=== PATIENT | female | born 1945 | race Caucasian/White ===

== ENCOUNTER 2023-12-02 10:50 | Emergency (ER) | payer MEDICARE, SELFPAY ==
--- NOTE | ~2023-12-02 | CT_ITS ---
EXAMINATION: CT abdomen pelvis w con DATE: 12/02/2023 12:19 INDICATION: Emesis. Constipation. Nausea. TECHNIQUE: Computed tomography (CT) of the abdomen and pelvis was performed with 100 mL Omnipaque 350 intravenous contrast. Automated exposure control and iterative reconstruction technique were employe d. The dose-length product was 737.17 mGy-cm. COMPARISON: None. FINDINGS: The visualized portions of the lung bases demonstrate mild atelectasis. No pleural effusion . The heart size is normal. There are coronary artery calcifications. No pericardial effusion. There is a small sliding hiatal hernia. The liver, gallbladder, spleen, pancreas, and adrenal glands are no rmal. There is cortical thinning of the kidneys. There are cysts in the kidneys measuring up to 2.6 c m on the right. There are 3 mm and 5 mm stones in right renal pelvis. Stool distends the rectum. The appendix is not visualized. There is calcified atherosclerosis of the aorta and many of the other art eries. There are no pathologically enlarged lymph nodes. There is no free intraperitoneal fluid. The bladder is decompressed by a Cabral catheter. There is moderate lumbar spondylosis. Lumbar levoscolios is is noted. IMPRESSION: 1. Stool distends the rectum. 2. Small sliding hiatal hernia. Reviewed, dictated and finalized at location A.
[2023-12-02 10:54] VITALS: BP 153/74; PULSE 90; RESP 34; O2SAT 99
[2023-12-02 11:01] VITALS: BP 153/74; PULSE 86; RESP 18; O2SAT 100
[2023-12-02 11:30] LABS: Basophils Absolute Auto 0.1 K/mm3 (0.0-0.1); Basophils Percent Auto 0.4 % (0.2-1.2); Eosinophils Percent Auto 0.1 % (0-4.4); Hematocrit 41.9 % (37.0-47.0); Hemoglobin 13.7 g/dL (12.0-15.0); Immature Granulocyte Absolute 0.09 K/mm3 (0.00-0.031); Immature Granulocyte Percent A 0.5 % (0-0.5); Lymphocytes Absolute Auto 1.31 K/mm3 (0.9-3.2); Lymphocytes Percent Auto 7.9 % (18.3-44.2); Mean Corpuscular HGB Conc 32.7 g/dl (32-36); Mean Corpuscular Hemoglobin 28.8 pg (26-34); Mean Platelet Volume 10.6 fl (7.4-10.4); Monocytes Absolute Auto 0.7 K/mm3 (0.1-0.6); Monocytes Percent Auto 4.1 % (2.6-8.5); Neutrophils Absolute Auto 14.3 K/mm3 (1.3-6.7); Platelet Count Result 460 k/mm3 (150-375); Red Blood Count 4.76 M/mm3 (4.2-5.4); Red Cell Distribution Width 13.8 % (11.5-14.5); White Blood Count 16.5 K/mm3 (4.5-10.0)
[2023-12-02 11:41] LABS: Alanine Aminotransferase 13 U/L (6-35); Albumin Level 4.3 g/dL (3.5-5.1); Alkaline Phosphatase 101 U/L (38-126); Anion Gap 9 mmol/L (4-12); Aspartate Amino Transferase 20 U/L (14-36); Bilirubin,Total 0.6 mg/dL (0.2-1.3); Blood Urea Nitrogen 25 mg/dL (7-17); Calcium 9.1 mg/dL (8.4-10.2); Carbon Dioxide 26 mmol/L (22-30); Chloride 106 mmol/L (98-107); Estimated CRCL calculation 44 ml/min; Estimated Glomerular Filt Rate 54; Glucose 268 mg/dL (65-110); Potassium 4.2 mmol/L (3.4-5.0); Prothrombin Time 13.2 Seconds (11.1-14.7); Sodium 141 mmol/L (137-145)
[2023-12-02 11:42] LABS: Partial Thromboplastin Time 29.3 Seconds (22.3-36.8)
--- NOTE | 2023-12-02 11:47 | ED.GENADULT ---
HPI - General Adult General Chief complaint: Nausea/Vomiting/Diarrhea Stated complaint: coffee ground emesis Time Seen by Provider: 12/02/23 11:03 History of Present Illness HPI narrative: 78-year-old female presenting to the emergency department for evaluation for nausea vomiting. Patient states this morning she was having some nausea vomiting was not feeling well. Patient states that the nausea and vomiting has improved patient denies any abdominal pain. Patient was suspected to have some coffee-ground emesis but patient has had no further emesis in the emergency department. Related Data Allergies Allergy/AdvReac Type Severity Reaction Status Date / Time Penicillins Allergy Unknown Verified 12/02/23 11:33 Sulfa (Sulfonamide Allergy Unknown Verified 12/02/23 11:33 Antibiotics) trazodone Allergy Unknown Verified 12/02/23 11:33 Review of Systems Review of Systems: All systems reviewed & are unremarkable except as noted in HPI and below Exam Narrative: APPEARANCE: Well appearing, no pain, no distress, well-nourished. HEAD: normocephalic, atraumatic. EYES: PERRLA/EOMI, conjunctivae clear. NOSE: Normal no drainage EARS:TMS clear with good light reflex. THROAT: Pharynx clear, no exudate. NECK: Supple. No adenopathy, no masses. RESPIRATORY: Airway patent, respirations nonlabored. Clear to auscultation bilaterally, no rales, rhonchi, wheezing. CARDIOVASCULAR: Regular rate and rhythm without murmurs rubs or gallops. ABDOMINAL: Soft, nontender, nondistended, normal bowel sounds Rectal: Hemoccult negative stool MUSCULOSKELETAL: Moves all extremities. Strength/ROM intact, No edema, No calf tenderness. NEURO: Alert. Cranial nerves II through XII intact. Grossly intact SKIN: Warm, dry. Normal Color Course Vital Signs Vital signs: Vital Signs Pulse Rate 90 12/02/23 10:54 Respiratory Rate 34 H 12/02/23 10:54 Blood Pressure 153/74 H 12/02/23 10:54 Pulse Oximetry 99 12/02/23 10:54 Oxygen Delivery Room Air 12/02/23 10:54 Pulse Rate 84 12/02/23 14:20 Respiratory Rate 20 12/02/23 14:20 Blood Pressure 140/67 12/02/23 14:20 Pulse Oximetry 98 12/02/23 14:20 Oxygen Delivery Room Air 12/02/23 10:54 Medical Decision Making MDM Narrative Medical decision making narrative: 78-year-old female presented to the emergency department for evaluation for nausea and vomiting. Upon arrival emergency department patient's nausea vomiting was resolved. Patient is afebrile but does have a leukocytosis of 16.5 and a stable hemoglobin. No acute abnormalities on the patient's CMP patient's urine was positive for leuk esterase and greater than 100 white blood cells with +4 bacteria. Patient is being started on antibiotics for urinary tract infection. CT abdomen pelvis showed stool in the rectum and a sliding hernia. Patient was updated the results of her workup and felt improved. Patient was requesting discharge back to her care facility. Patient was discharged on antibiotics and also provided Zofran for nausea control. Differential Diagnosis Differential Diagnosis: Urinary tract infection, nausea, vomiting, colitis, diverticulitis, appendicitis Vital Signs Vital Signs: Vital Signs Pulse Rate 90 12/02/23 10:54 Respiratory Rate 34 H 12/02/23 10:54 Blood Pressure 153/74 H 12/02/23 10:54 Pulse Oximetry 99 12/02/23 10:54 Oxygen Delivery Room Air 12/02/23 10:54 Pulse Rate 84 12/02/23 14:20 Respiratory Rate 20 12/02/23 14:20 Blood Pressure 140/67 12/02/23 14:20 Pulse Oximetry 98 12/02/23 14:20 Oxygen Delivery Room Air 12/02/23 10:54 Lab Data Lab results reviewed: Yes I reviewed the patient's lab results. 12/02/23 11:23 12/02/23 11:23 Labs: Lab Results 12/02/23 12/02/23 Range/Units 11:23 13:00 WBC 16.5 H (4.5-10.0) K/mm3 RBC 4.76 (4.2-5.4) M/mm3 Hgb 13.7 (12.0-15.0) g/dL Hct 41.9 (37.0-47.0) % MCV 88.0 (
[2023-12-02 12:33] VITALS: BP 125/71; PULSE 83; RESP 18; O2SAT 98
[2023-12-02 13:10] VITALS: BP 141/70; PULSE 82; RESP 14; O2SAT 97
[2023-12-02 13:35] LABS: Appearance Urine Cloudy (Clear); Bacteria Urine 4+ /hpf; Bilirubin Urine Negative (Negative); Blood Urine Negative (Negative); Color Urine Yellow (Yellow); Glucose Urine UA Negative (Negative); Ketones Urine Negative (Negative); Leukocyte Esterase Ur 2+ LEU/UL (Negative); Need Manual Microscopic Reviewed; Nitrate Urine Negative (Negative); Protein Urine Trace mg/dL (Negative); RBC Urine 0-2 /hpf (0-2); Specific Grav Ur 1.021 (1.001-1.035); Squamous Epithelial Cell Urine None Seen /hpf (Few); WBC Urine 51-100 /hpf (0-3); pH Urine 5.5 (5.0-9.0)
[2023-12-02 13:36] LABS: Add Urine Microscopic? YES; Amorphous Sediment Urine Moderate
[2023-12-02] MEDS: levoFLOXacin 500 MG TABLET PO (14:16)
[2023-12-02 14:20] VITALS: BP 140/67; PULSE 84; RESP 20; O2SAT 98
== END 2023-12-02 15:34 ==
PROVIDERS: Emergency Provider Emergency Medicine
DX: N39.0 Urinary tract infection, site not specified (principal); R11.2 Nausea with vomiting, unspecified; K44.9 Diaphragmatic hernia without obstruction or gangrene
CPT/HCPCS: 36415; 51702; 74177; 80053; 81001; 85025; 85610; 85730; 86850; 86900; 86901; 87077; 87086; 87088; 87186; 99284; A9270; Q9967

== ENCOUNTER 2023-12-24 17:04 | Inpatient (IN) | payer MEDICARE, SELFPAY ==
[2023-12-24] VITALS (12 sets, daily range): BP systolic 122–177; BP diastolic 72–83; PULSE 103–131; RESP 18–23; TEMP 37.1–37.4; O2SAT 94–99
--- NOTE | ~2023-12-24 | XR_ITS ---
EXAMINATION: XR chest 1V portable DATE: 12/26/2023 08:00 INDICATION: Pulmonary infiltrates TECHNIQUE: frontal view of the chest was obtained. COMPARISON: Chest radiograph dated 12/24/2023 FINDINGS: No significant change in predominantly linear opacities in the bilateral lower lung zones most likely atelectasis/scarring. No new airspace opacities, pulmonary edema, pleural effusion or pneumothorax. The cardiomediastinal silhouette is normal. IMPRESSION: 1. Persistent linear opacities in bilateral lower lungs most likely atelectasis/scarring with differe ntial including less likely pneumonia Reviewed, dictated and finalized at location A. IMPRESSION: 1. Persistent linear opacities in bilateral lower lungs most likely atelectasis /scarring with differential including less likely pneumonia
--- NOTE | ~2023-12-24 | XR_ITS ---
EXAMINATION: XR chest 2V DATE: 12/27/2023 16:01 INDICATION: Abnormal lung exam TECHNIQUE: frontal and lateral views of the chest were obtained. COMPARISON: Chest radiograph dated 12/26/2023 FINDINGS: Opacities in the bilateral lower lung zones. This appears to include potentially small posterior locu lated pleural effusion, more likely on the right. The bilateral mid and upper lung zones are clear wi th no pulmonary edema or pneumothorax. Arch size is normal. Mild thoracic dextroscoliosis. IMPRESSION: 1. Opacities in the bilateral lower lung zones consistent with atelectasis and/or pneumonia. 2. Likely loculated pleural effusion projecting over the posterior lower lungs on the lateral project ion more likely on the right. Reviewed, dictated and finalized at location A. IMPRESSION: 1. Opacities in the bilateral lower lung zones consistent with atelectasis and/ or pneumonia. 2. Likely loculated pleural effusion projecting over the posterior lower lungs on the lateral projection more likely on the right.
--- NOTE | ~2023-12-24 | XR_ITS ---
EXAMINATION: XR chest 1V portable DATE: 12/24/2023 20:42 INDICATION: Leukocytosis TECHNIQUE: frontal view of the chest was obtained. COMPARISON: CT dated 12/02/2023 FINDINGS: Opacities in bilateral lower lungs which appears similar in configuration as on the prior CT most lik madelyn atelectasis/scarring. No pulmonary edema, pleural effusion or pneumothorax. The cardiomediastinal silhouette is normal. Mild lower thoracic dextrocurvature. IMPRESSION: 1. Persistent opacities in bilateral lower lungs most likely atelectasis/scarring although difficult to exclude superimposed pneumonia. Reviewed, dictated and finalized at location A. IMPRESSION: 1. Persistent opacities in bilateral lower lungs most likely atelectasis/scarri ng although difficult to exclude superimposed pneumonia.
[2023-12-24 17:19] LABS: Glucose Point of Care > 500 mg/dl (65-105)
[2023-12-24 17:57] LABS: Alveolar/Arterial O2 Gradient 45.6 mmHg; Base Excess ABG -4.9 mEq/l (+/-2.0); Carboxyhemoglobin 0.8 % THb (0-2.0); Fractional Inspired Oxygen 21 %; HCO3 ABG 16.7 mEq/l (22.0-26.0); Methemoglobin ABG 0.2 %THb (0-1.5); Oxygen Content ABG 19.3 %vol (16.0-22.0); Oxygen Saturation ABG 96.2 % (95.0-100.0); PO2 FiO2 Ratio Arterial Blood 3.62 %; Total Hemoglobin 14.4 g/dL (12.0-18.0)
--- NOTE | 2023-12-24 17:57 | ED.GENADULT ---
HPI - General Adult General Chief complaint: Nausea/Vomiting/Diarrhea Stated complaint: N/V Time Seen by Provider: 12/24/23 17:39 History of Present Illness HPI narrative: 78-year-old female presented to the emergency department for evaluation for nausea vomiting elevated blood sugar. Patient resides at [facility] and does have COPD, dementia and type 2 diabetes at baseline. When EMS picked up the patient she had a blood sugar of greater than 500. Patient does report she feels thirsty but denies any other complaints. Related Data Allergies Allergy/AdvReac Type Severity Reaction Status Date / Time Penicillins Allergy Unknown Verified 12/02/23 11:33 Sulfa (Sulfonamide Allergy Unknown Verified 12/02/23 11:33 Antibiotics) trazodone Allergy Unknown Verified 12/02/23 11:33 Review of Systems Review of Systems: All systems reviewed & are unremarkable except as noted in HPI and below Exam Narrative: APPEARANCE: No distress HEAD: normocephalic, atraumatic. EYES: PERRLA/EOMI, conjunctivae clear. NOSE: Normal no drainage EARS:TMS clear with good light reflex. THROAT: Pharynx clear, no exudate. NECK: Supple. No adenopathy, no masses. RESPIRATORY: Airway patent, respirations nonlabored. Clear to auscultation bilaterally, no rales, rhonchi, wheezing. CARDIOVASCULAR: Regular rate and rhythm without murmurs rubs or gallops. ABDOMINAL: Soft, nontender, nondistended, normal bowel sounds MUSCULOSKELETAL: Moves all extremities. Strength/ROM intact, No edema, No calf tenderness. NEURO: Alert. Cranial nerves II through XII intact. Good gait. Good coordination SKIN: Warm, dry. Normal Color Course Course Emergency Course: Patient was admitted to the ICU for in DKA. Patient's potassium was replaced Vital Signs Vital signs: Vital Signs Temperature 98.8 F 12/24/23 17:06 Pulse Rate 120 H 12/24/23 17:06 Respiratory Rate 12/24/23 17:06 Blood Pressure 151/76 H 12/24/23 17:06 Pulse Oximetry 97 12/24/23 17:06 Oxygen Delivery Room Air 12/24/23 17:06 Temperature 98.8 F 12/24/23 17:06 Pulse Rate 123 H 12/24/23 20:05 Respiratory Rate 12/24/23 20:05 Blood Pressure 156/72 H 12/24/23 20:05 Pulse Oximetry 97 12/24/23 20:05 Oxygen Delivery Room Air 12/24/23 17:06 Medical Decision Making MDM Narrative Medical decision making narrative: 78-year-old female presents to the emergency department for evaluation for hyper glycemia. Patient was in DKA. Patient does have an elevated leukocytosis of 25.4 and hemoglobin of 14.4. Patient click have with 528. Patient does have a mild KEELEY with a creatinine of 1.1 with his normally 1.0. Patient does have an elevated beta hydroxybutyrate at 1.2. Patient's potassium was 3.3 and this was replaced both IV and p.o.. Skill Training Program Coordinator was consulted and patient will be admitted to the ICU with an insulin drip. Hospitalist was consulted. The results of workup plan for admission. All questions concerns were addressed. Differential Diagnosis Differential Diagnosis: Hyperglycemia, DKA, KEELEY, urinary tract infection, COVID, RSV, influenza Vital Signs Vital Signs: Vital Signs Temperature 98.8 F 12/24/23 17:06 Pulse Rate 120 H 12/24/23 17:06 Respiratory Rate 20 12/24/23 17:06 Blood Pressure 151/76 H 12/24/23 17:06 Pulse Oximetry 97 12/24/23 17:06 Oxygen Delivery Room Air 12/24/23 17:06 Temperature 98.8 F 12/24/23 17:06 Pulse Rate 123 H 12/24/23 20:05 Respiratory Rate 20 12/24/23 20:05 Blood Pressure 156/72 H 12/24/23 20:05 Pulse Oximetry 97 12/24/23 20:05 Oxygen Delivery Room Air 12/24/23 17:06 Lab Data 12/24/23 18:05 12/24/23 18:04 Labs: Lab Results 12/24/23 12/24/23 12/24/23 Range/Units 17:16 17:53 18:04 WBC (4.5-10.0) K/mm3 RBC (4.2-5.4) M/mm3 Hgb (12.0-15.0) g/dL Hct (37.0-47.0) % MCV (80-100) fl MCH (26-34) pg MCHC (32-36) g/dl RDW (1
[2023-12-24 18:03] LABS: Device ROOM AIR; Modified Allen's Test Pass; PCO2 ABG 23.5 mmHg (35.0-45.0); Site Drawn RIGHT RADIAL
[2023-12-24] MEDS: SODIUM CHLORIDE 0.9% IV 1,000 ML 999 ML IV CONT (18:13)
[2023-12-24 18:19] LABS: Hematocrit 43.4 % (37.0-47.0); Hemoglobin 14.4 g/dL (12.0-15.0); Mean Corpuscular HGB Conc 33.2 g/dl (32-36); Mean Corpuscular Hemoglobin 29.3 pg (26-34); Mean Corpuscular Volume 88.2 fl (80-100); Mean Platelet Volume 11.2 fl (7.4-10.4); Platelet Count Result 494 k/mm3 (150-375); Red Blood Count 4.92 M/mm3 (4.2-5.4); Red Cell Distribution Width 13.9 % (11.5-14.5); White Blood Count 25.4 K/mm3 (4.5-10.0)
[2023-12-24] MEDS: METOCLOPRAMIDE HCL INJ 10 MG/2 ML VIAL IV PUSH (18:24)
[2023-12-24 18:33] LABS: Beta-Hydroxybutyrate/Acetoacetate 1.22 mmol/L (0.02-0.27)
[2023-12-24 18:34] LABS: Magnesium 1.3 mg/dL (1.6-2.3); Phosphorus 3.4 mg/dL (2.5-4.5)
[2023-12-24 18:36] LABS: Appearance Urine Clear (Clear); Bilirubin Urine Negative (Negative); Blood Urine Negative (Negative); Color Urine Yellow (Yellow); Glucose Urine UA 3+ mg/dL (Negative); Ketones Urine 3+ mg/dL (Negative); Leukocyte Esterase Ur Negative LEU/UL (Negative); Nitrate Urine Negative (Negative); Protein Urine Negative (Negative); Specific Grav Ur 1.024 (1.001-1.035); Urobilinogen Urine 0.2 mg/dL (<2.0)
[2023-12-24 18:37] LABS: Alanine Aminotransferase 24 U/L (6-35); Albumin Level 4.7 g/dL (3.5-5.1); Alkaline Phosphatase 121 U/L (38-126); Anion Gap 23 mmol/L (4-12); Aspartate Amino Transferase 27 U/L (14-36); Bilirubin,Total 1.2 mg/dL (0.2-1.3); Blood Urea Nitrogen 20 mg/dL (7-17); Calcium 9.6 mg/dL (8.4-10.2); Carbon Dioxide 18 mmol/L (22-30); Chloride 96 mmol/L (98-107); Estimated CRCL calculation 42 ml/min; Estimated Glomerular Filt Rate 48; Glucose 528 mg/dL (65-110); Lipase 42 U/L (23-300); Potassium 3.3 mmol/L (3.4-5.0); Sodium 137 mmol/L (137-145)
[2023-12-24 18:38] LABS: Add Urine Microscopic? NO
[2023-12-24 18:44] LABS: Band Neutrophils Percent 1 % (0-6); Lymphocytes Absolute Manual 1.01 K/mm3 (1.1-4.5); Monocytes Absolute Manual 0.25 K/mm3 (0.1-0.90); Monocytes Percent Manual 1 % (3-9); Neutrophils Absolute Manual 24.13 K/mm3 (1.7-7.2); Neutrophils Percent Manual 94 % (46-73); Total Cells Counted 100
[2023-12-24 18:45] LABS: Platelet Estimate Increased (Adequate); Schistocytes None Seen
[2023-12-24 18:55] LABS: Influenza A QL RT-PCR Negative (Negative); Influenza B QL RT-PCR Negative (Negative); RSV RNA, RT-PCR Negative (Negative); SARS-CoV-2 RNA PCR Negative (Negative)
[2023-12-24] MEDS: POTASSIUM CHLORIDE INJ 40 MEQ in SODIUM CHLORIDE 0.9% IV 500 ML 130 MEQ IVPB (19:41)
[2023-12-24] MEDS: INSULIN HUMAN REGULAR (*BKC) 100 UNITS/ML 12 UNITS IV PUSH (19:41)
[2023-12-24] MEDS: POTASSIUM CHLORIDE 20 MEQ ER TABLET 40 MEQ PO (19:41)
[2023-12-24] MEDS: INSULIN HUMAN REGULAR (*BKC) 100 UNITS in SODIUM CHLORIDE 0.9% IV 99 ML 8.05 UNITS IV CONT (19:42)
[2023-12-24 20:23] LABS: Hemoglobin A1C 8.3 % (<5.7)
--- NOTE | 2023-12-24 20:45 | PC.NURSE ---
Pt had episode of emesis, still c/o nausea.
[2023-12-24 20:58] LABS: Glucose Point of Care 424 mg/dl (65-105)
[2023-12-24] MEDS: ONDANSETRON INJ 4 MG/2 ML VIAL IV PUSH (21:04)
[2023-12-24 21:15] LABS: Anion Gap 23 mmol/L (4-12); Blood Urea Nitrogen 20 mg/dL (7-17); Carbon Dioxide 14 mmol/L (22-30); Chloride 102 mmol/L (98-107); Estimated CRCL calculation 42 ml/min; Estimated Glomerular Filt Rate 48; Glucose 469 mg/dL (65-110); Magnesium 1.3 mg/dL (1.6-2.3); Phosphorus 2.7 mg/dL (2.5-4.5); Potassium 3.2 mmol/L (3.4-5.0); Sodium 139 mmol/L (137-145)
--- NOTE | 2023-12-24 21:20 | PM.IMHP ---
H&P: HPI History of Present Illness Date/Time: 12/24/23 21:20 Chief Complaint: Nausea, Vomiting Narrative: 78-year-old female presents here with nausea and vomiting with PMH of diabetes, COPD, GERD, dementia, and HTN. The patient presents here from [facility] via EMS for further evaluation of nausea and vomiting. Symptoms started around overnight last night and resolved. Returned today around noon. PAtient is unsure if she has had any adjustments to her diabetes medications. She endorses accompanying midsternal chest pain. Chest pain developed shortly after the nausea and vomiting. Pain has been constant, no alleviating/aggravating factors, nonradiating, and she describes it as if someone hit her in the chest. Denies abdominal pain, polydipsia, polyruia, or shortness of breath. Initial glucose for EMS was 515 and upon arrival patient was >500. Initial VS at presentation: 98.8? F, HR 120, RR 20, 151/76, and 97% on RA. ED workup showed: WBC 25.4, ABG showed pH of 7.470, potassium 3.3, creatinine 1.1 and GFR 48, gap 23, glucose 528, A1c 8.3, magnesium 1.3, beta hydroxy 1.22, and UA showed 3+ glucose and 3+ ketones otherwise unremarkable. CXR showed persistent opacities in the bilateral lobes most likely atelectasis / scarring although difficult to exclude superimposed pneumonia. 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 Social History Social History Alcohol intake: never Substance use: never Substance use type: does not use Do You Feel Safe in your Home?: Yes Lack of Transportation: No Lack of Food: Never True Current Housing: I Have Housing Concerned About Future Housing: No Difficulty Paying Gas/Electric Bills: No Difficulty Paying for Meds: No Currently Unemployed: No Education: High School Diploma/GED Difficulty w/ Childcare or Family Care: No Spiritual care concerns: No Meds Home Medications and Allergies Home Medications Medication Instructions Recorded Confirmed Type ondansetron 4 mg disintegrating 4 mg PO Q8H PRN nausea and 12/02/23 12/24/23 Rx tablet vomiting #14 tabs acetaminophen 325 mg chewable 650 mg PO Q6H PRN Pain 12/24/23 12/24/23 History tablet amlodipine 5 mg tablet 5 mg PO DAILY 12/24/23 12/24/23 History aspirin 81 mg chewable tablet 81 mg PO DAILY 12/24/23 12/24/23 History atorvastatin 10 mg tablet (Lipitor) 10 mg PO DAILY 12/24/23 12/24/23 History bisacodyl 10 mg rectal suppository 10 mg RECTAL DAILY PRN Constipation 12/24/23 12/24/23 History cranberry fruit 450 mg tablet 450 mg PO DAILY 12/24/23 12/24/23 History (cranberry) escitalopram oxalate 5 mg tablet 5 mg PO DAILY 12/24/23 12/24/23 History glucagon 1 mg solution for 1 mg IM PRN PRN Hypoglycemia 12/24/23 12/24/23 History injection (GlucaGen HypoKit) insulin glargine 100 unit/mL 27 unit subcut BID 12/24/23 12/24/23 History subcutaneous solution (Lantus U-100 Insulin) magnesium hydroxide 400 mg/5 mL 30 ml PO DAILY PRN Constipation 12/24/23 12/24/23 History oral suspension (Milk of Magnesia) memantine 28 mg capsule 28 mg PO DAILY 12/24/23 12/24/23 History sprinkle,extended release 24hr metoprolol tartrate 25 mg tablet 25 mg PO BID 12/24/23 12/24/23 History mirtazapine 15 mg tablet 15 mg PO DAILY 12/24/23 12/24/23 History m
[2023-12-24 22:25] LABS: Glucose Point of Care 395 mg/dl (65-105)
[2023-12-24 22:54] LABS: Anion Gap 21 mmol/L (4-12); Blood Urea Nitrogen 20 mg/dL (7-17); Calcium 9.2 mg/dL (8.4-10.2); Carbon Dioxide 16 mmol/L (22-30); Chloride 105 mmol/L (98-107); Estimated CRCL calculation 37 ml/min; Estimated Glomerular Filt Rate 48; Glucose 366 mg/dL (65-110); Potassium 3.2 mmol/L (3.4-5.0); Sodium 142 mmol/L (137-145)
[2023-12-24] MEDS: INSULIN HUMAN REGULAR (*BKC) 100 UNITS in SODIUM CHLORIDE 0.9% IV 99 ML 10.5 UNITS IV CONT (23:15)
[2023-12-24 23:27] LABS: Glucose Point of Care 326 mg/dl (65-105)
[2023-12-25] VITALS (16 sets, daily range): BP systolic 100–177; BP diastolic 53–130; PULSE 109–125; RESP 19–28; TEMP 37.3–37.8; O2SAT 94–98
--- NOTE | 2023-12-25 00:31 | ADMGEN ---
This patient, Donna Cobb, was admitted to Intensive Care Unit-7 at 2121. Patient/family oriented to hospital policies and general routines including ID bracelet, bed and alarms, visiting hours, pain management, procedures, bathroom and other care routines, personal items, smoking policy, room service/diet, and visiting hours. Information on how to activate the Rapid Response Team has been discussed. Patient/Family are encouraged to report perceived risks to care and to ask questions if they do not understand what they are told or what they should do.
[2023-12-25] MEDS: MAGNESIUM SULF 1 GM/D5W 100 ML 1 GM/100 ML BAG IVPB (00:32)
[2023-12-25 00:44] LABS: Glucose Point of Care 278 mg/dl (65-105)
[2023-12-25] MEDS: POTASSIUM CHLORIDE 20 MEQ PACKET (FOR LIQUID) 40 MEQ PO (00:51)
[2023-12-25] MEDS: ONDANSETRON INJ 4 MG/2 ML VIAL IV PUSH ×4 (00:51→20:30)
[2023-12-25] MEDS: SODIUM CHLORIDE 0.9% IV 1,000 ML 999 ML IV CONT (01:00)
[2023-12-25 01:06] LABS: Glucose Point of Care 251 mg/dl (65-105)
[2023-12-25] MEDS: POTASSIUM CHLORIDE INJ 40 MEQ in SODIUM CHLORIDE 0.9% IV 500 ML 130 MEQ IVPB (01:37)
[2023-12-25 02:11] LABS: Glucose Point of Care 210 mg/dl (65-105)
[2023-12-25 03:05] LABS: Glucose Point of Care 153 mg/dl (65-105)
[2023-12-25 03:07] LABS: Basophils Percent Auto 0.1 % (0.2-1.2); Hematocrit 32.9 % (37.0-47.0); Immature Granulocyte Absolute 0.14 K/mm3 (0.00-0.031); Immature Granulocyte Percent A 0.6 % (0-0.5); Lymphocytes Absolute Auto 0.71 K/mm3 (0.9-3.2); Lymphocytes Percent Auto 3.3 % (18.3-44.2); Mean Corpuscular HGB Conc 33.4 g/dl (32-36); Mean Corpuscular Hemoglobin 29.6 pg (26-34); Mean Corpuscular Volume 88.4 fl (80-100); Monocytes Absolute Auto 1.3 K/mm3 (0.1-0.6); Monocytes Percent Auto 5.9 % (2.6-8.5); Neutrophils Absolute Auto 19.6 K/mm3 (1.3-6.7); Neutrophils Percent Auto 90.1 % (45.5-73.1); Platelet Count Result 376 k/mm3 (150-375); Red Blood Count 3.72 M/mm3 (4.2-5.4); Red Cell Distribution Width 14.2 % (11.5-14.5); White Blood Count 21.8 K/mm3 (4.5-10.0)
[2023-12-25] MEDS: DEXTROSE 5%/0.45% SOD CHL 1,000 ML 150 ML IV CONT (03:09)
[2023-12-25 03:19] LABS: Anion Gap 12 mmol/L (4-12); Blood Urea Nitrogen 24 mg/dL (7-17); Calcium 8.8 mg/dL (8.4-10.2); Carbon Dioxide 20 mmol/L (22-30); Chloride 111 mmol/L (98-107); Estimated CRCL calculation 37 ml/min; Estimated Glomerular Filt Rate 48; Glucose 156 mg/dL (65-110); Magnesium 1.5 mg/dL (1.6-2.3); Potassium 3.7 mmol/L (3.4-5.0); Sodium 143 mmol/L (137-145)
[2023-12-25 03:25] LABS: Phosphorus < 1.0 mg/dL (2.5-4.5)
[2023-12-25 03:29] LABS: Hemoglobin A1C 8.5 % (<5.7)
[2023-12-25 03:32] LABS: Giant Platelets Present; Platelet Clumps Present; Platelet Estimate Slightly Increased (Adequate)
[2023-12-25 03:33] LABS: Hypochromasia 1+
[2023-12-25 03:35] LABS: Anisocytosis 1+; Burr Cells 1+; Microcytosis 1+ (NORMAL); Ovalocytes 1+; Poikilocytosis 1+; Schistocytes None Seen
[2023-12-25 03:59] LABS: Glucose Point of Care 117 mg/dl (65-105)
[2023-12-25] MEDS: ACETAMINOPHEN 325 MG TABLET 650 MG PO (05:03)
--- NOTE | 2023-12-25 05:09 | ECG_ITS ---
Test Date: 2023-12-25 05:14:33 Measurements Intervals [place] Rate: 111 P: -25 DE: 191 QRS: 91 QRSD: 87 T: -23 QT: 353 QTc: 480 Interpretive Statements SINUS TACHYCARDIA RIGHT AXIS DEVIATION LOW QRS VOLTAGE IN PRECORDIAL LEADS CONSIDER ANTERIOR INFARCT, AGE INDETERMINATE ST-T WAVE ABNORMALITY IN INFERIOR LEADS- CONSIDER ISCHEMIA BASELINE ARTIFACT- I, II, III, AVR, AVL, AVF ABNORMAL ECG No previous ECG available for comparison Electronically Signed On 12-25-2023 12:02:32 CDT by Jeremias Patel D.O.
[2023-12-25 05:10] LABS: Glucose Point of Care 168 mg/dl (65-105)
[2023-12-25 05:26] LABS: Appearance Urine Clear (Clear); Bacteria Urine None Seen /hpf; Bilirubin Urine Negative (Negative); Blood Urine 1+ (Negative); Budding Yeast Urine Present /hpf; Color Urine Yellow (Yellow); Glucose Urine UA 3+ mg/dL (Negative); Granular Casts Urine Present /lpf; Ketones Urine Trace mg/dL (Negative); Leukocyte Esterase Ur 1+ LEU/UL (Negative); Mucus Urine Present /lpf; Need Manual Microscopic Reviewed; Nitrate Urine Negative (Negative); Protein Urine 1+ mg/dL (Negative); RBC Urine 0-2 /hpf (0-2); Specific Grav Ur 1.023 (1.001-1.035); Squamous Epithelial Cell Urine None Seen /hpf (Few); Urobilinogen Urine 0.2 mg/dL (<2.0); WBC Urine 21-50 /hpf (0-3)
[2023-12-25 05:28] LABS: Add Urine Microscopic? YES
--- NOTE | 2023-12-25 05:44 | PC.NURSE ---
Patient has c/o nausea/vomiting overnight, but was allowed ice chips. RN witnessed patient sticking her finger down her throat numerous time throughout the night to make herself vomit, RN had instructed the patient not to do this due to her low K+ levels. Patient states there is something stuck down there . RN advised patient that the only thing coming up is bile and if something was in there it would be out by now. Patient asked for milk throughout the night, RN educated patient that milk has sugar in it and that she is on an insulin drip to lower her blood sugar so she would not be allowed at this time to have that. By morning the patient was c/o chest pain. Patient was given medication and advised that throwing up as much as she did overnight would cause chest pain and again advised to stop making herself vomit. An EKG was performed to r/o any cardiac issue. Patient slept for approx 30-45 min this morning, has been awake the entire night.
[2023-12-25 06:04] LABS: MRSA (PCR) NOT DETECTED (NOT DETECTE)
[2023-12-25 06:35] LABS: Glucose Point of Care 243 mg/dl (65-105)
[2023-12-25] MEDS: KCL 20 MEQ/D5/0.45% SOD CHL 1,000 ML 150 ML IV CONT (06:40)
[2023-12-25 07:19] LABS: Glucose Point of Care 283 mg/dl (65-105)
[2023-12-25 08:12] LABS: Glucose Point of Care 290 mg/dl (65-105)
[2023-12-25 08:50] LABS: Anion Gap 9 mmol/L (4-12); Blood Urea Nitrogen 24 mg/dL (7-17); Calcium 8.7 mg/dL (8.4-10.2); Carbon Dioxide 22 mmol/L (22-30); Chloride 107 mmol/L (98-107); Estimated CRCL calculation 45 ml/min; Estimated Glomerular Filt Rate > 60; Glucose 289 mg/dL (65-110); Potassium 4.2 mmol/L (3.4-5.0); Sodium 138 mmol/L (137-145)
[2023-12-25] MEDS: PROCHLORPERAZINE EDISYLATE 10 MG/2 ML VIAL IV PUSH (08:53)
[2023-12-25] MEDS: POTASSIUM PHOS,M-BASIC-D-BASIC 20 MMOL in SODIUM CHLORIDE 0.9% IV 250 ML 64.17 MMOL IVPB (08:53)
[2023-12-25] MEDS: MAGNESIUM SULF 2 GM/WATER 50ML 2 GM/50 ML BAG IVPB (08:58)
[2023-12-25] MEDS: DOXYCYCLINE 100 MG/NS 100 ML 100 MG/100 ML BAG IVPB ×2 (09:01→20:29)
[2023-12-25 09:06] LABS: Troponin I 0.343 ng/mL (0.000-0.034)
[2023-12-25 09:33] LABS: Glucose Point of Care 283 mg/dl (65-105)
[2023-12-25] MEDS: INSULIN GLARGINE (*BKC) 100 UNITS/ML 27 UNITS SUB-Q ×2 (09:59→20:37)
--- NOTE | 2023-12-25 10:08 | PM.IMPN ---
Progress Note: A&P Assessment and Plan (1) Sepsis: Code(s): A41.9 - Sepsis, unspecified organism Status: Acute Assessment and Plan: Sepsis vs SIRS. Patient presents with tachycardia, leukocytosis. No lactic acid. Could be related to DKA. UA is concerning for UTI. Old cultures reviewed. Cx collected. Abx started. Cx pending. Follow up on Cx results. (2) DKA (diabetic ketoacidosis): Qualifiers: Diabetes mellitus complication detail: without coma Diabetes mellitus type: type 2 Qualified Code(s): E11.10 - Type 2 diabetes mellitus with ketoacidosis without coma Code(s): E11.10 - Type 2 diabetes mellitus with ketoacidosis without coma Status: Acute Assessment and Plan: Patient presents with n/v and found to have glucose >500, bicarb 14 and AG 23. beta hydroxy 1.22 DKA protocol initiated and admitted to the ICU. She was fluid resuscitated and started on insulin drip. Gap closed. Bicarb 22. Remains on insulin drip but being weaned off now. NPO except ice chips but diet to be advanced Offal Worker consulted and appreciate their input pin chaser and insurance office manager consulted (3) Chest pain: Code(s): R07.9 - Chest pain, unspecified Status: Acute Assessment and Plan: Patient with CP on admission. It came on with the nausea/vomiting. Still persistent. EKG showing sinus tachycardia with poor R wave progression, low voltage, possible old anterior AK Troponin elevated 0.343 Trend Trop. Resume ASA. Resume metoprolol for elevated Trop and CP but also for her tachycardia. (4) Leukocytosis: Code(s): D72.829 - Elevated white blood cell count, unspecified Status: Acute Assessment and Plan: WBC 25K on admission. As above (5) Electrolyte abnormality: Code(s): E87.8 - Other disorders of electrolyte and fluid balance, not elsewhere classified Status: Acute Assessment and Plan: K 3.3 felt related to the nausea and vomiting. Potassium normal after replacement. Mag 1.3 and this was replaced. Mag still low so replaced again. Phos <1.0. Phos replaced. Follow and replace electrolytes as needed. (6) HTN (hypertension): Qualifiers: Hypertension type: primary hypertension Qualified Code(s): I10 - Essential (primary) hypertension Code(s): I10 - Essential (primary) hypertension Status: Acute Assessment and Plan: Patient's blood pressure was reviewed on 12/24 Blood pressure remains well controlled. Will resume home meds and adjust (7) Nausea & vomiting: Code(s): R11.2 - Nausea with vomiting, unspecified Status: Acute Assessment and Plan: Related to DKA. Patient noted to be making herself sick Hungry so will see how she does with her diet. (8) Alzheimer dementia: Code(s): G30.9 - Alzheimer's disease, unspecified; F02.80 - Dementia in other diseases classified elsewhere, unspecified severity, without behavioral disturbance, psychotic disturbance, mood disturbance, and anxiety Status: Acute Assessment and Plan: Stable. Resume Namenda. Resume Remeron. Plan Diet: diabetic diet GI Prophylaxis: pantoprazole IVP DVT Prophylaxis: SCDs Lines: peripheral Code Status: full code Subjective Date/time seen: 12/25/23 10:08 Interval history: 78yo female with dementia, CAD, COPDm HTN and DM here for nausea, vomiting. Patient is alert and mostly oriented. She complains of chest pain that radiates to through to the back. She is asking for food. Exam Narrative: AF 99.5 177/78 121 23 96% ra Gen - NARD sitting up in bed Chest - clear anteriorly and in flanks. nml RR. palpable chest wall pain CV - tachycardic, regular, tele showing sinus tachycardia. Abd - Soft, NT/ND, Positive BS Ext - No pedal edema. bilateral transmetatarsal amputation. Neuro - Alert and oriented x2 (hospitla but not name of hospital and year but not name of ana [facility]
[2023-12-25] MEDS: levoFLOXacin 750 MG/D5W 150 ML 750 MG/150 ML BAG 100 MG IVPB (10:11)
[2023-12-25 10:38] LABS: Glucose Point of Care 268 mg/dl (65-105)
[2023-12-25] MEDS: NITROGLYCERIN SL 0.4 MG TABLET SUBLINGUAL (10:56)
[2023-12-25 11:08] LABS: Glucose Point of Care 287 mg/dl (65-105)
[2023-12-25 11:47] LABS: Troponin I 0.352 ng/mL (0.000-0.034)
[2023-12-25 12:02] LABS: Anion Gap 12 mmol/L (4-12); Blood Urea Nitrogen 24 mg/dL (7-17); Calcium 8.5 mg/dL (8.4-10.2); Carbon Dioxide 20 mmol/L (22-30); Chloride 105 mmol/L (98-107); Estimated CRCL calculation 45 ml/min; Estimated Glomerular Filt Rate > 60; Glucose 290 mg/dL (65-110); Potassium 4.1 mmol/L (3.4-5.0); Sodium 137 mmol/L (137-145)
[2023-12-25 12:05] LABS: Glucose Point of Care 271 mg/dl (65-105)
[2023-12-25] MEDS: INSULIN ASPART (*BKC) 100 UNITS/ML SUB-Q ×3 (12:07→20:37)
[2023-12-25 12:10] LABS: Phosphorus 1.9 mg/dL (2.5-4.5)
--- NOTE | 2023-12-25 13:28 | WPDCNINT ---
Assessment and Plan Assessment and plan (1) DKA (diabetic ketoacidosis): Qualifiers: Diabetes mellitus complication detail: without coma Diabetes mellitus type: type 2 Qualified Code(s): E11.10 - Type 2 diabetes mellitus with ketoacidosis without coma Code(s): E11.10 - Type 2 diabetes mellitus with ketoacidosis without coma Status: Acute Assessment and Plan: Patient presented with nausea, vomiting, chest pain, hyperglycemia -blood sugars were 528 in the ER, elevated beta hydroxybutyrate, anion gap metabolic acidosis. Patient was diagnosed with DKA and started on insulin infusion, IV fluids and was transferred to the ICU for further management -this morning anion gap was closed, patient continued to have nausea and vomiting -transition patient to long-acting insulin and sliding scale insulin -start patient on diabetic diet -continue antiemetic -hemoglobin A1c 8.5 this admission -perinatal educator and dietitian has been consulted (2) Sepsis: Code(s): A41.9 - Sepsis, unspecified organism Status: Acute Assessment and Plan: Patient presented with tachycardia, leukocytosis, likely related to some stress response -UA concerning for UTI, chest x-ray with possible pneumonia -patient had IV started on doxycycline, levofloxacin (12/24). Patient has penicillin allergy) -12/24: blood cultures have been obtained and pending -12/24: urine cultures obtained and pending Patient has a history of UTI with Pseudomonas and Klebsiella (both were susceptible to levofloxacin) (3) Nausea & vomiting: Code(s): R11.2 - Nausea with vomiting, unspecified Status: Acute Assessment and Plan: Continue antiemetics -patient also has been making herself vomit by putting a finger at the back of her throat and trying to gag. (4) Chest pain: Code(s): R07.9 - Chest pain, unspecified Status: Acute Assessment and Plan: Patient also complained of chest pain, EKG shows sinus tachycardia with poor R-wave progression possible old IL, troponin is 0.343--> 0.352. Patient received nitroglycerin with some improvement -will obtain echocardiogram to rule out wall motion abnormality -continue aspirin and beta-maricruz (5) HTN (hypertension): Qualifiers: Hypertension type: primary hypertension Qualified Code(s): I10 - Essential (primary) hypertension Code(s): I10 - Essential (primary) hypertension Status: Acute Assessment and Plan: Patient also has hypertension, on amlodipine and metoprolol (6) Electrolyte abnormality: Code(s): E87.8 - Other disorders of electrolyte and fluid balance, not elsewhere classified Status: Acute Assessment and Plan: Potassium, magnesium and phosphorus were replaced (7) Alzheimer dementia: Code(s): G30.9 - Alzheimer's disease, unspecified; F02.80 - Dementia in other diseases classified elsewhere, unspecified severity, without behavioral disturbance, psychotic disturbance, mood disturbance, and anxiety Status: Acute Assessment and Plan: Resume Namenda and Remeron Plan DVT prophylaxis: Lovenox and SCDs Stress ulcer prophylaxis: Protonix IV q.12 hours Nutrition: Heart healthy diet Code Status: Full code Critical Care Time Spent: 49 minutes Due to a high probability of clinically significant, life threatening deterioration, the patient required my highest level of preparedness to intervene emergently and I personally spent this critical care time directly and personally managing the patient. This critical care time included obtaining a history; examining the patient; pulse oximetry; ordering and review of studies; arranging urgent treatment with development of a management plan; evaluation of patient's response to treatment; frequent reassessment; and discussions with other providers. It was exclusive of separately billable procedures and treating other patients and teaching time. Please see Asses
[2023-12-25] MEDS: ENOXAPARIN 40 MG/0.4 ML SYRINGE SUB-Q (14:51)
[2023-12-25 15:01] LABS: Anion Gap 9 mmol/L (4-12); Blood Urea Nitrogen 21 mg/dL (7-17); Calcium 8.5 mg/dL (8.4-10.2); Carbon Dioxide 22 mmol/L (22-30); Chloride 104 mmol/L (98-107); Estimated CRCL calculation 45 ml/min; Estimated Glomerular Filt Rate > 60; Glucose 247 mg/dL (65-110); Potassium 4.5 mmol/L (3.4-5.0); Sodium 135 mmol/L (137-145)
[2023-12-25 15:21] LABS: Troponin I 0.373 ng/mL (0.000-0.034)
[2023-12-25 16:33] LABS: Glucose Point of Care 249 mg/dl (65-105)
[2023-12-25] MEDS: METOCLOPRAMIDE HCL INJ 10 MG/2 ML VIAL IV PUSH (17:09)
[2023-12-25] MEDS: PANTOPRAZOLE SODIUM IV 40 MG VIAL IV PUSH (20:30)
[2023-12-25 20:44] LABS: Glucose Point of Care 222 mg/dl (65-105)
[2023-12-25] MEDS: METOPROLOL TARTRATE 25 MG TABLET PO (22:10)
[2023-12-26] VITALS (19 sets, daily range): BP systolic 112–169; BP diastolic 59–79; PULSE 75–119; RESP 12–22; TEMP 36.6–37.8; O2SAT 95–100; BMI 26.9
--- NOTE | 2023-12-26 | ECHO_ITS ---
Patient Info Name: Donna Cobb Age: 78 years : 1945 Gender: Female Ht: 67 in Wt: 176 lbs BSA: 1.96 m2 HR: 108 bpm BP: 154 / 76 mmHg Heart Rhythm: Sinus Rhythm Technical Quality: Fair Exam Date: 12/26/2023 9:10 AM Exam Location: Echo Lab Patient Status: Inpatient Admit Date: 12/25/2023 Staff Ordering Physician: Elias Lopes MD Terrazzo Polisher: Maria R Cervantes RDCS Attending Provider: Sony Whitehead MD Referring Physician: Moses DUMONT; Exam Type: CA echo dop color flow w con Study Info Indications R07.9 - Chest pain, unspecified Complete two-dimensional, color flow and Doppler transthoracic echocardiogram is performed with contrast to opacify the left ventricle and to improve the deliniation of the left ventricle endocardial borders. Contrast/Agitated Saline Contrast/Ag. Saline: Definity Amount: 3.00 ml Administered By: Maria R Cervantes RDCS Existing IV Access: Yes IV Access Condition: patent with no signs of infiltration Summary 1. Hyperdynamic left ventricular systolic function without wall motion abnormality. 2. Mildly sclerotic aortic valve with mild aortic regurgitation. Left Ventricle Left ventricular chamber dimension is normal. Left ventricular systolic function is hyperdynamic, estimated at >70%. The left ventricular diastolic function is grade I diastolic dysfunction. Right Ventricle Right ventricular chamber dimension is normal. Left Atria Left atrial chamber dimension is normal. Right Atria Right atrial chamber dimension is normal. Aortic Valve The aortic valve is trileaflet. There is mild aortic valve sclerosis. There is mild aortic valve regurgitation. Pulmonic Valve The pulmonic valve is not well visualized. Mitral Valve The mitral valve has normal leaflets. The mitral valve annulus is mildly calcified. Tricuspid Valve The tricuspid valve leaflets are normal. Pericardium/Pleural The pericardium appears normal. Aorta The aortic root size at the sinus of Valsalva is normal. Left Ventricular Outflow Tract Name Value Normal LVOT 2D LVOT Diameter 2.03 cm LVOT Doppler LVOT Peak Gradient 5 mmHg LVOT Mean Gradient 3 mmHg LVOT VTI 24.81 cm LVOT VTI/AV VTI Ratio 0.87 LVOT Stroke Volume 80.56 ml LVOT CO 6.27 l/min LVOT CI 3.20 L/min/m2 Pulmonic Valve Name Value Normal RVOT Doppler RVOT Peak Gradient 1 mmHg PV Doppler PV Peak Gradient 2 mmHg Tricuspid Valve Name Value Normal
[2023-12-26] MEDS: METOCLOPRAMIDE HCL INJ 10 MG/2 ML VIAL IV PUSH ×4 (00:10→17:11)
[2023-12-26] MEDS: ONDANSETRON INJ 4 MG/2 ML VIAL IV PUSH (00:14)
[2023-12-26 05:00] LABS: Basophils Percent Auto 0.1 % (0.2-1.2); Hematocrit 37.4 % (37.0-47.0); Hemoglobin 12.4 g/dL (12.0-15.0); Immature Granulocyte Absolute 0.25 K/mm3 (0.00-0.031); Immature Granulocyte Percent A 0.9 % (0-0.5); Lymphocytes Absolute Auto 1.71 K/mm3 (0.9-3.2); Lymphocytes Percent Auto 6.2 % (18.3-44.2); Mean Corpuscular HGB Conc 33.2 g/dl (32-36); Mean Corpuscular Hemoglobin 29.3 pg (26-34); Mean Corpuscular Volume 88.4 fl (80-100); Mean Platelet Volume 10.8 fl (7.4-10.4); Monocytes Absolute Auto 2.3 K/mm3 (0.1-0.6); Monocytes Percent Auto 8.2 % (2.6-8.5); Neutrophils Absolute Auto 23.2 K/mm3 (1.3-6.7); Neutrophils Percent Auto 84.6 % (45.5-73.1); Platelet Count Result 403 k/mm3 (150-375); Red Blood Count 4.23 M/mm3 (4.2-5.4); Red Cell Distribution Width 14.5 % (11.5-14.5); White Blood Count 27.4 K/mm3 (4.5-10.0)
[2023-12-26 05:10] LABS: Alanine Aminotransferase 18 U/L (6-35); Albumin Level 3.8 g/dL (3.5-5.1); Alkaline Phosphatase 86 U/L (38-126); Anion Gap 9 mmol/L (4-12); Aspartate Amino Transferase 41 U/L (14-36); Bilirubin,Total 0.8 mg/dL (0.2-1.3); Blood Urea Nitrogen 18 mg/dL (7-17); Calcium 8.8 mg/dL (8.4-10.2); Carbon Dioxide 25 mmol/L (22-30); Chloride 103 mmol/L (98-107); Estimated CRCL calculation 40 ml/min; Estimated Glomerular Filt Rate 54; Glucose 176 mg/dL (65-110); Magnesium 1.6 mg/dL (1.6-2.3); Potassium 3.8 mmol/L (3.4-5.0); Sodium 137 mmol/L (137-145)
[2023-12-26 05:39] LABS: Anisocytosis 1+; Large Platelets Present; Platelet Estimate Slightly Increased (Adequate)
[2023-12-26 05:40] LABS: Schistocytes None Seen
[2023-12-26 06:16] LABS: Folic Acid 11.9 ng/mL (2.76->20)
[2023-12-26 07:46] LABS: Glucose Point of Care 186 mg/dl (65-105)
[2023-12-26] MEDS: METOPROLOL TARTRATE 50 MG TAB PO ×2 (08:32→20:17)
[2023-12-26] MEDS: DOXYCYCLINE 100 MG/NS 100 ML 100 MG/100 ML BAG IVPB (08:33)
[2023-12-26] MEDS: ASPIRIN 81 MG CHEWABLE TABLET PO (08:33)
[2023-12-26] MEDS: INSULIN GLARGINE (*BKC) 100 UNITS/ML 30 UNITS SUB-Q (08:33)
[2023-12-26] MEDS: PANTOPRAZOLE SODIUM IV 40 MG VIAL IV PUSH ×2 (08:33→20:17)
[2023-12-26] MEDS: ENOXAPARIN 40 MG/0.4 ML SYRINGE SUB-Q (08:33)
[2023-12-26] MEDS: MEMANTINE HCL XR 28 MG CAP PO (08:33)
[2023-12-26] MEDS: PERFLUTREN LIPID MICROSPHERES 1.5 ML VIAL DILUTED TO 10 ML TOTAL VOLUME IV PUSH (09:19)
[2023-12-26 11:49] LABS: Glucose Point of Care 141 mg/dl (65-105)
--- NOTE | 2023-12-26 12:12 | WPDINTPN ---
Progress Note: A&P Assessment and Plan (1) DKA (diabetic ketoacidosis): Qualifiers: Diabetes mellitus complication detail: without coma Diabetes mellitus type: type 2 Qualified Code(s): E11.10 - Type 2 diabetes mellitus with ketoacidosis without coma Code(s): E11.10 - Type 2 diabetes mellitus with ketoacidosis without coma Status: Acute Assessment and Plan: Patient presented with nausea, vomiting, chest pain, hyperglycemia -blood sugars were 528 in the ER, elevated beta hydroxybutyrate, anion gap metabolic acidosis. Patient was diagnosed with DKA and started on insulin infusion, IV fluids and was transferred to the ICU for further management -this morning anion gap was closed, patient continued to have nausea and vomiting -currently on sliding scale insulin -will increase Lantus -continue diabetic diet with supplement -hemoglobin A1c 8.5 this admission -clinical informatics educator and dietitian has been consulted (2) Sepsis: Code(s): A41.9 - Sepsis, unspecified organism Status: Acute Assessment and Plan: Patient presented with tachycardia, leukocytosis, likely related to some stress response -UA concerning for UTI, chest x-ray with possible pneumonia -patient had IV started on doxycycline, levofloxacin (12/24). Patient has penicillin allergy) -12/25: Discontinue doxycycline -12/24: Preliminary blood cultures are negative 07/08 bottles -12/24: urine cultures are pending -chest x-ray this morning: Persistent linear opacities in bilateral lower lungs most likely atelectasis/scarring with differential including less likely pneumonia Patient has a history of UTI with Pseudomonas and Klebsiella (both were susceptible to levofloxacin) (3) Nausea & vomiting: Code(s): R11.2 - Nausea with vomiting, unspecified Status: Acute Assessment and Plan: Continue antiemetics p.r.n. -12/24: patient also has been making herself vomit by putting a finger at the back of her throat and trying to gag. Sitter at bedside (4) Chest pain: Code(s): R07.9 - Chest pain, unspecified Status: Acute Assessment and Plan: Patient also complained of chest pain, EKG shows sinus tachycardia with poor R-wave progression possible old AL, troponin is 0.343--> 0.352. Patient received nitroglycerin with some improvement -echocardiogram has been done, pending report. Echo was done to evaluate wall motion or valvular abnormalities -continue aspirin and beta-maricruz -will restart statin (5) HTN (hypertension): Qualifiers: Hypertension type: primary hypertension Qualified Code(s): I10 - Essential (primary) hypertension Code(s): I10 - Essential (primary) hypertension Status: Acute Assessment and Plan: Patient also has hypertension, on amlodipine -increase metoprolol dose (6) Electrolyte abnormality: Code(s): E87.8 - Other disorders of electrolyte and fluid balance, not elsewhere classified Status: Acute Assessment and Plan: Potassium, magnesium and phosphorus were replaced (7) Alzheimer dementia: Code(s): G30.9 - Alzheimer's disease, unspecified; F02.80 - Dementia in other diseases classified elsewhere, unspecified severity, without behavioral disturbance, psychotic disturbance, mood disturbance, and anxiety Status: Acute Assessment and Plan: Resume Namenda and Remeron Plan DVT prophylaxis: Lovenox and SCDs Stress ulcer prophylaxis: Protonix IV q.12 hours Nutrition: diabetic diet Code Status: Full code Critical Care Time Spent: 32 minutes Patient may move out of the ICU if okay with hospitalist Due to a high probability of clinically significant, life threatening deterioration, the patient required my highest level of preparedness to intervene emergently and I personally spent this critical care time directly and personally managing the patient. This critical care time included obtaining a history; examining the pat
--- NOTE | 2023-12-26 12:17 | WPDGICN ---
Assessment and Plan Assessment and plan (1) Dysphagia: Code(s): R13.10 - Dysphagia, unspecified Status: Acute Assessment and Plan: 1. Dysphagia/choking and coughing while eating: Nursing staff reported yesterday when she came in, she was having a lot of vomiting along with choking and coughing while eating and trying to put her fingers in her mouth and substernal chest pain. Patient denies dysphagia. The nurse states that she still is not eating that much today, but is doing better than yesterday with no vomiting, dysphagia, choking or complaining of chest pain. She was admitted for DKA and was having vomiting, she could have underlying Esophagitis VS Stricture vs. Ring? - Will continue to monitor symptoms since no dysphagia and doing better per nursing. She is not choking today - Consider EGD pending symptoms or consider outpatient EGD. - Continue Pantoprazole 40 mg BID for possible esophagitis - Continue to monitor. This report may have been done utilizing a voice recognition system. Attempts have been made to correct errors. However, there may be uncorrected grammatical, spelling, and recognition errors present. (2) Alzheimer dementia: Code(s): G30.9 - Alzheimer's disease, unspecified; F02.80 - Dementia in other diseases classified elsewhere, unspecified severity, without behavioral disturbance, psychotic disturbance, mood disturbance, and anxiety Status: Acute (3) DKA (diabetic ketoacidosis): Qualifiers: Diabetes mellitus complication detail: without coma Diabetes mellitus type: type 2 Qualified Code(s): E11.10 - Type 2 diabetes mellitus with ketoacidosis without coma Code(s): E11.10 - Type 2 diabetes mellitus with ketoacidosis without coma Status: Acute (4) Nausea & vomiting: Code(s): R11.2 - Nausea with vomiting, unspecified Status: Acute (5) HTN (hypertension): Qualifiers: Hypertension type: primary hypertension Qualified Code(s): I10 - Essential (primary) hypertension Code(s): I10 - Essential (primary) hypertension Status: Acute (6) Chest pain: Code(s): R07.9 - Chest pain, unspecified Status: Acute (7) Sepsis: Code(s): A41.9 - Sepsis, unspecified organism Status: Acute GI Consult Note Consult date/time: 12/26/23 12:17 Reason for consult: dysphagia HPI: This is a pleasant confused 78 year old female with a past medical surgical history of Alzheimer's, hypertension, diabetes, COPD, GERD, and dementia. She presents to the hospital for evaluation of nausea and vomiting. She was admitted to the ICU for diabetic ketoacidosis on insulin drip with presenting blood sugar of 528. . She also has an underlying urinary tract infection and pneumonia currently on IV doxycycline and Levaquin. She lives at [facility]. Patient denies food getting stuck when swallowing. She denies choking or coughing when eating. She denies abdominal pain. She reports occasional nausea that passes. She denies black or bloody stools. She denies heartburn or undigested food coming up in her mouth, stating it's a rare occasion that anything like that happen . Her appetite is improving. Her weight has been stable. Nursing staff reported yesterday when she came in, she was having a lot of vomiting that was yellow acid along with choking and coughing while eating and when she would eat, the patient would stick her fingers in her throat like something was caught. The nurse states that she still is not eating that much today, but is doing better than yesterday. No further coughing or choking episodes. She is unsure if she has had a prior colonoscopy or EGD. No family history of GI cancers including colon, esophageal, or others. ENDOSCOPY HISTORY: EGD: COLONOSCOPY: LABS AND STOOL STUDIES: Na 137, K 3.8, BUN 18, creatinine 1.0, GFR WBC 25.4, HGB 14.4, HCT 43.45, MCV 88.2, pl
[2023-12-26] MEDS: MAGNESIUM SULF 2 GM/WATER 50ML 2 GM/50 ML BAG IVPB (13:02)
[2023-12-26] MEDS: SENNOSIDES 8.6 MG TABLET PO (13:02)
--- NOTE | 2023-12-26 13:07 | IVDEFINITY ---
Prior to administration of IV Definity the patient was educated on the risks and benefits of the imaging enhancing agent including potential adverse side effects. The patient verbalized understanding. Allergies were verified. No exclusion criteria were identified and at least one of the following inclusion criteria were met: 1) physician request, 2) patient technically difficult to image (per the [place] [employer] guidelines of two or more segments not discernable within the apical view), or 3) questionable left ventricular function. ?
--- NOTE | 2023-12-26 16:18 | PM.IMPN ---
Progress Note: A&P Assessment and Plan (1) Sepsis: Code(s): A41.9 - Sepsis, unspecified organism Status: Acute Assessment and Plan: Sepsis vs SIRS. Patient presents with tachycardia, leukocytosis. No lactic acid. Could be related to DKA. UA is concerning for UTI. Old cultures reviewed. CXR showing persistent opacities in bilateral lower lungs Cx collected. Abx started. MRSA nasal swab negative. BCx NGTD. UCx pending WBC higher at 27K and having fevers. No steroids given Repeat CXR showing no change Follow up on Cx results. Continue Levaquin; Doxycycline stopped. Broaden abx coverage (2) DKA (diabetic ketoacidosis): Qualifiers: Diabetes mellitus complication detail: without coma Diabetes mellitus type: type 2 Qualified Code(s): E11.10 - Type 2 diabetes mellitus with ketoacidosis without coma Code(s): E11.10 - Type 2 diabetes mellitus with ketoacidosis without coma Status: Acute Assessment and Plan: A1c 8.5. Patient presents with n/v and found to have glucose >500, bicarb 14 and AG 23. beta hydroxy 1.22 DKA protocol initiated and admitted to the ICU. String Winding Machine Operator consulted and appreciate their input. She was fluid resuscitated and started on insulin drip. Gap closed. Bicarb 25 Weaned off insulin drip and started/resumed on Lantus NPO except ice chips but diet to be advanced hematology nurse educator and framer consulted (3) Chest pain: Code(s): R07.9 - Chest pain, unspecified Status: Acute Assessment and Plan: Patient with CP on admission. It came on with the nausea/vomiting. Still persistent but better. EKG showing sinus tachycardia with poor R wave progression, low voltage, possible old anterior HI Troponin elevated 0.343 but flat Echo pending Continue ASA, metoprolol and lipitor Suspect Type II HI from the DKA and sepsis (4) Leukocytosis: Code(s): D72.829 - Elevated white blood cell count, unspecified Status: Acute Assessment and Plan: WBC 25K on admission. As above (5) Electrolyte abnormality: Code(s): E87.8 - Other disorders of electrolyte and fluid balance, not elsewhere classified Status: Acute Assessment and Plan: K 3.3 felt related to the nausea and vomiting. Potassium normal after replacement. Mag 1.3 and this was replaced. Mag better Phos <1.0. Phos replaced. Follow and replace electrolytes as needed. (6) HTN (hypertension): Qualifiers: Hypertension type: primary hypertension Qualified Code(s): I10 - Essential (primary) hypertension Code(s): I10 - Essential (primary) hypertension Status: Acute Assessment and Plan: Patient's blood pressure was reviewed on 12/25 Blood pressure remains well controlled. Will continue to monitor (7) Nausea & vomiting: Code(s): R11.2 - Nausea with vomiting, unspecified Status: Acute Assessment and Plan: Related to DKA. Patient noted to be making herself sick Resolved (8) Alzheimer dementia: Code(s): G30.9 - Alzheimer's disease, unspecified; F02.80 - Dementia in other diseases classified elsewhere, unspecified severity, without behavioral disturbance, psychotic disturbance, mood disturbance, and anxiety Status: Acute Assessment and Plan: Stable. Namenda resumed Mood stable. Remeron resumed Plan DVT Prophylaxis: Lovenox Code Status: full code Subjective Date/time seen: 12/26/23 16:18 Interval history: 78yo female with dementia, CAD, COPDm HTN and DM here for nausea, vomiting. Low grade fever overnight. Not eating much. Takes pills without problems. RN states patient having feeling of sticking sensation in the chest but patient denies this. No association with food.. No chest pain Exam Narrative: Tm 100.1 99.8 140/76 83 13 97% ra Gen - NARD Chest - scattered rhonchi CV - RRR S1/S2; Tele showing episodes of sinus tach Abd - Soft, NT/ND, Positive B
[2023-12-26 17:03] LABS: Glucose Point of Care 113 mg/dl (65-105)
[2023-12-26] MEDS: MEROPENEM 1 GM/NS 100 ML 1 GM/100 ML BAG IVPB (17:16)
[2023-12-26 20:03] LABS: Glucose Point of Care 119 mg/dl (65-105)
[2023-12-27] VITALS (17 sets, daily range): BP systolic 103–171; BP diastolic 54–65; PULSE 68–99; RESP 16–24; TEMP 36.1–37; O2SAT 94–98
[2023-12-27] MEDS: METOCLOPRAMIDE HCL INJ 10 MG/2 ML VIAL IV PUSH ×4 (00:12→17:27)
[2023-12-27 05:00] LABS: Basophils Percent Auto 0.2 % (0.2-1.2); Eosinophils Percent Auto 0.1 % (0-4.4); Hematocrit 35.3 % (37.0-47.0); Hemoglobin 11.7 g/dL (12.0-15.0); Immature Granulocyte Absolute 0.15 K/mm3 (0.00-0.031); Immature Granulocyte Percent A 0.9 % (0-0.5); Lymphocytes Absolute Auto 2.02 K/mm3 (0.9-3.2); Lymphocytes Percent Auto 12.3 % (18.3-44.2); Mean Corpuscular HGB Conc 33.1 g/dl (32-36); Mean Corpuscular Hemoglobin 29.4 pg (26-34); Mean Corpuscular Volume 88.7 fl (80-100); Mean Platelet Volume 10.6 fl (7.4-10.4); Monocytes Absolute Auto 1.5 K/mm3 (0.1-0.6); Monocytes Percent Auto 9.1 % (2.6-8.5); Neutrophils Absolute Auto 12.8 K/mm3 (1.3-6.7); Neutrophils Percent Auto 77.4 % (45.5-73.1); Platelet Count Result 361 k/mm3 (150-375); Red Blood Count 3.98 M/mm3 (4.2-5.4); Red Cell Distribution Width 14.4 % (11.5-14.5); White Blood Count 16.5 K/mm3 (4.5-10.0)
[2023-12-27 05:12] LABS: Alanine Aminotransferase 16 U/L (6-35); Albumin Level 3.3 g/dL (3.5-5.1); Alkaline Phosphatase 83 U/L (38-126); Anion Gap 5 mmol/L (4-12); Aspartate Amino Transferase 36 U/L (14-36); Bilirubin,Total 0.7 mg/dL (0.2-1.3); Blood Urea Nitrogen 18 mg/dL (7-17); Calcium 8.7 mg/dL (8.4-10.2); Carbon Dioxide 29 mmol/L (22-30); Chloride 101 mmol/L (98-107); Estimated CRCL calculation 37 ml/min; Estimated Glomerular Filt Rate 48; Glucose 91 mg/dL (65-110); Magnesium 1.8 mg/dL (1.6-2.3); Phosphorus 3.5 mg/dL (2.5-4.5); Potassium 3.6 mmol/L (3.4-5.0); Sodium 135 mmol/L (137-145)
[2023-12-27] MEDS: MEROPENEM 1 GM/NS 100 ML 1 GM/100 ML BAG IVPB ×2 (06:34→17:26)
[2023-12-27 06:54] LABS: Glucose Point of Care 84 mg/dl (65-105)
[2023-12-27] MEDS: ASPIRIN 81 MG CHEWABLE TABLET PO (08:58)
[2023-12-27] MEDS: amLODIPine BESYLATE 5 MG TABLET PO (08:58)
[2023-12-27] MEDS: ATORVASTATIN 10 MG TABLET PO (08:58)
[2023-12-27] MEDS: METOPROLOL TARTRATE 50 MG TAB PO ×2 (08:58→20:22)
[2023-12-27] MEDS: MIRTAZAPINE 15 MG TABLET PO (08:59)
[2023-12-27] MEDS: ESCITALOPRAM OXALATE 5 MG TABLET PO (08:59)
[2023-12-27] MEDS: ENOXAPARIN 40 MG/0.4 ML SYRINGE SUB-Q (08:59)
[2023-12-27] MEDS: MEMANTINE HCL XR 28 MG CAP PO (08:59)
[2023-12-27] MEDS: PANTOPRAZOLE SODIUM IV 40 MG VIAL IV PUSH ×2 (09:00→20:21)
[2023-12-27] MEDS: INSULIN GLARGINE (*BKC) 100 UNITS/ML 30 UNITS SUB-Q ×2 (09:11→20:40)
[2023-12-27 09:22] LABS: Glucose Point of Care 111 mg/dl (65-105)
[2023-12-27] MEDS: levoFLOXacin 750 MG/D5W 150 ML 750 MG/150 ML BAG 100 MG IVPB (10:34)
[2023-12-27 12:30] LABS: Glucose Point of Care 163 mg/dl (65-105)
--- NOTE | 2023-12-27 15:26 | PM.IMPN ---
Progress Note: A&P Assessment and Plan (1) Sepsis: Code(s): A41.9 - Sepsis, unspecified organism Status: Acute Assessment and Plan: Sepsis vs SIRS. Patient presents with tachycardia, leukocytosis. No lactic acid. Could be related to DKA. UA is concerning for UTI. Old cultures reviewed. CXR showing persistent opacities in bilateral lower lungs; consider PNA Cx collected. Abx started. MRSA nasal swab negative. BCx NGTD. UCx negative WBC was higher at 27K and she was having fevers. No steroids given Repeat CXR showing no change Follow up on Cx results. Continue Levaquin; Doxycycline stopped. meropenem started WBC better and fever resolving. Consider aspiration PNA. Continue Levaquin and meropenem for now Speech consult. Repeat CXR Somnolence probably related to remeron - will change remeron to hs dosing. (2) DKA (diabetic ketoacidosis): Qualifiers: Diabetes mellitus complication detail: without coma Diabetes mellitus type: type 2 Qualified Code(s): E11.10 - Type 2 diabetes mellitus with ketoacidosis without coma Code(s): E11.10 - Type 2 diabetes mellitus with ketoacidosis without coma Status: Acute Assessment and Plan: A1c 8.5. Patient presents with n/v and found to have glucose >500, bicarb 14 and AG 23. beta hydroxy 1.22 DKA protocol initiated and admitted to the ICU. Charge Account Identification Clerk consulted and appreciate their input. She was fluid resuscitated and started on insulin drip. Gap closed. Bicarb 25 Weaned off insulin drip and now on Lantus Diabetic diet Resolved (3) Chest pain: Code(s): R07.9 - Chest pain, unspecified Status: Acute Assessment and Plan: Patient with CP on admission. It came on with the nausea/vomiting. Still persistent but better. EKG showing sinus tachycardia with poor R wave progression, low voltage, possible old anterior RI Troponin elevated 0.343 but flat Echo EF 70%, diastolic dysfunction Grade I. Continue ASA, metoprolol and lipitor Suspect Type II RI from the DKA and sepsis (4) Leukocytosis: Code(s): D72.829 - Elevated white blood cell count, unspecified Status: Acute Assessment and Plan: WBC 25K on admission. As above (5) Electrolyte abnormality: Code(s): E87.8 - Other disorders of electrolyte and fluid balance, not elsewhere classified Status: Acute Assessment and Plan: Electrolytes normal now Follow and replace electrolytes as needed. (6) HTN (hypertension): Qualifiers: Hypertension type: primary hypertension Qualified Code(s): I10 - Essential (primary) hypertension Code(s): I10 - Essential (primary) hypertension Status: Acute Assessment and Plan: Patient's blood pressure was reviewed on 12/26 Blood pressure remains well controlled. Will continue to monitor (7) Nausea & vomiting: Code(s): R11.2 - Nausea with vomiting, unspecified Status: Acute Assessment and Plan: Related to DKA. Patient noted to be making herself sick Resolved (8) Alzheimer dementia: Code(s): G30.9 - Alzheimer's disease, unspecified; F02.80 - Dementia in other diseases classified elsewhere, unspecified severity, without behavioral disturbance, psychotic disturbance, mood disturbance, and anxiety Status: Acute Assessment and Plan: Stable. Namenda resumed Mood stable. Remeron resumed but change to HS schedule. (9) Neuromuscular dysfunction of bladder: Code(s): N31.9 - Neuromuscular dysfunction of bladder, unspecified Status: Acute Assessment and Plan: Patient with chronic [place]. Will ensure this was changed this admission Plan DVT Prophylaxis: Lovenox Code Status: full code Subjective Date/time seen: 12/27/23 15:26 Interval history: 78yo female with dementia, CAD, COPDm HTN and DM here for nausea, vomiting. Somnolent but awake and confused. No issues overnight per RN. R
[2023-12-27 16:16] LABS: Glucose Point of Care 92 mg/dl (65-105)
--- NOTE | 2023-12-27 17:26 | WPDGIPROGNO ---
Progress Note: A&P Assessment and Plan (1) Nausea & vomiting: Code(s): R11.2 - Nausea with vomiting, unspecified Status: Acute Assessment and Plan: good appetite now and no more nausea clinically better will follow from [place], consider egd as outpatient if more nausea (2) DKA (diabetic ketoacidosis): Qualifiers: Diabetes mellitus complication detail: without coma Diabetes mellitus type: type 2 Qualified Code(s): E11.10 - Type 2 diabetes mellitus with ketoacidosis without coma Code(s): E11.10 - Type 2 diabetes mellitus with ketoacidosis without coma Status: Acute Assessment and Plan: resolved (3) Alzheimer dementia: Code(s): G30.9 - Alzheimer's disease, unspecified; F02.80 - Dementia in other diseases classified elsewhere, unspecified severity, without behavioral disturbance, psychotic disturbance, mood disturbance, and anxiety Status: Acute (4) Electrolyte abnormality: Code(s): E87.8 - Other disorders of electrolyte and fluid balance, not elsewhere classified Status: Acute Subjective Date/time seen: 12/27/23 17:26 Interval history: better, she finished dinner Review of Systems Review of Systems: All systems reviewed & are unremarkable except as noted in HPI and below Exam Narrative: Alert and oriented x 1. Const: General: comfortable and no acute distress HENMT: Other: poor dentition Eyes: General: appearance normal, both eyes and all related structures Neck: Neck: supple Resp: Effort & Inspection: normal respiratory effort Auscultation: crackles bilateral in the lower lung pathak Cardio: Rate: regular rate Rhythm: regular rhythm GI: GI Palp: Yes Soft to palpation, No Tenderness to palpation present (GI) and No Guarding due to palpation present (GI) Auscultation: normal bowel sounds Urinary Catheter: Urinary Catheter: patent and draining Skin: General skin exam: normal color Neuro: Speech: normal speech Extrem: General: normal to inspection Psych: Affect: normal affect Objective Data Vital Signs Vital Signs: Vital Signs - 24 hr 12/26/23 18:00 12/26/23 18:59 12/26/23 19:52 Temperature 98.0 F 98.3 F Pulse Rate 96 96 97 Respiratory Rate 20 20 Blood Pressure 143/79 H 148/75 H Pulse Oximetry 96 96 Oxygen Delivery 12/26/23 20:00 12/26/23 20:17 12/26/23 21:37 Temperature Pulse Rate 94 95 75 Respiratory Rate Blood Pressure Pulse Oximetry Oxygen Delivery 12/26/23 23:45 12/27/23 00:00 12/27/23 02:00 Temperature 97.9 F Pulse Rate 81 68 72 Respiratory Rate 20 Blood Pressure 112/59 L Pulse Oximetry 96 Oxygen Delivery 12/27/23 04:00 12/27/23 04:36 12/27/23 06:00 Temperature 98.0 F Pulse Rate 68 76 74 Respiratory Rate 20 Blood Pressure 155/65 H Pulse Oximetry 98 Oxygen Delivery 12/27/23 07:52 12/27/23 08:58 12/27/23 08:00 Temperature 97.5 F L Pulse Rate 71 92 84 Respiratory Rate 16 Blood Pressure 120/54 L Pulse Oximetry 96 Oxygen Delivery 12/27/23 08:00 12/27/23 10:00 12/27/23 12:00 Temperature 97.0 F L Pulse Rate 90 73 Respiratory Rate 20 Blood Pressure 103/54 L Pulse Oximetry 94 Oxygen Delivery Room Air 12/27/23 12:00 12/27/23 12:00 12/27/23 14:00 Temperature Pulse Rate 73 78 Respiratory Rate Blood Pressure Pulse Oximetry Oxygen Delivery Room Air 12/27/23 16:00 Temperature 97.6 F Pulse Rate 73 Respiratory Rate 24 H Blood Pressure 148/64 H Pulse Oximetry 98 Oxygen Delivery Intake/Output Intake/Output: Intake & Output 12/24/23 12/25/23 12/26/23 12/27/23 23:59 23:59 23:59 23:59 Intake Total 1018.5 2953.0 820 570 Output Total 900 800 250 Balance 1018.5 2053.0 20 320 Meds/Results Medications: Active Medications Generic Name Dose Route Start Last Admin Trade Name Freq PRN Reason Stop Dose Admin Acetaminophen 650 mg 12/24/23 23:48 12/25/23 05:
[2023-12-27] MEDS: ONDANSETRON INJ 4 MG/2 ML VIAL IV PUSH (20:21)
[2023-12-27] MEDS: ACETAMINOPHEN 325 MG TABLET 650 MG PO (20:21)
[2023-12-27 20:34] LABS: Glucose Point of Care 145 mg/dl (65-105)
[2023-12-28] VITALS (15 sets, daily range): BP systolic 122–153; BP diastolic 54–66; PULSE 62–80; RESP 14–22; TEMP 36.1–36.7; O2SAT 95–97
[2023-12-28] MEDS: METOCLOPRAMIDE HCL INJ 10 MG/2 ML VIAL IV PUSH ×5 (00:59→23:13)
[2023-12-28 04:59] LABS: Basophils Percent Auto 0.3 % (0.2-1.2); Eosinophils Absolute Auto 0.1 K/mm3 (0-0.3); Eosinophils Percent Auto 0.4 % (0-4.4); Hemoglobin 11.9 g/dL (12.0-15.0); Immature Granulocyte Absolute 0.06 K/mm3 (0.00-0.031); Immature Granulocyte Percent A 0.5 % (0-0.5); Lymphocytes Absolute Auto 2.49 K/mm3 (0.9-3.2); Mean Corpuscular HGB Conc 32.2 g/dl (32-36); Mean Corpuscular Hemoglobin 28.7 pg (26-34); Mean Corpuscular Volume 89.2 fl (80-100); Mean Platelet Volume 11.1 fl (7.4-10.4); Monocytes Absolute Auto 1.3 K/mm3 (0.1-0.6); Monocytes Percent Auto 10.6 % (2.6-8.5); Neutrophils Absolute Auto 8.5 K/mm3 (1.3-6.7); Neutrophils Percent Auto 68.2 % (45.5-73.1); Platelet Count Result 362 k/mm3 (150-375); Red Blood Count 4.15 M/mm3 (4.2-5.4); Red Cell Distribution Width 14.1 % (11.5-14.5); White Blood Count 12.5 K/mm3 (4.5-10.0)
[2023-12-28 05:13] LABS: Albumin Level 3.3 g/dL (3.5-5.1); Anion Gap 9 mmol/L (4-12); Blood Urea Nitrogen 21 mg/dL (7-17); Calcium 8.4 mg/dL (8.4-10.2); Carbon Dioxide 25 mmol/L (22-30); Chloride 100 mmol/L (98-107); Estimated CRCL calculation 42 ml/min; Estimated Glomerular Filt Rate 48; Glucose 100 mg/dL (65-110); Magnesium 1.8 mg/dL (1.6-2.3); Phosphorus 4.3 mg/dL (2.5-4.5); Potassium 3.6 mmol/L (3.4-5.0); Sodium 134 mmol/L (137-145)
[2023-12-28] MEDS: MEROPENEM 1 GM/NS 100 ML 1 GM/100 ML BAG IVPB (06:10)
[2023-12-28 07:28] LABS: Glucose Point of Care 87 mg/dl (65-105)
--- NOTE | 2023-12-28 08:43 | PCPTNOTE ---
Spoke with current hospitalist, Dr. Barnhart, regarding pt being dependent/kadie lift at baseline. Pt OK to be discharged from therapy. Will make RN aware.
[2023-12-28] MEDS: ENOXAPARIN 40 MG/0.4 ML SYRINGE SUB-Q (09:02)
[2023-12-28] MEDS: ESCITALOPRAM OXALATE 5 MG TABLET PO (09:03)
[2023-12-28] MEDS: ATORVASTATIN 10 MG TABLET PO (09:03)
[2023-12-28] MEDS: ASPIRIN 81 MG CHEWABLE TABLET PO (09:03)
[2023-12-28] MEDS: MEMANTINE HCL XR 28 MG CAP PO (09:03)
[2023-12-28] MEDS: amLODIPine BESYLATE 5 MG TABLET PO (09:03)
[2023-12-28] MEDS: METOPROLOL TARTRATE 50 MG TAB PO ×2 (09:03→20:38)
[2023-12-28] MEDS: INSULIN GLARGINE (*BKC) 100 UNITS/ML 30 UNITS SUB-Q (09:05)
[2023-12-28] MEDS: PANTOPRAZOLE SODIUM IV 40 MG VIAL IV PUSH ×2 (09:26→20:35)
[2023-12-28 11:24] LABS: Glucose Point of Care 89 mg/dl (65-105)
[2023-12-28] MEDS: DOXYCYCLINE HYCLATE 100 MG TABLET PO ×2 (12:18→20:35)
--- NOTE | 2023-12-28 13:32 | PM.IMPN ---
Progress Note: A&P Assessment and Plan (1) Sepsis: Code(s): A41.9 - Sepsis, unspecified organism Status: Acute Assessment and Plan: Sepsis vs SIRS. Patient presents with tachycardia, leukocytosis. No lactic acid. Could be related to DKA. UA is concerning for UTI. Old cultures reviewed. CXR showing persistent opacities in bilateral lower lungs; consider PNA Cx collected. Abx started. MRSA nasal swab negative. BCx NGTD. UCx negative WBC was higher at 27K and she was having fevers. No steroids given Repeat CXR showing no change Follow up on Cx results. Continue Levaquin; Doxycycline stopped. meropenem started WBC better and fever resolving. Consider aspiration PNA. pt changed to doxycycline and levaquin can move to medical floor (2) DKA (diabetic ketoacidosis): Qualifiers: Diabetes mellitus complication detail: without coma Diabetes mellitus type: type 2 Qualified Code(s): E11.10 - Type 2 diabetes mellitus with ketoacidosis without coma Code(s): E11.10 - Type 2 diabetes mellitus with ketoacidosis without coma Status: Acute Assessment and Plan: A1c 8.5. Patient presents with n/v and found to have glucose >500, bicarb 14 and AG 23. beta hydroxy 1.22 DKA protocol initiated and admitted to the ICU. Sidehand consulted and appreciate their input. She was fluid resuscitated and started on insulin drip. Gap closed. Bicarb 25 Weaned off insulin drip and now on Lantus Diabetic diet Resolved (3) Chest pain: Code(s): R07.9 - Chest pain, unspecified Status: Acute Assessment and Plan: Patient with CP on admission. It came on with the nausea/vomiting. Still persistent but better. EKG showing sinus tachycardia with poor R wave progression, low voltage, possible old anterior CA Troponin elevated 0.343 but flat Echo EF 70%, diastolic dysfunction Grade I. Continue ASA, metoprolol and lipitor Suspect Type II CA from the DKA and sepsis (4) Leukocytosis: Code(s): D72.829 - Elevated white blood cell count, unspecified Status: Acute Assessment and Plan: wcc coming down to 12.5 (5) Electrolyte abnormality: Code(s): E87.8 - Other disorders of electrolyte and fluid balance, not elsewhere classified Status: Acute Assessment and Plan: Electrolytes normal now Follow and replace electrolytes as needed. (6) HTN (hypertension): Qualifiers: Hypertension type: primary hypertension Qualified Code(s): I10 - Essential (primary) hypertension Code(s): I10 - Essential (primary) hypertension Status: Acute Assessment and Plan: Patient's blood pressure was reviewed on 12/26 Blood pressure remains well controlled. Will continue to monitor (7) Nausea & vomiting: Code(s): R11.2 - Nausea with vomiting, unspecified Status: Acute Assessment and Plan: Related to DKA. Patient noted to be making herself sick Resolved (8) Alzheimer dementia: Code(s): G30.9 - Alzheimer's disease, unspecified; F02.80 - Dementia in other diseases classified elsewhere, unspecified severity, without behavioral disturbance, psychotic disturbance, mood disturbance, and anxiety Status: Acute Assessment and Plan: Stable. Namenda resumed Mood stable. Remeron resumed but change to HS schedule. (9) Neuromuscular dysfunction of bladder: Code(s): N31.9 - Neuromuscular dysfunction of bladder, unspecified Status: Acute Assessment and Plan: Patient with chronic Cabral. Will ensure this was changed this admission Plan DVT Prophylaxis: Lovenox Code Status: full code Subjective Date/time seen: 12/28/23 13:32 Interval history: 78yo female with dementia, CAD, COPDm HTN and DM here for nausea, vomiting. confused mild nausea Review of Systems Review of Systems: still some confusion Exam Narrative: chronically ill disoriented x3 C
[2023-12-28 14:48] LABS: Glucose Point of Care 51 mg/dl (65-105)
[2023-12-28] MEDS: GLUCOSE ORAL GEL 15 GM OF GLUCSE IN 37.5 GM TUBE PO (15:01)
[2023-12-28 15:17] LABS: Glucose Point of Care 78 mg/dl (65-105)
[2023-12-28 15:54] LABS: Glucose Point of Care 128 mg/dl (65-105)
--- NOTE | 2023-12-28 15:57 | PCSTNOTE ---
Please refer to the Bedside Swallow Evaluation in the EMR. Please note, silent aspiration cannot be ruled out at bedside.
[2023-12-28 16:25] LABS: Glucose Point of Care 134 mg/dl (65-105)
[2023-12-28 19:46] LABS: Glucose Point of Care 140 mg/dl (65-105)
[2023-12-28] MEDS: INSULIN GLARGINE (*BKC) 100 UNITS/ML 20 UNITS SUB-Q (20:35)
[2023-12-28] MEDS: MIRTAZAPINE 15 MG TABLET PO (20:35)
--- NOTE | 2023-12-29 00:38 | PC.NURSE ---
patient's daughter Angelica called this RN and verbalized concern, stating that the patient experiences chest pain when she eats, that may or may not have been present at the time of her last EGD ~6mos ago. Angelica told this RN that a doctor has told the patient before that her esophagus may be narrowed, and that they should follow-up outpatient, but Angelica would like to push for an EGD to happen inpatient. Angelica states as patient is a [facility], it is very difficult to make it to outpatient appointments, and instead of pushing it off she would like the test done now, since patient has not been eating very much.
[2023-12-29 06:00] VITALS: BP 148/68; PULSE 76; RESP 16; TEMP 36.3; O2SAT 95
[2023-12-29] MEDS: METOCLOPRAMIDE HCL INJ 10 MG/2 ML VIAL IV PUSH ×3 (06:06→17:58)
[2023-12-29 06:10] LABS: Glucose Point of Care 90 mg/dl (65-105)
[2023-12-29 07:47] LABS: Glucose Point of Care 135 mg/dl (65-105)
[2023-12-29] MEDS: PANTOPRAZOLE SODIUM IV 40 MG VIAL IV PUSH ×2 (09:06→21:45)
[2023-12-29] MEDS: ENOXAPARIN 40 MG/0.4 ML SYRINGE SUB-Q (09:06)
[2023-12-29] MEDS: INSULIN GLARGINE (*BKC) 100 UNITS/ML 20 UNITS SUB-Q (09:13)
--- NOTE | 2023-12-29 09:53 | PC.NURSE ---
called md to let her know pt refusing all PO meds this morning stating that it is too painful to swallow. no new orders given at this time
--- NOTE | 2023-12-29 10:14 | PCNFU ---
Nutrition Follow-Up Complete: Inadequate oral intake related to possible swallowing difficulty as evidenced by refusal of meals, poor intake, complaints of swallowing issues Goal: Improve PO intake to at least 50% meals and supplements by next follow up - Progressing. Intakes improved to 5-25% meals. Continue with same goals Pt current nutrition is Diabetic consistent carbs. Glucerna TID for additional 220 kcal and 10 g protein each. Nutrition recommendation: No new nutrition recommendations. Continue with nutrition care plan and orders. Last recorded weight is 80.5 kg. Up from 78 kg 12/24/23 Bowel Motility: Last BM 12/24/23, from records. If accurate, pt may benefit form more intense bowel regimen Labs Reviewed: No labs today 12/29/23. Labs 12/27: Hgb 11.9, Alb 3.3, Na 134, BUN 21, Cre 1.1, Glu 135 Meds Noted: Insulin, reglan, remeron, zofran, protonix, senna Skin: No pressure injuries Additional Notes: Appetite remains poor but improved. GI signed off. Supplements are ordered. Continue with same nutrition orders. Agree with orders Monitoring PO intake, weights, labs, stool patterns, supplement tolerance, plan of care Follow up in 3 days
[2023-12-29] MEDS: ACETAMINOPHEN 325 MG TABLET 650 MG PO ×2 (11:04→17:59)
[2023-12-29 11:27] LABS: Glucose Point of Care 84 mg/dl (65-105)
--- NOTE | 2023-12-29 11:49 | PCPTNOTE ---
On 12/29/23, the student, [Erna Correia], provided care and completed [facility] documentation on this patient. I have reviewed the student's documentation and agree with the findings.
[2023-12-29 13:23] LABS: Glucose Point of Care 52 mg/dl (65-105)
[2023-12-29] MEDS: DEXTROSE 50% 25 GM/50 ML SYRINGE IV PUSH (13:23)
[2023-12-29 14:00] VITALS: BP 153/61; PULSE 70; RESP 16; TEMP 36.2; O2SAT 98
[2023-12-29 14:08] LABS: Glucose Point of Care 149 mg/dl (65-105)
[2023-12-29 14:50] LABS: Glucose Point of Care 140 mg/dl (65-105)
--- NOTE | 2023-12-29 14:50 | PM.IMPN ---
Progress Note: A&P Assessment and Plan (1) Sepsis: Code(s): A41.9 - Sepsis, unspecified organism Status: Acute Assessment and Plan: Sepsis vs SIRS. Patient presents with tachycardia, leukocytosis. No lactic acid. Could be related to DKA. UA is concerning for UTI. Old cultures reviewed. CXR showing persistent opacities in bilateral lower lungs; consider PNA Cx collected. Abx started. MRSA nasal swab negative. BCx NGTD. UCx negative WBC was higher at 27K and she was having fevers. No steroids given Repeat CXR showing no change Follow up on Cx results. Continue Levaquin; Doxycycline stopped. meropenem started WBC better and fever resolving. Consider aspiration PNA. pt changed to doxycycline and levaquin can move to medical floor PT/ OT pt is improvement plan dc in 1-2 days time (2) DKA (diabetic ketoacidosis): Qualifiers: Diabetes mellitus complication detail: without coma Diabetes mellitus type: type 2 Qualified Code(s): E11.10 - Type 2 diabetes mellitus with ketoacidosis without coma Code(s): E11.10 - Type 2 diabetes mellitus with ketoacidosis without coma Status: Acute Assessment and Plan: A1c 8.5. Patient presents with n/v and found to have glucose >500, bicarb 14 and AG 23. beta hydroxy 1.22 DKA protocol initiated and admitted to the ICU. Student Nurse consulted and appreciate their input. She was fluid resuscitated and started on insulin drip. Gap closed. Bicarb 25 Weaned off insulin drip and now on Lantus Diabetic diet Resolved (3) Chest pain: Code(s): R07.9 - Chest pain, unspecified Status: Acute Assessment and Plan: Patient with CP on admission. It came on with the nausea/vomiting. Still persistent but better. EKG showing sinus tachycardia with poor R wave progression, low voltage, possible old anterior DC Troponin elevated 0.343 but flat Echo EF 70%, diastolic dysfunction Grade I. Continue ASA, metoprolol and lipitor Suspect Type II DC from the DKA and sepsis (4) Leukocytosis: Code(s): D72.829 - Elevated white blood cell count, unspecified Status: Acute Assessment and Plan: wcc coming down to 12.5 from 12/27 rpt gunjan (5) Electrolyte abnormality: Code(s): E87.8 - Other disorders of electrolyte and fluid balance, not elsewhere classified Status: Acute Assessment and Plan: Electrolytes normal now Follow and replace electrolytes as needed. (6) HTN (hypertension): Qualifiers: Hypertension type: primary hypertension Qualified Code(s): I10 - Essential (primary) hypertension Code(s): I10 - Essential (primary) hypertension Status: Acute Assessment and Plan: Patient's blood pressure was reviewed on 12/26 Blood pressure remains well controlled. Will continue to monitor (7) Nausea & vomiting: Code(s): R11.2 - Nausea with vomiting, unspecified Status: Acute Assessment and Plan: Related to DKA. Patient noted to be making herself sick Resolved (8) Alzheimer dementia: Code(s): G30.9 - Alzheimer's disease, unspecified; F02.80 - Dementia in other diseases classified elsewhere, unspecified severity, without behavioral disturbance, psychotic disturbance, mood disturbance, and anxiety Status: Acute Assessment and Plan: Stable. Namenda resumed Mood stable. Remeron resumed but change to HS schedule. (9) Neuromuscular dysfunction of bladder: Code(s): N31.9 - Neuromuscular dysfunction of bladder, unspecified Status: Acute Assessment and Plan: Patient with chronic Cabral. Will ensure this was changed this admission Plan DVT Prophylaxis: Lovenox Code Status: full code Subjective Date/time seen: 12/29/23 14:50 Interval history: 78yo female with dementia, CAD, COPDm HTN and DM here for nausea, vomiting. 12/27 confused and having nausea 12/28 Pt appears more alert start PT/ OT toda
[2023-12-29 16:29] LABS: Glucose Point of Care 112 mg/dl (65-105)
[2023-12-29 20:25] VITALS: BP 137/55; PULSE 80; RESP 20; TEMP 36; O2SAT 97
[2023-12-29 21:25] LABS: Glucose Point of Care 80 mg/dl (65-105)
[2023-12-29] MEDS: MIRTAZAPINE 15 MG TABLET PO (21:49)
[2023-12-29] MEDS: METOPROLOL TARTRATE 50 MG TAB PO (21:49)
[2023-12-29] MEDS: DOXYCYCLINE HYCLATE 100 MG TABLET PO (21:49)
[2023-12-30 04:55] VITALS: BP 167/71; PULSE 75; RESP 20; TEMP 36.3; O2SAT 98
[2023-12-30 06:47] LABS: Hematocrit 33.4 % (37.0-47.0); Hemoglobin 10.8 g/dL (12.0-15.0); Mean Corpuscular HGB Conc 32.3 g/dl (32-36); Mean Corpuscular Hemoglobin 29.2 pg (26-34); Mean Corpuscular Volume 90.3 fl (80-100); Mean Platelet Volume 10.8 fl (7.4-10.4); Platelet Count Result 323 k/mm3 (150-375); Red Cell Distribution Width 14.1 % (11.5-14.5); White Blood Count 9.2 K/mm3 (4.5-10.0)
[2023-12-30 06:56] LABS: Anion Gap 9 mmol/L (4-12); Blood Urea Nitrogen 16 mg/dL (7-17); Calcium 7.9 mg/dL (8.4-10.2); Carbon Dioxide 23 mmol/L (22-30); Chloride 102 mmol/L (98-107); Estimated CRCL calculation 56 ml/min; Estimated Glomerular Filt Rate > 60; Glucose 49 mg/dL (65-110); Potassium 3.6 mmol/L (3.4-5.0); Sodium 134 mmol/L (137-145)
[2023-12-30] MEDS: DEXTROSE 50% 25 GM/50 ML SYRINGE IV PUSH (07:06)
[2023-12-30 07:43] LABS: Glucose Point of Care 163 mg/dl (65-105)
[2023-12-30 07:47] VITALS: O2SAT 97
[2023-12-30] MEDS: PANTOPRAZOLE SODIUM IV 40 MG VIAL IV PUSH ×2 (09:02→21:27)
[2023-12-30] MEDS: ENOXAPARIN 40 MG/0.4 ML SYRINGE SUB-Q (09:02)
[2023-12-30 09:03] VITALS: PULSE 72
[2023-12-30] MEDS: SENNOSIDES 8.6 MG TABLET PO (09:03)
[2023-12-30] MEDS: ATORVASTATIN 10 MG TABLET PO (09:03)
[2023-12-30] MEDS: METOPROLOL TARTRATE 50 MG TAB PO ×2 (09:03→21:27)
[2023-12-30] MEDS: ESCITALOPRAM OXALATE 5 MG TABLET PO (09:03)
[2023-12-30] MEDS: MEMANTINE HCL XR 28 MG CAP PO (09:03)
[2023-12-30] MEDS: amLODIPine BESYLATE 5 MG TABLET PO (09:03)
[2023-12-30] MEDS: DOXYCYCLINE HYCLATE 100 MG TABLET PO ×2 (09:03→21:28)
[2023-12-30] MEDS: ASPIRIN 81 MG CHEWABLE TABLET PO (09:03)
[2023-12-30] MEDS: METOCLOPRAMIDE HCL INJ 10 MG/2 ML VIAL IV PUSH ×2 (11:13→17:03)
[2023-12-30 11:22] LABS: Glucose Point of Care 137 mg/dl (65-105)
[2023-12-30 13:00] VITALS: BMI 28.1
--- NOTE | 2023-12-30 13:04 | PM.IMPN ---
Progress Note: A&P Assessment and Plan (1) Sepsis: Code(s): A41.9 - Sepsis, unspecified organism Status: Acute Assessment and Plan: Sepsis vs SIRS. Patient presents with tachycardia, leukocytosis. No lactic acid. Could be related to DKA. UA is concerning for UTI. Old cultures reviewed. CXR showing persistent opacities in bilateral lower lungs; consider PNA Cx collected. Abx started. MRSA nasal swab negative. BCx NGTD. UCx negative WBC was higher at 27K and she was having fevers. No steroids given Repeat CXR showing no change Follow up on Cx results. Continue Levaquin; Doxycycline stopped. meropenem started WBC better and fever resolving. Consider aspiration PNA. pt changed to doxycycline and levaquin can move to medical floor PT/ OT pt is improvement plan dc in 1-2 days time back to SNF (2) DKA (diabetic ketoacidosis): Qualifiers: Diabetes mellitus complication detail: without coma Diabetes mellitus type: type 2 Qualified Code(s): E11.10 - Type 2 diabetes mellitus with ketoacidosis without coma Code(s): E11.10 - Type 2 diabetes mellitus with ketoacidosis without coma Status: Acute Assessment and Plan: A1c 8.5. Patient presents with n/v and found to have glucose >500, bicarb 14 and AG 23. beta hydroxy 1.22 DKA protocol initiated and admitted to the ICU. Regrader consulted and appreciate their input. She was fluid resuscitated and started on insulin drip. Gap closed. Bicarb 25 Weaned off insulin drip and now on Lantus Diabetic diet Resolved (3) Chest pain: Code(s): R07.9 - Chest pain, unspecified Status: Acute Assessment and Plan: Patient with CP on admission. It came on with the nausea/vomiting. Still persistent but better. EKG showing sinus tachycardia with poor R wave progression, low voltage, possible old anterior [place] Troponin elevated 0.343 but flat Echo EF 70%, diastolic dysfunction Grade I. Continue ASA, metoprolol and lipitor Suspect Type II [place] from the DKA and sepsis (4) Leukocytosis: Code(s): D72.829 - Elevated white blood cell count, unspecified Status: Acute Assessment and Plan: wcc coming down to 12.5 from 12/27 today 9.2 (5) Electrolyte abnormality: Code(s): E87.8 - Other disorders of electrolyte and fluid balance, not elsewhere classified Status: Acute Assessment and Plan: Electrolytes normal now Follow and replace electrolytes as needed. (6) HTN (hypertension): Qualifiers: Hypertension type: primary hypertension Qualified Code(s): I10 - Essential (primary) hypertension Code(s): I10 - Essential (primary) hypertension Status: Acute Assessment and Plan: Patient's blood pressure was reviewed on 12/26 Blood pressure remains well controlled. Will continue to monitor (7) Nausea & vomiting: Code(s): R11.2 - Nausea with vomiting, unspecified Status: Acute Assessment and Plan: Related to DKA. Patient noted to be making herself sick Resolved (8) Alzheimer dementia: Code(s): G30.9 - Alzheimer's disease, unspecified; F02.80 - Dementia in other diseases classified elsewhere, unspecified severity, without behavioral disturbance, psychotic disturbance, mood disturbance, and anxiety Status: Acute Assessment and Plan: Stable. Namenda resumed Mood stable. Remeron resumed but change to HS schedule. (9) Neuromuscular dysfunction of bladder: Code(s): N31.9 - Neuromuscular dysfunction of bladder, unspecified Status: Acute Assessment and Plan: Patient with chronic Cabral. Will ensure this was changed this admission Subjective Date/time seen: 12/30/23 13:04 Interval history: 78yo female with dementia, CAD, COPD HTN and DM here for nausea, vomiting. 12/27 confused and having nausea 12/28 Pt appears more alert start PT/ OT today 12/29 Slow improvement, talking more today,ho
[2023-12-30 14:00] VITALS: BP 143/69; PULSE 71; RESP 18; TEMP 35.8; O2SAT 98
[2023-12-30 16:28] LABS: Glucose Point of Care 122 mg/dl (65-105)
[2023-12-30 20:45] VITALS: BP 160/63; PULSE 87; RESP 20; TEMP 36.4; O2SAT 96
[2023-12-30 21:15] LABS: Glucose Point of Care 159 mg/dl (65-105)
[2023-12-30] MEDS: MIRTAZAPINE 15 MG TABLET PO (21:28)
[2023-12-31] MEDS: METOCLOPRAMIDE HCL INJ 10 MG/2 ML VIAL IV PUSH ×3 (00:19→11:15)
[2023-12-31 05:45] VITALS: BP 153/62; PULSE 69; RESP 20; TEMP 35.9; O2SAT 96
[2023-12-31 07:59] LABS: Glucose Point of Care 151 mg/dl (65-105)
[2023-12-31 08:00] VITALS: PULSE 79; O2SAT 96
--- NOTE | 2023-12-31 08:19 | PM.IMPN ---
Progress Note: A&P Assessment and Plan (1) Sepsis: Code(s): A41.9 - Sepsis, unspecified organism Status: Acute Assessment and Plan: Sepsis vs SIRS. Patient presents with tachycardia, leukocytosis. No lactic acid. Could be related to DKA. UA is concerning for UTI. Old cultures reviewed. CXR showing persistent opacities in bilateral lower lungs; consider PNA Cx collected. Abx started. MRSA nasal swab negative. BCx NGTD. UCx negative WBC was higher at 27K and she was having fevers. No steroids given Repeat CXR showing no change Follow up on Cx results. Continue Levaquin; Doxycycline stopped. meropenem started WBC better and fever resolving. Consider aspiration PNA. pt changed to doxycycline and levaquin can move to medical floor PT/ OT pt is improvement plan dc in 1-2 days time back to SNF (2) DKA (diabetic ketoacidosis): Qualifiers: Diabetes mellitus complication detail: without coma Diabetes mellitus type: type 2 Qualified Code(s): E11.10 - Type 2 diabetes mellitus with ketoacidosis without coma Code(s): E11.10 - Type 2 diabetes mellitus with ketoacidosis without coma Status: Acute Assessment and Plan: A1c 8.5. Patient presents with n/v and found to have glucose >500, bicarb 14 and AG 23. beta hydroxy 1.22 DKA protocol initiated and admitted to the ICU. Tensioning Machine Operator consulted and appreciate their input. She was fluid resuscitated and started on insulin drip. Gap closed. Bicarb 25 Weaned off insulin drip and now on Lantus Diabetic diet Resolved (3) Chest pain: Code(s): R07.9 - Chest pain, unspecified Status: Acute Assessment and Plan: Patient with CP on admission. It came on with the nausea/vomiting. Still persistent but better. EKG showing sinus tachycardia with poor R wave progression, low voltage, possible old anterior [place] Troponin elevated 0.343 but flat Echo EF 70%, diastolic dysfunction Grade I. Continue ASA, metoprolol and Lipitor Suspect Type II DE from the DKA and sepsis (4) Leukocytosis: Code(s): D72.829 - Elevated white blood cell count, unspecified Status: Acute Assessment and Plan: wcc coming down to 12.5 from 12/27 today 9.2 (5) Electrolyte abnormality: Code(s): E87.8 - Other disorders of electrolyte and fluid balance, not elsewhere classified Status: Acute Assessment and Plan: Electrolytes normal now Follow and replace electrolytes as needed. (6) HTN (hypertension): Qualifiers: Hypertension type: primary hypertension Qualified Code(s): I10 - Essential (primary) hypertension Code(s): I10 - Essential (primary) hypertension Status: Acute Assessment and Plan: Patient's blood pressure was reviewed on 12/26 Blood pressure remains well controlled. Will continue to monitor (7) Nausea & vomiting: Code(s): R11.2 - Nausea with vomiting, unspecified Status: Acute Assessment and Plan: Related to DKA. Patient noted to be making herself sick Resolved (8) Alzheimer dementia: Code(s): G30.9 - Alzheimer's disease, unspecified; F02.80 - Dementia in other diseases classified elsewhere, unspecified severity, without behavioral disturbance, psychotic disturbance, mood disturbance, and anxiety Status: Acute Assessment and Plan: Stable. Namenda resumed Mood stable. Remeron resumed but change to HS schedule. (9) Neuromuscular dysfunction of bladder: Code(s): N31.9 - Neuromuscular dysfunction of bladder, unspecified Status: Acute Assessment and Plan: Patient with chronic Cabral. Will ensure this was changed this admission Subjective Date/time seen: 12/31/23 08:19 Interval history: 78-year-old female presents here with nausea and vomiting with PMH of diabetes, COPD, GERD, dementia, and HTN. 12/30: Review of Systems Review of Systems: slow improvement All systems reviewed
[2023-12-31] MEDS: ENOXAPARIN 40 MG/0.4 ML SYRINGE SUB-Q (08:47)
[2023-12-31] MEDS: INSULIN GLARGINE (*BKC) 100 UNITS/ML 6 UNITS SUB-Q (08:49)
[2023-12-31] MEDS: PANTOPRAZOLE SODIUM IV 40 MG VIAL IV PUSH (08:53)
[2023-12-31] MEDS: amLODIPine BESYLATE 5 MG TABLET PO (08:54)
[2023-12-31] MEDS: MEMANTINE HCL XR 28 MG CAP PO (08:54)
[2023-12-31] MEDS: DOXYCYCLINE HYCLATE 100 MG TABLET PO (08:54)
[2023-12-31] MEDS: ASPIRIN 81 MG CHEWABLE TABLET PO (08:54)
[2023-12-31] MEDS: ATORVASTATIN 10 MG TABLET PO (08:55)
[2023-12-31] MEDS: ESCITALOPRAM OXALATE 5 MG TABLET PO (08:55)
[2023-12-31 08:56] VITALS: PULSE 79
[2023-12-31] MEDS: METOPROLOL TARTRATE 50 MG TAB PO (08:56)
[2023-12-31] MEDS: levoFLOXacin 750 MG TABLET PO (08:57)
[2023-12-31 09:23] LABS: Basophils Absolute Auto 0.1 K/mm3 (0.0-0.1); Basophils Percent Auto 0.8 % (0.2-1.2); Eosinophils Absolute Auto 0.4 K/mm3 (0-0.3); Eosinophils Percent Auto 4.1 % (0-4.4); Hematocrit 37.6 % (37.0-47.0); Hemoglobin 12.2 g/dL (12.0-15.0); Immature Granulocyte Absolute 0.09 K/mm3 (0.00-0.031); Lymphocytes Absolute Auto 2.73 K/mm3 (0.9-3.2); Lymphocytes Percent Auto 30.2 % (18.3-44.2); Mean Corpuscular HGB Conc 32.4 g/dl (32-36); Mean Corpuscular Hemoglobin 29.5 pg (26-34); Mean Platelet Volume 10.8 fl (7.4-10.4); Monocytes Absolute Auto 1.4 K/mm3 (0.1-0.6); Monocytes Percent Auto 14.9 % (2.6-8.5); Neutrophils Absolute Auto 4.4 K/mm3 (1.3-6.7); Platelet Count Result 367 k/mm3 (150-375); Red Blood Count 4.13 M/mm3 (4.2-5.4); Red Cell Distribution Width 13.9 % (11.5-14.5)
[2023-12-31 09:34] LABS: Alanine Aminotransferase 12 U/L (6-35); Albumin Level 3.5 g/dL (3.5-5.1); Alkaline Phosphatase 79 U/L (38-126); Anion Gap 6 mmol/L (4-12); Aspartate Amino Transferase 20 U/L (14-36); Bilirubin,Total 0.7 mg/dL (0.2-1.3); Blood Urea Nitrogen 13 mg/dL (7-17); Calcium 8.7 mg/dL (8.4-10.2); Carbon Dioxide 27 mmol/L (22-30); Chloride 101 mmol/L (98-107); Estimated CRCL calculation 45 ml/min; Estimated Glomerular Filt Rate > 60; Glucose 162 mg/dL (65-110); Magnesium 1.6 mg/dL (1.6-2.3); Potassium 3.8 mmol/L (3.4-5.0); Sodium 134 mmol/L (137-145)
[2023-12-31 12:08] LABS: Glucose Point of Care 188 mg/dl (65-105)
[2023-12-31 14:00] VITALS: BP 149/66; PULSE 74; RESP 18; TEMP 36.7; O2SAT 97
--- NOTE | 2023-12-31 16:02 | PM.DS ---
DS: Admitting Diagnosis Discharge Date 12/30 Admitting Diagnosis nausea, vomiting DS: Discharge Diagnosis Discharge Diagnosis (1) Sepsis: Code(s): A41.9 - Sepsis, unspecified organism Status: Acute Assessment and Plan: Sepsis vs SIRS. Patient presents with tachycardia, leukocytosis. No lactic acid. Could be related to DKA. UA is concerning for UTI. Old cultures reviewed. CXR showing persistent opacities in bilateral lower lungs; consider PNA Cx collected. Abx started. MRSA nasal swab negative. BCx NGTD. UCx negative WBC was higher at 27K and she was having fevers. No steroids given Repeat CXR showing no change Follow up on Cx results. Continue Levaquin; Doxycycline stopped. meropenem started WBC better and fever resolving. Consider aspiration PNA. pt changed to doxycycline and levaquin can move to medical floor PT/ OT pt is improvement plan dc in 1-2 days time back to SNF (2) DKA (diabetic ketoacidosis): Qualifiers: Diabetes mellitus complication detail: without coma Diabetes mellitus type: type 2 Qualified Code(s): E11.10 - Type 2 diabetes mellitus with ketoacidosis without coma Code(s): E11.10 - Type 2 diabetes mellitus with ketoacidosis without coma Status: Acute Assessment and Plan: A1c 8.5. Patient presents with n/v and found to have glucose >500, bicarb 14 and AG 23. beta hydroxy 1.22 DKA protocol initiated and admitted to the ICU. Geospatial Engineer consulted and appreciate their input. She was fluid resuscitated and started on insulin drip. Gap closed. Bicarb 25 Weaned off insulin drip and now on Lantus Diabetic diet Resolved (3) Chest pain: Code(s): R07.9 - Chest pain, unspecified Status: Acute Assessment and Plan: Patient with CP on admission. It came on with the nausea/vomiting. Still persistent but better. EKG showing sinus tachycardia with poor R wave progression, low voltage, possible old anterior HI Troponin elevated 0.343 but flat Echo EF 70%, diastolic dysfunction Grade I. Continue ASA, metoprolol and Lipitor Suspect Type II HI from the DKA and sepsis (4) Leukocytosis: Code(s): D72.829 - Elevated white blood cell count, unspecified Status: Acute Assessment and Plan: wcc coming down to 12.5 from 12/27 today 9.2 (5) Electrolyte abnormality: Code(s): E87.8 - Other disorders of electrolyte and fluid balance, not elsewhere classified Status: Acute Assessment and Plan: Electrolytes normal now Follow and replace electrolytes as needed. (6) HTN (hypertension): Qualifiers: Hypertension type: primary hypertension Qualified Code(s): I10 - Essential (primary) hypertension Code(s): I10 - Essential (primary) hypertension Status: Acute Assessment and Plan: Patient's blood pressure was reviewed on 12/26 Blood pressure remains well controlled. Will continue to monitor (7) Nausea & vomiting: Code(s): R11.2 - Nausea with vomiting, unspecified Status: Acute Assessment and Plan: Related to DKA. Patient noted to be making herself sick Resolved (8) Alzheimer dementia: Code(s): G30.9 - Alzheimer's disease, unspecified; F02.80 - Dementia in other diseases classified elsewhere, unspecified severity, without behavioral disturbance, psychotic disturbance, mood disturbance, and anxiety Status: Acute Assessment and Plan: Stable. Namenda resumed Mood stable. Remeron resumed but change to HS schedule. (9) Neuromuscular dysfunction of bladder: Code(s): N31.9 - Neuromuscular dysfunction of bladder, unspecified Status: Acute Assessment and Plan: Patient with chronic Cabral. Will ensure this was changed this admission DS: Summary Hospital Course Reason for hospitalization: DKA Hospital Course: 78-year-old female presents here with nausea and vomiting with PMH of diabetes, COPD, GERD, dementia
[2023-12-31 16:55] LABS: Glucose Point of Care 247 mg/dl (65-105)
[2023-12-31] MEDS: INSULIN ASPART (*BKC) 100 UNITS/ML SUB-Q (16:59)
== END 2023-12-31 20:03 | DRG 871 ==
LOC: ANHED 18:04 → ANHIMU 19:52 → ANHICU 20:30 → ANHIMU 12-26 18:15 → ANH3MEDSUR 12-28 13:05
PROVIDERS: Family Medicine; Internal Medicine; Physician Assistant; Student in an Organized Health Care Education/Training Program; Admitting Provider Internal Medicine; Emergency Provider Emergency Medicine; Visit Provider Nurse Practitioner Acute Care
DX: A41.9 Sepsis, unspecified organism (principal); E11.10 Type 2 diabetes mellitus with ketoacidosis without coma; J18.9 Pneumonia, unspecified organism; I21.A1 Myocardial infarction type 2; J69.0 Pneumonitis due to inhalation of food and vomit; E87.6 Hypokalemia; D72.829 Elevated white blood cell count, unspecified; E87.8 Other disorders of electrolyte and fluid balance, not elsewhere classified; I10 Essential (primary) hypertension; G30.9 Alzheimer's disease, unspecified; F02.80 Dementia in other diseases classified elsewhere, unspecified severity, without behavioral disturbance, psychotic disturbance, mood disturbance, and anxiety; N31.9 Neuromuscular dysfunction of bladder, unspecified; J44.9 Chronic obstructive pulmonary disease, unspecified; K21.9 Gastro-esophageal reflux disease without esophagitis; Z20.822 Contact with and (suspected) exposure to COVID-19
CPT/HCPCS: 36415; 36600; 71045; 71046; 80048; 80053; 80069; 81001; 81003; 82010; 82375; 82607; 82746; 82805; 82948; 83036; 83050; 83690; 83735; 84100; 84443; 84484; 85025; 85027; 87040; 87086; 87637; 87641; 92610; 93005; 94667; 94668; 96361; 96365; 96366; 96367; 96375; 97161; 97165; 99285; A9270; C8929; G0378; J0780; J1650; J1815; J1956; J2185; J2405; J2470; J2765; J3475; J3480; J7030; J7040; J7050; Q9957

== ENCOUNTER 2024-02-04 20:00 | Emergency (ER) | payer MEDICARE, SELFPAY ==
[2024-02-04] VITALS (10 sets, daily range): BP systolic 116–138; BP diastolic 56–64; PULSE 72–84; RESP 15–16; TEMP 36.8; O2SAT 93–100
[2024-02-04 21:08] LABS: Basophils Absolute Auto 0.1 K/mm3 (0.0-0.1); Basophils Percent Auto 0.9 % (0.2-1.2); Eosinophils Absolute Auto 0.3 K/mm3 (0-0.3); Eosinophils Percent Auto 3.9 % (0-4.4); Hematocrit 36.7 % (37.0-47.0); Hemoglobin 12.2 g/dL (12.0-15.0); Immature Granulocyte Absolute 0.02 K/mm3 (0.00-0.031); Immature Granulocyte Percent A 0.3 % (0-0.5); Lymphocytes Absolute Auto 2.71 K/mm3 (0.9-3.2); Lymphocytes Percent Auto 35.4 % (18.3-44.2); Mean Corpuscular HGB Conc 33.2 g/dl (32-36); Mean Corpuscular Hemoglobin 29.4 pg (26-34); Mean Corpuscular Volume 88.4 fl (80-100); Mean Platelet Volume 10.4 fl (7.4-10.4); Monocytes Absolute Auto 0.7 K/mm3 (0.1-0.6); Neutrophils Absolute Auto 3.9 K/mm3 (1.3-6.7); Neutrophils Percent Auto 50.5 % (45.5-73.1); Platelet Count Result 363 k/mm3 (150-375); Red Blood Count 4.15 M/mm3 (4.2-5.4); Red Cell Distribution Width 13.6 % (11.5-14.5); White Blood Count 7.7 K/mm3 (4.5-10.0)
[2024-02-04 21:11] LABS: Bacteria Urine 4+ /hpf; Need Manual Microscopic Reviewed; Squamous Epithelial Cell Urine Many /hpf (Few); WBC Urine >100 /hpf (0-3)
[2024-02-04 21:15] LABS: Add Urine Microscopic? YES; Appearance Urine Cloudy (Clear); Color Urine Yellow (Yellow); Specific Grav Ur 1.025 (1.001-1.035); pH Urine 5.5 (5.0-9.0)
[2024-02-04 21:16] LABS: Bilirubin Urine 1+ (Negative); Blood Urine 3+ (Negative); Glucose Urine UA Negative (Negative); Ketones Urine Negative (Negative); Leukocyte Esterase Ur 3+ LEU/UL (Negative); Nitrate Urine Negative (Negative); Protein Urine 2+ mg/dL (Negative); Urobilinogen Urine 0.2 mg/dL (<2.0)
[2024-02-04 21:17] LABS: RBC Urine >100 /hpf (0-2)
[2024-02-04 21:26] LABS: Alanine Aminotransferase 11 U/L (6-35); Albumin Level 3.3 g/dL (3.5-5.1); Alkaline Phosphatase 84 U/L (38-126); Anion Gap 10 mmol/L (4-12); Aspartate Amino Transferase 22 U/L (14-36); Bilirubin,Total 0.5 mg/dL (0.2-1.3); Blood Urea Nitrogen 15 mg/dL (7-17); Calcium 8.8 mg/dL (8.4-10.2); Carbon Dioxide 24 mmol/L (22-30); Chloride 106 mmol/L (98-107); Estimated CRCL calculation 39 ml/min; Estimated Glomerular Filt Rate 54; Glucose 134 mg/dL (65-110); Potassium 3.4 mmol/L (3.4-5.0); Sodium 140 mmol/L (137-145)
--- NOTE | 2024-02-04 23:13 | ED.GENADULT ---
HPI - General Adult General Chief complaint: Urogenital-Female Stated complaint: PAINFUL URINATION Time Seen by Provider: 02/04/24 20:11 History of Present Illness HPI narrative: This is a 78-year-old female sent from the intermediate to evaluate for possible UTI. The patient is A&O x4. She has no complaints. She mention to her she had some pain on urination days ago [facility] The patient has a chronic indwelling Cabral. Patient does not have any fevers chills nausea vomiting diarrhea. No suprapubic pain or flank pain. Related Data Home Medications Medication Instructions Recorded Confirmed acetaminophen 325 mg chewable 650 mg PO Q6H PRN Pain 12/24/23 12/24/23 tablet amlodipine 5 mg tablet 5 mg PO DAILY 12/24/23 12/24/23 aspirin 81 mg chewable tablet 81 mg PO DAILY 12/24/23 12/24/23 atorvastatin 10 mg tablet (Lipitor) 10 mg PO DAILY 12/24/23 12/24/23 bisacodyl 10 mg rectal suppository 10 mg RECTAL DAILY PRN Constipation 12/24/23 12/24/23 cranberry fruit 450 mg tablet 450 mg PO DAILY 12/24/23 12/24/23 (cranberry) escitalopram oxalate 5 mg tablet 5 mg PO DAILY 12/24/23 12/24/23 glucagon 1 mg solution for 1 mg IM PRN PRN Hypoglycemia 12/24/23 12/24/23 injection (GlucaGen HypoKit) magnesium hydroxide 400 mg/5 mL 30 ml PO DAILY PRN Constipation 12/24/23 12/24/23 oral suspension (Milk of Magnesia) memantine 28 mg capsule 28 mg PO DAILY 12/24/23 12/24/23 sprinkle,extended release 24hr metoprolol tartrate 25 mg tablet 25 mg PO BID 12/24/23 12/24/23 mirtazapine 15 mg tablet 15 mg PO DAILY 12/24/23 12/24/23 multivitamin with minerals-folic 1 tablet PO DAILY 12/24/23 12/24/23 acid 0.4 mg tablet sennosides 8.6 mg tablet (senna) 8.6 mg PO QMWF 12/24/23 12/24/23 sodium phosphates 19 gram-7 118 ml RECTAL DAILY PRN 12/24/23 12/24/23 gram/118 mL enema (Fleet Enema) Constipation Allergies Allergy/AdvReac Type Severity Reaction Status Date / Time Penicillins Allergy Unknown Verified 02/04/24 20:09 Sulfa (Sulfonamide Allergy Unknown Verified 02/04/24 20:09 Antibiotics) trazodone Allergy Unknown Verified 02/04/24 20:09 [facility] Past Medical History Medical History (Updated 02/04/24 @ 23:17 by Bradly Stanley MD) Alzheimer dementia Anxiety CAD (coronary artery disease) COPD (chronic obstructive pulmonary disease) Diabetes GERD (gastroesophageal reflux disease) HLD (hyperlipidemia) [place] (hard of hearing) HTN (hypertension) MDD (major depressive disorder) 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 Surgical History Surgical History 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 A&O x3 Head: atraumatic. EYES: EOMI, NOSE: Atraumatic NECK: Trachea midline RESPIRATORY: No increased rate of breathing clear to auscultation CARDIOVASCULAR: RRR, no peripheral edema ABDOMINAL: Non-distended, soft nontender MUSCULOSKELETAl: No obvious deformities NEURO: Alert. Moving 4/4 extremities SKIN:: Warm, dry. Normal color PSYCHIATRIC: Normal affect Course Vital Signs Vital signs: Vital Signs Temperature 98.2 F 02/04/24 20:02 Pulse Rate 76 02/04/24 20:02 Respiratory Rate 15 02/04/24 20:02 Blood Pre
[2024-02-05] VITALS (27 sets, daily range): BP systolic 109–144; BP diastolic 54–107; PULSE 81–98; RESP 15–16; O2SAT 95–98
--- NOTE | 2024-02-05 03:15 | PC.NURSE ---
Report received from ETHAN Redmond. Assumed care of patient at this time.
== END 2024-02-05 05:11 ==
PROVIDERS: Emergency Provider Emergency Medicine
DX: G30.9 Alzheimer's disease, unspecified (principal); F02.80 Dementia in other diseases classified elsewhere, unspecified severity, without behavioral disturbance, psychotic disturbance, mood disturbance, and anxiety; F41.9 Anxiety disorder, unspecified; I25.10 Atherosclerotic heart disease of native coronary artery without angina pectoris; J44.9 Chronic obstructive pulmonary disease, unspecified; E11.9 Type 2 diabetes mellitus without complications; K21.9 Gastro-esophageal reflux disease without esophagitis; E78.5 Hyperlipidemia, unspecified; I10 Essential (primary) hypertension; F32.A Depression, unspecified
CPT/HCPCS: 36415; 80053; 81001; 85025; 87077; 87086; 87088; 87181; 99283

== ENCOUNTER 2024-03-25 10:57 | Inpatient (IN) | payer MEDICARE, SELFPAY ==
[2024-03-25] VITALS (13 sets, daily range): BP systolic 122–172; BP diastolic 65–87; PULSE 78–108; RESP 15–31; TEMP 36.6–36.9; O2SAT 93–99; BMI 26.7
--- NOTE | ~2024-03-25 | US_ITS ---
US renal BI 03/26/2024 13:05 Procedure: Realtime transabdominal ultrasound of the kidneys and bladder. Indication: Hematuria Comparison: CT dated 03/25/2024 Findings: Renal echotexture is normal bilaterally without hydronephrosis, contour deforming mass or r enal calculus. There is a right renal cyst measuring 1.9 cm. The right kidney measures 9.1 cm and lef t kidney measures 10.2 cm. There is a Cabral catheter in the bladder. Impression: 1: Right renal cyst measuring 1.9 cm. Reviewed, dictated and finalized at location B. Impression: 1: Right renal cyst measuring 1.9 cm.
--- NOTE | ~2024-03-25 | US_ITS ---
EXAMINATION: US thyroid DATE: 03/26/2024 13:04 INDICATION: Right thyroid nodule TECHNIQUE: Multiple ultrasound images of the thyroid were obtained. COMPARISON: None. FINDINGS: The right thyroid lobe measures 3.8 x 1.5 x 1.8 cm. The left thyroid lobe measures 4.1 x 1.9 x 1.9 c m. Wider than tall 1.3 cm predominantly solid hypoechoic nodule with lobular margins and without ech ogenic foci (TI-RADS 4, moderately suspicious , FNA if >=1.5 cm, annual followup is >=1 cm) in the ri ght thyroid lobe. 1 cm Ti rads 4 nodule the inferior left thyroid with similar imaging features. IMPRESSION: 1. Bilateral TI-RADS 4 thyroid nodules, the larger on the right measuring 1.3 cm for which annual ult rasound follow-up would be recommended. Reviewed, dictated and finalized at location A. IMPRESSION: 1. Bilateral TI-RADS 4 thyroid nodules, the larger on the right measuring 1.3 c m for which annual ultrasound follow-up would be recommended.
--- NOTE | ~2024-03-25 | CT_ITS ---
CT chest abdomen pelvis w con Ordering provider: Kiel Lundberg MD History: 78 years Female with . chest and ab pain . Comparison: December 02, 2023 Technique: CT chest with IV contrast. CT abdomen and pelvis CT abdomen and pelvis with IV and with or al contrast. Radiation reduction technique utilized.The dose-length product was 1276.45 mGy-cm. 100 m L Omnipaque 350 was given IV. FINDINGS: CHEST: --VISUALIZED THORACIC INLET: Nodule is seen in both lobes of the thyroid. Ultrasound evaluation advis ed. --MEDIASTINUM: Aorta/coronary arteries: Mild atheromatous disease. Ascending aorta measures 3.4 cm. Heart/other: The heart is slightly enlarged. Lymph nodes: No mediastinal or hilar adenopathy. --LUNGS: Right lower lobe atelectasis versus pneumonia with minimal effusion. Left lower lobe atelect asis with minimal effusion. No pulmonary nodules or masses. . No pneumothorax. --MUSCULOSKELETAL: Soft tissues: The superficial soft tissues are normal. Bones: Loss of height of T12 is seen in the superior endplate area which is suggestive of a fracture. This may be acute or chronic. Age appropriate degenerative changes of the spine. No suspicious bony lytic or sclerotic lesions. ABDOMEN/PELVIS: --MUSCULOSKELETAL: Bones: Age appropriate degenerative changes of the spine. No suspicious bony lytic or sclerotic lesio ns. Pubic symphysitis. Bilateral hip osteoarthritic changes. Bilateral sacroiliacs. Superficial soft tissues: The superficial soft tissues are normal. --UPPER ABDOMINAL ORGANS: Liver: Normal. Gallbladder: Normal. Spleen: Normal. Stomach/duodenum: Sliding hiatus hernia with thickened esophagus suggestive of reflux. Clinical corre lation advised. Pancreas: Atrophic. Adrenals: Left adrenal adenoma measuring 1.4 cm. 1.1 adenoma in the right adrenal also seen. No follo w-up advised unless clinically warranted. Kidneys: Right renal cyst in the upper pole measuring 2.6 cm is noted. Stone in the right renal pelvi s is noted measuring 5 mm. --PELVIC ORGANS: The bladder is underfilled with Cabral's catheter. No bladder stones. --BOWEL AND MESENTERY: Colon: Impacted fecal material is seen in the rectum. Minimal fat stranding around the rectum suggest abner of proctitis. No evidence of diverticulitis.. No evidence of diverticulitis. Small Bowel: Normal. No obstruction. Peritoneum/mesentery: No free air or free fluid. No mesenteric lymphadenopathy. --RETROPERITONEUM: Mild atheromatous disease of the abdominal aorta. No retroperitoneal lymphadenop athy. IMPRESSION: CHEST: 1. No pulmonary embolism or aortic dissection. 2. Right basilar atelectasis versus pneumonia. Left basilar atelectasis. Minimal effusion on the rig ht side is not excluded. 3. Right thyroid nodule. Ultrasound evaluation advised. 4. Compression fracture of T12. ABDOMEN/PELVIS: 1. No evidence of appendicitis, diverticulitis or intestinal obstruction. 2. Impacted fecal material in the rectum with possible proctitis. 3. Stones0 in the right renal pelvis. 4. Bilateral adrenal adenomas. 5. Sliding hiatus hernia with thickened esophagus suggestive of reflux esophagitis. Clinical correla tion advised. Reviewed, dictated and finalized at location A. IMPRESSION: CHEST: 1. No pulmonary embolism or aortic dissection. 2. Right basilar atelectasis versus pneumonia. Left basilar atelectasis. Minim al effusion on the right side is not excluded. 3. Right thyroid nodule. Ultrasound evaluation advised. 4. Compression fracture of T12. ABDOMEN/PELVIS: 1. No evidence of appendicitis, diverticulitis or intestinal obstruction. 2. Impacted fecal material in the rectum with possible proctitis. 3. Stones0 in the right renal pelvis. 4. Bilateral adrenal adenomas. 5. Sliding hiatus hernia with thickened esophagus suggestive of reflux esophag itis. Clinical correlation advised.
[2024-03-25 11:11] LABS: Glucose Point of Care 302 mg/dl (65-105)
--- NOTE | 2024-03-25 11:13 | ECG_ITS ---
Test Date: 2024-03-25 11:04:40 Measurements Intervals [place] Rate: 104 P: 52 IN: 194 QRS: -39 QRSD: 89 T: 47 QT: 356 QTc: 470 Interpretive Statements SINUS TACHYCARDIA POSSIBLE ANTERIOR MYOCARDIAL INFARCTION , PROBABLY OLD [30 ms Q WAVE IN V3/V4, OR R < 0.2 mV IN V4] INFERIOR MYOCARDIAL INFARCTION , PROBABLY OLD [40+ ms Q WAVE AND/OR ST/T ABNORMALITY IN II/aVF] ABNORMAL ECG Compared to ECG 12/25/2023 05:14:33 Right-axis deviation no longer present T-wave abnormality no longer present Possible ischemia no longer present Myocardial infarct finding still present Electronically Signed On 03-26-2024 10:37:00 CDT by Liban Banks M.D.
[2024-03-25] MEDS: SODIUM CHLORIDE 0.9% IV 1,000 ML 999 ML IV CONT ×2 (11:27→16:36)
[2024-03-25] MEDS: ONDANSETRON INJ 4 MG/2 ML VIAL IV PUSH (11:27)
[2024-03-25 11:31] LABS: Basophils Absolute Auto 0.1 K/mm3 (0.0-0.1); Basophils Percent Auto 0.5 % (0.2-1.2); Hemoglobin 14.1 g/dL (12.0-15.0); Immature Granulocyte Absolute 0.08 K/mm3 (0.00-0.031); Immature Granulocyte Percent A 0.5 % (0-0.5); Lymphocytes Absolute Auto 1.68 K/mm3 (0.9-3.2); Lymphocytes Percent Auto 10.5 % (18.3-44.2); Mean Corpuscular HGB Conc 34.4 g/dl (32-36); Mean Corpuscular Hemoglobin 29.1 pg (26-34); Mean Corpuscular Volume 84.7 fl (80-100); Mean Platelet Volume 10.6 fl (7.4-10.4); Monocytes Absolute Auto 0.7 K/mm3 (0.1-0.6); Monocytes Percent Auto 4.2 % (2.6-8.5); Neutrophils Absolute Auto 13.5 K/mm3 (1.3-6.7); Neutrophils Percent Auto 84.3 % (45.5-73.1); Platelet Count Result 423 k/mm3 (150-375); Red Blood Count 4.84 M/mm3 (4.2-5.4); Red Cell Distribution Width 13.9 % (11.5-14.5)
[2024-03-25 11:46] LABS: Beta-Hydroxybutyrate/Acetoacetate 0.57 mmol/L (0.02-0.27)
[2024-03-25 11:52] LABS: Lactic Acid Reflex 3.1 mmol/L (0.7-2.0)
[2024-03-25 11:53] LABS: Alanine Aminotransferase 15 U/L (6-35); Albumin Level 4.1 g/dL (3.5-5.1); Alkaline Phosphatase 111 U/L (38-126); Anion Gap 12 mmol/L (4-12); Aspartate Amino Transferase 23 U/L (14-36); Bilirubin,Total 0.8 mg/dL (0.2-1.3); Blood Urea Nitrogen 27 mg/dL (7-17); Calcium 9.5 mg/dL (8.4-10.2); Carbon Dioxide 28 mmol/L (22-30); Chloride 100 mmol/L (98-107); Estimated Glomerular Filt Rate 54; Glucose 300 mg/dL (65-110); Lipase 35 U/L (23-300); Potassium 3.4 mmol/L (3.4-5.0); Sodium 140 mmol/L (137-145)
--- NOTE | 2024-03-25 11:58 | ED.GENADULT ---
HPI - General Adult General Chief complaint: Nausea/Vomiting/Diarrhea Stated complaint: N/V, high BS History of Present Illness HPI narrative: 78-year-old female presents to the emergency department for evaluation for nausea vomiting and abdominal pain. Patient began having worsening nausea and vomiting today. Patient also describes diffuse abdominal pain. Related Data Home Medications Medication Instructions Recorded Confirmed acetaminophen 325 mg chewable 650 mg PO Q6H PRN Pain 12/24/23 03/25/24 tablet amlodipine 5 mg tablet 5 mg PO DAILY 12/24/23 03/25/24 aspirin 81 mg chewable tablet 81 mg PO DAILY 12/24/23 03/25/24 atorvastatin 10 mg tablet (Lipitor) 10 mg PO DAILY 12/24/23 03/25/24 bisacodyl 10 mg rectal suppository 10 mg RECTAL DAILY PRN Constipation 12/24/23 03/25/24 cranberry fruit 450 mg tablet 450 mg PO DAILY 12/24/23 03/25/24 (cranberry) escitalopram oxalate 5 mg tablet 5 mg PO DAILY 12/24/23 03/25/24 glucagon 1 mg solution for 1 mg IM PRN PRN Hypoglycemia 12/24/23 03/25/24 injection (GlucaGen HypoKit) magnesium hydroxide 400 mg/5 mL 30 ml PO DAILY PRN Constipation 12/24/23 03/25/24 oral suspension (Milk of Magnesia) memantine 28 mg capsule 28 mg PO DAILY 12/24/23 03/25/24 sprinkle,extended release 24hr metoprolol tartrate 25 mg tablet 25 mg PO BID 12/24/23 03/25/24 mirtazapine 15 mg tablet 15 mg PO DAILY 12/24/23 03/25/24 multivitamin with minerals-folic 1 tablet PO DAILY 12/24/23 03/25/24 acid 0.4 mg tablet sennosides 8.6 mg tablet (senna) 8.6 mg PO QMWF 12/24/23 03/25/24 sodium phosphates 19 gram-7 118 ml RECTAL DAILY PRN 12/24/23 03/25/24 gram/118 mL enema (Fleet Enema) Constipation Allergies Allergy/AdvReac Type Severity Reaction Status Date / Time Penicillins Allergy Unknown Verified 03/25/24 14:59 Sulfa (Sulfonamide Allergy Unknown Verified 03/25/24 14:59 Antibiotics) trazodone Allergy Unknown Verified 03/25/24 14:59 Review of Systems Review of Systems: All systems reviewed & are unremarkable except as noted in HPI and below [facility] Past Medical History Medical History (Updated 03/25/24 @ 17:03 by Kiel Lundberg MD) Alzheimer dementia Anxiety CAD (coronary artery disease) COPD (chronic obstructive pulmonary disease) Diabetes GERD (gastroesophageal reflux disease) HLD (hyperlipidemia) [place] (hard of hearing) HTN (hypertension) MDD (major depressive disorder) 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 Surgical History Surgical History 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 Social History Social History Smoking status: Never smoker Second hand tobacco smoke exposure: No Alcohol intake: never Substance use: never Substance use type: does not use Do You Feel Safe in your Home?: Yes Lack of Transportation: No Lack of Food: Never True Current Housing: I Have Housing Concerned About Future Housing: No Difficulty Paying Gas/Electric Bills: No Difficulty Paying for Meds: No Currently Unemployed: No Education: High School Diploma/GED Difficulty w/ Childcare or Family Care: No Spiritual care concerns: No Exam Narrative: APPEARANCE: Uncomfortable appearing HEAD: normocephalic, atraumatic. EYES: PERRLA/EOMI, conjunctivae clear. NOSE: Normal no drainage EARS:TMS clear with good light reflex. THROAT: Pharynx clear, no exudate. NECK: Supple. No adenopathy, no masses. RESPIRATORY: Airway patent, respirations nonlabored. Clear to auscultation bilaterally, no rales, rhonchi, wheezing. CARDIOVASCULAR: Regular rate and rhythm without murmurs rubs or gallops. ABDOMINAL: Diffuse abdominal tenderness MUSCULOSKELETAL: Moves all extremities. Strength/ROM intact, No edema, No calf tenderness. NEURO: Alert. Cranial nerves II through XII intact. SKIN: Warm, dry. Normal Color Course Vital Signs Vital signs: Vital Signs Pulse Rate 104 H 03/25/24 10:56 Respiratory Rate 18 03/25/24 10:56 Blood Pressure 152/72 H 03/25/24 10:56 Pulse Oximetry 94 03/25/24 10:56 Oxygen Delivery Room Air 03/25/24 10:56 Temperature 97.9 F 03/25/24 16:37 Pulse Rate 104 H 03/25/24 16:37 Respiratory Rate 17 03/25/24 16:37 Blood Pressure 148/74 H 03/25/24 16:37 Pulse Oximetry 95 03/25/24 16:37 Oxygen Delivery Room Air 03/25/24 10:56 Medical Decision Making MDM Narrative Medical decision making narrative: 78-year-old female present to the emergency department for evaluation for persistent nausea and vomiting. Patient is afebrile but does have a elevated leukocytosis of 16,000 and a hemoglobin of 14.1. Patient does not have an anion gap patient does Doretha an elevated blood sugar of approximately 300. Patient was treated with 2 L of IV fluids and patient's blood sugar is still elevated. Patient was then treated with IV insulin. Patient does not have and a gap, patient has been have drug C butyrate is mildly elevated 0.57 UA was concerning for urinary tract infection. Patient does have underlying medication allergies. Patient was started on Levaquin. CT scan was also concerning for esophagitis/gastritis so patient was also started on famotidine and Protonix. I discussed the case with the hospitalist patient was accepted to the IMU. Differential Diagnosis Differential Diagnosis: Colitis, diverticulitis, appendicitis, cholecystitis, cystitis, pyelonephritis, COVID, influenza, RSV, gastroenteritis Vital Signs Vital Signs: Vital Signs Pulse Rate 104 H 03/25/24 10:56 Respiratory Rate 18 03/25/24 10:56 Blood Pressure 152/72 H 03/25/24 10:56 Pulse Oximetry 94 03/25/24 10:56 Oxygen Delivery Room Air 03/25/24 10:56 Temperature 97.9 F 03/25/24 16:37 Pulse Rate 104 H 03/25/24 16:37 Respiratory Rate 17 03/25/24 16:37 Blood Pressure 148/74 H 03/25/24 16:37 Pulse Oximetry 95 03/25/24 16:37 Oxygen Delivery Room Air 03/25/24 10:56 Lab Data Lab results reviewed: Yes I reviewed the patient's lab results. 03/25/24 11:21 03/25/24 11:21 Labs: Lab Results 03/25/24 03/25/24 03/25/24 Range/Units 11:05 11:21 11:43 WBC 16.0 H (4.5-10.0) K/mm3 RBC 4.84 (4.2-5.4) M/mm3 Hgb 14.1 (12.0-15.0) g/dL Hct 41.0 (37.0-47.0) % MCV 84.7 (80-100) fl MCH 29.1 (26-34) pg MCHC 34.4 (32-36) g/dl RDW 13.9 (11.5-14.5) % Plt Count 423 H (150-375) k/mm3 MPV 10.6 H (7.4-10.4) fl Immature Gran % (Auto) 0.5 (0-0.5) % Neut % (Auto) 84.3 H (45.5-73.1) % Lymph % (Auto) 10.5 L (18.3-44.2) % [place] % (Auto) 4.2 (2.6-8.5) % Eos % (Auto) 0.0 (0-4.4) % Baso % (Auto) 0.5 (0.2-1.2) % Lymph # (Auto) 1.68 (0.9-3.2) K/mm3 [place] # (Auto) 0.7 H (0.1-0.6) K/mm3 Eos # (Auto) 0.0 (0-0.3) K/mm3 Baso # (Auto) 0.1 (0.0-0.1) K/mm3 Abs Immat Gran (auto) 0.08 H (0.00-0.031) K/mm3 Absolute Neuts (auto) 13.5 H (1.3-6.7) K/mm3 Absolute Nucleated RBC 0.000 (0.0-0.012) K/mm3 Nucleated RBC % 0.0 (0.0-0.2) % Sodium 140 (137-145) mmol/L Potassium 3.4 (3.4-5.0) mmol/L Chloride 100 (98-107) mmol/L Carbon Dioxide 28 (22-30) mmol/L Anion Gap 12 (4-12) mmol/L BUN 27 H D (7-17) mg/dL Creatinine 1.00 (0.7-1.0) mg/dL Estim Creat Clear Calc Not Reportable Estimated GFR 54 L (59 - ) Glucose 300 H (65-110) mg/dL POC Capillary Glucose 302 H (65-105) mg/dl Lactic Acid 3.1 H (0.7-2.0) mmol/L Calcium 9.5 (8.4-10.2) mg/dL Total Bilirubin 0.8 (0.2-1.3) mg/dL AST 23 (14-36) U/L ALT 15 (6-35) U/L Alkaline Phosphatase 111 (38-126) U/L Troponin I (0.000-0.034) ng/mL Total Protein 8.0 (6.3-8.2) g/dL Albumin 4.1 (3.5-5.1) g/dL Lipase 35 (23-300) U/L Beta-Hydroxybutyrate/Acetoacetate 0.57 H (0.02-0.27) mmol/L Urine Color Yellow (Yellow) Urine Appearance Cloudy H (Clear) Urine pH 8.5 (5.0-9.0) Ur Specific [place] 1.022 (1.001-1.035) Urine Protein 2+ H (Negative) mg/dL Urine Glucose (UA) 3+ H (Negative) mg/dL Urine Ketones 2+ H (Negative) mg/dL Ur Blood (Man) 2+ H (Negative) Urine Nitrate Negative (Negative) Urine Bilirubin Negative (Negative) Urine Urobilinogen 0.2 (<2.0) mg/dL Add Ur Microanalysis Reviewed Leukocyte Esterase Rfl 2+ H (Negative) ISABEL/UL Urine RBC 21-50 H (0-2) /hpf Urine WBC >100 H (0-3) /hpf Ur Squamous Epith Cells None seen (Few) /hpf Urine Bacteria 1+ H /hpf Urine Casts 6-10 03/25/24 03/25/24 03/25/24 Range/Units 13:53 14:56 16:31 WBC (4.5-10.0) K/mm3 RBC (4.2-5.4) M/mm3 Hgb (12.0-15.0) g/dL Hct (37.0-47.0) % MCV (80-100) fl MCH (26-34) pg MCHC (32-36) g/dl RDW (11.5-14.5) % Plt Count (150-375) k/mm3 MPV (7.4-10.4) fl Immature Gran % (Auto) (0-0.5) % Neut % (Auto) (45.5-73.1) % Lymph % (Auto) (18.3-44.2) % [place] % (Auto) (2.6-8.5) % Eos % (Auto) (0-4.4) % Baso % (Auto) (0.2-1.2) % Lymph # (Auto) (0.9-3.2) K/mm3 [place] # (Auto) (0.1-0.6) K/mm3 Eos # (Auto) (0-0.3) K/mm3 Baso # (Auto) (0.0-0.1) K/mm3 Abs Immat Gran (auto) (0.00-0.031) K/mm3 Absolute Neuts (auto) (1.3-6.7) K/mm3 Absolute Nucleated RBC (0.0-0.012) K/mm3 Nucleated RBC % (0.0-0.2) % Sodium (137-145) mmol/L Potassium (3.4-5.0) mmol/L Chloride (98-107) mmol/L Carbon Dioxide (22-30) mmol/L Anion Gap (4-12) mmol/L BUN (7-17) mg/dL Creatinine (0.7-1.0) mg/dL Estim Creat Clear Calc Estimated GFR (59 - ) Glucose (65-110) mg/dL POC Capillary Glucose 338 H (65-105) mg/dl Lactic Acid 4.9 H* (0.7-2.0) mmol/L Calcium (8.4-10.2) mg/dL Total Bilirubin (0.2-1.3) mg/dL AST (14-36) U/L ALT (6-35) U/L Alkaline Phosphatase (38-126) U/L Troponin I < 0.012 (0.000-0.034) ng/mL Total Protein (6.3-8.2) g/dL Albumin (3.5-5.1) g/dL Lipase (23-300) U/L Beta-Hydroxybutyrate/Acetoacetate (0.02-0.27) mmol/L Urine Color (Yellow) Urine Appearance (Clear) Urine pH (5.0-9.0) Ur Specific [place] (1.001-1.035) Urine Protein (Negative) mg/dL Urine Glucose (UA) (Negative) mg/dL Urine Ketones (Negative) mg/dL Ur Blood (Man) (Negative) Urine Nitrate (Negative) Urine Bilirubin (Negative) Urine Urobilinogen (<2.0) mg/dL Add Ur Microanalysis Leukocyte Esterase Rfl (Negative) ISABEL/UL Urine RBC (0-2) /hpf Urine WBC (0-3) /hpf Ur Squamous Epith Cells (Few) /hpf Urine Bacteria /hpf Urine Casts Imaging Data Radiologist's impression: Impressions Chest/Abdomen/Pelvis CT 03/25/24 15:26 IMPRESSION: CHEST: 1. No pulmonary embolism or aortic dissection. 2. Right basilar atelectasis versus pneumonia. Left basilar atelectasis. Minimal effusion on the right side is not excluded. 3. Right thyroid nodule. Ultrasound evaluation advised. 4. Compression fracture of T12. ABDOMEN/PELVIS: 1. No evidence of appendicitis, diverticulitis or intestinal obstruction. 2. Impacted fecal material in the rectum with possible proctitis. 3. Stones0 in the right renal pelvis. 4. Bilateral adrenal adenomas. 5. Sliding hiatus hernia with thickened esophagus suggestive of reflux esophagitis. Clinical correlation advised. Discharge Plan Discharge Clinical Impression: Nausea vomiting and diarrhea, Acute pyelonephritis, Hyperglycemia, Esophagitis, Gastritis Patient Disposition: Still a Patient Condition: Serious
[2024-03-25 12:03] LABS: Add Urine Microscopic? YES; Appearance Urine Cloudy (Clear); Bacteria Urine 1+ /hpf; Bilirubin Urine Negative (Negative); Blood Urine 2+ (Negative); Color Urine Yellow (Yellow); Glucose Urine UA 3+ mg/dL (Negative); Ketones Urine 2+ mg/dL (Negative); Leukocyte Esterase Ur 2+ LEU/UL (Negative); Need Manual Microscopic Reviewed; Nitrate Urine Negative (Negative); Protein Urine 2+ mg/dL (Negative); RBC Urine 21-50 /hpf (0-2); Specific Grav Ur 1.022 (1.001-1.035); Squamous Epithelial Cell Urine None Seen /hpf (Few); Urobilinogen Urine 0.2 mg/dL (<2.0); WBC Urine >100 /hpf (0-3); pH Urine 8.5 (5.0-9.0)
[2024-03-25] MEDS: METOCLOPRAMIDE HCL INJ 10 MG/2 ML VIAL IV PUSH (13:02)
[2024-03-25] MEDS: levoFLOXacin 750 MG/D5W 150 ML 750 MG/150 ML BAG 100 MG IVPB (13:30)
--- NOTE | 2024-03-25 13:49 | ECG_ITS ---
Test Date: 2024-03-25 13:51:45 Measurements Intervals [place] Rate: 106 P: 43 [place]: 184 QRS: -46 QRSD: 94 T: 41 QT: 373 QTc: 497 Interpretive Statements SINUS TACHYCARDIA POSSIBLE ANTERIOR MYOCARDIAL INFARCTION , PROBABLY OLD [30 ms Q WAVE IN V3/V4, OR R < 0.2 mV IN V4] INFERIOR MYOCARDIAL INFARCTION , PROBABLY OLD [40+ ms Q WAVE AND/OR ST/T ABNORMALITY IN II/aVF] ABNORMAL ECG Compared to ECG 03/25/2024 11:04:40 No significant changes Electronically Signed On 03-26-2024 10:38:15 CDT by Liban Banks M.D.
[2024-03-25 14:21] LABS: Troponin I < 0.012 ng/mL (0.000-0.034)
[2024-03-25] MEDS: LORazepam INJ (*CRX) 2 MG/ML VIAL 1 MG IV PUSH (14:23)
[2024-03-25 14:28] LABS: Reflex Lactic Acid Yes or No Add Lactic
[2024-03-25 15:21] LABS: Lactic Acid 4.9 mmol/L (0.7-2.0)
[2024-03-25 16:34] LABS: Glucose Point of Care 338 mg/dl (65-105)
[2024-03-25] MEDS: PANTOPRAZOLE SODIUM IV 40 MG VIAL IV PUSH (16:36)
[2024-03-25] MEDS: FAMOTIDINE 20 MG/2 ML VIAL IV PUSH (16:36)
[2024-03-25] MEDS: INSULIN HUMAN REGULAR (*BKC) 100 UNITS/ML IV PUSH (17:17)
--- NOTE | 2024-03-25 17:29 | PM.IMHP ---
H&P: HPI History of Present Illness Date/Time: 03/25/24 17:29 Chief Complaint: 78-year-old female with a PMHx: of diabetes, COPD not on home oxygen, GERD, dementia, HTN presented from shelter with reports of ongoing nausea vomiting, patient tells me her symptoms started last night, she reports having worsening nausea vomiting today, citing she has generalized abdominal pain. She denies any chest pain, fever or chills or recent travel. ED workup reveals: Initial vitals: b/p152/72, rr18, pr104 [id number] % on RA T:97.9, initial labs revealed elevated leukocytosis of 16,000 hgb of 14.1 patient did not have an anion gap, elevated glucose was 300, patient was given 2 L of IV fluids, she was also given 4 units regular insulin IV, patient did not have an anion gap, beta hydroxybutyrate mildly elevated at 0.57, troponin negative, UA suspected urinary tract infection patient was started on Levaquin due to past history of resistant antibiotics in the past, CT scan with also concerning for esophagitis/gastritis, famotidine and Protonix was initiated in the ED. 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 Social History Social History Smoking status: Never smoker Second hand tobacco smoke exposure: No Alcohol intake: never Substance use: never Substance use type: does not use Do You Feel Safe in your Home?: Yes Lack of Transportation: No Lack of Food: Never True Current Housing: I Have Housing Concerned About Future Housing: No Difficulty Paying Gas/Electric Bills: No Difficulty Paying for Meds: No Currently Unemployed: No Education: High School Diploma/GED Difficulty w/ Childcare or Family Care: No Spiritual care concerns: No Meds Home Medications and Allergies Home Medications Medication Instructions Recorded Confirmed Type ondansetron 4 mg disintegrating 4 mg PO Q8H PRN nausea and 12/02/23 03/25/24 Rx tablet vomiting #14 tabs acetaminophen 325 mg chewable 650 mg PO Q6H PRN Pain 12/24/23 03/25/24 History tablet amlodipine 5 mg tablet 5 mg PO DAILY 12/24/23 03/25/24 History aspirin 81 mg chewable tablet 81 mg PO DAILY 12/24/23 03/25/24 History atorvastatin 10 mg tablet (Lipitor) 10 mg PO DAILY 12/24/23 03/25/24 History bisacodyl 10 mg rectal suppository 10 mg RECTAL DAILY PRN Constipation 12/24/23 03/25/24 History cranberry fruit 450 mg tablet 450 mg PO DAILY 12/24/23 03/25/24 History (cranberry) escitalopram oxalate 5 mg tablet 5 mg PO DAILY 12/24/23 03/25/24 History glucagon 1 mg solution for 1 mg IM PRN PRN Hypoglycemia 12/24/23 03/25/24 History injection (GlucaGen HypoKit) magnesium hydroxide 400 mg/5 mL 30 ml PO DAILY PRN Constipation 12/24/23 03/25/24 History oral suspension (Milk of Magnesia) memantine 28 mg capsule 28 mg PO DAILY 12/24/23 03/25/24 History sprinkle,extended release 24hr metoprolol tartrate 25 mg tablet 25 mg PO BID 12/24/23 03/25/24 History mirtazapine 15 mg tablet 15 mg PO DAILY 12/24/23 03/25/24 History multivitamin with minerals-folic 1 tablet PO DAILY 12/24/23 03/25/24 History acid 0.4 mg tablet sennosides 8.6 mg tablet (senna) 8.6 mg PO QMWF 12/24/23 03/25/24 History sodium phosphates 19 gram-7 118 ml RECTAL DAILY PRN 12/24/23 03/25/24 History gram/118 mL enema (Fleet Enema) Constipation insulin glargine 100 unit/mL 6 unit (0.06 mL) subcut BID #10 mL 12/31/23 03/25/24 Rx subcutaneous solution (Lantus U-100 Insulin) Allergies Allergy/AdvReac Type Severity Reaction Status Date / Time Penicillins Allergy Unknown Verified 03/25/24 14:59 Sulfa (Sulfonamide Allergy Unknown Verified 03/25/24 14:59 Antibiotics) trazodone Allergy Unknown Verified 03/25/24 14:59 Vital Signs Vital Signs - 24 hr 03/25/24 10:56 03/25/24 11:09 03/25/24 11:15 Temperature Pulse Rate 104 H 108 H 106 H Respiratory Rate 18 21 H 20 Blood Pressure 152/72 H Pulse Oximetry 94 93 95 Oxygen Delivery Room Air 03/25/24 11:45 03/25/24 13:02 03/25/24 14:26 Temperature 98.2 F Pulse Rate 98 104 H 108 H Respiratory Rate 31 H 18 18 Blood Pressure 168/65 H 172/87 H 154/66 H Pulse Oximetry 96 98 99 Oxygen Delivery 03/25/24 16:37 Temperature 97.9 F Pulse Rate 104 H Respiratory Rate 17 Blood Pressure 148/74 H Pulse Oximetry 95 Oxygen Delivery Exam Narrative: APPEARANCE: awake, no acute distress, requesting water, chronically ill appearing HEAD: normocephalic, atraumatic. EYES: PERRLA/EOMI, conjunctivae clear. NOSE: Normal no drainage EARS: THROAT: Pharynx clear, no exudate. NECK: Supple. No adenopathy, no masses. RESPIRATORY: Airway patent, respirations nonlabored. Clear to auscultation bilaterally, no rales, rhonchi, wheezing. CARDIOVASCULAR: Regular rate and rhythm without murmurs rubs or gallops. ABDOMINAL: Diffuse abdominal tenderness MUSCULOSKELETAL: Moves all extremities. Strength/ROM intact, No edema, No calf tenderness. NEURO: Alert. Cranial nerves II through XII intact. SKIN: Warm, dry. Normal Color H&P: Results Labs Labs: Short CBC 03/25/24 Range/Units 11:21 WBC 16.0 H (4.5-10.0) K/mm3 Hgb 14.1 (12.0-15.0) g/dL Hct 41.0 (37.0-47.0) % Plt Count 423 H (150-375) k/mm3 BMP 03/25/24 11:21 Sodium 140 Potassium 3.4 Chloride 100 Carbon Dioxide 28 BUN 27 H D Creatinine 1.00 Glucose 300 H Calcium 9.5 Cardiac Enzymes 03/25/24 Range/Units 13:53 Troponin I < 0.012 (0.000-0.034) ng/mL Liver Function 03/25/24 Range/Units 11:21 Total Bilirubin 0.8 (0.2-1.3) mg/dL AST 23 (14-36) U/L ALT 15 (6-35) U/L Alkaline Phosphatase 111 (38-126) U/L Albumin 4.1 (3.5-5.1) g/dL Urine 03/25/24 Range/Units 11:43 Urine Color Yellow (Yellow) Urine Appearance Cloudy H (Clear) Urine pH 8.5 (5.0-9.0) Ur Specific [place] 1.022 (1.001-1.035) Urine Protein 2+ H (Negative) mg/dL Urine Glucose (UA) 3+ H (Negative) mg/dL ECG Attestation: I personally reviewed and interpreted this ECG as follows: ECG completion date: 03/25/24 ECG completion time: 13:51 Prior ECG tracings: available for review Interpretation: Rate 106 PA 184 QRSd 94 QT 373 QTc 497 --[place]-- P 43 QRS -46 T 41 SINUS TACHYCARDIA POSSIBLE ANTERIOR MYOCARDIAL INFARCTION , PROBABLY OLD [30 ms Q WAVE IN V3/V4, OR R < 0.2 mV IN V4] INFERIOR MYOCARDIAL INFARCTION , PROBABLY OLD [40+ ms Q WAVE AND/OR ST/T ABNORMALITY IN II/aVF] Compared to ECG 03/25/2024 11:04:40 No significant changes Imaging CT scan - abdomen: Radiologist's impression: CHEST: 1. No pulmonary embolism or aortic dissection. 2. Right basilar atelectasis versus pneumonia. Left basilar atelectasis. Minimal effusion on the right side is not excluded. 3. Right thyroid nodule. Ultrasound evaluation advised. 4. Compression fracture of T12. ABDOMEN/PELVIS: 1. No evidence of appendicitis, diverticulitis or intestinal obstruction. 2. Impacted fecal material in the rectum with possible proctitis. 3. Stones0 in the right renal pelvis. 4. Bilateral adrenal adenomas. 5. Sliding hiatus hernia with thickened esophagus suggestive of reflux esophagitis. Clinical correlation advised. Assessment and Plan Assessment and plan (1) Nausea vomiting and diarrhea: Code(s): R11.2 - Nausea with vomiting, unspecified; R19.7 - Diarrhea, unspecified Status: Acute Assessment and Plan: secondary to infection, suspected could be related to anxiety, she is requesting water and food. -NPO, until nausea/vomiting has resolved -use ondansetron 4mg IV P.R.N for nausea (2) Esophagitis: Code(s): K20.90 - Esophagitis, unspecified without bleeding Status: Acute Assessment and Plan: as evidenced by CT (3) Right thyroid nodule: Code(s): E04.1 - Nontoxic single thyroid nodule Status: Acute Assessment and Plan: -as evidence by CT, recommends follow up -check thyroid US in the a.m. (4) Proctitis: Code(s): K62.89 - Other specified diseases of anus and rectum Status: Acute Assessment and Plan: as evidence by abdominal CT, could be infectious -stool softeners (5) Sepsis: Code(s): A41.9 - Sepsis, unspecified organism Status: Acute Assessment and Plan: WBC 16.4, HR 102, elevated lactate 4.8 x2 1L bolus given in the ED ABX levofloxacin 750 mg IV PE given in the ED -suspect source of infection urine, Urine culture pending, blood cultures pending -continue telemetry monitoring -repeat lactic acid pending -continue to monitor CMP, CBC -admit to IMU -continue IV fluids NS 0.9%, 100ml/hr (6) Diabetes mellitus with hyperglycemia: Code(s): E11.65 - Type 2 diabetes mellitus with hyperglycemia Status: Acute Assessment and Plan: Patient presents with nausea vomiting found to have glucose > 300, bicarb and anion gap closed, beta hydroxy 0.57 -patient given for 4 units regular insulin IVP -continue hypoglycemia protocol -continue adult insulin per protocol (7) Leukocytosis: Code(s): D72.829 - Elevated white blood cell count, unspecified Status: Acute Assessment and Plan: White blood count elevated upon arrival at 16.4 Plan Continue home medications: VTE Prophylaxis: DIET: NPO Anticipated hospital stay: > 2 days Code Status: Full code Quality VTE Prophylaxis VTE prophylaxis: mechanical ordered Hospitalist MIPS Advance Care Plan I have confirmed that the patient's Advanced Care Plan is present, code status is documented, or surrogate decision maker is listed in patient medical record.: Yes Medication Reconciliation I have utilized all available resources to obtain, update and review the patients current medications (includes all prescriptions, OTC, herbals, cannabis, and nutritional supplements).: Yes
[2024-03-25 17:51] LABS: Glucose Point of Care 295 mg/dl (65-105)
[2024-03-25 18:42] LABS: Glucose Point of Care 272 mg/dl (65-105)
--- NOTE | 2024-03-25 19:10 | PC.NURSE ---
Report called from ER @ 1840. PAtient arrived @1900. Put on telemetry. ST 104.
[2024-03-25 19:19] LABS: Glucose Point of Care 283 mg/dl (65-105)
[2024-03-25] MEDS: METOPROLOL TARTRATE 25 MG TABLET PO (20:56)
[2024-03-25] MEDS: SODIUM CHLORIDE 0.9% IV 1,000 ML 100 ML IV CONT (20:56)
[2024-03-25] MEDS: INSULIN GLARGINE (*BKC) 100 UNITS/ML 15 UNITS SUB-Q (20:57)
[2024-03-25 21:22] LABS: Lactic Acid Reflex 1.4 mmol/L (0.7-2.0)
--- NOTE | 2024-03-25 22:18 | ADMGEN ---
This patient, Donna Cobb, was admitted to IMU Room 206-01. Patient/family oriented to hospital policies and general routines including ID bracelet, bed and alarms, visiting hours, pain management, procedures, bathroom and other care routines, personal items, smoking policy, room service/diet, and visiting hours. Information on how to activate the Rapid Response Team has been discussed. Patient/Family are encouraged to report perceived risks to care and to ask questions if they do not understand what they are told or what they should do.
[2024-03-25 23:28] LABS: Glucose Point of Care 269 mg/dl (65-105)
[2024-03-26] VITALS (13 sets, daily range): BP systolic 93–147; BP diastolic 52–74; PULSE 63–92; RESP 12–20; TEMP 35.9–36.8; O2SAT 95–99
[2024-03-26 04:59] LABS: Lactic Acid Reflex 1.1 mmol/L (0.7-2.0)
[2024-03-26 05:05] LABS: Hemoglobin A1C 8.4 % (<5.7)
[2024-03-26 05:12] LABS: Alanine Aminotransferase 10 U/L (6-35); Albumin Level 3.3 g/dL (3.5-5.1); Alkaline Phosphatase 76 U/L (38-126); Anion Gap 5 mmol/L (4-12); Aspartate Amino Transferase 19 U/L (14-36); Bilirubin,Total 0.7 mg/dL (0.2-1.3); Blood Urea Nitrogen 24 mg/dL (7-17); Calcium 8.4 mg/dL (8.4-10.2); Carbon Dioxide 28 mmol/L (22-30); Chloride 106 mmol/L (98-107); Estimated CRCL calculation 39 ml/min; Estimated Glomerular Filt Rate 54; Glucose 195 mg/dL (65-110); Potassium 3.8 mmol/L (3.4-5.0); Sodium 139 mmol/L (137-145)
[2024-03-26] MEDS: SODIUM CHLORIDE 0.9% IV 1,000 ML 100 ML IV CONT ×2 (06:21→20:33)
[2024-03-26 07:41] LABS: Glucose Point of Care 170 mg/dl (65-105)
[2024-03-26] MEDS: MIRTAZAPINE 15 MG TABLET PO (08:57)
[2024-03-26] MEDS: MEMANTINE HCL XR 28 MG CAP PO (08:57)
[2024-03-26] MEDS: METOPROLOL TARTRATE 25 MG TABLET PO ×2 (08:57→20:28)
[2024-03-26] MEDS: THERAPEUTIC MULTIVITAMINS/MINERALS TAB (*BKC) 1 TABLET PO (08:58)
[2024-03-26] MEDS: ESCITALOPRAM OXALATE 5 MG TABLET PO (08:58)
[2024-03-26] MEDS: PANTOPRAZOLE SODIUM IV 40 MG VIAL IV PUSH (08:58)
[2024-03-26] MEDS: amLODIPine BESYLATE 5 MG TABLET PO (08:58)
[2024-03-26] MEDS: ENOXAPARIN 40 MG/0.4 ML SYRINGE SUB-Q (08:58)
[2024-03-26] MEDS: ASPIRIN 81 MG CHEWABLE TABLET PO (08:58)
[2024-03-26] MEDS: ATORVASTATIN 10 MG TABLET PO (08:58)
[2024-03-26] MEDS: SENNOSIDES 8.6 MG TABLET PO (09:08)
--- NOTE | 2024-03-26 10:12 | P.PNIM_ITS ---
Progress Note: A&P Assessment and Plan (1) Diabetes mellitus with hyperglycemia: Code(s): E11.65 - Type 2 diabetes mellitus with hyperglycemia Status: Acute (2) Nausea vomiting and diarrhea: Code(s): R11.2 - Nausea with vomiting, unspecified; R19.7 - Diarrhea, unspecified Status: Acute Plan 78-year-old female with a PMHx: of diabetes, COPD not on home oxygen, GERD, dementia, HTN presented from [facility] with reports of ongoing nausea vomiting, abdominal pain 1 DAY ACUTE INFECTIVE GASTROENTERITIS Patient has been having abdomen pain, associated with nausea vomiting diarrhea about 1 day Upon arrival in ED, patient leukocytosis 16,000, CT scan suggest esophagitis and proctitis Levaquin was started in the ED Follow-up stool culture, C diff screening Acute pyelonephritis UA shows pyuria and hematuria Suspecting pyelonephritis and cystitis Follow-up renal ultrasound Sepsis: Code(s): A41.9 - Sepsis, unspecified organism Status: Acute Assessment and Plan: WBC 16.4, HR 102, elevated lactate 4.8 x2 1L bolus given in the ED ABX levofloxacin 750 mg IV PE given in the ED -suspect source of infection urine, Urine culture pending, blood cultures pending -continue telemetry monitoring -repeat lactic acid pending -continue to monitor CMP, CBC -admit to IMU -continue IV fluids NS 0.9%, 100ml/hr Dehydration evaluated BUN creatinine ratio upon arrival, 27/1.0 Resulting from gastroenteritis Received fluid resuscitation Continue normal saline IV Hypovolemic hypotension Upon arrival, blood pressure 93/55 Suspecting hypovolemic hypotension superimposed with sepsis Received fluid resuscitation Blood pressure became stable Diabetes mellitus with hyperglycemia: Code(s): E11.65 - Type 2 diabetes mellitus with hyperglycemia Status: Acute Assessment and Plan: Patient presents with nausea vomiting found to have glucose > 300, bicarb and anion gap closed, beta hydroxy 0.57 -patient given for 4 units regular insulin IVP -continue hypoglycemia protocol -continue adult insulin per protocol Right thyroid nodule: Code(s): E04.1 - Nontoxic single thyroid nodule Status: Acute Assessment and Plan: -as evidence by CT, recommends follow up -check thyroid US in the a.m. Subjective Date/time seen: 03/26/24 10:12 Interval history: I saw and examined patient today, patient feels better. Nausea vomiting has resolved, dysuria is improving. Patient denies chest pain shortness breast, patient is afebrile overnight, blood pressure became stable Exam Narrative: GENERAL: Ill-appearing in no acute distress. Well-nourished. - EYES: EOMI. Anicteric. - HENT: Moist mucous membranes. - LUNGS: Clear to auscultation bilateral ly, no wheezing, rhonchi, or rales. - CARDIOVASCULAR: Regular rate and rhyth m. No murmur. No JVD. - ABDOMEN: Soft, non-tender and non-dist ended. No palpable masses. - EXTREMITIES: No edema. Peripheral puls es 2+. Non-tender. - NEUROLOGIC: No focal neurological defi cits. CN II-XII grossly intact. General weakness - PSYCHIATRIC: Awake, Alert and oriented x 3. Appropriate mood and affect. - SKIN: No rashes or lesions. Warm. - LYMPH: No cervical lymphadenopathy. Objective Data Vital Signs Vital Signs: Vital Signs - 24 hr 03/25/24 10:56 03/25/24 11:09 03/25/24 11:15 Temperature Pulse Rate 104 H 108 H 106 H Respiratory Rate 18 21 H 20 Blood Pressure 152/72 H Pulse Oximetry 94 93 95 Oxygen Delivery Room Air Fraction of Inspired Oxygen 03/25/24 11:45 03/25/24 13:02 03/25/24 14:26 Temperature 98.2 F Pulse Rate 98 104 H 108 H Respiratory Rate 31 H 18 18 Blood Pressure 168/65 H 172/87 H 154/66 H Pulse Oximetry 96 98 99 Oxygen Delivery Fraction of Inspired Oxygen 03/25/24 16:37 03/25/24 18:46 03/25/24 19:13 Temperature 97.9 F 98.4 F Pulse Rate 104 H 102 H 104 H Respiratory Rate 17 15 20 Blood Pressure 148/74 H 122/69 154/72 H Pulse Oximetry 95 96 97 Oxygen Delivery Fraction of Inspired Oxygen 03/25/24 20:00 03/25/24 20:56 03/25/24 20:00 Temperature Pulse Rate 100 96 101 H Respiratory Rate Blood Pressure Pulse Oximetry Oxygen Delivery Fraction of Inspired Oxygen 03/25/24 20:00 03/25/24 22:00 03/25/24 23:44 Temperature Pulse Rate 101 H 96 78 Respiratory Rate 20 Blood Pressure Pulse Oximetry 97 Oxygen Delivery Room Air Fraction of Inspired Oxygen 03/25/24 23:44 03/26/24 00:00 03/26/24 02:00 Temperature 98.3 F Pulse Rate 78 81 84 Respiratory Rate 20 20 Blood Pressure 126/65 Pulse Oximetry 97 98 Oxygen Delivery Room Air Fraction of Inspired Oxygen 03/26/24 03:15 03/26/24 03:15 03/26/24 03:15 Temperature 97.9 F Pulse Rate 84 84 84 Respiratory Rate 20 18 Blood Pressure 93/65 L Pulse Oximetry 98 98 Oxygen Delivery Room Air Fraction of Inspired Oxygen 03/26/24 07:57 03/26/24 08:23 03/26/24 08:57 Temperature 98.3 F Pulse Rate 92 90 Respiratory Rate 18 Blood Pressure 147/64 H Pulse Oximetry 95 96 Oxygen Delivery Room Air Fraction of Inspired Oxygen 03/26/24 08:00 03/26/24 08:00 03/26/24 08:00 Temperature Pulse Rate 92 90 Respiratory Rate Blood Pressure Pulse Oximetry Oxygen Delivery Room Air Fraction of Inspired Oxygen Intake/Output Intake/Output: Intake & Output 03/23/24 03/24/24 03/25/24 03/26/24 23:59 23:59 23:59 23:59 Intake Total 2150 1041.7 Output Total 450 Balance 2150 591.7 Meds/Results Medications: Active Medications Generic Name Dose Route Start Last Admin Trade Name Freq PRN Reason Stop Dose Admin Amlodipine Besylate 5 mg 03/26/24 09:00 03/26/24 08:58 Amlodipine Besylate 5 Mg Tablet PO 5 mg DAILY MARY Administration Aspirin 81 mg 03/26/24 09:00 03/26/24 08:58 Aspirin 81 Mg Chewable Tablet PO 81 mg DAILY MARY Administration Atorvastatin Calcium 10 mg 03/26/24 09:00 03/26/24 08:58 Atorvastatin 10 Mg Tablet PO 10 mg DAILY MARY Administration Bisacodyl 10 mg 03/25/24 19:45 Bisacodyl 10 Mg Suppository RECTAL DAILY PRN Constipation Dextrose 12.5 gm 03/25/24 16:49 Dextrose 50% 25 Gm/50 Ml Syringe IV PUSH PRN PRN Hypoglycemia Protocol Enoxaparin Sodium 40 mg 03/26/24 09:00 03/26/24 08:58 Enoxaparin 40 Mg/0.4 Ml Syringe SUB-Q 40 mg DAILY MARY Administration Escitalopram Oxalate 5 mg 03/26/24 09:00 03/26/24 08:58 Escitalopram Oxalate 5 Mg Tablet PO 5 mg DAILY MARY Administration Glucagon 1 mg 03/25/24 16:49 Glucagon For Inj 1 Mg Vial IM PRN PRN Hypoglycemia Protocol Glucose 15 gm 03/25/24 16:49 Glucose Oral Gel 15 Gm Of Glucse In 37.5 Gm Tube PO PRN PRN Hypoglycemia Protocol Levofloxacin/Dextrose 750 mg in 150 mls @ 100 mls/hr 03/27/24 14:00 Levaquin 750 Mg/D5w 150 Ml IVPB Q48H MARY Dextrose 1,000 mls @ 100 mls/hr 03/25/24 16:49 Dextrose 5% 1,000 Ml IVPB PRN PRN Hypoglycemia Protocol Sodium Chloride 1,000 mls @ 100 mls/hr 03/25/24 19:40 03/26/24 06:21 Normal Saline Iv IV CONT 100 mls/hr .Q10H MARY Administration Insulin Glargine 15 units 03/25/24 21:00 03/25/24 20:57 Insulin Glargine (*Bkc) 100 Units/Ml 0.2 units/kg (15 units) 15 units SUB-Q Administration HS MARY Magnesium Hydroxide 30 ml 03/25/24 19:45 Magnesium Hydroxide Susp 30 Ml Udc PO DAILY PRN Constipation Memantine 28 mg 03/26/24 09:00 03/26/24 08:57 Memantine Hcl Xr 28 Mg Cap PO 28 mg DAILY MARY Administration Metoprolol Tartrate 25 mg 03/25/24 21:00 03/26/24 08:57 Metoprolol Tartrate 25 Mg Tablet PO 25 mg Q12HR MARY Administration Mirtazapine 15 mg 03/26/24 09:00 03/26/24 08:57 Mirtazapine 15 Mg Tablet PO 15 mg DAILY MARY Administration Miscellaneous Information 1 each 03/26/24 00:01 Med Rec Order Clarification XX 04/25/24 00:00 CLARIFY MARY Multivitamins/Calcium 1 tablet 03/26/24 09:00 03/26/24 08:58 Therapeutic Multivitamins/Minerals Tab (*Bkc) PO 1 tablet DAILY MARY Administration Non-Formulary Medication 1 each 03/25/24 19:50 Nonformulary Nutritional Supplement XX 03/26/24 19:49 PRN PRN PROTOCOL Non-Formulary Medication 1 mg 03/25/24 19:45 Glucagon [Glucagen Hypokit] IM PRN PRN Hypoglycemia Ondansetron HCl 4 mg 03/25/24 17:29 Ondansetron Inj 4 Mg/2 Ml Vial IV PUSH Q4H PRN Nausea Pantoprazole Sodium 40 mg 03/26/24 09:00 03/26/24 08:58 Pantoprazole Sodium Iv 40 Mg Vial IV PUSH 40 mg QAM MARY Administration Senna 8.6 mg 03/26/24 09:00 03/26/24 09:08 Sennosides 8.6 Mg Tablet PO 8.6 mg MoWeFr@0900 [facility] Administration Radiology Results: ITS Impressions Chest/Abdomen/Pelvis CT 03/25/24 15:26 IMPRESSION: CHEST: 1. No pulmonary embolism or aortic dissection. 2. Right basilar atelectasis versus pneumonia. Left basilar atelectasis. Minimal effusion on the right side is not excluded. 3. Right thyroid nodule. Ultrasound evaluation advised. 4. Compression fracture of T12. ABDOMEN/PELVIS: 1. No evidence of appendicitis, diverticulitis or intestinal obstruction. 2. Impacted fecal material in the rectum with possible proctitis. 3. Stones0 in the right renal pelvis. 4. Bilateral adrenal adenomas. 5. Sliding hiatus hernia with thickened esophagus suggestive of reflux esophagitis. Clinical correlation advised. Labs Labs: Laboratory Results - last 24 hr 03/25/24 03/25/24 03/25/24 11:05 11:21 11:43 WBC 16.0 H RBC 4.84 Hgb 14.1 Hct 41.0 MCV 84.7 MCH 29.1 MCHC 34.4 RDW 13.9 Plt Count 423 H MPV 10.6 H Immature Gran % (Auto) 0.5 Neut % (Auto) 84.3 H Lymph % (Auto) 10.5 L [place] % (Auto) 4.2 Eos % (Auto) 0.0 Baso % (Auto) 0.5 Lymph # (Auto) 1.68 [place] # (Auto) 0.7 H Eos # (Auto) 0.0 Baso # (Auto) 0.1 Abs Immat Gran (auto) 0.08 H Absolute Neuts (auto) 13.5 H Absolute Nucleated RBC 0.000 Nucleated RBC % 0.0 Sodium 140 Potassium 3.4 Chloride 100 Carbon Dioxide 28 Anion Gap 12 BUN 27 H D Creatinine 1.00 Estim Creat Clear Calc Not Reportable Estimated GFR 54 L Glucose 300 H POC Capillary Glucose 302 H Hemoglobin A1c Lactic Acid 3.1 H Calcium 9.5 Total Bilirubin 0.8 AST 23 ALT 15 Alkaline Phosphatase 111 Troponin I Total Protein 8.0 Albumin 4.1 Lipase 35 Beta-Hydroxybutyrate/Acetoacetate 0.57 H Urine Color Yellow Urine Appearance Cloudy H Urine pH 8.5 Ur Specific [place] 1.022 Urine Protein 2+ H Urine Glucose (UA) 3+ H Urine Ketones 2+ H Ur Blood (Man) 2+ H Urine Nitrate Negative Urine Bilirubin Negative Urine Urobilinogen 0.2 Add Ur Microanalysis Reviewed Leukocyte Esterase Rfl 2+ H Urine RBC 21-50 H Urine WBC >100 H Ur Squamous Epith Cells None seen Urine Bacteria 1+ H Urine Casts 6-10 03/25/24 03/25/24 03/25/24 13:53 14:56 16:31 WBC RBC Hgb Hct MCV MCH MCHC RDW Plt Count MPV Immature Gran % (Auto) Neut % (Auto) Lymph % (Auto) [place] % (Auto) Eos % (Auto) Baso % (Auto) Lymph # (Auto) [place] # (Auto) Eos # (Auto) Baso # (Auto) Abs Immat Gran (auto) Absolute Neuts (auto) Absolute Nucleated RBC Nucleated RBC % Sodium Potassium Chloride Carbon Dioxide Anion Gap BUN Creatinine Estim Creat Clear Calc Estimated GFR Glucose POC Capillary Glucose 338 H Hemoglobin A1c Lactic Acid 4.9 H* Calcium Total Bilirubin AST ALT Alkaline Phosphatase Troponin I < 0.012 Total Protein Albumin Lipase Beta-Hydroxybutyrate/Acetoacetate Urine Color Urine Appearance Urine pH Ur Specific [place] Urine Protein Urine Glucose (UA) Urine Ketones Ur Blood (Man) Urine Nitrate Urine Bilirubin Urine Urobilinogen Add Ur Microanalysis Leukocyte Esterase Rfl Urine RBC Urine WBC Ur Squamous Epith Cells Urine Bacteria Urine Casts 03/25/24 03/25/24 03/25/24 17:47 18:39 19:16 WBC RBC Hgb Hct MCV MCH MCHC RDW Plt Count MPV Immature Gran % (Auto) Neut % (Auto) Lymph % (Auto) [place] % (Auto) Eos % (Auto) Baso % (Auto) Lymph # (Auto) [place] # (Auto) Eos # (Auto) Baso # (Auto) Abs Immat Gran (auto) Absolute Neuts (auto) Absolute Nucleated RBC Nucleated RBC % Sodium Potassium Chloride Carbon Dioxide Anion Gap BUN Creatinine Estim Creat Clear Calc Estimated GFR Glucose POC Capillary Glucose 295 H 272 H 283 H Hemoglobin A1c Lactic Acid Calcium Total Bilirubin AST ALT Alkaline Phosphatase Troponin I Total Protein Albumin Lipase Beta-Hydroxybutyrate/Acetoacetate Urine Color Urine Appearance Urine pH Ur Specific [place] Urine Protein Urine Glucose (UA) Urine Ketones Ur Blood (Man) Urine Nitrate Urine Bilirubin Urine Urobilinogen Add Ur Microanalysis Leukocyte Esterase Rfl Urine RBC Urine WBC Ur Squamous Epith Cells Urine Bacteria Urine Casts 03/25/24 03/25/24 03/26/24 21:08 23:11 04:22 WBC RBC Hgb Hct MCV MCH MCHC RDW Plt Count MPV Immature Gran % (Auto) Neut % (Auto) Lymph % (Auto) [place] % (Auto) Eos % (Auto) Baso % (Auto) Lymph # (Auto) [place] # (Auto) Eos # (Auto) Baso # (Auto) Abs Immat Gran (auto) Absolute Neuts (auto) Absolute Nucleated RBC Nucleated RBC % Sodium 139 Potassium 3.8 Chloride 106 Carbon Dioxide 28 Anion Gap 5 BUN 24 H Creatinine 1.00 Estim Creat Clear Calc 39 Estimated GFR 54 L Glucose 195 H POC Capillary Glucose 269 H Hemoglobin A1c 8.4 H Lactic Acid 1.4 1.1 Calcium 8.4 Total Bilirubin 0.7 AST 19 ALT 10 Alkaline Phosphatase 76 Troponin I Total Protein 6.0 L Albumin 3.3 L Lipase Beta-Hydroxybutyrate/Acetoacetate Urine Color Urine Appearance Urine pH Ur Specific [place] Urine Protein Urine Glucose (UA) Urine Ketones Ur Blood (Man) Urine Nitrate Urine Bilirubin Urine Urobilinogen Add Ur Microanalysis Leukocyte Esterase Rfl Urine RBC Urine WBC Ur Squamous Epith Cells Urine Bacteria Urine Casts 03/26/24 07:34 WBC RBC Hgb Hct MCV MCH MCHC RDW Plt Count MPV Immature Gran % (Auto) Neut % (Auto) Lymph % (Auto) [place] % (Auto) Eos % (Auto) Baso % (Auto) Lymph # (Auto) [place] # (Auto) Eos # (Auto) Baso # (Auto) Abs Immat Gran (auto) Absolute Neuts (auto) Absolute Nucleated RBC Nucleated RBC % Sodium Potassium Chloride Carbon Dioxide Anion Gap BUN Creatinine Estim Creat Clear Calc Estimated GFR Glucose POC Capillary Glucose 170 H Hemoglobin A1c Lactic Acid Calcium Total Bilirubin AST ALT Alkaline Phosphatase Troponin I Total Protein Albumin Lipase Beta-Hydroxybutyrate/Acetoacetate Urine Color Urine Appearance Urine pH Ur Specific [place] Urine Protein Urine Glucose (UA) Urine Ketones Ur Blood (Man) Urine Nitrate Urine Bilirubin Urine Urobilinogen Add Ur Microanalysis Leukocyte Esterase Rfl Urine RBC Urine WBC Ur Squamous Epith Cells Urine Bacteria Urine Casts
[2024-03-26 10:24] LABS: Basophils Percent Auto 0.2 % (0.2-1.2); Immature Granulocyte Absolute 0.07 K/mm3 (0.00-0.031); Immature Granulocyte Percent A 0.4 % (0-0.5); Lymphocytes Absolute Auto 1.79 K/mm3 (0.9-3.2); Lymphocytes Percent Auto 10.7 % (18.3-44.2); Mean Corpuscular HGB Conc 33.3 g/dl (32-36); Mean Corpuscular Hemoglobin 29.3 pg (26-34); Mean Platelet Volume 11.5 fl (7.4-10.4); Monocytes Percent Auto 6.2 % (2.6-8.5); Neutrophils Absolute Auto 13.8 K/mm3 (1.3-6.7); Neutrophils Percent Auto 82.5 % (45.5-73.1); Platelet Count Result 370 k/mm3 (150-375); Red Blood Count 4.09 M/mm3 (4.2-5.4); Red Cell Distribution Width 14.4 % (11.5-14.5); White Blood Count 16.7 K/mm3 (4.5-10.0)
--- NOTE | 2024-03-26 10:39 | PCPTNOTE ---
Pt dependent at baseline using a kadie lift to transfer OOB. Message left with hospitalist regarding discharge of therapy orders.
[2024-03-26 11:21] LABS: Glucose Point of Care 140 mg/dl (65-105)
[2024-03-26 11:24] LABS: Magnesium 1.4 mg/dL (1.6-2.3); Phosphorus 3.8 mg/dL (2.5-4.5)
[2024-03-26 16:20] LABS: Glucose Point of Care 106 mg/dl (65-105)
[2024-03-26 20:28] LABS: Glucose Point of Care 129 mg/dl (65-105)
[2024-03-26] MEDS: INSULIN GLARGINE (*BKC) 100 UNITS/ML 15 UNITS SUB-Q (20:28)
[2024-03-26 20:29] LABS: Basophils Absolute Auto 0.1 K/mm3 (0.0-0.1); Basophils Percent Auto 0.4 % (0.2-1.2); Eosinophils Absolute Auto 0.2 K/mm3 (0-0.3); Eosinophils Percent Auto 1.3 % (0-4.4); Hematocrit 32.8 % (37.0-47.0); Hemoglobin 10.7 g/dL (12.0-15.0); Immature Granulocyte Absolute 0.05 K/mm3 (0.00-0.031); Immature Granulocyte Percent A 0.4 % (0-0.5); Lymphocytes Absolute Auto 3.46 K/mm3 (0.9-3.2); Lymphocytes Percent Auto 26.8 % (18.3-44.2); Mean Corpuscular HGB Conc 32.6 g/dl (32-36); Mean Corpuscular Hemoglobin 28.8 pg (26-34); Mean Corpuscular Volume 88.2 fl (80-100); Mean Platelet Volume 10.7 fl (7.4-10.4); Monocytes Percent Auto 7.7 % (2.6-8.5); Neutrophils Absolute Auto 8.2 K/mm3 (1.3-6.7); Neutrophils Percent Auto 63.4 % (45.5-73.1); Platelet Count Result 331 k/mm3 (150-375); Red Blood Count 3.72 M/mm3 (4.2-5.4); Red Cell Distribution Width 14.4 % (11.5-14.5); White Blood Count 12.9 K/mm3 (4.5-10.0)
[2024-03-27] MEDS: SODIUM CHLORIDE 0.9% IV 1,000 ML 100 ML IV CONT ×2 (05:30→15:29)
[2024-03-27 06:07] VITALS: BP 131/46; PULSE 74; RESP 14; TEMP 36.2; O2SAT 97
[2024-03-27 06:15] LABS: Alanine Aminotransferase 9 U/L (6-35); Albumin Level 3.1 g/dL (3.5-5.1); Alkaline Phosphatase 62 U/L (38-126); Anion Gap 5 mmol/L (4-12); Aspartate Amino Transferase 19 U/L (14-36); Bilirubin,Total 0.4 mg/dL (0.2-1.3); Blood Urea Nitrogen 19 mg/dL (7-17); Calcium 8.2 mg/dL (8.4-10.2); Carbon Dioxide 25 mmol/L (22-30); Chloride 108 mmol/L (98-107); Estimated CRCL calculation 54 ml/min; Estimated Glomerular Filt Rate > 60; Glucose 71 mg/dL (65-110); Potassium 3.3 mmol/L (3.4-5.0); Sodium 138 mmol/L (137-145)
[2024-03-27 08:03] LABS: Glucose Point of Care 66 mg/dl (65-105)
[2024-03-27 08:20] VITALS: PULSE 92
[2024-03-27] MEDS: ASPIRIN 81 MG CHEWABLE TABLET PO (08:20)
[2024-03-27] MEDS: MIRTAZAPINE 15 MG TABLET PO (08:20)
[2024-03-27] MEDS: amLODIPine BESYLATE 5 MG TABLET PO (08:20)
[2024-03-27] MEDS: THERAPEUTIC MULTIVITAMINS/MINERALS TAB (*BKC) 1 TABLET PO (08:20)
[2024-03-27] MEDS: ESCITALOPRAM OXALATE 5 MG TABLET PO (08:20)
[2024-03-27] MEDS: ATORVASTATIN 10 MG TABLET PO (08:20)
[2024-03-27] MEDS: METOPROLOL TARTRATE 25 MG TABLET PO ×2 (08:20→20:47)
[2024-03-27] MEDS: MEMANTINE HCL XR 28 MG CAP PO (08:20)
[2024-03-27 08:44] VITALS: O2SAT 96
[2024-03-27 09:27] LABS: Glucose Point of Care 140 mg/dl (65-105)
[2024-03-27 09:58] LABS: Basophils Absolute Auto 0.1 K/mm3 (0.0-0.1); Basophils Percent Auto 0.6 % (0.2-1.2); Eosinophils Absolute Auto 0.2 K/mm3 (0-0.3); Eosinophils Percent Auto 2.3 % (0-4.4); Hemoglobin 10.7 g/dL (12.0-15.0); Immature Granulocyte Absolute 0.03 K/mm3 (0.00-0.031); Immature Granulocyte Percent A 0.3 % (0-0.5); Lymphocytes Absolute Auto 2.35 K/mm3 (0.9-3.2); Lymphocytes Percent Auto 24.4 % (18.3-44.2); Mean Corpuscular HGB Conc 32.4 g/dl (32-36); Mean Corpuscular Hemoglobin 28.9 pg (26-34); Mean Corpuscular Volume 89.2 fl (80-100); Mean Platelet Volume 10.8 fl (7.4-10.4); Monocytes Absolute Auto 0.9 K/mm3 (0.1-0.6); Monocytes Percent Auto 9.3 % (2.6-8.5); Neutrophils Absolute Auto 6.1 K/mm3 (1.3-6.7); Neutrophils Percent Auto 63.1 % (45.5-73.1); Platelet Count Result 293 k/mm3 (150-375); Red Cell Distribution Width 14.4 % (11.5-14.5); White Blood Count 9.7 K/mm3 (4.5-10.0)
[2024-03-27 10:06] LABS: Anion Gap 6 mmol/L (4-12); Blood Urea Nitrogen 18 mg/dL (7-17); Calcium 8.1 mg/dL (8.4-10.2); Carbon Dioxide 25 mmol/L (22-30); Chloride 107 mmol/L (98-107); Estimated CRCL calculation 49 ml/min; Estimated Glomerular Filt Rate > 60; Glucose 131 mg/dL (65-110); Magnesium 1.4 mg/dL (1.6-2.3); Phosphorus 3.3 mg/dL (2.5-4.5); Potassium 3.6 mmol/L (3.4-5.0); Sodium 138 mmol/L (137-145)
[2024-03-27] MEDS: PANTOPRAZOLE SODIUM IV 40 MG VIAL IV PUSH (10:43)
[2024-03-27] MEDS: ENOXAPARIN 40 MG/0.4 ML SYRINGE SUB-Q (10:44)
[2024-03-27 11:42] LABS: Glucose Point of Care 140 mg/dl (65-105)
[2024-03-27 14:00] VITALS: BP 127/49; PULSE 59; RESP 18; TEMP 36.3; O2SAT 97
[2024-03-27] MEDS: levoFLOXacin 750 MG TABLET PO (14:50)
[2024-03-27 17:36] LABS: Glucose Point of Care 176 mg/dl (65-105)
--- NOTE | 2024-03-27 18:00 | PM.IMPN ---
Progress Note: A&P Assessment and Plan (1) Diabetes mellitus with hyperglycemia: Code(s): E11.65 - Type 2 diabetes mellitus with hyperglycemia Status: Acute (2) Nausea vomiting and diarrhea: Code(s): R11.2 - Nausea with vomiting, unspecified; R19.7 - Diarrhea, unspecified Status: Acute Plan 78-year-old female with a PMHx: of diabetes, COPD not on home oxygen, GERD, dementia, HTN [facility] with reports of ongoing nausea vomiting, abdominal pain 1 DAY ACUTE INFECTIVE GASTROENTERITIS Patient has been having abdomen pain, associated with nausea vomiting diarrhea about 1 day Upon arrival in ED, patient leukocytosis 16,000, CT scan suggest esophagitis and proctitis Levaquin was started in the ED Follow-up stool culture, C diff screening Acute pyelonephritis UA shows pyuria and hematuria Suspecting pyelonephritis and cystitis Follow-up renal ultrasound Sepsis: Code(s): A41.9 - Sepsis, unspecified organism Status: Acute Assessment and Plan: WBC 16.4, HR 102, elevated lactate 4.8 x2 1L bolus given in the ED ABX levofloxacin 750 mg IV PE given in the ED -suspect source of infection urine, Urine culture pending, blood cultures pending -continue telemetry monitoring -repeat lactic acid pending -continue to monitor CMP, CBC -admit to IMU -continue IV fluids NS 0.9%, 100ml/hr Dehydration evaluated BUN creatinine ratio upon arrival, 27/1.0 Resulting from gastroenteritis Received fluid resuscitation Continue normal saline IV Hypovolemic hypotension Upon arrival, blood pressure 93/55 Suspecting hypovolemic hypotension superimposed with sepsis Received fluid resuscitation Blood pressure became stable Diabetes mellitus with hyperglycemia: Code(s): E11.65 - Type 2 diabetes mellitus with hyperglycemia Status: Acute Assessment and Plan: Patient presents with nausea vomiting found to have glucose > 300, bicarb and anion gap closed, beta hydroxy 0.57 -patient given for 4 units regular insulin IVP -continue hypoglycemia protocol -continue adult insulin per protocol Right thyroid nodule: Code(s): E04.1 - Nontoxic single thyroid nodule Status: Acute Assessment and Plan: -as evidence by CT, recommends follow up -check thyroid US in the a.m. Subjective Date/time seen: 03/27/24 18:00 Interval history: No acute events reported overnight. Review of Systems Review of Systems: All systems reviewed & are unremarkable except as noted in HPI and below Exam Narrative: GENERAL: Ill-appearing in no acute distress. Well-nourished. - EYES: EOMI. Anicteric. - HENT: Moist mucous membranes. - LUNGS: Clear to auscultation bilaterally, no wheezing, rhonchi, or rales. - CARDIOVASCULAR: Regular rate and rhythm. No murmur. No JVD. - ABDOMEN: Soft, non-tender and non-distended. No palpable masses. - EXTREMITIES: No edema. Peripheral pulses 2+. Non-tender. - NEUROLOGIC: No focal neurological deficits. CN II-XII grossly intact. General weakness - PSYCHIATRIC: Awake, Alert and oriented x 3. Appropriate mood and affect. - SKIN: No rashes or lesions. Warm. - LYMPH: No cervical lymphadenopathy. Objective Data Vital Signs Vital Signs: Vital Signs - 24 hr 03/26/24 20:28 03/26/24 22:05 03/27/24 06:07 Temperature 96.7 F L 97.1 F L Pulse Rate 68 75 74 Respiratory Rate 12 14 Blood Pressure 126/52 L 131/46 L Pulse Oximetry 95 97 Oxygen Delivery 03/27/24 08:20 03/27/24 08:44 03/27/24 08:00 Temperature Pulse Rate 92 Respiratory Rate Blood Pressure Pulse Oximetry 96 Oxygen Delivery Room Air Room Air Intake/Output Intake/Output: Intake & Output 03/24/24 03/25/24 03/26/24 03/27/24 23:59 23:59 23:59 23:59 Intake Total 2150 2721.7 2329.3 Output Total 925 450 Balance 2150 1796.7 1879.3 Meds/Results Medications: Active Medications Generic Name Dose Route Start Last Admin Trade Name Freq PRN Reason Stop Dose Admin Amlodipine Besylate 5 mg 03/26/24 09:00 03/27/24 08:20 Amlodipine Besylate 5 Mg Tablet PO 5 mg DAILY MARY Administration Aspirin 81 mg 03/26/24 09:00 03/27/24 08:20 Aspirin 81 Mg Chewable Tablet PO 81 mg DAILY MARY Administration Atorvastatin Calcium 10 mg 03/26/24 09:00 03/27/24 08:20 Atorvastatin 10 Mg Tablet PO 10 mg DAILY MARY Administration Bisacodyl 10 mg 03/25/24 19:45 Bisacodyl 10 Mg Suppository RECTAL DAILY PRN Constipation Dextrose 12.5 gm 03/25/24 16:49 Dextrose 50% 25 Gm/50 Ml Syringe IV PUSH PRN PRN Hypoglycemia Protocol Enoxaparin Sodium 40 mg 03/26/24 09:00 03/27/24 10:44 Enoxaparin 40 Mg/0.4 Ml Syringe SUB-Q 40 mg DAILY MARY Administration Escitalopram Oxalate 5 mg 03/26/24 09:00 03/27/24 08:20 Escitalopram Oxalate 5 Mg Tablet PO 5 mg DAILY MARY Administration Glucagon 1 mg 03/25/24 16:49 Glucagon For Inj 1 Mg Vial IM PRN PRN Hypoglycemia Protocol Glucose 15 gm 03/25/24 16:49 Glucose Oral Gel 15 Gm Of Glucse In 37.5 Gm Tube PO PRN PRN Hypoglycemia Protocol Dextrose 1,000 mls @ 100 mls/hr 03/25/24 16:49 Dextrose 5% 1,000 Ml IVPB PRN PRN Hypoglycemia Protocol Sodium Chloride 1,000 mls @ 100 mls/hr 03/26/24 17:05 03/27/24 15:29 Normal Saline Iv IV CONT 100 mls/hr .Q10H MARY Administration Insulin Glargine 15 units 03/25/24 21:00 03/26/24 20:28 Insulin Glargine (*Bkc) 100 Units/Ml 0.2 units/kg (15 units) 15 units SUB-Q Administration HS MARY Magnesium Hydroxide 30 ml 03/25/24 19:45 Magnesium Hydroxide Susp 30 Ml Udc PO DAILY PRN Constipation Memantine 28 mg 03/26/24 09:00 03/27/24 08:20 Memantine Hcl Xr 28 Mg Cap PO 28 mg DAILY MARY Administration Metoprolol Tartrate 25 mg 03/25/24 21:00 03/27/24 08:20 Metoprolol Tartrate 25 Mg Tablet PO 25 mg Q12HR MARY Administration Mirtazapine 15 mg 03/26/24 09:00 03/27/24 08:20 Mirtazapine 15 Mg Tablet PO 15 mg DAILY MARY Administration Multivitamins/Calcium 1 tablet 03/26/24 09:00 03/27/24 08:20 Therapeutic Multivitamins/Minerals Tab (*Bkc) PO 1 tablet DAILY MARY Administration Ondansetron HCl 4 mg 03/25/24 17:29 Ondansetron Inj 4 Mg/2 Ml Vial IV PUSH Q4H PRN Nausea Pantoprazole Sodium 40 mg 03/26/24 09:00 03/27/24 10:43 Pantoprazole Sodium Iv 40 Mg Vial IV PUSH 40 mg QAM MARY Administration Senna 8.6 mg 03/26/24 09:00 03/26/24 09:08 Sennosides 8.6 Mg Tablet PO 8.6 mg MoWeFr@0900 MARY Administration Radiology Results: ITS Impressions Chest/Abdomen/Pelvis CT 03/25/24 15:26 IMPRESSION: CHEST: 1. No pulmonary embolism or aortic dissection. 2. Right basilar atelectasis versus pneumonia. Left basilar atelectasis. Minimal effusion on the right side is not excluded. 3. Right thyroid nodule. Ultrasound evaluation advised. 4. Compression fracture of T12. ABDOMEN/PELVIS: 1. No evidence of appendicitis, diverticulitis or intestinal obstruction. 2. Impacted fecal material in the rectum with possible proctitis. 3. Stones0 in the right renal pelvis. 4. Bilateral adrenal adenomas. 5. Sliding hiatus hernia with thickened esophagus suggestive of reflux esophagitis. Clinical correlation advised. Renal Ultrasound 03/26/24 13:08 Impression: 1: Right renal cyst measuring 1.9 cm. Thyroid Ultrasound 03/26/24 16:48 IMPRESSION: 1. Bilateral TI-RADS 4 thyroid nodules, the larger on the right measuring 1.3 cm for which annual ultrasound follow-up would be recommended. Labs Labs: Laboratory Results - last 24 hr 03/26/24 03/26/24 03/27/24 20:18 20:19 05:43 WBC 12.9 H RBC 3.72 L Hgb 10.7 L Hct 32.8 L MCV 88.2 MCH 28.8 MCHC 32.6 RDW 14.4 Plt Count 331 MPV 10.7 H Immature Gran % (Auto) 0.4 Neut % (Auto) 63.4 Lymph % (Auto) 26.8 [place] % (Auto) 7.7 Eos % (Auto) 1.3 Baso % (Auto) 0.4 Lymph # (Auto) 3.46 H [place] # (Auto) 1.0 H Eos # (Auto) 0.2 Baso # (Auto) 0.1 Abs Immat Gran (auto) 0.05 H Absolute Neuts (auto) 8.2 H Absolute Nucleated RBC 0.000 Nucleated RBC % 0.0 Sodium 138 Potassium 3.3 L Chloride 108 H Carbon Dioxide 25 Anion Gap 5 BUN 19 H Creatinine 0.80 Estim Creat Clear Calc 54 Estimated GFR > 60 Glucose 71 POC Capillary Glucose 129 H Calcium 8.2 L Phosphorus Magnesium Total Bilirubin 0.4 AST 19 ALT 9 Alkaline Phosphatase 62 Total Protein 6.0 L Albumin 3.1 L 03/27/24 03/27/24 03/27/24 07:59 09:24 09:49 WBC 9.7 RBC 3.70 L Hgb 10.7 L Hct 33.0 L MCV 89.2 MCH 28.9 MCHC 32.4 RDW 14.4 Plt Count 293 MPV 10.8 H Immature Gran % (Auto) 0.3 Neut % (Auto) 63.1 Lymph % (Auto) 24.4 [place] % (Auto) 9.3 H Eos % (Auto) 2.3 Baso % (Auto) 0.6 Lymph # (Auto) 2.35 [place] # (Auto) 0.9 H Eos # (Auto) 0.2 Baso # (Auto) 0.1 Abs Immat Gran (auto) 0.03 Absolute Neuts (auto) 6.1 Absolute Nucleated RBC 0.000 Nucleated RBC % 0.0 Sodium 138 Potassium 3.6 Chloride 107 Carbon Dioxide 25 Anion Gap 6 BUN 18 H Creatinine 0.90 Estim Creat Clear Calc 49 Estimated GFR > 60 Glucose 131 H POC Capillary Glucose 66 140 H Calcium 8.1 L Phosphorus 3.3 Magnesium 1.4 L Total Bilirubin AST ALT Alkaline Phosphatase Total Protein Albumin 03/27/24 03/27/24 11:20 17:08 WBC RBC Hgb Hct MCV MCH MCHC RDW Plt Count MPV Immature Gran % (Auto) Neut % (Auto) Lymph % (Auto) [place] % (Auto) Eos % (Auto) Baso % (Auto) Lymph # (Auto) [place] # (Auto) Eos # (Auto) Baso # (Auto) Abs Immat Gran (auto) Absolute Neuts (auto) Absolute Nucleated RBC Nucleated RBC % Sodium Potassium Chloride Carbon Dioxide Anion Gap BUN Creatinine Estim Creat Clear Calc Estimated GFR Glucose POC Capillary Glucose 140 H 176 H Calcium Phosphorus Magnesium Total Bilirubin AST ALT Alkaline Phosphatase Total Protein Albumin Quality VTE Prophylaxis VTE prophylaxis: mechanical ordered Hospitalist MIPS Advance Care Plan I have confirmed that the patient's Advanced Care Plan is present, code status is documented, or surrogate decision maker is listed in patient medical record.: Yes Medication Reconciliation I have utilized all available resources to obtain, update and review the patients current medications (includes all prescriptions, OTC, herbals, cannabis, and nutritional supplements).: Yes
[2024-03-27 18:53] LABS: Basophils Absolute Auto 0.1 K/mm3 (0.0-0.1); Basophils Percent Auto 0.5 % (0.2-1.2); Eosinophils Absolute Auto 0.4 K/mm3 (0-0.3); Eosinophils Percent Auto 3.6 % (0-4.4); Hematocrit 32.1 % (37.0-47.0); Hemoglobin 10.5 g/dL (12.0-15.0); Immature Granulocyte Absolute 0.04 K/mm3 (0.00-0.031); Immature Granulocyte Percent A 0.4 % (0-0.5); Lymphocytes Absolute Auto 3.25 K/mm3 (0.9-3.2); Lymphocytes Percent Auto 32.7 % (18.3-44.2); Mean Corpuscular HGB Conc 32.7 g/dl (32-36); Mean Corpuscular Hemoglobin 29.1 pg (26-34); Mean Corpuscular Volume 88.9 fl (80-100); Mean Platelet Volume 10.6 fl (7.4-10.4); Monocytes Absolute Auto 0.9 K/mm3 (0.1-0.6); Monocytes Percent Auto 8.7 % (2.6-8.5); Neutrophils Absolute Auto 5.4 K/mm3 (1.3-6.7); Neutrophils Percent Auto 54.1 % (45.5-73.1); Platelet Count Result 301 k/mm3 (150-375); Red Blood Count 3.61 M/mm3 (4.2-5.4)
[2024-03-27 20:45] LABS: Glucose Point of Care 188 mg/dl (65-105)
[2024-03-27 20:47] VITALS: PULSE 60
[2024-03-27] MEDS: INSULIN GLARGINE (*BKC) 100 UNITS/ML 8 UNITS SUB-Q (20:50)
[2024-03-27 20:55] VITALS: BP 135/58; PULSE 60; RESP 18; TEMP 36.8; O2SAT 97
[2024-03-28] MEDS: SODIUM CHLORIDE 0.9% IV 1,000 ML 100 ML IV CONT (02:00)
[2024-03-28 05:05] VITALS: BP 163/59; PULSE 62; RESP 14; TEMP 36.7; O2SAT 98
[2024-03-28 05:35] LABS: Glucose Point of Care 256 mg/dl (65-105)
[2024-03-28 07:07] LABS: Hematocrit 34.5 % (37.0-47.0); Hemoglobin 10.8 g/dL (12.0-15.0); Mean Corpuscular HGB Conc 31.3 g/dl (32-36); Mean Corpuscular Hemoglobin 28.1 pg (26-34); Mean Corpuscular Volume 89.6 fl (80-100); Mean Platelet Volume 10.8 fl (7.4-10.4); Platelet Count Result 290 k/mm3 (150-375); Red Blood Count 3.85 M/mm3 (4.2-5.4); Red Cell Distribution Width 13.8 % (11.5-14.5)
[2024-03-28 07:18] LABS: Alanine Aminotransferase 10 U/L (6-35); Albumin Level 3.1 g/dL (3.5-5.1); Alkaline Phosphatase 63 U/L (38-126); Anion Gap 7 mmol/L (4-12); Aspartate Amino Transferase 18 U/L (14-36); Bilirubin,Total 0.3 mg/dL (0.2-1.3); Blood Urea Nitrogen 14 mg/dL (7-17); Calcium 8.2 mg/dL (8.4-10.2); Carbon Dioxide 24 mmol/L (22-30); Chloride 105 mmol/L (98-107); Estimated CRCL calculation 55 ml/min; Estimated Glomerular Filt Rate > 60; Glucose 225 mg/dL (65-110); Potassium 3.7 mmol/L (3.4-5.0); Sodium 136 mmol/L (137-145)
[2024-03-28 08:16] LABS: Glucose Point of Care 232 mg/dl (65-105)
[2024-03-28] MEDS: ATORVASTATIN 10 MG TABLET PO (09:10)
[2024-03-28] MEDS: ESCITALOPRAM OXALATE 5 MG TABLET PO (09:10)
[2024-03-28] MEDS: SENNOSIDES 8.6 MG TABLET PO (09:10)
[2024-03-28] MEDS: MEMANTINE HCL XR 28 MG CAP PO (09:10)
[2024-03-28] MEDS: amLODIPine BESYLATE 5 MG TABLET PO (09:10)
[2024-03-28] MEDS: ASPIRIN 81 MG CHEWABLE TABLET PO (09:10)
[2024-03-28] MEDS: MIRTAZAPINE 15 MG TABLET PO (09:10)
[2024-03-28 09:11] VITALS: PULSE 72
[2024-03-28] MEDS: THERAPEUTIC MULTIVITAMINS/MINERALS TAB (*BKC) 1 TABLET PO (09:11)
[2024-03-28] MEDS: PANTOPRAZOLE SODIUM IV 40 MG VIAL IV PUSH (09:11)
[2024-03-28] MEDS: METOPROLOL TARTRATE 25 MG TABLET PO (09:11)
[2024-03-28] MEDS: ENOXAPARIN 40 MG/0.4 ML SYRINGE SUB-Q (09:11)
[2024-03-28 09:51] LABS: Basophils Absolute Auto 0.1 K/mm3 (0.0-0.1); Basophils Percent Auto 0.7 % (0.2-1.2); Eosinophils Absolute Auto 0.4 K/mm3 (0-0.3); Eosinophils Percent Auto 4.4 % (0-4.4); Immature Granulocyte Absolute 0.03 K/mm3 (0.00-0.031); Immature Granulocyte Percent A 0.4 % (0-0.5); Lymphocytes Absolute Auto 2.54 K/mm3 (0.9-3.2); Lymphocytes Percent Auto 31.2 % (18.3-44.2); Monocytes Absolute Auto 0.7 K/mm3 (0.1-0.6); Neutrophils Absolute Auto 4.4 K/mm3 (1.3-6.7); Neutrophils Percent Auto 54.3 % (45.5-73.1)
[2024-03-28 10:07] LABS: Magnesium 1.5 mg/dL (1.6-2.3); Phosphorus 3.3 mg/dL (2.5-4.5)
[2024-03-28 11:30] LABS: Glucose Point of Care 216 mg/dl (65-105)
--- NOTE | 2024-03-28 13:20 | PM.DS ---
DS: Admitting Diagnosis Discharge Date 03/28/2024 Admitting Diagnosis Nausea/Vomiting/Diarrhea DS: Discharge Diagnosis Discharge Diagnosis (1) Diabetes mellitus with hyperglycemia: Code(s): E11.65 - Type 2 diabetes mellitus with hyperglycemia Status: Acute (2) Nausea vomiting and diarrhea: Code(s): R11.2 - Nausea with vomiting, unspecified; R19.7 - Diarrhea, unspecified Status: Acute Plan 78-year-old female with a PMHx: of diabetes, COPD not on home oxygen, GERD, dementia, HTN presented from skilled nursing with reports of ongoing nausea vomiting, abdominal pain 1 DAY ACUTE INFECTIVE GASTROENTERITIS Patient has been having abdomen pain, associated with nausea vomiting diarrhea about 1 day Upon arrival in ED, patient leukocytosis 16,000, CT scan suggest esophagitis and proctitis Levaquin was started in the ED Follow-up stool culture, C diff screening Acute pyelonephritis UA shows pyuria and hematuria Suspecting pyelonephritis and cystitis Follow-up renal ultrasound Sepsis: Code(s): A41.9 - Sepsis, unspecified organism Status: Acute Assessment and Plan: WBC 16.4, HR 102, elevated lactate 4.8 x2 1L bolus given in the ED ABX levofloxacin 750 mg IV PE given in the ED -suspect source of infection urine, Urine culture pending, blood cultures pending -continue telemetry monitoring -repeat lactic acid pending -continue to monitor CMP, CBC -admit to IMU -continue IV fluids NS 0.9%, 100ml/hr Dehydration evaluated BUN creatinine ratio upon arrival, 27/1.0 Resulting from gastroenteritis Received fluid resuscitation Continue normal saline IV Hypovolemic hypotension Upon arrival, blood pressure 93/55 Suspecting hypovolemic hypotension superimposed with sepsis Received fluid resuscitation Blood pressure became stable Diabetes mellitus with hyperglycemia: Code(s): E11.65 - Type 2 diabetes mellitus with hyperglycemia Status: Acute Assessment and Plan: Patient presents with nausea vomiting found to have glucose > 300, bicarb and anion gap closed, beta hydroxy 0.57 -patient given for 4 units regular insulin IVP -continue hypoglycemia protocol -continue adult insulin per protocol Right thyroid nodule: Code(s): E04.1 - Nontoxic single thyroid nodule Status: Acute Assessment and Plan: -as evidence by CT, recommends follow up -check thyroid US in the a.m. DS: Summary Hospital Course Hospital Course: 78-year-old female with a PMHx: of diabetes, COPD not on home oxygen, GERD, dementia, HTN presented from skilled nursing with reports of ongoing nausea vomiting, patient tells me her symptoms started last night, she reports having worsening nausea vomiting today, citing she has generalized abdominal pain. She denies any chest pain, fever or chills or recent travel. ED workup reveals: Initial vitals: b/p152/72, rr18, pr104 md0275 % on RA T:97.9, initial labs revealed elevated leukocytosis of 16,000 hgb of 14.1 patient did not have an anion gap, elevated glucose was 300, patient was given 2 L of IV fluids, she was also given 4 units regular insulin IV, patient did not have an anion gap, beta hydroxybutyrate mildly elevated at 0.57, troponin negative, UA suspected urinary tract infection patient was started on Levaquin due to past history of resistant antibiotics in the past, CT scan with also concerning for esophagitis/gastritis, famotidine and Protonix was initiated in the ED. patient admitted for further evaluation to the IMU. During the course of hospitalization, patient received course of Levaquin for suspected UTI and possible proctitis and will continue for 3 more days of levofloxacin upon discharge. Currently patient does not have any nausea vomiting or diarrhea. Patient denies any urinary symptoms. Urine culture shows mixed bere. Blood cultures shows no growth to date. CT chest shows suggestive of reflux esophagitis and patient is started on Protonix 20 mg for 4 weeks. Status at Discharge Cognitive/behavioral status at discharge: Stable Time Spent with Patient Time attestation: Total time spent providing and/or coordinating discharge services: 45 minutes Exam Narrative: GENERAL: Ill-appearing in no acute distress. Well-nourished. - EYES: EOMI. Anicteric. - HENT: Moist mucous membranes. - LUNGS: Clear to auscultation bilaterally, no wheezing, rhonchi, or rales. - CARDIOVASCULAR: Regular rate and rhythm. No murmur. No JVD. - ABDOMEN: Soft, non-tender and non-distended. No palpable masses. - EXTREMITIES: No edema. Peripheral pulses 2+. Non-tender. - NEUROLOGIC: No focal neurological deficits. CN II-XII grossly intact. General weakness - PSYCHIATRIC: Awake, Alert and oriented x 3. Appropriate mood and affect. - SKIN: No rashes or lesions. Warm. - LYMPH: No cervical lymphadenopathy. DS: Data Data Completed and Pending Labs on day of discharge: Labs from last 24 hours 03/28/24 03/28/24 03/28/24 11:25 07:28 06:50 WBC 8.0 RBC 3.85 L Hgb 10.8 L Hct 34.5 L MCV 89.6 MCH 28.1 MCHC 31.3 L RDW 13.8 Plt Count 290 MPV 10.8 H Immature Gran % (Auto) 0.4 Neut % (Auto) 54.3 Lymph % (Auto) 31.2 [place] % (Auto) 9.0 H Eos % (Auto) 4.4 Baso % (Auto) 0.7 Lymph # (Auto) 2.54 [place] # (Auto) 0.7 H Eos # (Auto) 0.4 H Baso # (Auto) 0.1 Abs Immat Gran (auto) 0.03 Absolute Neuts (auto) 4.4 Absolute Nucleated RBC 0.000 Nucleated RBC % 0.0 Sodium 136 L Potassium 3.7 Chloride 105 Carbon Dioxide 24 Anion Gap 7 BUN 14 Creatinine 0.80 Estim Creat Clear Calc 55 Estimated GFR > 60 Glucose 225 H POC Capillary Glucose 216 H 232 H Calcium 8.2 L Phosphorus Magnesium Total Bilirubin 0.3 AST 18 ALT 10 Alkaline Phosphatase 63 Total Protein 6.0 L Albumin 3.1 L 03/28/24 03/28/24 03/27/24 06:42 05:32 20:34 WBC RBC Hgb Hct MCV MCH MCHC RDW Plt Count MPV Immature Gran % (Auto) Neut % (Auto) Lymph % (Auto) [place] % (Auto) Eos % (Auto) Baso % (Auto) Lymph # (Auto) [place] # (Auto) Eos # (Auto) Baso # (Auto) Abs Immat Gran (auto) Absolute Neuts (auto) Absolute Nucleated RBC Nucleated RBC % Sodium Potassium Chloride Carbon Dioxide Anion Gap BUN Creatinine Estim Creat Clear Calc Estimated GFR Glucose POC Capillary Glucose 256 H 188 H Calcium Phosphorus 3.3 Magnesium 1.5 L Total Bilirubin AST ALT Alkaline Phosphatase Total Protein Albumin 03/27/24 03/27/24 18:48 17:08 WBC 10.0 RBC 3.61 L Hgb 10.5 L Hct 32.1 L MCV 88.9 MCH 29.1 MCHC 32.7 RDW 14.0 Plt Count 301 MPV 10.6 H Immature Gran % (Auto) 0.4 Neut % (Auto) 54.1 Lymph % (Auto) 32.7 [place] % (Auto) 8.7 H Eos % (Auto) 3.6 Baso % (Auto) 0.5 Lymph # (Auto) 3.25 H [place] # (Auto) 0.9 H Eos # (Auto) 0.4 H Baso # (Auto) 0.1 Abs Immat Gran (auto) 0.04 H Absolute Neuts (auto) 5.4 Absolute Nucleated RBC 0.000 Nucleated RBC % 0.0 Sodium Potassium Chloride Carbon Dioxide Anion Gap BUN Creatinine Estim Creat Clear Calc Estimated GFR Glucose POC Capillary Glucose 176 H Calcium Phosphorus Magnesium Total Bilirubin AST ALT Alkaline Phosphatase Total Protein Albumin Preliminary micro results at discharge 03/25/24 13:29 Blood Culture - Preliminary Blood 03/25/24 13:05 Blood Culture - Preliminary Blood Discharge Plan Discharge Attending physician on discharge: Ra York Discharging Clinician: Ra York Patient Disposition: NH Senior Living/Asst Living Activity: as tolerated Diet: diabetic Discharge Instructions: Patient discharged with Protonix 20 mg for 4 weeks In the event any fever ,chills, or diarrhea visit ED. Patient Instructions: Antibiotic Form, Gastritis (DC), Constipation (DC), Proctitis (DC), Type 2 Diabetes in the Older Adult (DC) Stand Alone Forms: General Discharge Information Discharge Medications: New pantoprazole [Protonix] 20 mg tablet,delayed release (DR/EC) 20 mg PO QAM 28 Days Qty: 28 0RF levofloxacin 750 mg tablet 750 mg PO DAILY Qty: 3 0RF Rx Instructions: Please take one tab a day for 3 days () Continued amlodipine 5 mg tablet 5 mg PO DAILY acetaminophen 325 mg Tablet,Chewable 650 mg PO Q6H PRN (Reason: Pain) bisacodyl 10 mg Suppository 10 mg RECTAL DAILY PRN (Reason: Constipation) Rx Instructions: if no results from MOM Fleet Enema 19-7 gram/118 mL Enema 118 ml RECTAL DAILY PRN (Reason: Constipation) Rx Instructions: if no results from suppository in 24hrs aspirin 81 mg Tablet,Chewable 81 mg PO DAILY GlucaGen HypoKit 1 mg recon soln 1 mg IM PRN PRN (Reason: Hypoglycemia) escitalopram oxalate 5 mg tablet 5 mg PO DAILY cranberry 450 mg Tablet 450 mg PO DAILY Rx Instructions: administer with a meal sennosides [senna] 8.6 mg Tablet 8.6 mg PO QMWF atorvastatin [Lipitor] 10 mg Tablet 10 mg PO DAILY magnesium hydroxide [Milk of Magnesia] 400 mg/5 mL Suspension 30 ml PO DAILY PRN (Reason: Constipation) Rx Instructions: if no BMin 3 days mirtazapine 15 mg tablet 15 mg PO DAILY metoprolol tartrate 25 mg tablet 25 mg PO BID multivit with min-folic acid 0.4 mg Tablet 1 tablet PO DAILY memantine 28 mg capsule,sprinkle,ER 24hr 28 mg PO DAILY insulin glargine [Lantus U-100 Insulin] 100 unit/mL Solution 6 unit SUBCUT BID Qty: 10 0RF ondansetron 4 mg tablet,disintegrating 4 mg PO Q8H PRN (Reason: nausea and vomiting) Qty: 14 0RF Date of admission: 03/26/24 10:37 Primary Care Provider: Willian Chowdhury Admitting Provider: Evgeny Reyes Attending physician on admission: Evgeny Reyes Condition: Stable Quality VTE Prophylaxis VTE prophylaxis: mechanical ordered
== END 2024-03-28 14:20 | DRG 872 ==
LOC: ANHED 17:03 → ANHIMU 18:16 → ANH3MEDSUR 03-26 17:44
PROVIDERS: Nurse Practitioner; Admitting Provider Hospitalist; Emergency Provider Emergency Medicine; PCP Hospitalist; Visit Provider General Practice
DX: A41.9 Sepsis, unspecified organism (principal); N10 Acute pyelonephritis; A09 Infectious gastroenteritis and colitis, unspecified; E11.65 Type 2 diabetes mellitus with hyperglycemia; E86.0 Dehydration; I95.9 Hypotension, unspecified; E86.1 Hypovolemia; E04.1 Nontoxic single thyroid nodule; J44.9 Chronic obstructive pulmonary disease, unspecified; K21.00 Gastro-esophageal reflux disease with esophagitis, without bleeding; K62.89 Other specified diseases of anus and rectum; K29.70 Gastritis, unspecified, without bleeding; N30.90 Cystitis, unspecified without hematuria; I10 Essential (primary) hypertension; R31.9 Hematuria, unspecified; G30.9 Alzheimer's disease, unspecified; F02.80 Dementia in other diseases classified elsewhere, unspecified severity, without behavioral disturbance, psychotic disturbance, mood disturbance, and anxiety; I25.10 Atherosclerotic heart disease of native coronary artery without angina pectoris; E78.5 Hyperlipidemia, unspecified; F41.9 Anxiety disorder, unspecified; N31.9 Neuromuscular dysfunction of bladder, unspecified; Z79.82 Long term (current) use of aspirin; Z89.422 Acquired absence of other left toe(s); Z89.421 Acquired absence of other right toe(s)
CPT/HCPCS: 36415; 71260; 74177; 76536; 76775; 80048; 80053; 81001; 82010; 82948; 83036; 83605; 83690; 83735; 84100; 84484; 85025; 85027; 87040; 87086; 93005; 96361; 96365; 96366; 96372; 96375; 96376; 99285; A9270; G0378; J1650; J1815; J1956; J2060; J2405; J2470; J2765; J7030; Q9967

== ENCOUNTER 2024-04-03 14:57 | Inpatient (IN) | payer MEDICARE, SELFPAY ==
[2024-04-03] VITALS (8 sets, daily range): BP systolic 123–182; BP diastolic 84–97; PULSE 100–125; RESP 16–22; TEMP 36.2–36.6; O2SAT 97–100; BMI 27.1
--- NOTE | ~2024-04-03 | CT_ITS ---
CT brain wo con Ordering provider: Rebekah Moffett APRN History: 78 years Female with . non reactive left pupil . Comparison: None. Technique: CT of the head without contrast. FINDINGS: BRAIN PARENCHYMA AND CSF SPACES: Mild leukoaraiosis and diffuse cortical atrophy. Mild atheromatous d isease. No midline shift, mass effect or hemorrhage. The brain parenchyma and CSF spaces are otherwi se normal. VISUALIZED PARANASAL SINUSES: Bilateral ethmoid sinus disease. MASTOIDS: Well aerated. BONES: The bones appear intact. SOFT TISSUES: Visualized nasopharynx is normal. Sebaceous cyst is seen in the left parietal scalp. O therwise, Superficial soft tissues are normal. IMPRESSION: No acute intracranial findings. Reviewed, dictated and finalized at location A.
--- NOTE | ~2024-04-03 | CT_ITS ---
EXAMINATION: CT abdomen pelvis w con DATE: 04/03/2024 20:35 INDICATION: nausea/vomiting TECHNIQUE: Computed tomography (CT) of the abdomen and pelvis was performed with 100 mL Omnipaque-350 intravenous contrast. Automated exposure control and iterative reconstruction technique were employe d. The dose-length product was 1103.82 mGy-cm. COMPARISON: CT cap 03/25/2024. FINDINGS: Lower thorax: Bibasilar atelectasis/consolidation. Small bilateral pleural effusions. Small pericardi al effusion. Coronary artery calcifications. Liver: Normal. Biliary/Gallbladder: Gallbladder is normal. No bile duct dilation. Pancreas: Moderate pancreatic atrophy. Spleen: Normal. Adrenals:Subcentimeter left adrenal hypodensity, likely adenoma. Kidneys: Indeterminate density 2.4 cm right upper pole lesion. Bilateral hypodensities that are too s mall to characterize but also likely represent cysts. 5 mm and 3 mm calcifications in the right renal pelvis. No hydronephrosis. GI tract: Moderate distal esophageal and gastric wall edema. No small bowel dilation. The rectum is d ilated to 7.6 cm by formed stool, with mild surrounding wall thickening. Ill-defined wall thickening and soft tissue planes of the distal rectum/anus. Normal appendix. Mesentery/Peritoneum: No ascites, mass, or free air. Retroperitoneum: No mass. Atherosclerotic abdominal aortic and/or arterial calcifications. Pelvis: Urinary bladder is decompressed by Cabral catheter. Normal uterus. Atrophic bilateral ovaries. . Soft Tissues: Soft tissues and body wall unremarkable. Bones: No acute osseous finding. Stable mild compression deformity at T12. IMPRESSION: Dependent bibasilar atelectasis/consolidation. Small bilateral pleural effusions. Small pericardial e ffusion. Moderate esophagitis/gastritis. 2.4 cm indeterminate density right upper pole renal lesion, possible hemorrhagic or proteinaceous cys t, recommend nonemergent but timely CT or MRI without and with contrast for further evaluation. Nonobstructing 5 mm and 3 mm calcifications in the right renal pelvis. Fecal impaction, with wall thickening that can be seen with stercoral colitis and evidence of proctit is. Suggest clinical/proctoscopy correlation to rule out a rectal mass. Reviewed, dictated and finalized at location K. IMPRESSION: Dependent bibasilar atelectasis/consolidation. Small bilateral pleural effusion s. Small pericardial effusion. Moderate esophagitis/gastritis. 2.4 cm indeterminate density right upper pole renal lesion, possible hemorrhagi c or proteinaceous cyst, recommend nonemergent but timely CT or MRI without and with contrast for further evaluation. Nonobstructing 5 mm and 3 mm calcifications in the right renal pelvis. Fecal impaction, with wall thickening that can be seen with stercoral colitis a nd evidence of proctitis. Suggest clinical/proctoscopy correlation to rule out a rectal mass.
--- NOTE | ~2024-04-03 | MR_ITS ---
EXAMINATION: MR brain/brain stem wo con DATE: 04/05/2024 14:54 INDICATION: Stroke. TECHNIQUE: Magnetic resonance imaging (MRI) of the brain and brainstem was performed without intraven ous contrast. COMPARISON: Head CT 04/04/2024 FINDINGS: There are scattered areas of nonspecific increased T2-weighted signal intensity in the cere bral white matter and fredy. There is no intracranial hemorrhage, acute infarction, or abnormal intrac ranial mass lesion. The ventricles are normal in size. There is mild mucosal thickening in the parana matthias sinuses. The orbits are normal. There is a small right mastoid effusion. IMPRESSION: 1. Moderate nonspecific cerebral white matter disease and pontine disease, which likely represents ch ronic small vessel ischemic disease. Reviewed, dictated and finalized at location B. IMPRESSION: 1. Moderate nonspecific cerebral white matter disease and pontine disease, whic h likely represents chronic small vessel ischemic disease.
--- NOTE | ~2024-04-03 | XR_ITS ---
EXAMINATION: XR chest 1V portable Exam Date/Time: 04/03/2024 18:53 CDT HISTORY: sepsis Comparison: 12/27/2023; CT cap. RESULT: Lines, tubes, and devices: None. Lungs and pleura: Subsegmental and streaky bibasilar opacities. Mild left costophrenic angle bluntin g. Cardiomediastinal silhouette: Stable. Other: No acute osseous or upper abdominal finding. IMPRESSION: Subsegmental bibasilar atelectasis/consolidation. Small left pleural effusion versus chronic pleural blunting. Reviewed, dictated and finalized at location K. IMPRESSION: Subsegmental bibasilar atelectasis/consolidation. Small left pleural effusion v ersus chronic pleural blunting.
--- NOTE | 2024-04-03 16:41 | PC.NURSE ---
Bed Alarm placed under pt.
[2024-04-03 17:06] LABS: Basophils Absolute Auto 0.1 K/mm3 (0.0-0.1); Basophils Percent Auto 0.3 % (0.2-1.2); Hematocrit 40.9 % (37.0-47.0); Hemoglobin 13.6 g/dL (12.0-15.0); Immature Granulocyte Absolute 0.18 K/mm3 (0.00-0.031); Immature Granulocyte Percent A 0.8 % (0-0.5); Lymphocytes Absolute Auto 1.12 K/mm3 (0.9-3.2); Lymphocytes Percent Auto 4.7 % (18.3-44.2); Mean Corpuscular HGB Conc 33.3 g/dl (32-36); Mean Corpuscular Hemoglobin 28.3 pg (26-34); Mean Corpuscular Volume 85.2 fl (80-100); Mean Platelet Volume 10.7 fl (7.4-10.4); Monocytes Absolute Auto 1.5 K/mm3 (0.1-0.6); Monocytes Percent Auto 6.4 % (2.6-8.5); Neutrophils Absolute Auto 20.8 K/mm3 (1.3-6.7); Neutrophils Percent Auto 87.8 % (45.5-73.1); Platelet Count Result 500 k/mm3 (150-375); Red Cell Distribution Width 14.4 % (11.5-14.5); White Blood Count 23.7 K/mm3 (4.5-10.0)
--- NOTE | 2024-04-03 17:17 | PC.NURSE ---
Pt c/o continuous nausea. MD Graham notified. See MAR for intervention.
[2024-04-03] MEDS: ONDANSETRON INJ 4 MG/2 ML VIAL IV PUSH (17:18)
[2024-04-03 17:23] LABS: Albumin Level 4.2 g/dL (3.5-5.1); Alkaline Phosphatase 101 U/L (38-126); Anion Gap 17 mmol/L (4-12); Aspartate Amino Transferase 22 U/L (14-36); Blood Urea Nitrogen 26 mg/dL (7-17); Calcium 9.3 mg/dL (8.4-10.2); Carbon Dioxide 23 mmol/L (22-30); Chloride 100 mmol/L (98-107); Estimated CRCL calculation 47 ml/min; Estimated Glomerular Filt Rate 54; Glucose 321 mg/dL (65-110); Lipase 29 U/L (23-300); Sodium 140 mmol/L (137-145)
--- NOTE | 2024-04-03 17:29 | ED_ITS ---
HPI - Nausea/Vomiting/Diarrhea General Chief complaint: Nausea/Vomiting/Diarrhea Stated complaint: vomiting all day, acting strange Time Seen by Provider: 04/03/24 17:25 History of Present Illness HPI Narrative: 78-year-old female presenting with nausea and vomiting. She was recently hospitalized for similar symptoms. She was treated with antibiotics and IV fluids. She was been vomiting with increasing frequency over the last couple days. According to the alf, she is also acting strange . On my evaluation, her only complaint is nausea. She is repeatedly asking for white soda. Related Data Home Medications Medication Instructions Recorded Confirmed acetaminophen 325 mg chewable 650 mg PO Q6H PRN Pain 12/24/23 04/03/24 tablet amlodipine 5 mg tablet 5 mg PO DAILY 12/24/23 04/03/24 aspirin 81 mg chewable tablet 81 mg PO DAILY 12/24/23 04/03/24 atorvastatin 10 mg tablet (Lipitor) 10 mg PO HS 12/24/23 04/03/24 bisacodyl 10 mg rectal suppository 10 mg RECTAL DAILY PRN Constipation 12/24/23 04/03/24 cranberry fruit 450 mg tablet 450 mg PO DAILY 12/24/23 04/03/24 (cranberry) escitalopram oxalate 5 mg tablet 5 mg PO DAILY 12/24/23 04/03/24 glucagon 1 mg solution for 1 mg IM PRN PRN Hypoglycemia 12/24/23 04/03/24 injection (GlucaGen HypoKit) magnesium hydroxide 400 mg/5 mL 30 ml PO DAILY PRN Constipation 12/24/23 04/03/24 oral suspension (Milk of Magnesia) memantine 28 mg capsule 28 mg PO DAILY 12/24/23 04/03/24 sprinkle,extended release 24hr metoprolol tartrate 25 mg tablet 25 mg PO BID 12/24/23 04/03/24 mirtazapine 15 mg tablet 15 mg PO HS 12/24/23 04/03/24 multivitamin with minerals-folic 1 tablet PO DAILY 12/24/23 04/03/24 acid 0.4 mg tablet sennosides 8.6 mg tablet (senna) 8.6 mg PO QMWF 12/24/23 04/03/24 sodium phosphates 19 gram-7 118 ml RECTAL DAILY PRN 12/24/23 04/03/24 gram/118 mL enema (Fleet Enema) Constipation docosahexaenoic acid (dha)-epa 1 cap PO DAILY 04/03/24 04/03/24 capsule insulin glargine 100 unit/mL (3 20 unit subcut BID 04/03/24 04/03/24 mL) subcutaneous pen (Lantus Solostar U-100 Insulin) ondansetron 4 mg disintegrating 4 mg PO Q6H PRN nausea and vomiting 04/03/24 04/03/24 tablet Allergies Allergy/AdvReac Type Severity Reaction Status Date / Time Penicillins Allergy Unknown Verified 04/03/24 22:03 Sulfa (Sulfonamide Allergy Unknown Verified 04/03/24 22:03 Antibiotics) trazodone Allergy Unknown Verified 04/03/24 22:03 Review of Systems Review of Systems: ROS unobtainable: Yes unobtainable due to medical condition ( Underlying dementia) [facility] Past Medical History Medical History (Updated 04/05/24 @ 19:38 by Sahara Graham MD) Alzheimer dementia Anxiety CAD (coronary artery disease) Chronic indwelling Cab[place] catheter COPD (chronic obstructive pulmonary disease) Diabetes GERD (gastroesophageal reflux disease) HLD (hyperlipidemia) [place] (hard of hearing) HTN (hypertension) MDD (major depressive disorder) 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 Surgical History Surgical History 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 Social History Social History Smoking status: Never smoker Second hand tobacco smoke exposure: No Alcohol intake: never Substance use: never Substance use type: does not use Do You Feel Safe in your Home?: Yes Lack of Transportation: No Lack of Food: Never True Current Housing: I Have Housing Concerned About Future Housing: No Difficulty Paying Gas/Electric Bills: No Difficulty Paying for Meds: No Currently Unemployed: No Education: High School Diploma/GED Difficulty w/ Childcare or Family Care: No Spiritual care concerns: No Exam Narrative: GENERAL: ill-appearing, no acute distress HEAD: Normocephalic, atraumatic. EYES: PERRLA and EOMI. ENT: poor dentition Mucous membranes dry NECK: Supple. CHEST: Clear to auscultation. No respiratory distress. HEART: tachycardic, regular rhythm ABDOMEN: Soft, nontender, nondistended EXTREMITIES: bilateral partial foot amputations SKIN: Warm, dry, no rash. NEURO: Alert and oriented x2. PSYCH: Normal mood and affect. Course Vital Signs Vital signs: Vital Signs Temperature 97.8 F 04/03/24 15:03 Pulse Rate 125 H 04/03/24 15:03 Respiratory Rate 18 04/03/24 15:03 Blood Pressure 155/97 H 04/03/24 15:03 Pulse Oximetry 98 04/03/24 15:03 Temperature 98.4 F 04/05/24 14:00 Pulse Rate 100 04/05/24 14:00 Respiratory Rate 17 04/05/24 14:00 Blood Pressure 160/73 H 04/05/24 14:00 Pulse Oximetry 97 04/05/24 14:00 Oxygen Delivery Room Air 04/05/24 08:00 Oxygen Flow Rate 3 04/03/24 20:00 MDM - Nausea/Vomiting/Diarrhea MDM Narrative Medical decision making narrative: 78-year-old female presenting with nausea and vomiting. Patient tachycardic, vitals are otherwise within normal limits. Exam remarkable for the above. Blood work concerning for a white count of nearly 24. Lactic acid is 4.1. Chest x-ray with bibasilar atelectasis. CT abdomen pelvis is concerning for a fecal impaction with stercoral colitis. Patient has been covered with broad- spectrum antibiotics and 30 cc/kilos fluid bolus has been ordered. An enema has been ordered for the fecal impaction. She requires admission for further management. I spoke with the hospitalist who has accepted her for admission. Differential Diagnosis Differential diagnosis: Likely gastroenteritis, dehydration and other ( Fecal impaction, proctitis, nausea and vomiting) Medical Records Attestation: I reviewed the patient's medical records. Lab Data Attestation: I reviewed the patient's lab results. 04/05/24 06:10 04/05/24 15:18 Labs: Lab Results 04/03/24 04/03/24 04/03/24 Range/Units 16:55 17:52 19:24 WBC 23.7 H (4.5-10.0) K/mm3 RBC 4.80 (4.2-5.4) M/mm3 Hgb 13.6 (12.0-15.0) g/dL Hct 40.9 (37.0-47.0) % MCV 85.2 (80-100) fl MCH 28.3 (26-34) pg MCHC 33.3 (32-36) g/dl RDW 14.4 (11.5-14.5) % Plt Count 500 H D (150-375) k/mm3 MPV 10.7 H (7.4-10.4) fl Immature Gran % (Auto) 0.8 H (0-0.5) % Neut % (Auto) 87.8 H (45.5-73.1) % Lymph % (Auto) 4.7 L (18.3-44.2) % [place] % (Auto) 6.4 (2.6-8.5) % Eos % (Auto) 0.0 (0-4.4) % Baso % (Auto) 0.3 (0.2-1.2) % Lymph # (Auto) 1.12 (0.9-3.2) K/mm3 [place] # (Auto) 1.5 H (0.1-0.6) K/mm3 Eos # (Auto) 0.0 (0-0.3) K/mm3 Baso # (Auto) 0.1 (0.0-0.1) K/mm3 Abs Immat Gran (auto) 0.18 H (0.00-0.031) K/mm3 Absolute Neuts (auto) 20.8 H (1.3-6.7) K/mm3 Absolute Nucleated RBC 0.000 (0.0-0.012) K/mm3 Nucleated RBC % 0.0 (0.0-0.2) % Sodium 140 (137-145) mmol/L Potassium 3.0 L (3.4-5.0) mmol/L Chloride 100 (98-107) mmol/L Carbon Dioxide 23 (22-30) mmol/L Anion Gap 17 H (4-12) mmol/L BUN 26 H D (7-17) mg/dL Creatinine 1.00 (0.7-1.0) mg/dL Estim Creat Clear Calc 47 ml/min Estimated GFR 54 L (59 - ) Glucose 321 H (65-110) mg/dL POC Capillary Glucose (65-105) mg/dl Lactic Acid 4.1 H* (0.7-2.0) mmol/L Calcium 9.3 (8.4-10.2) mg/dL Magnesium 1.4 L (1.6-2.3) mg/dL Total Bilirubin 1.0 (0.2-1.3) mg/dL AST 22 (14-36) U/L ALT 19 (6-35) U/L Alkaline Phosphatase 101 (38-126) U/L Troponin I 0.028 (0.000-0.034) ng/mL Total Protein 8.0 (6.3-8.2) g/dL Albumin 4.2 (3.5-5.1) g/dL Lipase 29 (23-300) U/L Urine Color Yellow (Yellow) Urine Appearance Clear (Clear) Urine pH 5.5 (5.0-9.0) Ur Specific [place] 1.031 (1.001-1.035) Urine Protein 1+ H (Negative) mg/dL Urine Glucose (UA) 3+ H (Negative) mg/dL Urine Ketones 3+ H (Negative) mg/dL Ur Blood (Man) 1+ H (Negative) Urine Nitrate Negative (Negative) Urine Bilirubin Negative (Negative) Urine Urobilinogen 0.2 (<2.0) mg/dL Add Ur Microanalysis Reviewed Leukocyte Esterase Rfl 1+ H (Negative) ISABEL/UL Urine RBC 11-20 H (0-2) /hpf Urine WBC 51-100 H (0-3) /hpf Ur Squamous Epith Cells None seen (Few) /hpf Urine Bacteria None seen /hpf Urine Casts 11-20 Urine Mucus Present /lpf Urine Yeast (Budding) Present H (None) /hpf 04/03/24 04/03/24 04/04/24 Range/Units 22:50 23:20 05:35 WBC (4.5-10.0) K/mm3 RBC (4.2-5.4) M/mm3 Hgb (12.0-15.0) g/dL Hct (37.0-47.0) % MCV (80-100) fl MCH (26-34) pg MCHC (32-36) g/dl RDW (11.5-14.5) % Plt Count (150-375) k/mm3 MPV (7.4-10.4) fl Immature Gran % (Auto) (0-0.5) % Neut % (Auto) (45.5-73.1) % Lymph % (Auto) (18.3-44.2) % [place] % (Auto) (2.6-8.5) % Eos % (Auto) (0-4.4) % Baso % (Auto) (0.2-1.2) % Lymph # (Auto) (0.9-3.2) K/mm3 [place] # (Auto) (0.1-0.6) K/mm3 Eos # (Auto) (0-0.3) K/mm3 Baso # (Auto) (0.0-0.1) K/mm3 Abs Immat Gran (auto) (0.00-0.031) K/mm3 Absolute Neuts (auto) (1.3-6.7) K/mm3 Absolute Nucleated RBC (0.0-0.012) K/mm3 Nucleated RBC % (0.0-0.2) % Sodium (137-145) mmol/L Potassium (3.4-5.0) mmol/L Chloride (98-107) mmol/L Carbon Dioxide (22-30) mmol/L Anion Gap (4-12) mmol/L BUN (7-17) mg/dL Creatinine (0.7-1.0) mg/dL Estim Creat Clear Calc ml/min Estimated GFR (59 - ) Glucose (65-110) mg/dL POC Capillary Glucose 284 H 225 H (65-105) mg/dl Lactic Acid 2.0 (0.7-2.0) mmol/L Calcium (8.4-10.2) mg/dL Magnesium (1.6-2.3) mg/dL Total Bilirubin (0.2-1.3) mg/dL AST (14-36) U/L ALT (6-35) U/L Alkaline Phosphatase (38-126) U/L Troponin I (0.000-0.034) ng/mL Total Protein (6.3-8.2) g/dL Albumin (3.5-5.1) g/dL Lipase (23-300) U/L Urine Color (Yellow) Urine Appearance (Clear) Urine pH (5.0-9.0) Ur Specific [place] (1.001-1.035) Urine Protein (Negative) mg/dL Urine Glucose (UA) (Negative) mg/dL Urine Ketones (Negative) mg/dL Ur Blood (Man) (Negative) Urine Nitrate (Negative) Urine Bilirubin (Negative) Urine Urobilinogen (<2.0) mg/dL Add Ur Microanalysis Leukocyte Esterase Rfl (Negative) ISABEL/UL Urine RBC (0-2) /hpf Urine WBC (0-3) /hpf Ur Squamous Epith Cells (Few) /hpf Urine Bacteria /hpf Urine Casts Urine Mucus /lpf Urine Yeast (Budding) (None) /hpf 04/04/24 Range/Units 06:05 WBC 23.2 H (4.5-10.0) K/mm3 RBC 4.35 (4.2-5.4) M/mm3 Hgb 12.6 (12.0-15.0) g/dL Hct 38.3 (37.0-47.0) % MCV 88.0 (80-100) fl MCH 29.0 (26-34) pg MCHC 32.9 (32-36) g/dl RDW 14.7 H (11.5-14.5) % Plt Count 412 H (150-375) k/mm3 MPV 10.7 H (7.4-10.4) fl Immature Gran % (Auto) 0.8 H (0-0.5) % Neut % (Auto) 86.9 H (45.5-73.1) % Lymph % (Auto) 5.9 L (18.3-44.2) % [place] % (Auto) 6.2 (2.6-8.5) % Eos % (Auto) 0.0 (0-4.4) % Baso % (Auto) 0.2 (0.2-1.2) % Lymph # (Auto) 1.37 (0.9-3.2) K/mm3 [place] # (Auto) 1.5 H (0.1-0.6) K/mm3 Eos # (Auto) 0.0 (0-0.3) K/mm3 Baso # (Auto) 0.1 (0.0-0.1) K/mm3 Abs Immat Gran (auto) 0.18 H (0.00-0.031) K/mm3 Absolute Neuts (auto) 20.2 H (1.3-6.7) K/mm3 Absolute Nucleated RBC 0.000 (0.0-0.012) K/mm3 Nucleated RBC % 0.0 (0.0-0.2) % Sodium 141 (137-145) mmol/L Potassium 3.4 (3.4-5.0) mmol/L Chloride 107 (98-107) mmol/L Carbon Dioxide 25 (22-30) mmol/L Anion Gap 9 (4-12) mmol/L BUN 19 H (7-17) mg/dL Creatinine 0.90 (0.7-1.0) mg/dL Estim Creat Clear Calc 43 ml/min Estimated GFR > 60 (59 - ) Glucose 233 H (65-110) mg/dL POC Capillary Glucose (65-105) mg/dl Lactic Acid (0.7-2.0) mmol/L Calcium 8.6 (8.4-10.2) mg/dL Magnesium (1.6-2.3) mg/dL Total Bilirubin (0.2-1.3) mg/dL AST (14-36) U/L ALT (6-35) U/L Alkaline Phosphatase (38-126) U/L Troponin I (0.000-0.034) ng/mL Total Protein (6.3-8.2) g/dL Albumin (3.5-5.1) g/dL Lipase (23-300) U/L Urine Color (Yellow) Urine Appearance (Clear) Urine pH (5.0-9.0) Ur Specific [place] (1.001-1.035) Urine Protein (Negative) mg/dL Urine Glucose (UA) (Negative) mg/dL Urine Ketones (Negative) mg/dL Ur Blood (Man) (Negative) Urine Nitrate (Negative) Urine Bilirubin (Negative) Urine Urobilinogen (<2.0) mg/dL Add Ur Microanalysis Leukocyte Esterase Rfl (Negative) ISABEL/UL Urine RBC (0-2) /hpf Urine WBC (0-3) /hpf Ur Squamous Epith Cells (Few) /hpf Urine Bacteria /hpf Urine Casts Urine Mucus /lpf Urine Yeast (Budding) (None) /hpf Imaging Data Radiologist's impression: ITS Impressions Chest X-Ray 04/03/24 19:04 IMPRESSION: Subsegmental bibasilar atelectasis/consolidation. Small left pleural effusion versus chronic pleural blunting. Abdomen/Pelvis CT 04/03/24 20:43 IMPRESSION: Dependent bibasilar atelectasis/consolidation. Small bilateral pleural eff usions. Small pericardial effusion. Moderate esophagitis/gastritis. 2.4 cm indeterminate density right upper pole renal lesion, possible hemorrhagic or proteinaceous cyst, recommend nonemergent but timely CT or MRI without and with contrast for further evaluation. Nonobstructing 5 mm and 3 mm calcifications in the right renal pelvis. Fecal impaction, with wall thickening that can be seen with stercoral colitis and evidence of proctitis. Suggest clinical/proctoscopy correlation to rule out a rectal mass. Critical Care Time Critical Care Time Critical Care Time: No Discharge Plan Discharge Clinical Impression: Sepsis, Fecal impaction, Stercoral colitis Patient Disposition: Still a Patient Condition: Stable
[2024-04-03 17:31] LABS: Alanine Aminotransferase 19 U/L (6-35)
--- NOTE | 2024-04-03 17:48 | ECG_ITS ---
Test Date: 2024-04-03 18:11:23 Measurements Intervals [place] Rate: P: 0 NM: 0 QRS: 0 QRSD: 0 T: 0 QT: 0 QTc: 0 Interpretive Statements SINUS TACHYCARDIA WITH FIRST DEGREE AV BLOCK OLD INFERIOR INFARCT WARNING: DATA QUALITY MAY AFFECT INTERPRETATION Compared to ECG 03/25/2024 13:51:45 NO SIGNIFICANT CHANGES Electronically Signed On 04-04-2024 14:26:00 CDT by Maria R Gama M.D.
--- NOTE | 2024-04-03 18:04 | PC.NURSE ---
Pt arrived with 18Fr dowd catheter in place. Catheter removed by this RN and replaced with an 18Fr dowd catheter.
[2024-04-03 18:45] LABS: Add Urine Microscopic? YES; Appearance Urine Clear (Clear); Bacteria Urine None Seen /hpf; Bilirubin Urine Negative (Negative); Blood Urine 1+ (Negative); Budding Yeast Urine Present /hpf; Color Urine Yellow (Yellow); Glucose Urine UA 3+ mg/dL (Negative); Ketones Urine 3+ mg/dL (Negative); Leukocyte Esterase Ur 1+ LEU/UL (Negative); Mucus Urine Present /lpf; Need Manual Microscopic Reviewed; Nitrate Urine Negative (Negative); Protein Urine 1+ mg/dL (Negative); Specific Grav Ur 1.031 (1.001-1.035); Squamous Epithelial Cell Urine None Seen /hpf (Few); Urobilinogen Urine 0.2 mg/dL (<2.0); WBC Urine 51-100 /hpf (0-3); pH Urine 5.5 (5.0-9.0)
--- NOTE | 2024-04-03 19:15 | PC.NURSE ---
Blood cultures delayed d/t pt being a difficult stick.
[2024-04-03] MEDS: LORazepam INJ (*CRX) 2 MG/ML VIAL 0.5 MG IV PUSH (19:46)
[2024-04-03] MEDS: CEFEPIME 2 GM/NS 50 ML 2 GM/50 ML BAG IVPB (19:47)
[2024-04-03 20:15] LABS: Lactic Acid Reflex 4.1 mmol/L (0.7-2.0); Troponin I 0.028 ng/mL (0.000-0.034)
[2024-04-03] MEDS: VANCOMYCIN 1,250 MG/NS 250 ML 1,250 MG/250 ML BAG 166.67 MG IVPB (20:40)
--- NOTE | 2024-04-03 20:55 | PC.NURSE ---
Update given to pt daughter and FABIOLA Dominguez. All questions answered at this time.
[2024-04-03] MEDS: SODIUM CHLORIDE 0.9% IV 2,700 ML/1,000 ML BAG 999 ML IV CONT ×3 (21:04→23:44)
[2024-04-03 21:53] LABS: Magnesium 1.4 mg/dL (1.6-2.3)
[2024-04-03] MEDS: POTASSIUM CHLORIDE INJ 40 MEQ in SODIUM CHLORIDE 0.9% IV 500 ML 130 MEQ IVPB (21:54)
--- NOTE | 2024-04-03 22:04 | PC.NURSE ---
02 dropped to 83% with good pleth on RA. Pt placed on 3L NC. 02 100% with good pleth.
[2024-04-03] MEDS: VANCOMYCIN 1,000 MG/NS 250 ML 1,000 MG/250 ML BAG 250 MG IVPB (22:43)
[2024-04-03 22:44] LABS: Reflex Lactic Acid Yes or No Add Lactic
--- NOTE | 2024-04-03 23:26 | ADMGEN ---
This patient, Donna Cobb, was admitted to 2 Medical Room 256-. Patient/family oriented to hospital policies and general routines including ID bracelet, bed and alarms, visiting hours, pain management, procedures, bathroom and other care routines, personal items, smoking policy, room service/diet, and visiting hours. Information on how to activate the Rapid Response Team has been discussed. Patient/Family are encouraged to report perceived risks to care and to ask questions if they do not understand what they are told or what they should do.
[2024-04-03] MEDS: metroNIDAZOLE 500 MG/ISO 100ML 500 MG/100 ML BAG 100 MG IVPB (23:43)
[2024-04-03] MEDS: SODIUM CHLORIDE 0.9% IV 1,000 ML 100 ML IV CONT (23:43)
[2024-04-04] VITALS (10 sets, daily range): BP systolic 126–161; BP diastolic 53–74; PULSE 72–115; RESP 18–20; TEMP 36.2–36.9; O2SAT 95–100
[2024-04-04 00:33] LABS: Glucose Point of Care 284 mg/dl (65-105)
--- NOTE | 2024-04-04 00:53 | ECG_ITS ---
Test Date: 2024-04-04 01:27:26 Measurements Intervals [place] Rate: 115 P: -10 IA: 183 QRS: 90 QRSD: 84 T: 2 QT: 396 QTc: 548 Interpretive Statements SINUS TACHYCARDIA LOW QRS VOLTAGE IN PRECORDIAL LEADS [QRS DEFLECTION < 1.0 mV IN CHEST LEADS] POSSIBLE RIGHT VENTRICULAR CONDUCTION DELAY [RSR (QR) IN V1/V2] POSSIBLE ANTERIOR MYOCARDIAL INFARCTION , OF INDETERMINATE AGE [30 ms Q WAVE IN V3/V4, OR R < 0.2 mV IN V4] Compared to ECG 04/03/2024 18:11:23 Low QRS voltage now present First degree AV block no longer present Myocardial infarct finding still present Electronically Signed On 04-04-2024 14:38:25 CDT by Maria R Gama M.D.
--- NOTE | 2024-04-04 00:59 | PM.IMHP ---
H&P: HPI History of Present Illness Date/Time: 04/04/24 00:59 Chief Complaint: Nausea vomiting Narrative: 78-year-old female with past medical history of dementia, diabetes, COPD, peripheral vascular disease, GERD and gastritis who presented to the ER from long term facility due to nausea vomiting. At the time of arrival to the medical floor the patient was noted to be repeatedly sticking her fingers down her throat to induce vomiting. She reports that she feels nauseous and she would just feel better if we would give her something to make her throw up. The patient answers orientation questions to person place and time appropriately has extremely poor judgment and short-term memory and is repetitively asking same questions every couple of minutes. She is difficult to redirect and cannot give significant history. She has chronic indwelling Cabral catheter. She has been afebrile since presentation. She did have some leukocytosis noted on presentation. CT of the abdomen pelvis was performed and demonstrated extensive gastritis and esophagitis as well as sterocolitis and fecal impaction. The patient at had similar findings on prior CTs. The patient had recently been admitted to the hospital for suspected UTI but urine cultures were negative. She was treated for nausea vomiting hearing that hospital stay as well for presumed acute infective gastroenteritis. She completed a total of 7 days of Levaquin therapy. She was also started on Protonix 20 mg daily. Despite these measures patient evidently has had persistent and worsening symptoms at the skilled nursing and was sent back in for evaluation. When the patient arrived to the medical floor was noted that she had an abrasion to her posterior right finger that seems consistent with history of her gagging herself manually to induce vomiting. She has multiple dental caries with extensive dental plaquing. She denies any pain in her finger or change in range of motion on exam. Whenever her abdomen is family it is soft nondistended normoactive bowel sounds but she cries out and reports pain with even the lightest of palpation to her abdomen. The patient is unable to report any other symptoms besides her abdominal pain and nausea. She cannot give any other details or specific eliciting or relieving factors due to her history of dementia. 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 Surgical History Surgical History 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 Social History Social History Smoking status: Never smoker Second hand tobacco smoke exposure: No Alcohol intake: never Substance use: never Substance use type: does not use Do You Feel Safe in your Home?: Yes Lack of Transportation: No Lack of Food: Never True Current Housing: I Have Housing Concerned About Future Housing: No Difficulty Paying Gas/Electric Bills: No Difficulty Paying for Meds: No Currently Unemployed: No Education: High School Diploma/GED Difficulty w/ Childcare or Family Care: No Spiritual care concerns: No Meds Home Medications and Allergies Home Medications Medication Instructions Recorded Confirmed Type acetaminophen 325 mg chewable 650 mg PO Q6H PRN Pain 12/24/23 04/03/24 History tablet amlodipine 5 mg tablet 5 mg PO DAILY 12/24/23 04/03/24 History aspirin 81 mg chewable tablet 81 mg PO DAILY 12/24/23 04/03/24 History atorvastatin 10 mg tablet (Lipitor) 10 mg PO HS 12/24/23 04/03/24 History bisacodyl 10 mg rectal suppository 10 mg RECTAL DAILY PRN Constipation 12/24/23 04/03/24 History cranberry fruit 450 mg tablet 450 mg PO DAILY 12/24/23 04/03/24 History (cranberry) escitalopram oxalate 5 mg tablet 5 mg PO DAILY 12/24/23 04/03/24 History glucagon 1 mg solution for 1 mg IM PRN PRN Hypoglycemia 12/24/23 04/03/24 History injection (GlucaGen HypoKit) magnesium hydroxide 400 mg/5 mL 30 ml PO DAILY PRN Constipation 12/24/23 04/03/24 History oral suspension (Milk of Magnesia) memantine 28 mg capsule 28 mg PO DAILY 12/24/23 04/03/24 History sprinkle,extended release 24hr metoprolol tartrate 25 mg tablet 25 mg PO BID 12/24/23 04/03/24 History mirtazapine 15 mg tablet 15 mg PO HS 12/24/23 04/03/24 History multivitamin with minerals-folic 1 tablet PO DAILY 12/24/23 04/03/24 History acid 0.4 mg tablet sennosides 8.6 mg tablet (senna) 8.6 mg PO QMWF 12/24/23 04/03/24 History sodium phosphates 19 gram-7 118 ml RECTAL DAILY PRN 12/24/23 04/03/24 History gram/118 mL enema (Fleet Enema) Constipation pantoprazole 20 mg tablet,delayed 20 mg PO QAM 4 weeks #28 tabs 03/28/24 04/03/24 Rx release (Protonix) docosahexaenoic acid (dha)-epa 1 cap PO DAILY 04/03/24 04/03/24 History capsule insulin glargine 100 unit/mL (3 20 unit subcut BID 04/03/24 04/03/24 History mL) subcutaneous pen (Lantus Solostar U-100 Insulin) ondansetron 4 mg disintegrating 4 mg PO Q6H PRN nausea and vomiting 04/03/24 04/03/24 History tablet Allergies Allergy/AdvReac Type Severity Reaction Status Date / Time Penicillins Allergy Unknown Verified 04/03/24 22:03 Sulfa (Sulfonamide Allergy Unknown Verified 04/03/24 22:03 Antibiotics) trazodone Allergy Unknown Verified 04/03/24 22:03 Vital Signs Vital Signs - 24 hr 04/03/24 15:03 04/03/24 16:36 04/03/24 19:30 Temperature 97.8 F Pulse Rate 125 H 120 H 118 H Respiratory Rate 18 16 22 H Blood Pressure 155/97 H 167/88 H 182/84 H Pulse Oximetry 98 97 97 Oxygen Delivery Oxygen Flow Rate 04/03/24 20:00 04/03/24 21:52 04/03/24 21:53 Temperature Pulse Rate 107 H Respiratory Rate 22 H Blood Pressure 154/97 H Pulse Oximetry 100 98 100 Oxygen Delivery Nasal Cannula Room Air Oxygen Flow Rate 3 04/03/24 22:00 04/03/24 23:49 Temperature 97.2 F L Pulse Rate 100 100 Respiratory Rate 16 16 Blood Pressure 123/84 Pulse Oximetry 99 99 Oxygen Delivery Room Air Oxygen Flow Rate Exam Narrative: Weight 76.3 kg BMI 27.1 H&P: Results Labs Labs: Laboratory Tests 04/03/24 16:55 04/03/24 16:55 04/03/24 04/03/24 04/03/24 16:55 17:52 19:24 WBC 23.7 H RBC 4.80 Hgb 13.6 Hct 40.9 MCV 85.2 MCH 28.3 MCHC 33.3 RDW 14.4 Plt Count 500 H D MPV 10.7 H Immature Gran % (Auto) 0.8 H Neut % (Auto) 87.8 H Lymph % (Auto) 4.7 L [place] % (Auto) 6.4 Eos % (Auto) 0.0 Baso % (Auto) 0.3 Lymph # (Auto) 1.12 [place] # (Auto) 1.5 H Eos # (Auto) 0.0 Baso # (Auto) 0.1 Abs Immat Gran (auto) 0.18 H Absolute Neuts (auto) 20.8 H Absolute Nucleated RBC 0.000 Nucleated RBC % 0.0 Sodium 140 Potassium 3.0 L Chloride 100 Carbon Dioxide 23 Anion Gap 17 H BUN 26 H D Creatinine 1.00 Estim Creat Clear Calc 47 Estimated GFR 54 L Glucose 321 H POC Capillary Glucose Lactic Acid 4.1 H* Calcium 9.3 Magnesium 1.4 L Total Bilirubin 1.0 AST 22 ALT 19 Alkaline Phosphatase 101 Troponin I 0.028 Total Protein 8.0 Albumin 4.2 Lipase 29 Urine Color Yellow Urine Appearance Clear Urine pH 5.5 Ur Specific [place] 1.031 Urine Protein 1+ H Urine Glucose (UA) 3+ H Urine Ketones 3+ H Ur Blood (Man) 1+ H Urine Nitrate Negative Urine Bilirubin Negative Urine Urobilinogen 0.2 Add Ur Microanalysis Reviewed Leukocyte Esterase Rfl 1+ H Urine RBC 11-20 H Urine WBC 51-100 H Ur Squamous Epith Cells None seen Urine Bacteria None seen Urine Casts 11-20 Urine Mucus Present Urine Yeast (Budding) Present H 04/03/24 04/03/24 22:50 23:20 WBC RBC Hgb Hct MCV MCH MCHC RDW Plt Count MPV Immature Gran % (Auto) Neut % (Auto) Lymph % (Auto) [place] % (Auto) Eos % (Auto) Baso % (Auto) Lymph # (Auto) [place] # (Auto) Eos # (Auto) Baso # (Auto) Abs Immat Gran (auto) Absolute Neuts (auto) Absolute Nucleated RBC Nucleated RBC % Sodium Potassium Chloride Carbon Dioxide Anion Gap BUN Creatinine Estim Creat Clear Calc Estimated GFR Glucose POC Capillary Glucose 284 H Lactic Acid 2.0 Calcium Magnesium Total Bilirubin AST ALT Alkaline Phosphatase Troponin I Total Protein Albumin Lipase Urine Color Urine Appearance Urine pH Ur Specific [place] Urine Protein Urine Glucose (UA) Urine Ketones Ur Blood (Man) Urine Nitrate Urine Bilirubin Urine Urobilinogen Add Ur Microanalysis Leukocyte Esterase Rfl Urine RBC Urine WBC Ur Squamous Epith Cells Urine Bacteria Urine Casts Urine Mucus Urine Yeast (Budding) Impressions Chest X-Ray 04/03/24 19:04 (personally reviewed and interpreted. Agree with radiologic interpretation.) IMPRESSION: Subsegmental bibasilar atelectasis/consolidation. Small left pleural effusion versus chronic pleural blunting. Abdomen/Pelvis CT 04/03/24 20:43 IMPRESSION: Dependent bibasilar atelectasis/consolidation. Small bilateral pleural effusions. Small pericardial effusion. Moderate esophagitis/gastritis. 2.4 cm indeterminate density right upper pole renal lesion, possible hemorrhagic or proteinaceous cyst, recommend nonemergent but timely CT or MRI without and with contrast for further evaluation. Nonobstructing 5 mm and 3 mm calcifications in the right renal pelvis. Fecal impaction, with wall thickening that can be seen with stercoral colitis and evidence of proctitis. Suggest clinical/proctoscopy correlation to rule out a rectal mass. Initial EKG in the ER personally reviewed intervals not documented by device, but rhythm appears to be sinus rhythm, baseline artifact in V1 V2 3 and lead 2. Second EKG personally reviewed and interpreted cardiology interpretation pending. Sinus tachycardia rate 115 low-voltage QRS in precordial leads, the ventricular conduction delay, possible anterior NH indeterminate age, QTC 464 Assessment and Plan Assessment and plan (1) Intractable nausea and vomiting: Code(s): R11.2 - Nausea with vomiting, unspecified Status: Acute (2) Esophagitis with gastritis: Code(s): K29.70 - Gastritis, unspecified, without bleeding; K20.90 - Esophagitis, unspecified without bleeding Status: Acute (3) Fecal impaction: Code(s): K56.41 - Fecal impaction Status: Acute (4) Proctitis: Code(s): K62.89 - Other specified diseases of anus and rectum Status: Acute (5) Diabetes mellitus with hyperglycemia: Qualifiers: Diabetes mellitus long-term insulin use: with long-term use Diabetes mellitus type: type 2 Qualified Code(s): E11.65 - Type 2 diabetes mellitus with hyperglycemia; Z79.4 - terminal gauger (current) use of insulin Code(s): E11.65 - Type 2 diabetes mellitus with hyperglycemia Status: Acute (6) Chronic indwelling Cabral catheter: Code(s): Z97.8 - Presence of other specified devices Status: Acute (7) Hypomagnesemia: Code(s): E83.42 - Hypomagnesemia Status: Acute (8) Hypokalemia: Code(s): E87.6 - Hypokalemia Status: Acute Plan The patient is having more intractable nausea than she is having vomiting. Her vomiting is actually due to self induced gagging. Will give the patient a GI cocktail to see if this does not help some of her symptoms. Her symptoms are most likely due to worsening esophagitis and gastritis due to her induced vomiting and GERD. Will place patient on IV Protonix b.i.d. and will add Carafate a.c. HS. If symptoms do not improve with conservative treatment may need to consider outpatient EGD for further evaluation. Will also treat the patient's abdominal symptoms with a soapsuds enema, daily rectal suppositories and stool softeners until 2-3 soft stools a day. Patient has been placed on empiric antibiotic therapy to treat for possible constipation related colitis. Will also provide patient with Phenergan to see if this does not help with her nausea symptoms more so than Zofran. Patient did have mild hypokalemia and received potassium supplements in the ER. Will repeat both electrolyte panel and CBC in a.m.. Patient met SIRS criteria with leukocytosis, tachycardia and tachypnea. Will continue antibiotic therapy with Rocephin and Flagyl. Estevez patient's tachycardia is more due to intravascular volume depletion and less likely due to sepsis but patient technically does meet sepsis criteria. Patient did receive 30 mL/kilos fluid bolus. Will continue maintenance IV fluids. Blood cultures were obtained in the ER and are pending. Did check the patient's magnesium level given her hyperkalemia and 4 g magnesium sulfate rider was provided for magnesium of 1.4. Patient has chronic indwelling Cabral catheter due to chronic urinary retention. I was informed that the patient's Cabral catheter was exchanged in the ER. Patient does have type 2 diabetes mellitus with hyperglycemia. However due to her NPO state will decrease patient's Lantus dose down to 14 units b.i.d.. Will add Accu-Cheks and sliding scale insulin every 6 hours while NPO. Hypoglycemia protocol has been ordered as needed. Patient has been admitted as observation status. Quality VTE Prophylaxis VTE prophylaxis: pharmacologic ordered (Lovenox 40 mg subQ daily) Hospitalist [facility] Advance Care Plan I have confirmed that the patient's Advanced Care Plan is present, code status is documented, or surrogate decision maker is listed in patient medical record.: Yes Medication Reconciliation I have utilized all available resources to obtain, update and review the patients current medications (includes all prescriptions, OTC, herbals, cannabis, and nutritional supplements).: Yes
[2024-04-04] MEDS: ONDANSETRON INJ 4 MG/2 ML VIAL IV PUSH ×3 (01:16→21:16)
[2024-04-04] MEDS: MAGNESIUM SULF 4 GM/WATER100ML 4 GM/100 ML BAG IVPB (01:16)
[2024-04-04] MEDS: PANTOPRAZOLE SODIUM IV 40 MG VIAL IV PUSH ×3 (01:16→20:06)
[2024-04-04] MEDS: BELLADONNA ALK/PHENOB ELIX 10 ML, MAG HYDROX/ALUMINUM HYD/SIMETH 30 ML, LIDOCAINE HCL 2... PO (01:27)
[2024-04-04] MEDS: MIRTAZAPINE 15 MG TABLET PO ×2 (01:34→20:03)
[2024-04-04] MEDS: INSULIN GLARGINE (*BKC) 100 UNITS/ML 14 UNITS SUB-Q ×3 (01:36→18:32)
[2024-04-04] MEDS: INSULIN ASPART (*BKC) 100 UNITS/ML SUB-Q ×2 (01:36→05:40)
[2024-04-04] MEDS: PROMETHAZINE HCL 25 MG/ML AMPUL IM ×2 (01:45→05:45)
[2024-04-04 05:40] LABS: Glucose Point of Care 225 mg/dl (65-105)
[2024-04-04] MEDS: SUCRALFATE SUSP 100 MG/ML 10 ML UDC 1000 MG PO ×4 (05:40→20:06)
[2024-04-04] MEDS: SODIUM CHLORIDE 0.9% IV 1,000 ML 100 ML IV CONT ×2 (05:49→15:06)
[2024-04-04 06:20] LABS: Basophils Absolute Auto 0.1 K/mm3 (0.0-0.1); Basophils Percent Auto 0.2 % (0.2-1.2); Hematocrit 38.3 % (37.0-47.0); Hemoglobin 12.6 g/dL (12.0-15.0); Immature Granulocyte Absolute 0.18 K/mm3 (0.00-0.031); Immature Granulocyte Percent A 0.8 % (0-0.5); Lymphocytes Absolute Auto 1.37 K/mm3 (0.9-3.2); Lymphocytes Percent Auto 5.9 % (18.3-44.2); Mean Corpuscular HGB Conc 32.9 g/dl (32-36); Mean Platelet Volume 10.7 fl (7.4-10.4); Monocytes Absolute Auto 1.5 K/mm3 (0.1-0.6); Monocytes Percent Auto 6.2 % (2.6-8.5); Neutrophils Absolute Auto 20.2 K/mm3 (1.3-6.7); Neutrophils Percent Auto 86.9 % (45.5-73.1); Platelet Count Result 412 k/mm3 (150-375); Red Blood Count 4.35 M/mm3 (4.2-5.4); Red Cell Distribution Width 14.7 % (11.5-14.5); White Blood Count 23.2 K/mm3 (4.5-10.0)
[2024-04-04 06:30] LABS: Anion Gap 9 mmol/L (4-12); Blood Urea Nitrogen 19 mg/dL (7-17); Calcium 8.6 mg/dL (8.4-10.2); Carbon Dioxide 25 mmol/L (22-30); Chloride 107 mmol/L (98-107); Estimated CRCL calculation 43 ml/min; Estimated Glomerular Filt Rate > 60; Glucose 233 mg/dL (65-110); Potassium 3.4 mmol/L (3.4-5.0); Sodium 141 mmol/L (137-145)
--- NOTE | 2024-04-04 07:53 | P.PNIM_ITS ---
Progress Note: A&P Assessment and Plan (1) Intractable nausea and vomiting: Code(s): R11.2 - Nausea with vomiting, unspecified Status: Acute Assessment and Plan: likely due to use of showed is and gastritis IV Protonix and Carafate recommend outpatient EGD (2) Sepsis: Code(s): A41.9 - Sepsis, unspecified organism Status: Acute Assessment and Plan: Patient met SIRS criteria with leukocytosis, tachycardia and tachypnea. Will continue antibiotic therapy with Rocephin and Flagyl. Estevez patient's tachycardia is more due to intravascular volume depletion and less likely due to sepsis but patient technically does meet sepsis criteria. Patient did receive 30 mL/kilos fluid bolus. Will continue maintenance IV fluids. Blood cultures NGTD urine culture pending chest x-ray shows Subsegmental bibasilar atelectasis/consolidation. Small left pleural effusion versus chronic pleural blunting. continue antibiotic therapy with Rocephin and Flagyl (3) Leukocytosis: Code(s): D72.829 - Elevated white blood cell count, unspecified Status: Acute Assessment and Plan: WBC 23.2 see above repeat CBC morning (4) Diabetes mellitus with hyperglycemia: Qualifiers: Diabetes mellitus type: type 2 Diabetes mellitus jail insulin use: with jail use Qualified Code(s): E11.65 - Type 2 diabetes mellitus with hyperglycemia; Z79.4 - termite exterminator helper (current) use of insulin Code(s): E11.65 - Type 2 diabetes mellitus with hyperglycemia Status: Acute Assessment and Plan: Accu-Cheks a.c. HS decrease patient's Lantus dose down to 14 units b.i.d (5) Esophagitis with gastritis: Code(s): K29.70 - Gastritis, unspecified, without bleeding; K20.90 - Esophagitis, unspecified without bleeding Status: Acute Assessment and Plan: continue Protonix and Carafate as above (6) Fecal impaction: Code(s): K56.41 - Fecal impaction Status: Acute Assessment and Plan: possible constipation induced colitis resolved aggressive bowel regiment (7) Hypomagnesemia: Code(s): E83.42 - Hypomagnesemia Status: Acute Assessment and Plan: replete as needed daily BMP (8) Hypokalemia: Code(s): E87.6 - Hypokalemia Status: Acute Assessment and Plan: replete as needed daily BMP (9) Chronic indwelling Cabral catheter: Code(s): Z97.8 - Presence of other specified devices Status: Acute Assessment and Plan: exchanged in the ED (10) Stroke: Code(s): I63.9 - Cerebral infarction, unspecified Status: Acute Assessment and Plan: called by nursing for left pupil being nonreactive stat CT head pending Plan The patient is having more intractable nausea than she is having vomiting. Her vomiting is actually due to self induced gagging. Will give the patient a GI cocktail to see if this does not help some of her symptoms. Her symptoms are most likely due to worsening esophagitis and gastritis due to her induced vomiting and GERD. Will place patient on IV Protonix b.i.d. and will add Carafate a.c. HS. If symptoms do not improve with conservative treatment may need to consider outpatient EGD for further evaluation. Will also treat the patient's abdominal symptoms with a soapsuds enema, daily rectal suppositories and stool softeners until 2-3 soft stools a day. Patient has been placed on empiric antibiotic therapy to treat for possible constipation related colitis. Will also provide patient with Phenergan to see if this does not help with her nausea symptoms more so than Zofran. Patient did have mild hypokalemia and received potassium supplements in the ER. Will repeat both electrolyte panel and CBC in a.m.. Patient met SIRS criteria with leukocytosis, tachycardia and tachypnea. Will continue antibiotic therapy with Rocephin and Flagyl. Estevez patient's tachycardia is more due to intravascular volume depletion and less likely due to sepsis but patient technically does meet sepsis criteria. Patient did receive 30 mL/kilos fluid bolus. Will continue maintenance IV fluids. Blood cultures were obtained in the ER and are pending. Did check the patient's magnesium level given her hyperkalemia and 4 g magnesium sulfate rider was provided for magnesium of 1.4. Patient has chronic indwelling Cabral catheter due to chronic urinary retention. I was informed that the patient's Cabral catheter was exchanged in the ER. Patient does have type 2 diabetes mellitus with hyperglycemia. However due to her NPO state will decrease patient's Lantus dose down to 14 units b.i.d.. Will add Accu-Cheks and sliding scale insulin every 6 hours while NPO. Hypoglycemia protocol has been ordered as needed. Patient has been admitted as observation status. Time Spent With Patient Time: Includes review of chart, patient and nursing. Vital signs were reviewed and they are stable. His medications will be reviewed and resumed as appropriate. Findings and treatment plan were discussed with the patient. Questions were solicited and answered to satisfaction. Care plan was discussed with nursing. greater 55 minutes Subjective Date/time seen: 04/04/24 07:53 Interval history: 78-year-old female with past medical history of dementia, diabetes, COPD, peripheral vascular disease, CT showing Dependent bibasilar atelectasis/consolidation. Small bilateral pleural effusions. Small pericardial effusion. Moderate esophagitis/gastritis. 2.4 cm indeterminate density right upper pole renal lesion, possible hemorrhagic or proteinaceous cyst, recommend nonemergent but timely CT or MRI without and with contrast for further evaluation. Nonobstructing 5 mm and 3 mm calcifications in the right renal pelvis. Fecal impaction, with wall thickening that can be seen with stercoral colitis and evidence of proctitis. Suggest clinical/proctoscopy correlation to rule out a rectal mass. per nursing patient had an extremely large bowel movement. called by nursing for patient's left pupil nonreactive stat head CT ordered. Review of Systems Review of Systems: 12 systems were reviewed and are negative except for as per HPI. Exam Narrative: General: well appearing, appears stated age. HEENT: normocephalic, atraumatic. Mucous membranes moist. EOMI, PERRLA, bilateral sclera anicteric, no conjunctival injection. Neck supple without JVD, lymphadenopathy, or bruit. Respiratory: clear to auscultation bilaterally. No rales/rhonic/wheezes. Cardiovascular: Regular rate and rhythm, normal S1-S2 upon auscultation. No murmurs, rubs, or clicks. PMI is nondisplaced, capillary refill less than 3 second. Abdomen: Soft, round, no pulsatile masses, nondistended and nontender. No rebound, no guarding. No CVA tenderness, no hepatosplenomegaly. Bowel sounds present to all four quadrants. No high pitch or tinkling sounds, resonant to percussion. Extremities: No cyanosis, clubbing, or edema present. Pulses are palpable 2/2. Active ROM to all four extremities. Neuro: Alert and orientated x 3. PERRLA. Cranial nerves 2-12 intact without focal deficit. Skin: Warm, dry, and intact, without rash, erythema, or lesion. Psych: pleasant, cooperative, normal speech, normal affect, no hallucinations, no dysarthria Objective Data Vital Signs Vital Signs: Vital Signs - 24 hr 04/03/24 15:03 04/03/24 16:36 04/03/24 19:30 Temperature 97.8 F Pulse Rate 125 H 120 H 118 H Respiratory Rate 18 16 22 H Blood Pressure 155/97 H 167/88 H 182/84 H Pulse Oximetry 98 97 97 Oxygen Delivery Oxygen Flow Rate 04/03/24 20:00 04/03/24 21:52 04/03/24 21:53 Temperature Pulse Rate 107 H Respiratory Rate 22 H Blood Pressure 154/97 H Pulse Oximetry 100 98 100 Oxygen Delivery Nasal Cannula Room Air Oxygen Flow Rate 3 04/03/24 22:00 04/03/24 23:49 04/04/24 00:00 Temperature 97.2 F L Pulse Rate 100 100 114 H Respiratory Rate 16 16 Blood Pressure 123/84 Pulse Oximetry 99 99 Oxygen Delivery Room Air Oxygen Flow Rate 04/04/24 04:00 04/04/24 06:05 Temperature 98.1 F Pulse Rate 104 H 110 H Respiratory Rate 18 Blood Pressure 161/74 H Pulse Oximetry 97 Oxygen Delivery Oxygen Flow Rate Intake/Output Intake/Output: Intake & Output 04/01/24 04/02/24 04/03/24 04/04/24 23:59 23:59 23:59 23:59 Intake Total 1982.4 610 Output Total 500 1401 Balance 1482.4 -791 Meds/Results Medications: Active Medications Generic Name Dose Route Start Last Admin Trade Name Freq PRN Reason Stop Dose Admin Acetaminophen 650 mg 04/04/24 01:06 Acetaminophen 325 Mg Tablet BY MOUTH Q6H PRN Pain 1-3 or fever Amlodipine Besylate 5 mg 04/04/24 09:00 Amlodipine Besylate 5 Mg Tablet PO DAILY [facility] Aspirin 81 mg 04/04/24 09:00 Aspirin 81 Mg Chewable Tablet PO DAILY [facility] Bisacodyl 10 mg 04/04/24 09:00 Bisacodyl 10 Mg Suppository RECTAL DAILY [facility] Dextrose 12.5 gm 04/03/24 21:33 Dextrose 50% 25 Gm/50 Ml Syringe IV PUSH PRN PRN Hypoglycemia Protocol Escitalopram Oxalate 5 mg 04/04/24 09:00 Escitalopram Oxalate 5 Mg Tablet PO DAILY [facility] Fish Oil 1 gm 04/04/24 09:00 [place] 3 Polyunsat Fatty Acids 1 Gm Cap PO QAM [facility] Glucagon 1 mg 04/03/24 21:33 Glucagon For Inj 1 Mg Vial IM PRN PRN Hypoglycemia Protocol Glucose 15 gm 04/03/24 21:33 Glucose Oral Gel 15 Gm Of Glucse In 37.5 Gm Tube PO PRN PRN Hypoglycemia Protocol Vancomycin HCl 1,500 mg in 500 mls @ 250 mls/hr 04/04/24 20:00 Vancomycin 1,500 Mg/Ns 500 Ml IVPB Q24H MARY Sodium Chloride 1,000 mls @ 100 mls/hr 04/03/24 21:35 04/04/24 05:49 Normal Saline Iv IV CONT 100 mls/hr .Q10H MARY Administration Ceftriaxone Sodium 1 gm in 50 mls @ 100 mls/hr 04/03/24 22:00 04/03/24 23:44 Rocephin 1 Gm/Ns 50 Ml IVPB 100 mls/hr Q24H MARY Administration Dextrose 1,000 mls @ 100 mls/hr 04/03/24 21:33 Dextrose 5% 1,000 Ml IVPB PRN PRN Hypoglycemia Protocol Insulin Aspart 3 - 6 units 04/04/24 00:00 04/04/24 05:40 Insulin Aspart (*Bkc) 100 Units/Ml SUB-Q 3 units Q6HR MARY Administration Protocol Insulin Glargine 14 units 04/04/24 00:55 04/04/24 01:36 Insulin Glargine (*Bkc) 100 Units/Ml SUB-Q 14 units BID MARY Administration Memantine 28 mg 04/04/24 09:00 Memantine Hcl Xr 28 Mg Cap PO DAILY [facility] Metoprolol Tartrate 25 mg 04/04/24 09:00 Metoprolol Tartrate 25 Mg Tablet PO Q12HR [facility] Mirtazapine 15 mg 04/04/24 01:00 04/04/24 01:34 Mirtazapine 15 Mg Tablet PO 15 mg HS MARY Administration Ondansetron HCl 4 mg 04/03/24 21:32 04/04/24 01:16 Ondansetron Inj 4 Mg/2 Ml Vial IV PUSH 4 mg Q6H PRN Administration Nausea And Vomiting Pantoprazole Sodium 40 mg 04/04/24 09:00 Pantoprazole Sodium Iv 40 Mg Vial IV PUSH Q12HR [facility] Promethazine HCl 25 mg 04/04/24 01:41 04/04/24 05:45 Promethazine Hcl 25 Mg/Ml Ampul IM 25 mg Q4H PRN Administration Nausea And Vomiting Senna 8.6 mg 04/04/24 09:00 Sennosides 8.6 Mg Tablet PO DAILY [facility] Sucralfate 1,000 mg 04/04/24 07:00 04/04/24 05:40 Sucralfate Susp 100 Mg/Ml 10 Ml Udc PO 1,000 mg 0700,1100,1600,2100 MARY Administration Radiology Results: ITS Impressions Chest X-Ray 04/03/24 19:04 IMPRESSION: Subsegmental bibasilar atelectasis/consolidation. Small left pleural effusion versus chronic pleural blunting. Abdomen/Pelvis CT 04/03/24 20:43 IMPRESSION: Dependent bibasilar atelectasis/consolidation. Small bilateral pleural effusions. Small pericardial effusion. Moderate esophagitis/gastritis. 2.4 cm indeterminate density right upper pole renal lesion, possible hemorrhagic or proteinaceous cyst, recommend nonemergent but timely CT or MRI without and with contrast for further evaluation. Nonobstructing 5 mm and 3 mm calcifications in the right renal pelvis. Fecal impaction, with wall thickening that can be seen with stercoral colitis and evidence of proctitis. Suggest clinical/proctoscopy correlation to rule out a rectal mass. Labs Labs: Laboratory Results - last 24 hr 04/03/24 04/03/24 04/03/24 16:55 17:52 19:24 WBC 23.7 H RBC 4.80 Hgb 13.6 Hct 40.9 MCV 85.2 MCH 28.3 MCHC 33.3 RDW 14.4 Plt Count 500 H D MPV 10.7 H Immature Gran % (Auto) 0.8 H Neut % (Auto) 87.8 H Lymph % (Auto) 4.7 L [place] % (Auto) 6.4 Eos % (Auto) 0.0 Baso % (Auto) 0.3 Lymph # (Auto) 1.12 [place] # (Auto) 1.5 H Eos # (Auto) 0.0 Baso # (Auto) 0.1 Abs Immat Gran (auto) 0.18 H Absolute Neuts (auto) 20.8 H Absolute Nucleated RBC 0.000 Nucleated RBC % 0.0 Sodium 140 Potassium 3.0 L Chloride 100 Carbon Dioxide 23 Anion Gap 17 H BUN 26 H D Creatinine 1.00 Estim Creat Clear Calc 47 Estimated GFR 54 L Glucose 321 H POC Capillary Glucose Lactic Acid 4.1 H* Calcium 9.3 Magnesium 1.4 L Total Bilirubin 1.0 AST 22 ALT 19 Alkaline Phosphatase 101 Troponin I 0.028 Total Protein 8.0 Albumin 4.2 Lipase 29 Urine Color Yellow Urine Appearance Clear Urine pH 5.5 Ur Specific [place] 1.031 Urine Protein 1+ H Urine Glucose (UA) 3+ H Urine Ketones 3+ H Ur Blood (Man) 1+ H Urine Nitrate Negative Urine Bilirubin Negative Urine Urobilinogen 0.2 Add Ur Microanalysis Reviewed Leukocyte Esterase Rfl 1+ H Urine RBC 11-20 H Urine WBC 51-100 H Ur Squamous Epith Cells None seen Urine Bacteria None seen Urine Casts 11-20 Urine Mucus Present Urine Yeast (Budding) Present H 04/03/24 04/03/24 04/04/24 22:50 23:20 05:35 WBC RBC Hgb Hct MCV MCH MCHC RDW Plt Count MPV Immature Gran % (Auto) Neut % (Auto) Lymph % (Auto) [place] % (Auto) Eos % (Auto) Baso % (Auto) Lymph # (Auto) [place] # (Auto) Eos # (Auto) Baso # (Auto) Abs Immat Gran (auto) Absolute Neuts (auto) Absolute Nucleated RBC Nucleated RBC % Sodium Potassium Chloride Carbon Dioxide Anion Gap BUN Creatinine Estim Creat Clear Calc Estimated GFR Glucose POC Capillary Glucose 284 H 225 H Lactic Acid 2.0 Calcium Magnesium Total Bilirubin AST ALT Alkaline Phosphatase Troponin I Total Protein Albumin Lipase Urine Color Urine Appearance Urine pH Ur Specific [place] Urine Protein Urine Glucose (UA) Urine Ketones Ur Blood (Man) Urine Nitrate Urine Bilirubin Urine Urobilinogen Add Ur Microanalysis Leukocyte Esterase Rfl Urine RBC Urine WBC Ur Squamous Epith Cells Urine Bacteria Urine Casts Urine Mucus Urine Yeast (Budding) 04/04/24 06:05 WBC 23.2 H RBC 4.35 Hgb 12.6 Hct 38.3 MCV 88.0 MCH 29.0 MCHC 32.9 RDW 14.7 H Plt Count 412 H MPV 10.7 H Immature Gran % (Auto) 0.8 H Neut % (Auto) 86.9 H Lymph % (Auto) 5.9 L [place] % (Auto) 6.2 Eos % (Auto) 0.0 Baso % (Auto) 0.2 Lymph # (Auto) 1.37 [place] # (Auto) 1.5 H Eos # (Auto) 0.0 Baso # (Auto) 0.1 Abs Immat Gran (auto) 0.18 H Absolute Neuts (auto) 20.2 H Absolute Nucleated RBC 0.000 Nucleated RBC % 0.0 Sodium 141 Potassium 3.4 Chloride 107 Carbon Dioxide 25 Anion Gap 9 BUN 19 H Creatinine 0.90 Estim Creat Clear Calc 43 Estimated GFR > 60 Glucose 233 H POC Capillary Glucose Lactic Acid Calcium 8.6 Magnesium Total Bilirubin AST ALT Alkaline Phosphatase Troponin I Total Protein Albumin Lipase Urine Color Urine Appearance Urine pH Ur Specific [place] Urine Protein Urine Glucose (UA) Urine Ketones Ur Blood (Man) Urine Nitrate Urine Bilirubin Urine Urobilinogen Add Ur Microanalysis Leukocyte Esterase Rfl Urine RBC Urine WBC Ur Squamous Epith Cells Urine Bacteria Urine Casts Urine Mucus Urine Yeast (Budding) Imaging Radiologist's impression: CT abdomen and pelvis MPRESSION: Dependent bibasilar atelectasis/consolidation. Small bilateral pleural effusions. Small pericardial effusion. Moderate esophagitis/gastritis. 2.4 cm indeterminate density right upper pole renal lesion, possible hemorrhagic or proteinaceous cyst, recommend nonemergent but timely CT or MRI without and with contrast for further evaluation. Nonobstructing 5 mm and 3 mm calcifications in the right renal pelvis. Fecal impaction, with wall thickening that can be seen with stercoral colitis and evidence of proctitis. Suggest clinical/proctoscopy correlation to rule out a rectal mass. ECG Interpretation: CA 12 lead EKG Accession Number(s): [id number] cc: ~ Test Date: 2024-04-04 01:27:26 Measurements Intervals [place] Rate: 115 P: -10 [place]: 183 QRS: 90 QRSD: 84 T: 2 QT: 396 QTc: 548 Interpretive Statements SINUS TACHYCARDIA LOW QRS VOLTAGE IN PRECORDIAL LEADS [QRS DEFLECTION < 1.0 mV IN CHEST LEADS] POSSIBLE RIGHT VENTRICULAR CONDUCTION DELAY [RSR (QR) IN V1/V2] POSSIBLE ANTERIOR MYOCARDIAL INFARCTION , OF INDETERMINATE AGE [30 ms Q WAVE IN V3/V4, OR R < 0.2 mV IN V4] Compared to ECG 04/03/2024 18:11:23 Low QRS voltage now present First degree AV block no longer present Myocardial infarct finding still present Quality VTE Prophylaxis VTE prophylaxis: mechanical ordered and pharmacologic ordered Hospitalist MIPS Advance Care Plan I have confirmed that the patient's Advanced Care Plan is present, code status is documented, or surrogate decision maker is listed in patient medical record.: Yes Medication Reconciliation I have utilized all available resources to obtain, update and review the patients current medications (includes all prescriptions, OTC, herbals, cannabis, and nutritional supplements).: Yes
[2024-04-04] MEDS: SENNOSIDES 8.6 MG TABLET PO (08:33)
[2024-04-04] MEDS: amLODIPine BESYLATE 5 MG TABLET PO (08:33)
[2024-04-04] MEDS: OMEGA 3 POLYUNSAT FATTY ACIDS 1 GM CAP PO (08:33)
[2024-04-04] MEDS: ASPIRIN 81 MG CHEWABLE TABLET PO (08:33)
[2024-04-04] MEDS: METOPROLOL TARTRATE 25 MG TABLET PO ×2 (08:33→20:03)
[2024-04-04] MEDS: ESCITALOPRAM OXALATE 5 MG TABLET PO (08:34)
[2024-04-04] MEDS: MEMANTINE HCL XR 28 MG CAP PO (08:34)
[2024-04-04 11:53] LABS: Glucose Point of Care 165 mg/dl (65-105)
[2024-04-04 15:47] LABS: Lactic Acid Reflex 1.2 mmol/L (0.7-2.0)
[2024-04-04] MEDS: PROMETHAZINE HCL 25 MG/ML AMPUL 12.5 MG IV PUSH (17:27)
[2024-04-04 18:31] LABS: Glucose Point of Care 116 mg/dl (65-105)
[2024-04-04] MEDS: VANCOMYCIN 1,500 MG/NS 500 ML 1,500 MG/500 ML BAG 250 MG IVPB (20:03)
[2024-04-05 00:06] LABS: Glucose Point of Care 102 mg/dl (65-105)
[2024-04-05] MEDS: PROMETHAZINE HCL 25 MG/ML AMPUL 12.5 MG IV PUSH (05:32)
[2024-04-05] MEDS: SODIUM CHLORIDE 0.9% IV 1,000 ML 100 ML IV CONT ×2 (05:32→20:33)
[2024-04-05] MEDS: SUCRALFATE SUSP 100 MG/ML 10 ML UDC 1000 MG PO ×4 (05:33→20:41)
[2024-04-05 06:00] VITALS: BP 154/69; PULSE 86; RESP 18; TEMP 36.8; O2SAT 99
[2024-04-05 06:23] LABS: Hematocrit 33.2 % (37.0-47.0); Hemoglobin 10.9 g/dL (12.0-15.0); Mean Corpuscular HGB Conc 32.8 g/dl (32-36); Mean Corpuscular Hemoglobin 28.7 pg (26-34); Mean Corpuscular Volume 87.4 fl (80-100); Mean Platelet Volume 10.3 fl (7.4-10.4); Platelet Count Result 332 k/mm3 (150-375); Red Cell Distribution Width 14.6 % (11.5-14.5); White Blood Count 14.8 K/mm3 (4.5-10.0)
[2024-04-05 06:27] LABS: Glucose Point of Care 90 mg/dl (65-105)
[2024-04-05 07:17] LABS: Anion Gap 6 mmol/L (4-12); Blood Urea Nitrogen 14 mg/dL (7-17); Calcium 7.7 mg/dL (8.4-10.2); Carbon Dioxide 27 mmol/L (22-30); Chloride 105 mmol/L (98-107); Estimated CRCL calculation 43 ml/min; Estimated Glomerular Filt Rate > 60; Glucose 92 mg/dL (65-110); Potassium 2.6 mmol/L (3.4-5.0); Sodium 138 mmol/L (137-145)
--- NOTE | 2024-04-05 08:02 | P.PNIM_ITS ---
Progress Note: A&P Assessment and Plan (1) Stroke: Code(s): I63.9 - Cerebral infarction, unspecified Status: Acute Assessment and Plan: called by nursing for left pupil being nonreactive, blurry vision CT head no acute findings MRI brain pending Ativan for MRI (2) Intractable nausea and vomiting: Code(s): R11.2 - Nausea with vomiting, unspecified Status: Acute Assessment and Plan: likely due to use of showed is and gastritis IV Protonix and Carafate recommend outpatient EGD (3) Sepsis: Code(s): A41.9 - Sepsis, unspecified organism Status: Acute Assessment and Plan: Patient met SIRS criteria with leukocytosis, tachycardia and tachypnea. Will continue antibiotic therapy with Rocephin and Flagyl. Estevez patient's tachycardia is more due to intravascular volume depletion and less likely due to sepsis but patient technically does meet sepsis criteria. Patient did receive 30 mL/kilos fluid bolus. Will continue maintenance IV fluids. Blood cultures NGTD urine culture pending chest x-ray shows Subsegmental bibasilar atelectasis/consolidation. Small left pleural effusion versus chronic pleural blunting. continue antibiotic therapy with Rocephin and Flagyl Leukocytosis improving (4) Leukocytosis: Code(s): D72.829 - Elevated white blood cell count, unspecified Status: Acute Assessment and Plan: see abov repeat CBC morning (5) Diabetes mellitus with hyperglycemia: Qualifiers: Diabetes mellitus correction insulin use: with correction use Diabetes mellitus type: type 2 Qualified Code(s): E11.65 - Type 2 diabetes mellitus with hyperglycemia; Z79.4 - [facility] (current) use of insulin Code(s): E11.65 - Type 2 diabetes mellitus with hyperglycemia Status: Acute Assessment and Plan: Accu-Cheks a.c. HS decrease patient's Lantus dose down to 14 units b.i.d (6) Esophagitis with gastritis: Code(s): K29.70 - Gastritis, unspecified, without bleeding; K20.90 - Esophagitis, unspecified without bleeding Status: Acute Assessment and Plan: continue Protonix and Carafate as above (7) Fecal impaction: Code(s): K56.41 - Fecal impaction Status: Acute Assessment and Plan: possible constipation induced colitis resolved aggressive bowel regiment (8) Hypomagnesemia: Code(s): E83.42 - Hypomagnesemia Status: Acute Assessment and Plan: replete as needed daily BMP (9) Hypokalemia: Code(s): E87.6 - Hypokalemia Status: Acute Assessment and Plan: replete as needed daily BMP (10) Chronic indwelling Cabral catheter: Code(s): Z97.8 - Presence of other specified devices Status: Acute Assessment and Plan: exchanged in the ED Plan The patient is having more intractable nausea than she is having vomiting. Her vomiting is actually due to self induced gagging. Will give the patient a GI cocktail to see if this does not help some of her symptoms. Her symptoms are most likely due to worsening esophagitis and gastritis due to her induced vomiting and GERD. Will place patient on IV Protonix b.i.d. and will add Carafate a.c. HS. If symptoms do not improve with conservative treatment may need to consider outpatient EGD for further evaluation. Will also treat the patient's abdominal symptoms with a soapsuds enema, daily rectal suppositories and stool softeners until 2-3 soft stools a day. Patient has been placed on empiric antibiotic therapy to treat for possible constipation related colitis. Will also provide patient with Phenergan to see if this does not help with her nausea symptoms more so than Zofran. Patient did have mild hypokalemia and received potassium supplements in the ER. Will repeat both electrolyte panel and CBC in a.m.. Patient met SIRS criteria with leukocytosis, tachycardia and tachypnea. Will continue antibiotic therapy with Rocephin and Flagyl. Setevez patient's tachycardia is more due to intravascular volume depletion and less likely due to sepsis but patient technically does meet sepsis criteria. Patient did receive 30 mL/kilos fluid bolus. Will continue maintenance IV fluids. Blood cultures were obtained in the ER and are pending. Did check the patient's magnesium level given her hyperkalemia and 4 g magnesium sulfate rider was provided for magnesium of 1.4. Patient has chronic indwelling Cabral catheter due to chronic urinary retention. I was informed that the patient's Cabral catheter was exchanged in the ER. Patient does have type 2 diabetes mellitus with hyperglycemia. However due to her NPO state will decrease patient's Lantus dose down to 14 units b.i.d.. Will add Accu-Cheks and sliding scale insulin every 6 hours while NPO. Hypoglycemia protocol has been ordered as needed. Patient has been admitted as observation status. Subjective Date/time seen: 04/05/24 08:02 Interval history: 78-year-old female with past medical history of dementia, diabetes, COPD, peripheral vascular disease, called by nursing yesterday for patient's left pupil nonreactive stat head CT ordered with no acute findings. patient with critical potassium replace with IV and oral, p.o. calcium ordered, Mg pending . Leukocytosis trending down, blood cultures pending NGTD. Patient started on bowel protocol. Patient complaining of blurry vision today MRI ordered, Ativan ordered for claustrophobia. Review of Systems Review of Systems: 12 systems were reviewed and are negative except for as per HPI. ROS unobtainable: Yes unobtainable due to medical condition (Dementia) Exam Narrative: General: well appearing, appears stated age. HEENT: normocephalic, atraumatic. Mucous membranes moist. EOMI, PERRLA, bilateral sclera anicteric, no conjunctival injection. Neck supple without JVD, lymphadenopathy, or bruit. Respiratory: clear to auscultation bilaterally. No rales/rhonic/wheezes. Cardiovascular: Regular rate and rhythm, normal S1-S2 upon auscultation. No murmurs, rubs, or clicks. PMI is nondisplaced, capillary refill less than 3 second. Abdomen: Soft, round, no pulsatile masses, nondistended and nontender. No rebound, no guarding. No CVA tenderness, no hepatosplenomegaly. Bowel sounds present to all four quadrants. No high pitch or tinkling sounds, resonant to percussion. Extremities: No cyanosis, clubbing, or edema present. Pulses are palpable 2/2. Active ROM to all four extremities. Neuro: Alert and orientated x 3. PERRLA. Cranial nerves 2-12 intact without focal deficit. Skin: Warm, dry, and intact, without rash, erythema, or lesion. Psych: pleasant, cooperative, normal speech, normal affect, no hallucinations, no dysarthria Objective Data Vital Signs Vital Signs: Vital Signs - 24 hr 04/04/24 08:33 04/04/24 08:59 04/04/24 09:00 Temperature Pulse Rate 113 H Respiratory Rate Blood Pressure Pulse Oximetry 95 Oxygen Delivery Room Air Room Air 04/04/24 08:03 04/04/24 12:01 04/04/24 14:00 Temperature 97.2 F L Pulse Rate 115 H 105 H 90 Respiratory Rate 20 Blood Pressure 147/60 H Pulse Oximetry 99 Oxygen Delivery 04/04/24 20:03 04/04/24 19:45 04/04/24 20:00 Temperature 98.5 F Pulse Rate 72 85 Respiratory Rate 18 Blood Pressure 126/53 L Pulse Oximetry 100 Oxygen Delivery Room Air 04/05/24 06:00 Temperature 98.2 F Pulse Rate 86 Respiratory Rate 18 Blood Pressure 154/69 H Pulse Oximetry 99 Oxygen Delivery Intake/Output Intake/Output: Intake & Output 04/02/24 04/03/24 04/04/24 04/05/24 23:59 23:59 23:59 23:59 Intake Total 1982.4 2160 1000 Output Total 500 2701 900 Balance 1482.4 -541 100 Meds/Results Medications: Active Medications Generic Name Dose Route Start Last Admin Trade Name Freq PRN Reason Stop Dose Admin Acetaminophen 650 mg 04/04/24 01:06 Acetaminophen 325 Mg Tablet BY MOUTH Q6H PRN Pain 1-3 or fever Amlodipine Besylate 5 mg 04/04/24 09:00 04/04/24 08:33 Amlodipine Besylate 5 Mg Tablet PO 5 mg DAILY MARY Administration Aspirin 81 mg 04/04/24 09:00 04/04/24 08:33 Aspirin 81 Mg Chewable Tablet PO 81 mg DAILY MARY Administration Bisacodyl 10 mg 04/04/24 08:53 Bisacodyl 10 Mg Suppository RECTAL DAILY PRN Constipation Calcium Carbonate 500 mg 04/05/24 08:00 Calcium/Vitamin D 500 Mg/5 Mcg (200 I.U.) Tablet PO DAILY@0800 MARY Dextrose 12.5 gm 04/03/24 21:33 Dextrose 50% 25 Gm/50 Ml Syringe IV PUSH PRN PRN Hypoglycemia Protocol Enoxaparin Sodium 40 mg 04/05/24 09:00 Enoxaparin 40 Mg/0.4 Ml Syringe SUB-Q DAILY MARY Escitalopram Oxalate 5 mg 04/04/24 09:00 04/04/24 08:34 Escitalopram Oxalate 5 Mg Tablet PO 5 mg DAILY MARY Administration Fish Oil 1 gm 04/04/24 09:00 04/04/24 08:33 [place] 3 Polyunsat Fatty Acids 1 Gm Cap PO 1 gm QAM MARY Administration Glucagon 1 mg 04/03/24 21:33 Glucagon For Inj 1 Mg Vial IM PRN PRN Hypoglycemia Protocol Glucose 15 gm 04/03/24 21:33 Glucose Oral Gel 15 Gm Of Glucse In 37.5 Gm Tube PO PRN PRN Hypoglycemia Protocol Vancomycin HCl 1,500 mg in 500 mls @ 250 mls/hr 04/04/24 20:00 04/04/24 22:00 Vancomycin 1,500 Mg/Ns 500 Ml IVPB Infused Q24H MARY Infusion Sodium Chloride 1,000 mls @ 100 mls/hr 04/03/24 21:35 04/05/24 05:32 Normal Saline Iv IV CONT 100 mls/hr .Q10H MARY Administration Ceftriaxone Sodium 1 gm in 50 mls @ 100 mls/hr 04/03/24 22:00 04/04/24 22:30 Rocephin 1 Gm/Ns 50 Ml IVPB 100 mls/hr Q24H MARY Administration Dextrose 1,000 mls @ 100 mls/hr 04/03/24 21:33 Dextrose 5% 1,000 Ml IVPB PRN PRN Hypoglycemia Protocol Potassium Chloride 40 meq/ 520 mls @ 130 mls/hr 04/05/24 07:40 Sodium Chloride IVPB 04/05/24 11:39 ONCE ONE Insulin Aspart 3 - 6 units 04/04/24 00:00 04/05/24 06:43 Insulin Aspart (*Bkc) 100 Units/Ml SUB-Q Not Given Q6HR MARY Protocol Insulin Glargine 14 units 04/04/24 00:55 04/04/24 18:32 Insulin Glargine (*Bkc) 100 Units/Ml SUB-Q 14 units BID MARY Administration Memantine 28 mg 04/04/24 09:00 04/04/24 08:34 Memantine Hcl Xr 28 Mg Cap PO 28 mg DAILY MARY Administration Metoprolol Tartrate 25 mg 04/04/24 09:00 04/04/24 20:03 Metoprolol Tartrate 25 Mg Tablet PO 25 mg Q12HR MARY Administration Mirtazapine 15 mg 04/04/24 01:00 04/04/24 20:03 Mirtazapine 15 Mg Tablet PO 15 mg HS MARY Administration Ondansetron HCl 4 mg 04/03/24 21:32 04/04/24 21:16 Ondansetron Inj 4 Mg/2 Ml Vial IV PUSH 4 mg Q6H PRN Administration Nausea And Vomiting Pantoprazole Sodium 40 mg 04/04/24 09:00 04/04/24 20:06 Pantoprazole Sodium Iv 40 Mg Vial IV PUSH 40 mg Q12HR MARY Administration Promethazine HCl 12.5 mg 04/04/24 12:21 04/05/24 05:32 Promethazine Hcl 25 Mg/Ml Ampul IV PUSH 12.5 mg Q4H PRN Administration Nausea And Vomiting Senna 8.6 mg 04/04/24 09:00 04/04/24 08:33 Sennosides 8.6 Mg Tablet PO 8.6 mg DAILY MARY Administration Sucralfate 1,000 mg 04/04/24 16:30 04/05/24 05:33 Sucralfate Susp 100 Mg/Ml 10 Ml Udc PO 1,000 mg ACHS MARY Administration Radiology Results: ITS Impressions Chest X-Ray 04/03/24 19:04 IMPRESSION: Subsegmental bibasilar atelectasis/consolidation. Small left pleural effusion versus chronic pleural blunting. Abdomen/Pelvis CT 04/03/24 20:43 IMPRESSION: Dependent bibasilar atelectasis/consolidation. Small bilateral pleural effusions. Small pericardial effusion. Moderate esophagitis/gastritis. 2.4 cm indeterminate density right upper pole renal lesion, possible hemorrhagic or proteinaceous cyst, recommend nonemergent but timely CT or MRI without and with contrast for further evaluation. Nonobstructing 5 mm and 3 mm calcifications in the right renal pelvis. Fecal impaction, with wall thickening that can be seen with stercoral colitis and evidence of proctitis. Suggest clinical/proctoscopy correlation to rule out a rectal mass. Head CT 04/04/24 16:40 IMPRESSION: No acute intracranial findings. Labs Labs: Laboratory Results - last 24 hr 04/04/24 04/04/24 04/04/24 11:48 15:31 18:28 WBC RBC Hgb Hct MCV MCH MCHC RDW Plt Count MPV Sodium Potassium Chloride Carbon Dioxide Anion Gap BUN Creatinine Estim Creat Clear Calc Estimated GFR Glucose POC Capillary Glucose 165 H 116 H Lactic Acid 1.2 Calcium 04/05/24 04/05/24 04/05/24 00:04 06:10 06:16 WBC 14.8 H RBC 3.80 L Hgb 10.9 L Hct 33.2 L MCV 87.4 MCH 28.7 MCHC 32.8 RDW 14.6 H Plt Count 332 MPV 10.3 Sodium 138 Potassium 2.6 L* Chloride 105 Carbon Dioxide 27 Anion Gap 6 BUN 14 D Creatinine 0.90 Estim Creat Clear Calc 43 Estimated GFR > 60 Glucose 92 POC Capillary Glucose 102 90 Lactic Acid Calcium 7.7 L Quality VTE Prophylaxis VTE prophylaxis: mechanical ordered and pharmacologic ordered
[2024-04-05 08:28] LABS: Magnesium 1.8 mg/dL (1.6-2.3)
[2024-04-05 08:28] LABS: Glucose Point of Care 101 mg/dl (65-105)
[2024-04-05] MEDS: OMEGA 3 POLYUNSAT FATTY ACIDS 1 GM CAP PO (08:54)
[2024-04-05] MEDS: amLODIPine BESYLATE 5 MG TABLET PO (08:54)
[2024-04-05] MEDS: CALCIUM/VITAMIN D 500 MG/5 MCG (200 I.U.) TABLET PO (08:54)
[2024-04-05 08:55] VITALS: PULSE 86
[2024-04-05] MEDS: METOPROLOL TARTRATE 25 MG TABLET PO ×2 (08:55→20:41)
[2024-04-05] MEDS: POTASSIUM CHLORIDE 20 MEQ PACKET (FOR LIQUID) 40 MEQ PO (08:55)
[2024-04-05] MEDS: polyethylene glycoL 3350 17 GM POWD.PACK PO (08:55)
[2024-04-05] MEDS: PANTOPRAZOLE SODIUM IV 40 MG VIAL IV PUSH ×2 (08:55→20:41)
[2024-04-05] MEDS: ASPIRIN 81 MG CHEWABLE TABLET PO (08:55)
[2024-04-05] MEDS: ESCITALOPRAM OXALATE 5 MG TABLET PO (08:55)
[2024-04-05] MEDS: SENNOSIDES 8.6 MG TABLET PO (08:55)
[2024-04-05] MEDS: ENOXAPARIN 40 MG/0.4 ML SYRINGE SUB-Q (08:55)
[2024-04-05] MEDS: MEMANTINE HCL XR 28 MG CAP PO (08:55)
[2024-04-05] MEDS: POTASSIUM CHLORIDE INJ 40 MEQ in SODIUM CHLORIDE 0.9% IV 500 ML 130 MEQ IVPB (08:56)
[2024-04-05 11:57] LABS: Glucose Point of Care 106 mg/dl (65-105)
[2024-04-05] MEDS: LORazepam (*CRX) 1 MG TABLET PO (13:25)
[2024-04-05 14:00] VITALS: BP 160/73; PULSE 100; RESP 17; TEMP 36.9; O2SAT 97
[2024-04-05 15:33] LABS: Potassium 3.6 mmol/L (3.4-5.0)
[2024-04-05 19:53] LABS: Vancomycin Trough 14.6 ug/mL (10.0-20.0)
[2024-04-05 20:41] VITALS: PULSE 85
[2024-04-05] MEDS: SENNA/DOCUSATE SODIUM TABLET 1 TAB PO (20:41)
[2024-04-05] MEDS: MIRTAZAPINE 15 MG TABLET PO (20:41)
[2024-04-05] MEDS: VANCOMYCIN 1,500 MG/NS 500 ML 1,500 MG/500 ML BAG 250 MG IVPB (20:45)
[2024-04-05 20:59] VITALS: BP 168/95; PULSE 85; RESP 14; TEMP 36.4; O2SAT 98
[2024-04-05 23:30] LABS: Glucose Point of Care 123 mg/dl (65-105)
[2024-04-06] VITALS (7 sets, daily range): BP systolic 113–159; BP diastolic 51–78; PULSE 63–83; RESP 14–18; TEMP 36.4–36.7; O2SAT 95–99
[2024-04-06 05:01] LABS: Glucose Point of Care 89 mg/dl (65-105)
[2024-04-06] MEDS: SUCRALFATE SUSP 100 MG/ML 10 ML UDC 1000 MG PO ×4 (05:43→20:15)
[2024-04-06 05:59] LABS: Anion Gap 5 mmol/L (4-12); Blood Urea Nitrogen 13 mg/dL (7-17); Carbon Dioxide 28 mmol/L (22-30); Chloride 101 mmol/L (98-107); Estimated CRCL calculation 39 ml/min; Estimated Glomerular Filt Rate 54; Glucose 85 mg/dL (65-110); Sodium 134 mmol/L (137-145)
[2024-04-06 06:09] LABS: Potassium 3.4 mmol/L (3.4-5.0)
[2024-04-06 06:12] LABS: Hematocrit 36.1 % (37.0-47.0); Hemoglobin 11.6 g/dL (12.0-15.0); Mean Corpuscular HGB Conc 32.1 g/dl (32-36); Mean Corpuscular Hemoglobin 28.5 pg (26-34); Mean Corpuscular Volume 88.7 fl (80-100); Mean Platelet Volume 10.7 fl (7.4-10.4); Platelet Count Result 395 k/mm3 (150-375); Red Blood Count 4.07 M/mm3 (4.2-5.4); Red Cell Distribution Width 14.3 % (11.5-14.5); White Blood Count 11.8 K/mm3 (4.5-10.0)
--- NOTE | 2024-04-06 07:07 | P.PNIM_ITS ---
Progress Note: A&P Assessment and Plan (1) Stroke: Code(s): I63.9 - Cerebral infarction, unspecified Status: Acute Assessment and Plan: called by nursing for left pupil being nonreactive, blurry vision CT head no acute findings MRI brain negative for stroke (2) Intractable nausea and vomiting: Code(s): R11.2 - Nausea with vomiting, unspecified Status: Acute Assessment and Plan: likely due to use of showed is and gastritis IV Protonix and Carafate recommend outpatient EGD GI cocktail orderd (3) Sepsis: Code(s): A41.9 - Sepsis, unspecified organism Status: Acute Assessment and Plan: Patient met SIRS criteria with leukocytosis, tachycardia and tachypnea. Will continue antibiotic therapy with Rocephin and Flagyl. Estevez patient's tachycardia is more due to intravascular volume depletion and less likely due to sepsis but patient technically does meet sepsis criteria. Patient did receive 30 mL/kilos fluid bolus. Will continue maintenance IV fluids. Blood cultures NGTD urine culture negative chest x-ray shows Subsegmental bibasilar atelectasis/consolidation. Small left pleural effusion versus chronic pleural blunting. continue antibiotic therapy with Rocephin and Flagyl Leukocytosis improving Abx stopped (4) Leukocytosis: Code(s): D72.829 - Elevated white blood cell count, unspecified Status: Acute Assessment and Plan: see above repeat CBC morning (5) Diabetes mellitus with hyperglycemia: Qualifiers: Diabetes mellitus manager terminal insulin use: with manager terminal use Diabetes mellitus type: type 2 Qualified Code(s): E11.65 - Type 2 diabetes mellitus with hyperglycemia; Z79.4 - roasterman (current) use of insulin Code(s): E11.65 - Type 2 diabetes mellitus with hyperglycemia Status: Acute Assessment and Plan: Accu-Cheks a.c. HS decrease patient's Lantus dose down to 14 units b.i.d patient with minimal intake of clear liquid diet (6) Esophagitis with gastritis: Code(s): K29.70 - Gastritis, unspecified, without bleeding; K20.90 - Esophagitis, unspecified without bleeding Status: Acute Assessment and Plan: continue Protonix and Carafate as above see above (7) Fecal impaction: Code(s): K56.41 - Fecal impaction Status: Acute Assessment and Plan: possible constipation induced colitis-resolved aggressive bowel regiment (8) Hypomagnesemia: Code(s): E83.42 - Hypomagnesemia Status: Acute Assessment and Plan: replete as needed daily BMP (9) Hypokalemia: Code(s): E87.6 - Hypokalemia Status: Acute Assessment and Plan: replete as needed daily BMP (10) Chronic indwelling Cabral catheter: Code(s): Z97.8 - Presence of other specified devices Status: Acute Assessment and Plan: exchanged in the ED L Plan The patient is having more intractable nausea than she is having vomiting. Her vomiting is actually due to self induced gagging. Will give the patient a GI cocktail to see if this does not help some of her symptoms. Her symptoms are most likely due to worsening esophagitis and gastritis due to her induced vomiting and GERD. Will place patient on IV Protonix b.i.d. and will add Carafate a.c. HS. If symptoms do not improve with conservative treatment may need to consider outpatient EGD for further evaluation. Will also treat the pat ient's abdominal symptoms with a soapsuds enema, daily rectal suppositories and stool softeners until 2-3 soft stools a day. Patient has been placed on empiric antibiotic therapy to treat for possible constipation related colitis. Will also provide patient with Phenergan to see if this does not help with her nausea symptoms more so than Zofran. Patient did have mild hypokalemia and received potassium supplements in the ER. Will repeat both electrolyte panel and CBC in a.m.. Patient met SIRS criteria with leukocytosis, tachycardia and tachypnea. Will continue antibiotic therapy with Rocephin and Flagyl. Estevez patient's tachycardia is more due to intravascular volume depletion and less likely due to sepsis but patient technically does meet sepsis criteria. Patient did receive 30 mL/kilos fluid bolus. Will continue maintenance IV fluids. Blood cultures were obtained in the ER and are pending. Did check the patient's magnesium level given her hyperkalemia and 4 g magnesium sulfate rider was provided for magnesium of 1.4. Patient has chronic indwelling Cabral catheter due to chronic urinary retention. I was informed that the patient's Cabral catheter was exchanged in the ER. Patient does have type 2 diabetes mellitus with hyperglycemia. However due to her NPO state will decrease patient's Lantus dose down to 14 units b.i.d.. Will add Accu-Cheks and sliding scale insulin every 6 hours while NPO. Hypoglycemia protocol has been ordered as needed. Patient has been admitted as observation status. Time Spent With Patient Time with patient: Greater than 35 minutes Subjective Date/time seen: 04/06/24 07:07 Interval history: 78-year-old female with past medical history of dementia, diabetes, COPD, peripheral vascular disease, Leukocytosis trending down, blood cultures pending NGTD. Patient started on bowel protocol. MRI shows Moderate nonspecific cerebral white matter disease and pontine disease, which likely represents chronic small vessel ischemic disease. patient is agitated this morning complaining of severe nausea, antibiotics DC, meclizine scheduled, scopolamine patch added. If symptoms do not improve with this regimen she may benefit from a scope GI. Review of Systems Review of Systems: 12 systems were reviewed and are negative except for as per HPI. ROS unobtainable: Yes unobtainable due to medical condition (Dementia) Exam Narrative: General: well appearing, appears stated age. HEENT: normocephalic, atraumatic. Mucous membranes moist. EOMI, PERRLA, bilateral sclera anicteric, no conjunctival injection. Neck supple without JVD, lymphadenopathy, or bruit. Respiratory: clear to auscultation bilaterally. No rales/rhonic/wheezes. Cardiovascular: Regular rate and rhythm, normal S1-S2 upon auscultation. No murmurs, rubs, or clicks. PMI is nondisplaced, capillary refill less than 3 second. Abdomen: Soft, round, no pulsatile masses, nondistended and nontender. No rebound, no guarding. No CVA tenderness, no hepatosplenomegaly. Bowel sounds present to all four quadrants. No high pitch or tinkling sounds, resonant to percussion. Extremities: No cyanosis, clubbing, or edema present. Pulses are palpable 2/2. Active ROM to all four extremities. Neuro: Alert and orientated x 3. PERRLA. Cranial nerves 2-12 intact without focal deficit. Skin: Warm, dry, and intact, without rash, erythema, or lesion. Psych: pleasant, cooperative, normal speech, normal affect, no hallucinations, no dysarthria Cabral Objective Data Vital Signs Vital Signs: Vital Signs - 24 hr 04/05/24 08:55 04/05/24 14:00 04/05/24 08:00 Temperature 98.4 F Pulse Rate 86 100 Respiratory Rate 17 Blood Pressure 160/73 H Pulse Oximetry 97 Oxygen Delivery Room Air 04/05/24 20:41 04/05/24 20:59 04/05/24 20:45 Temperature 97.5 F L Pulse Rate 85 85 Respiratory Rate 14 Blood Pressure 168/95 H Pulse Oximetry 98 Oxygen Delivery Room Air 04/06/24 05:11 Temperature 98.0 F Pulse Rate 63 Respiratory Rate 14 Blood Pressure 113/51 L Pulse Oximetry 95 Oxygen Delivery Intake/Output Intake/Output: Intake & Output 04/03/24 04/04/24 04/05/24 04/06/24 23:59 23:59 23:59 23:59 Intake Total 1982.4 2210 2620 50 Output Total 500 2701 3050 1000 Balance 1482.4 -491 -430 -950 Meds/Results Medications: Active Medications Generic Name Dose Route Start Last Admin Trade Name Freq PRN Reason Stop Dose Admin Acetaminophen 650 mg 04/04/24 01:06 Acetaminophen 325 Mg Tablet BY MOUTH Q6H PRN Pain 1-3 or fever Amlodipine Besylate 5 mg 04/04/24 09:00 04/05/24 08:54 Amlodipine Besylate 5 Mg Tablet PO 5 mg DAILY MARY Administration Aspirin 81 mg 04/04/24 09:00 04/05/24 08:55 Aspirin 81 Mg Chewable Tablet PO 81 mg DAILY MARY Administration Bisacodyl 10 mg 04/04/24 08:53 Bisacodyl 10 Mg Suppository RECTAL DAILY PRN Constipation Calcium Carbonate 500 mg 04/05/24 08:00 04/05/24 08:54 Calcium/Vitamin D 500 Mg/5 Mcg (200 I.U.) Tablet PO 500 mg DAILY@0800 MARY Administration Dextrose 12.5 gm 04/03/24 21:33 Dextrose 50% 25 Gm/50 Ml Syringe IV PUSH PRN PRN Hypoglycemia Protocol Enoxaparin Sodium 40 mg 04/05/24 09:00 04/05/24 08:55 Enoxaparin 40 Mg/0.4 Ml Syringe SUB-Q 40 mg DAILY MARY Administration Escitalopram Oxalate 5 mg 04/04/24 09:00 04/05/24 08:55 Escitalopram Oxalate 5 Mg Tablet PO 5 mg DAILY MARY Administration Fish Oil 1 gm 04/04/24 09:00 04/05/24 08:54 [place] 3 Polyunsat Fatty Acids 1 Gm Cap PO 1 gm QAM MARY Administration Glucagon 1 mg 04/03/24 21:33 Glucagon For Inj 1 Mg Vial IM PRN PRN Hypoglycemia Protocol Glucose 15 gm 04/03/24 21:33 Glucose Oral Gel 15 Gm Of Glucse In 37.5 Gm Tube PO PRN PRN Hypoglycemia Protocol Vancomycin HCl 1,500 mg in 500 mls @ 250 mls/hr 04/04/24 20:00 04/05/24 22:45 Vancomycin 1,500 Mg/Ns 500 Ml IVPB Infused Q24H MARY Infusion Sodium Chloride 1,000 mls @ 100 mls/hr 04/03/24 21:35 04/05/24 20:33 Normal Saline Iv IV CONT 100 mls/hr .Q10H MARY Administration Ceftriaxone Sodium 1 gm in 50 mls @ 100 mls/hr 04/03/24 22:00 04/05/24 23:01 Rocephin 1 Gm/Ns 50 Ml IVPB 100 mls/hr Q24H MARY Administration Dextrose 1,000 mls @ 100 mls/hr 04/03/24 21:33 Dextrose 5% 1,000 Ml IVPB PRN PRN Hypoglycemia Protocol Insulin Aspart 3 - 6 units 04/04/24 00:00 04/06/24 05:40 Insulin Aspart (*Bkc) 100 Units/Ml SUB-Q Not Given Q6HR MARY Protocol Insulin Glargine 14 units 04/04/24 00:55 04/05/24 18:53 Insulin Glargine (*Bkc) 100 Units/Ml SUB-Q Not Given BID MARY Memantine 28 mg 04/04/24 09:00 04/05/24 08:55 Memantine Hcl Xr 28 Mg Cap PO 28 mg DAILY MARY Administration Metoprolol Tartrate 25 mg 04/04/24 09:00 04/05/24 20:41 Metoprolol Tartrate 25 Mg Tablet PO 25 mg Q12HR MARY Administration Mirtazapine 15 mg 04/04/24 01:00 04/05/24 20:41 Mirtazapine 15 Mg Tablet PO 15 mg HS MARY Administration Ondansetron HCl 4 mg 04/03/24 21:32 04/04/24 21:16 Ondansetron Inj 4 Mg/2 Ml Vial IV PUSH 4 mg Q6H PRN Administration Nausea And Vomiting Pantoprazole Sodium 40 mg 04/04/24 09:00 04/05/24 20:41 Pantoprazole Sodium Iv 40 Mg Vial IV PUSH 40 mg Q12HR MARY Administration Polyethylene Glycol 17 gm 04/05/24 09:00 04/05/24 08:55 Polyethylene Glycol 3350 17 Gm Powd.Pack PO 17 gm QAM MARY Administration Promethazine HCl 12.5 mg 04/04/24 12:21 04/05/24 05:32 Promethazine Hcl 25 Mg/Ml Ampul IV PUSH 12.5 mg Q4H PRN Administration Nausea And Vomiting Senna 8.6 mg 04/04/24 09:00 04/05/24 08:55 Sennosides 8.6 Mg Tablet PO 8.6 mg DAILY MARY Administration Senna/Docusate Sodium 1 tab 04/05/24 21:00 04/05/24 20:41 Senna/Docusate Sodium Tablet PO 1 tab HS MARY Administration Sucralfate 1,000 mg 04/04/24 16:30 04/06/24 05:43 Sucralfate Susp 100 Mg/Ml 10 Ml Udc PO 1,000 mg ACHS MARY Administration Radiology Results: ITS Impressions Chest X-Ray 04/03/24 19:04 IMPRESSION: Subsegmental bibasilar atelectasis/consolidation. Small left pleural effusion versus chronic pleural blunting. Abdomen/Pelvis CT 04/03/24 20:43 IMPRESSION: Dependent bibasilar atelectasis/consolidation. Small bilateral pleural effusions. Small pericardial effusion. Moderate esophagitis/gastritis. 2.4 cm indeterminate density right upper pole renal lesion, possible hemorrhagic or proteinaceous cyst, recommend nonemergent but timely CT or MRI without and with contrast for further evaluation. Nonobstructing 5 mm and 3 mm calcifications in the right renal pelvis. Fecal impaction, with wall thickening that can be seen with stercoral colitis and evidence of proctitis. Suggest clinical/proctoscopy correlation to rule out a rectal mass. Head CT 04/04/24 16:40 IMPRESSION: No acute intracranial findings. Brain MRI 04/05/24 14:55 IMPRESSION: 1. Moderate nonspecific cerebral white matter disease and pontine disease, which likely represents chronic small vessel ischemic disease. Labs Labs: Laboratory Results - last 24 hr 04/05/24 04/05/24 04/05/24 06:10 08:19 11:53 WBC RBC Hgb Hct MCV MCH MCHC RDW Plt Count MPV Sodium 138 Potassium 2.6 L* Chloride 105 Carbon Dioxide 27 Anion Gap 6 BUN 14 D Creatinine 0.90 Estim Creat Clear Calc 43 Estimated GFR > 60 Glucose 92 POC Capillary Glucose 101 106 H Calcium 7.7 L Magnesium 1.8 Vancomycin Trough 04/05/24 04/05/24 04/05/24 15:18 19:10 23:20 WBC RBC Hgb Hct MCV MCH MCHC RDW Plt Count MPV Sodium Potassium 3.6 Chloride Carbon Dioxide Anion Gap BUN Creatinine Estim Creat Clear Calc Estimated GFR Glucose POC Capillary Glucose 123 H Calcium Magnesium Vancomycin Trough 14.6 04/06/24 04/06/24 04:57 05:31 WBC 11.8 H RBC 4.07 L Hgb 11.6 L Hct 36.1 L MCV 88.7 MCH 28.5 MCHC 32.1 RDW 14.3 Plt Count 395 H MPV 10.7 H Sodium 134 L Potassium 3.4 Chloride 101 Carbon Dioxide 28 Anion Gap 5 BUN 13 Creatinine 1.00 Estim Creat Clear Calc 39 Estimated GFR 54 L Glucose 85 POC Capillary Glucose 89 Calcium 8.0 L Magnesium Vancomycin Trough Quality VTE Prophylaxis VTE prophylaxis: mechanical ordered and pharmacologic ordered
[2024-04-06] MEDS: ONDANSETRON INJ 4 MG/2 ML VIAL IV PUSH ×2 (07:35→20:15)
[2024-04-06] MEDS: PROMETHAZINE HCL 25 MG/ML AMPUL 12.5 MG IV PUSH ×3 (08:36→21:41)
[2024-04-06] MEDS: SODIUM CHLORIDE 0.9% IV 1,000 ML 100 ML IV CONT ×2 (09:11→18:32)
[2024-04-06] MEDS: SENNOSIDES 8.6 MG TABLET PO (09:40)
[2024-04-06] MEDS: CALCIUM/VITAMIN D 500 MG/5 MCG (200 I.U.) TABLET PO (09:40)
[2024-04-06] MEDS: ASPIRIN 81 MG CHEWABLE TABLET PO (09:40)
[2024-04-06] MEDS: MEMANTINE HCL XR 28 MG CAP PO (09:40)
[2024-04-06] MEDS: amLODIPine BESYLATE 5 MG TABLET PO (09:40)
[2024-04-06] MEDS: OMEGA 3 POLYUNSAT FATTY ACIDS 1 GM CAP PO (09:40)
[2024-04-06] MEDS: ESCITALOPRAM OXALATE 5 MG TABLET PO (09:40)
[2024-04-06] MEDS: ENOXAPARIN 40 MG/0.4 ML SYRINGE SUB-Q (09:41)
[2024-04-06] MEDS: PANTOPRAZOLE SODIUM IV 40 MG VIAL IV PUSH ×2 (09:41→20:15)
[2024-04-06] MEDS: METOPROLOL TARTRATE 25 MG TABLET PO ×2 (09:41→20:15)
[2024-04-06] MEDS: polyethylene glycoL 3350 17 GM POWD.PACK PO (09:42)
[2024-04-06 11:50] LABS: Glucose Point of Care 127 mg/dl (65-105)
[2024-04-06] MEDS: MECLIZINE HCL 6.25 MG TABLET PO ×2 (12:08→16:20)
[2024-04-06] MEDS: SCOPOLAMINE 1 MG PATCH 1 PATCH TRANSDERM (13:13)
--- NOTE | 2024-04-06 13:22 | PC.NURSE ---
I was walking into patient's room to administer scop patch and saw patient sticking fingers down her throat as if to gag herself. She has been persistently complaining of nausea. No dry heaves or actual vomiting that I have seen.
[2024-04-06] MEDS: BELLADONNA ALK/PHENOB ELIX 10 ML, MAG HYDROX/ALUMINUM HYD/SIMETH 30 ML, LIDOCAINE HCL 2... PO (16:15)
[2024-04-06 17:52] LABS: Glucose Point of Care 129 mg/dl (65-105)
[2024-04-06] MEDS: INSULIN GLARGINE (*BKC) 100 UNITS/ML 14 UNITS SUB-Q (18:09)
[2024-04-06] MEDS: SENNA/DOCUSATE SODIUM TABLET 1 TAB PO (20:15)
[2024-04-06] MEDS: MIRTAZAPINE 15 MG TABLET PO (20:15)
[2024-04-06 23:40] LABS: Glucose Point of Care 94 mg/dl (65-105)
[2024-04-07] MEDS: SODIUM CHLORIDE 0.9% IV 1,000 ML 100 ML IV CONT (04:43)
[2024-04-07 05:42] LABS: Hematocrit 40.8 % (37.0-47.0); Hemoglobin 13.6 g/dL (12.0-15.0); Mean Corpuscular HGB Conc 33.3 g/dl (32-36); Mean Corpuscular Hemoglobin 28.3 pg (26-34); Mean Corpuscular Volume 84.8 fl (80-100); Mean Platelet Volume 10.1 fl (7.4-10.4); Platelet Count Result 414 k/mm3 (150-375); Red Blood Count 4.81 M/mm3 (4.2-5.4); Red Cell Distribution Width 13.6 % (11.5-14.5); White Blood Count 11.8 K/mm3 (4.5-10.0)
[2024-04-07 05:54] LABS: Anion Gap 9 mmol/L (4-12); Blood Urea Nitrogen 15 mg/dL (7-17); Calcium 8.3 mg/dL (8.4-10.2); Carbon Dioxide 26 mmol/L (22-30); Chloride 99 mmol/L (98-107); Estimated CRCL calculation 39 ml/min; Estimated Glomerular Filt Rate 54; Glucose 84 mg/dL (65-110); Sodium 134 mmol/L (137-145)
[2024-04-07 06:00] VITALS: BP 155/88; PULSE 82; RESP 18; TEMP 36.3; O2SAT 97
[2024-04-07] MEDS: SUCRALFATE SUSP 100 MG/ML 10 ML UDC 1000 MG PO ×4 (06:08→21:44)
[2024-04-07 06:15] LABS: Glucose Point of Care 86 mg/dl (65-105)
[2024-04-07] MEDS: ONDANSETRON INJ 4 MG/2 ML VIAL IV PUSH (06:59)
--- NOTE | 2024-04-07 07:44 | P.PNIM_ITS ---
Progress Note: A&P Assessment and Plan (1) Stroke: Code(s): I63.9 - Cerebral infarction, unspecified Status: Acute Assessment and Plan: called by nursing for left pupil being nonreactive, blurry vision CT head no acute findings MRI brain negative for stroke follow-up outpatient with Ophthalmology, no acute intervention needed, not traumatic (2) Intractable nausea and vomiting: Code(s): R11.2 - Nausea with vomiting, unspecified Status: Acute Assessment and Plan: likely due to use of showed is and gastritis IV Protonix and Carafate GI consulted patient refusing to eat, may benefit from a feeding tube D5 NS started (3) Sepsis: Code(s): A41.9 - Sepsis, unspecified organism Status: Acute Assessment and Plan: Patient met SIRS criteria with leukocytosis, tachycardia and tachypnea. Will continue antibiotic therapy with Rocephin and Flagyl. Estevez patient's tachycardia is more due to intravascular volume depletion and less likely due to sepsis but patient technically does meet sepsis criteria. Patient did receive 30 mL/kilos fluid bolus. Will continue maintenance IV fluids. Blood cultures NGTD urine culture negative chest x-ray shows Subsegmental bibasilar atelectasis/consolidation. Small left pleural effusion versus chronic pleural blunting. (4) Leukocytosis: Code(s): D72.829 - Elevated white blood cell count, unspecified Status: Acute Assessment and Plan: see above repeat CBC morning (5) Diabetes mellitus with hyperglycemia: Qualifiers: Diabetes mellitus alf insulin use: with alf use Diabetes mellitus type: type 2 Qualified Code(s): E11.65 - Type 2 diabetes mellitus with hyperglycemia; Z79.4 - intermediate project manager (current) use of insulin Code(s): E11.65 - Type 2 diabetes mellitus with hyperglycemia Status: Acute Assessment and Plan: Accu-Cheks a.c. HS decrease patient's Lantus dose down to 14 units b.i.d patient with minimal intake of clear liquid diet (6) Esophagitis with gastritis: Code(s): K29.70 - Gastritis, unspecified, without bleeding; K20.90 - Esophagitis, unspecified without bleeding Status: Acute Assessment and Plan: continue Protonix and Carafate as above see above (7) Fecal impaction: Code(s): K56.41 - Fecal impaction Status: Acute Assessment and Plan: possible constipation induced colitis- aggressive bowel regiment Mesalamine started (8) Hypomagnesemia: Code(s): E83.42 - Hypomagnesemia Status: Acute Assessment and Plan: replete as needed daily BMP (9) Hypokalemia: Code(s): E87.6 - Hypokalemia Status: Acute Assessment and Plan: replete as needed daily BMP (10) Chronic indwelling Cabral catheter: Code(s): Z97.8 - Presence of other specified devices Status: Acute Assessment and Plan: exchanged in the ED cultures negative for infection Plan The patient is having more intractable nausea than she is having vomiting. Her vomiting is actually due to self induced gagging. Will give the patient a GI cocktail to see if this does not help some of her symptoms. Her symptoms are most likely due to worsening esophagitis and gastritis due to her induced vomiting and GERD. Will place patient on IV Protonix b.i.d. and will add Carafate a.c. HS. If symptoms do not improve with conservative treatment may need to consider outpatient EGD for further evaluation. Will also treat the patient's abdominal symptoms with a soapsuds enema, daily rectal suppositories and stool softeners until 2-3 soft stools a day. Patient has been placed on empiric antibiotic therapy to treat for possible constipation related colitis. Will also provide patient with Phenergan to see if this does not help with her nausea symptoms more so than Zofran. Patient did have mild hypokalemia and received potassium supplements in the ER. Will repeat both electrolyte panel and CBC in a.m.. Patient met SIRS criteria with leukocytosis, tachycardia and tachypnea. Will continue antibiotic therapy with Rocephin and Flagyl. Estevez patient's tachycardia is more due to intravascular volume depletion and less likely due to sepsis but patient technically does meet sepsis criteria. Patient did receive 30 mL/kilos fluid bolus. Will continue maintenance IV fluids. Blood cultures were obtained in the ER and are pending. Did check the patient's magnesium level given her hyperkalemia and 4 g magnesium sulfate rider was provided for magnesium of 1.4. Patient has chronic indwelling Cabral catheter due to chronic urinary retention. I was informed that the patient's Cabral catheter was exchanged in the ER. Patient does have type 2 diabetes mellitus with hyperglycemia. However due to her NPO state will decrease patient's Lantus dose down to 14 units b.i.d.. Will add Accu-Cheks and sliding scale insulin every 6 hours while NPO. Hypoglycemia protocol has been ordered as needed. Patient has been admitted as observation status. Time Spent With Patient Time with patient: Greater than 35 minutes Subjective Date/time seen: 04/07/24 07:44 Interval history: 78-year-old female with past medical history of dementia, diabetes, COPD, peripheral vascular disease, Leukocytosis trending down, blood cultures pending NGTD. Patient started on bowel protocol. potassium 3.0 replacements ordered, patient still complaining of blurry vision stroke workup negative recommended follow-up outpatient with Ophthalmology, patient still refusing to eat due to nausea, constantly trying to get herself, GI consult ordered, patient may benefit from a feeding tube Review of Systems Review of Systems: 12 systems were reviewed and are negative except for as per HPI. ROS unobtainable: Yes unobtainable due to medical condition (Dementia) Exam Narrative: General: well appearing, appears stated age. HEENT: normocephalic, atraumatic. Mucous membranes moist. EOMI, PERRLA, bilateral sclera anicteric, no conjunctival injection. Neck supple without JVD, lymphadenopathy, or bruit. Respiratory: clear to auscultation bilaterally. No rales/rhonic/wheezes. Cardiovascular: Regular rate and rhythm, normal S1-S2 upon auscultation. No mur murs, rubs, or clicks. PMI is nondisplaced, capillary refill less than 3 second. Abdomen: Soft, round, no pulsatile masses, nondistended and nontender. No rebound, no guarding. No CVA tenderness, no hepatosplenomegaly. Bowel sounds present to all four quadrants. No high pitch or tinkling sounds, resonant to percussion. Extremities: No cyanosis, clubbing, or edema present. Pulses are palpable 2/2. Active ROM to all four extremities. Neuro: Alert and orientated x 3. PERRLA. Cranial nerves 2-12 intact without focal deficit. Skin: Warm, dry, and intact, without rash, erythema, or lesion. Psych: pleasant, cooperative, normal speech, normal affect, no hallucinations, no dysarthria Cabral Objective Data Vital Signs Vital Signs: Vital Signs - 24 hr 04/06/24 09:41 04/06/24 14:00 04/06/24 15:05 Temperature 98 F 97.6 F Pulse Rate 68 83 78 Respiratory Rate 16 15 Blood Pressure 159/78 H 114/73 Pulse Oximetry 99 98 Oxygen Delivery 04/06/24 20:15 04/06/24 20:20 04/06/24 22:00 Temperature 98.1 F Pulse Rate 74 74 67 Respiratory Rate 15 18 Blood Pressure 122/57 L Pulse Oximetry 98 99 Oxygen Delivery Room Air 04/07/24 06:00 Temperature 97.4 F L Pulse Rate 82 Respiratory Rate 18 Blood Pressure 155/88 H Pulse Oximetry 97 Oxygen Delivery Intake/Output Intake/Output: Intake & Output 04/04/24 04/05/24 04/06/24 04/07/24 23:59 23:59 23:59 23:59 Intake Total 2210 2620 1985 1000 Output Total 2701 3050 3300 2400 Balance -466 -142 -0693 -7377 Meds/Results Medications: Active Medications Generic Name Dose Route Start Last Admin Trade Name Freq PRN Reason Stop Dose Admin Acetaminophen 650 mg 04/04/24 01:06 Acetaminophen 325 Mg Tablet BY MOUTH Q6H PRN Pain 1-3 or fever Amlodipine Besylate 5 mg 04/04/24 09:00 04/06/24 09:40 Amlodipine Besylate 5 Mg Tablet PO 5 mg DAILY MARY Administration Aspirin 81 mg 04/04/24 09:00 04/06/24 09:40 Aspirin 81 Mg Chewable Tablet PO 81 mg DAILY MARY Administration Bisacodyl 10 mg 04/04/24 08:53 Bisacodyl 10 Mg Suppository RECTAL DAILY PRN Constipation Calcium Carbonate 500 mg 04/05/24 08:00 04/06/24 09:40 Calcium/Vitamin D 500 Mg/5 Mcg (200 I.U.) Tablet PO 500 mg DAILY@0800 MARY Administration Belladonna Alkaloids/ 0 ml 04/06/24 17:00 04/06/24 16:15 Phenobarbital 10 ml/ Al Hydrox PO 50 ml /Mg Hydrox/Simethicone 30 ml/ TID MARY Administration Lidocaine HCl 10 ml Dextrose 12.5 gm 04/03/24 21:33 Dextrose 50% 25 Gm/50 Ml Syringe IV PUSH PRN PRN Hypoglycemia Protocol Enoxaparin Sodium 40 mg 04/05/24 09:00 04/06/24 09:41 Enoxaparin 40 Mg/0.4 Ml Syringe SUB-Q 40 mg DAILY MARY Administration Escitalopram Oxalate 5 mg 04/04/24 09:00 04/06/24 09:40 Escitalopram Oxalate 5 Mg Tablet PO 5 mg DAILY MARY Administration Fish Oil 1 gm 04/04/24 09:00 04/06/24 09:40 [place] 3 Polyunsat Fatty Acids 1 Gm Cap PO 1 gm QAM MARY Administration Glucagon 1 mg 04/03/24 21:33 Glucagon For Inj 1 Mg Vial IM PRN PRN Hypoglycemia Protocol Glucose 15 gm 04/03/24 21:33 Glucose Oral Gel 15 Gm Of Glucse In 37.5 Gm Tube PO PRN PRN Hypoglycemia Protocol Sodium Chloride 1,000 mls @ 100 mls/hr 04/03/24 21:35 04/07/24 04:43 Normal Saline Iv IV CONT 100 mls/hr .Q10H MARY Administration Dextrose 1,000 mls @ 100 mls/hr 04/03/24 21:33 Dextrose 5% 1,000 Ml IVPB PRN PRN Hypoglycemia Protocol Insulin Aspart 3 - 6 units 04/04/24 00:00 04/07/24 06:08 Insulin Aspart (*Bkc) 100 Units/Ml SUB-Q Not Given Q6HR MARY Protocol Insulin Glargine 14 units 04/04/24 00:55 04/06/24 18:09 Insulin Glargine (*Bkc) 100 Units/Ml SUB-Q 14 units BID MARY Administration Meclizine HCl 6.25 mg 04/06/24 13:00 04/06/24 16:20 Meclizine Hcl 6.25 Mg Tablet PO 6.25 mg TID MARY Administration Memantine 28 mg 04/04/24 09:00 04/06/24 09:40 Memantine Hcl Xr 28 Mg Cap PO 28 mg DAILY MARY Administration Metoprolol Tartrate 25 mg 04/04/24 09:00 04/06/24 20:15 Metoprolol Tartrate 25 Mg Tablet PO 25 mg Q12HR MARY Administration Mirtazapine 15 mg 04/04/24 01:00 04/06/24 20:15 Mirtazapine 15 Mg Tablet PO 15 mg HS MARY Administration Ondansetron HCl 4 mg 04/03/24 21:32 04/07/24 06:59 Ondansetron Inj 4 Mg/2 Ml Vial IV PUSH 4 mg Q6H PRN Administration Nausea And Vomiting Pantoprazole Sodium 40 mg 04/04/24 09:00 04/06/24 20:15 Pantoprazole Sodium Iv 40 Mg Vial IV PUSH 40 mg Q12HR MARY Administration Polyethylene Glycol 17 gm 04/05/24 09:00 04/06/24 09:42 Polyethylene Glycol 3350 17 Gm Powd.Pack PO 17 gm QAM MARY Administration Promethazine HCl 12.5 mg 04/04/24 12:21 04/06/24 21:41 Promethazine Hcl 25 Mg/Ml Ampul IV PUSH 12.5 mg Q4H PRN Administration Nausea And Vomiting Scopolamine 1 patch 04/06/24 12:50 04/06/24 13:13 Scopolamine 1 Mg Patch TRANSDERM 1 patch Q72HR MARY Administration Senna 8.6 mg 04/04/24 09:00 04/06/24 09:40 Sennosides 8.6 Mg Tablet PO 8.6 mg DAILY MARY Administration Senna/Docusate Sodium 1 tab 04/05/24 21:00 04/06/24 20:15 Senna/Docusate Sodium Tablet PO 1 tab HS MARY Administration Sucralfate 1,000 mg 04/04/24 16:30 04/07/24 06:08 Sucralfate Susp 100 Mg/Ml 10 Ml Udc PO 1,000 mg ACHS MARY Administration Radiology Results: ITS Impressions Chest X-Ray 04/03/24 19:04 IMPRESSION: Subsegmental bibasilar atelectasis/consolidation. Small left pleural effusion versus chronic pleural blunting. Abdomen/Pelvis CT 04/03/24 20:43 IMPRESSION: Dependent bibasilar atelectasis/consolidation. Small bilateral pleural effusions. Small pericardial effusion. Moderate esophagitis/gastritis. 2.4 cm indeterminate density right upper pole renal lesion, possible hemorrhagic or proteinaceous cyst, recommend nonemergent but timely CT or MRI without and with contrast for further evaluation. Nonobstructing 5 mm and 3 mm calcifications in the right renal pelvis. Fecal impaction, with wall thickening that can be seen with stercoral colitis and evidence of proctitis. Suggest clinical/proctoscopy correlation to rule out a rectal mass. Head CT 04/04/24 16:40 IMPRESSION: No acute intracranial findings. Brain MRI 04/05/24 14:55 IMPRESSION: 1. Moderate nonspecific cerebral white matter disease and pontine disease, which likely represents chronic small vessel ischemic disease. Labs Labs: Laboratory Results - last 24 hr 04/06/24 04/06/24 04/06/24 11:29 17:32 23:38 WBC RBC Hgb Hct MCV MCH MCHC RDW Plt Count MPV Sodium Potassium Chloride Carbon Dioxide Anion Gap BUN Creatinine Estim Creat Clear Calc Estimated GFR Glucose POC Capillary Glucose 127 H 129 H 94 Calcium 04/07/24 04/07/24 05:22 06:12 WBC 11.8 H RBC 4.81 Hgb 13.6 Hct 40.8 MCV 84.8 MCH 28.3 MCHC 33.3 RDW 13.6 Plt Count 414 H MPV 10.1 Sodium 134 L Potassium 3.0 L Chloride 99 Carbon Dioxide 26 Anion Gap 9 BUN 15 Creatinine 1.00 Estim Creat Clear Calc 39 Estimated GFR 54 L Glucose 84 POC Capillary Glucose 86 Calcium 8.3 L Quality VTE Prophylaxis VTE prophylaxis: mechanical ordered and pharmacologic ordered
[2024-04-07] MEDS: amLODIPine BESYLATE 5 MG TABLET PO (09:05)
[2024-04-07] MEDS: SENNOSIDES 8.6 MG TABLET PO (09:06)
[2024-04-07] MEDS: CALCIUM/VITAMIN D 500 MG/5 MCG (200 I.U.) TABLET PO (09:06)
[2024-04-07] MEDS: MEMANTINE HCL XR 28 MG CAP PO (09:06)
[2024-04-07] MEDS: OMEGA 3 POLYUNSAT FATTY ACIDS 1 GM CAP PO (09:06)
[2024-04-07] MEDS: ESCITALOPRAM OXALATE 5 MG TABLET PO (09:07)
[2024-04-07] MEDS: MECLIZINE HCL 6.25 MG TABLET PO ×3 (09:07→16:39)
[2024-04-07 09:09] VITALS: PULSE 88
[2024-04-07] MEDS: METOPROLOL TARTRATE 25 MG TABLET PO ×2 (09:09→21:43)
[2024-04-07] MEDS: ASPIRIN 81 MG CHEWABLE TABLET PO (09:09)
[2024-04-07] MEDS: BELLADONNA ALK/PHENOB ELIX 10 ML, MAG HYDROX/ALUMINUM HYD/SIMETH 30 ML, LIDOCAINE HCL 2... PO (09:10)
[2024-04-07] MEDS: polyethylene glycoL 3350 17 GM POWD.PACK PO ×3 (09:10→16:43)
[2024-04-07] MEDS: ENOXAPARIN 40 MG/0.4 ML SYRINGE SUB-Q (09:12)
[2024-04-07] MEDS: POTASSIUM CHLORIDE INJ 40 MEQ in SODIUM CHLORIDE 0.9% IV 500 ML 130 MEQ IVPB (09:12)
[2024-04-07 09:39] LABS: Anion Gap 12 mmol/L (4-12); Blood Urea Nitrogen 16 mg/dL (7-17); Calcium 8.3 mg/dL (8.4-10.2); Carbon Dioxide 25 mmol/L (22-30); Chloride 98 mmol/L (98-107); Estimated CRCL calculation 43 ml/min; Estimated Glomerular Filt Rate > 60; Glucose 88 mg/dL (65-110); Potassium 3.1 mmol/L (3.4-5.0); Sodium 135 mmol/L (137-145)
[2024-04-07 13:26] LABS: Glucose Point of Care 75 mg/dl (65-105)
[2024-04-07 14:00] VITALS: BP 169/69; PULSE 72; RESP 16; TEMP 36.4; O2SAT 99
[2024-04-07] MEDS: DEXTROSE 5%/0.9% SOD CHL 1,000 ML 100 ML IV CONT (14:13)
[2024-04-07 17:16] LABS: Glucose Point of Care 189 mg/dl (65-105)
[2024-04-07 21:43] VITALS: PULSE 80
[2024-04-07] MEDS: SENNA/DOCUSATE SODIUM TABLET 1 TAB PO (21:43)
[2024-04-07] MEDS: PANTOPRAZOLE 40 MG TABLET PO (21:44)
[2024-04-07] MEDS: MIRTAZAPINE 15 MG TABLET PO (21:44)
[2024-04-07 22:00] VITALS: BP 169/63; PULSE 80; RESP 18; TEMP 36.8; O2SAT 97
[2024-04-08] VITALS (8 sets, daily range): BP systolic 140–181; BP diastolic 62–71; PULSE 73–79; RESP 16–18; TEMP 36.3–36.9; O2SAT 95–99
[2024-04-08 00:07] LABS: Glucose Point of Care 302 mg/dl (65-105)
[2024-04-08] MEDS: INSULIN ASPART (*BKC) 100 UNITS/ML SUB-Q ×3 (00:25→12:14)
[2024-04-08] MEDS: DEXTROSE 5%/0.9% SOD CHL 1,000 ML 100 ML IV CONT (00:25)
--- NOTE | 2024-04-08 01:09 | PC.NURSE ---
Daylight Savings Time For Daylight Savings Time Ending in the Fall - Clocks are moved back. For Daylight Savings Time Beginning in the Spring - Clocks are moved ahead. For [facility], the time of change occurs at 0200 hrs. Time is taken from the banquet server. This entry on the patient's chart recognizes the change in time reflected during documentation. Example: 2 entries for vital signs may be charted for 0200 hrs.
[2024-04-08] MEDS: ONDANSETRON INJ 4 MG/2 ML VIAL IV PUSH (03:39)
[2024-04-08 05:57] LABS: Hematocrit 34.3 % (37.0-47.0); Hemoglobin 11.5 g/dL (12.0-15.0); Mean Corpuscular HGB Conc 33.5 g/dl (32-36); Mean Corpuscular Hemoglobin 28.4 pg (26-34); Mean Corpuscular Volume 84.7 fl (80-100); Mean Platelet Volume 10.3 fl (7.4-10.4); Platelet Count Result 337 k/mm3 (150-375); Red Blood Count 4.05 M/mm3 (4.2-5.4); Red Cell Distribution Width 13.8 % (11.5-14.5); White Blood Count 9.6 K/mm3 (4.5-10.0)
[2024-04-08 06:06] LABS: Anion Gap 7 mmol/L (4-12); Blood Urea Nitrogen 14 mg/dL (7-17); Carbon Dioxide 25 mmol/L (22-30); Chloride 99 mmol/L (98-107); Estimated CRCL calculation 48 ml/min; Estimated Glomerular Filt Rate > 60; Glucose 293 mg/dL (65-110); Potassium 3.2 mmol/L (3.4-5.0); Sodium 131 mmol/L (137-145)
[2024-04-08] MEDS: SUCRALFATE SUSP 100 MG/ML 10 ML UDC 1000 MG PO ×4 (06:09→20:34)
[2024-04-08 06:15] LABS: Glucose Point of Care 295 mg/dl (65-105)
[2024-04-08] MEDS: METOPROLOL TARTRATE 25 MG TABLET PO ×2 (06:53→20:34)
[2024-04-08] MEDS: amLODIPine BESYLATE 5 MG TABLET PO (06:54)
--- NOTE | 2024-04-08 07:40 | P.PNIM_ITS ---
Progress Note: A&P Assessment and Plan (1) Stroke: Code(s): I63.9 - Cerebral infarction, unspecified Status: Acute (2) Intractable nausea and vomiting: Code(s): R11.2 - Nausea with vomiting, unspecified Status: Acute (3) Fecal impaction: Code(s): K56.41 - Fecal impaction Status: Acute (4) Sepsis: Code(s): A41.9 - Sepsis, unspecified organism Status: Acute (5) Diabetes mellitus with hyperglycemia: Qualifiers: Diabetes mellitus terminal carman insulin use: with correction use Diabetes mellitus type: type 2 Qualified Code(s): E11.65 - Type 2 diabetes mellitus with hyperglycemia; Z79.4 - terminal operations supervisor (current) use of insulin Code(s): E11.65 - Type 2 diabetes mellitus with hyperglycemia Status: Acute Plan (1) Stroke: Code(s): I63.9 - Cerebral infarction, unspecified Status: Acute Assessment and Plan: called by nursing for left pupil being nonreactive, blurry vision CT head no acute findings MRI brain negative for stroke follow-up outpatient with Ophthalmology, no acute intervention needed, not traumatic (2) Intractable nausea and vomiting: Code(s): R11.2 - Nausea with vomiting, unspecified Status: Acute Assessment and Plan: likely due to use of showed is and gastritis IV Protonix and Carafate GI consulted patient refusing to eat, may benefit from a feeding tube NS started vomiting is actually due to self induced gagging. (3) Sepsis: Code(s): A41.9 - Sepsis, unspecified organism Status: Acute Assessment and Plan: Patient met SIRS criteria with leukocytosis, tachycardia and tachypnea. Will continue antibiotic therapy with Rocephin and Flagyl. Estevez patient's tachycardia is more due to intravascular volume depletion and less likely due to sepsis but patient technically does meet sepsis criteria. Patient did receive 30 mL/kilos fluid bolus. Will continue maintenance IV fluids. Blood cultures NGTD urine culture negative chest x-ray shows Subsegmental bibasilar atelectasis/consolidation. Small left pleural effusion versus chronic pleural blunting. (4) Leukocytosis: Code(s): D72.829 - Elevated white blood cell count, unspecified Status: Acute Assessment and Plan: Resolved (5) Diabetes mellitus with hyperglycemia: Qualifiers: Diabetes mellitus correction insulin use: with correction use Diabetes mellitus type: type 2 Qualified Code(s): E11.65 - Type 2 diabetes mellitus with hyperglycemia; Z79.4 - terminal operations supervisor (current) use of insulin Code(s): E11.65 - Type 2 diabetes mellitus with hyperglycemia Status: Acute Assessment and Plan: Accu-Cheks a.c. HS decrease patient's Lantus dose down to 14 units b.i.d patient with minimal intake of clear liquid diet (6) Esophagitis with gastritis: Code(s): K29.70 - Gastritis, unspecified, without bleeding; K20.90 - Esophagitis, unspecified without bleeding Status: Acute Assessment and Plan: continue Protonix and Carafate as above see above (7) Fecal impaction: Code(s): K56.41 - Fecal impaction Status: Acute Assessment and Plan: possible constipation induced colitis- aggressive bowel regiment Discontinue Mesalamine Continue MiraLax, Senokot 1 tab daily Start lactulose p.o. 20 g t.i.d. p.o. (8) Hypomagnesemia: Code(s): E83.42 - Hypomagnesemia Status: Acute Assessment and Plan: replete as needed Corrected (9) Hypokalemia Code(s): E87.6 - Hypokalemia Status: Acute Assessment and Plan: Potassium 3.2, partial corrected, Replete with potassium chloride 40 mg p.o. once and b.i.d. Follow-up BMP Acute Hyponatremia Potassium trending down slowly Sodium 131 Start normal saline IV mL per hour (10) Chronic indwelling Cabral catheter: Code(s): Z97.8 - Presence of other specified devices Status: Acute Assessment and Plan: exchanged in the ED cultures negative for infection Subjective Date/time seen: 04/08/24 07:40 Interval history: Saw exam patient today, patient feels better today, still has nausea, denies vomiting, poor intake. Afebrile, blood pressure stable still has hyponatremia hypokalemia, no new issues Exam Narrative: GENERAL: Pleasant, in no acute distress. Well-nourished. - EYES: EOMI. Anicteric. - HENT: Moist mucous membranes. - LUNGS: Clear to auscultation bilateral ly, no wheezing, rhonchi, or rales. - CARDIOVASCULAR: Regular rate and rhyth m. No murmur. No JVD. - ABDOMEN: Soft, non-tender and non-dist ended. No palpable masses. - EXTREMITIES: No edema. Peripheral puls es 2+. Non-tender. - NEUROLOGIC: No focal neurological defi cits. CN II-XII grossly intact. - PSYCHIATRIC: Awake, Alert and oriented x 3. Appropriate mood and affect. - SKIN: No rashes or lesions. Warm. - LYMPH: No cervical lymphadenopathy. Objective Data Vital Signs Vital Signs: Vital Signs - 24 hr 04/07/24 09:09 04/07/24 09:03 04/07/24 14:00 Temperature 97.5 F L Pulse Rate 88 72 Respiratory Rate 16 Blood Pressure 169/69 H Pulse Oximetry 99 Oxygen Delivery Room Air 04/07/24 21:43 04/07/24 22:00 04/07/24 21:30 Temperature 98.2 F Pulse Rate 80 80 Respiratory Rate 18 Blood Pressure 169/63 H Pulse Oximetry 97 Oxygen Delivery Room Air 04/08/24 06:00 04/08/24 06:45 04/08/24 06:53 Temperature 98.0 F Pulse Rate 79 79 Respiratory Rate 18 Blood Pressure 181/64 H Pulse Oximetry 97 Oxygen Delivery Intake/Output Intake/Output: Intake & Output 04/05/24 04/06/24 04/07/24 04/08/24 23:59 23:59 23:59 22:59 Intake Total 2620 1985 1760 1000 Output Total 3050 3300 3275 2300 Balance -430 -5119 -4094 -9421 Meds/Results Medications: Active Medications Generic Name Dose Route Start Last Admin Trade Name Jersonq PRN Reason Stop Dose Admin Acetaminophen 650 mg 04/04/24 01:06 Acetaminophen 325 Mg Tablet BY MOUTH Q6H PRN Pain 1-3 or fever Amlodipine Besylate 5 mg 04/04/24 09:00 04/08/24 06:54 Amlodipine Besylate 5 Mg Tablet PO 5 mg DAILY MARY Administration Aspirin 81 mg 04/04/24 09:00 04/07/24 09:09 Aspirin 81 Mg Chewable Tablet PO 81 mg DAILY MARY Administration Bisacodyl 10 mg 04/04/24 08:53 Bisacodyl 10 Mg Suppository RECTAL DAILY PRN Constipation Calcium Carbonate 500 mg 04/05/24 08:00 04/07/24 09:06 Calcium/Vitamin D 500 Mg/5 Mcg (200 I.U.) Tablet PO 500 mg DAILY@0800 MARY Administration Dextrose 12.5 gm 04/03/24 21:33 Dextrose 50% 25 Gm/50 Ml Syringe IV PUSH PRN PRN Hypoglycemia Protocol Enoxaparin Sodium 40 mg 04/05/24 09:00 04/07/24 09:12 Enoxaparin 40 Mg/0.4 Ml Syringe SUB-Q 40 mg DAILY MARY Administration Escitalopram Oxalate 5 mg 04/04/24 09:00 04/07/24 09:07 Escitalopram Oxalate 5 Mg Tablet PO 5 mg DAILY MARY Administration Fish Oil 1 gm 04/04/24 09:00 04/07/24 09:06 [place] 3 Polyunsat Fatty Acids 1 Gm Cap PO 1 gm QAM MARY Administration Glucagon 1 mg 04/03/24 21:33 Glucagon For Inj 1 Mg Vial IM PRN PRN Hypoglycemia Protocol Glucose 15 gm 04/03/24 21:33 Glucose Oral Gel 15 Gm Of Glucse In 37.5 Gm Tube PO PRN PRN Hypoglycemia Protocol Dextrose 1,000 mls @ 100 mls/hr 04/03/24 21:33 Dextrose 5% 1,000 Ml IVPB PRN PRN Hypoglycemia Protocol Dextrose/Sodium Chloride 1,000 mls @ 100 mls/hr 04/07/24 13:30 04/08/24 00:25 Dextrose 5% Sodium Chloride 0.9% IV CONT 100 mls/hr .Q10H MARY Administration Insulin Aspart 3 - 6 units 04/04/24 00:00 04/08/24 06:07 Insulin Aspart (*Bkc) 100 Units/Ml SUB-Q 4 units Q6HR MARY Administration Protocol Insulin Glargine 14 units 04/04/24 00:55 04/07/24 17:26 Insulin Glargine (*Bkc) 100 Units/Ml SUB-Q Not Given BID MARY Meclizine HCl 6.25 mg 04/06/24 13:00 04/07/24 16:39 Meclizine Hcl 6.25 Mg Tablet PO 6.25 mg TID MARY Administration Memantine 28 mg 04/04/24 09:00 04/07/24 09:06 Memantine Hcl Xr 28 Mg Cap PO 28 mg DAILY MARY Administration Mesalamine 1,000 mg 04/07/24 21:00 04/07/24 21:50 Mesalamine 1,000 Mg Supp.Rect RECTAL Not Given HS MARY Metoprolol Tartrate 25 mg 04/04/24 09:00 04/08/24 06:53 Metoprolol Tartrate 25 Mg Tablet PO 25 mg Q12HR MARY Administration Mirtazapine 15 mg 04/04/24 01:00 04/07/24 21:44 Mirtazapine 15 Mg Tablet PO 15 mg HS MARY Administration Ondansetron HCl 4 mg 04/03/24 21:32 04/08/24 03:39 Ondansetron Inj 4 Mg/2 Ml Vial IV PUSH 4 mg Q6H PRN Administration Nausea And Vomiting Pantoprazole Sodium 40 mg 04/07/24 21:00 04/07/24 21:44 Pantoprazole 40 Mg Tablet PO 40 mg Q12HR MARY Administration Polyethylene Glycol 17 gm 04/05/24 09:00 04/07/24 16:39 Polyethylene Glycol 3350 17 Gm Powd.Pack PO 17 gm QAM MARY Administration Polyethylene Glycol 17 gm 04/07/24 09:00 04/07/24 16:43 Polyethylene Glycol 3350 17 Gm Powd.Pack PO 17 gm BID MARY Administration Promethazine HCl 12.5 mg 04/04/24 12:21 04/06/24 21:41 Promethazine Hcl 25 Mg/Ml Ampul IV PUSH 12.5 mg Q4H PRN Administration Nausea And Vomiting Scopolamine 1 patch 04/06/24 12:50 04/06/24 13:13 Scopolamine 1 Mg Patch TRANSDERM 1 patch Q72HR MARY Administration Senna 8.6 mg 04/04/24 09:00 04/07/24 09:06 Sennosides 8.6 Mg Tablet PO 8.6 mg DAILY MARY Administration Senna/Docusate Sodium 1 tab 04/07/24 21:00 04/07/24 21:51 Senna/Docusate Sodium Tablet PO Not Given HS MARY Sucralfate 1,000 mg 04/04/24 16:30 04/08/24 06:09 Sucralfate Susp 100 Mg/Ml 10 Ml Udc PO 1,000 mg ACHS MARY Administration Radiology Results: ITS Impressions Chest X-Ray 04/03/24 19:04 IMPRESSION: Subsegmental bibasilar atelectasis/consolidation. Small left pleural effusion versus chronic pleural blunting. Abdomen/Pelvis CT 04/03/24 20:43 IMPRESSION: Dependent bibasilar atelectasis/consolidation. Small bilateral pleural effusions. Small pericardial effusion. Moderate esophagitis/gastritis. 2.4 cm indeterminate density right upper pole renal lesion, possible hemorrhagic or proteinaceous cyst, recommend nonemergent but timely CT or MRI without and with contrast for further evaluation. Nonobstructing 5 mm and 3 mm calcifications in the right renal pelvis. Fecal impaction, with wall thickening that can be seen with stercoral colitis and evidence of proctitis. Suggest clinical/proctoscopy correlation to rule out a rectal mass. Head CT 04/04/24 16:40 IMPRESSION: No acute intracranial findings. Brain MRI 04/05/24 14:55 IMPRESSION: 1. Moderate nonspecific cerebral white matter disease and pontine disease, which likely represents chronic small vessel ischemic disease. Labs Labs: Laboratory Results - last 24 hr 04/07/24 04/07/24 04/07/24 08:52 13:23 17:14 WBC RBC Hgb Hct MCV MCH MCHC RDW Plt Count MPV Sodium 135 L Potassium 3.1 L Chloride 98 Carbon Dioxide 25 Anion Gap 12 BUN 16 Creatinine 0.90 Estim Creat Clear Calc 43 Estimated GFR > 60 Glucose 88 POC Capillary Glucose 75 189 H Calcium 8.3 L 04/08/24 04/08/24 04/08/24 00:03 05:39 06:06 WBC 9.6 RBC 4.05 L Hgb 11.5 L Hct 34.3 L MCV 84.7 MCH 28.4 MCHC 33.5 RDW 13.8 Plt Count 337 MPV 10.3 Sodium 131 L Potassium 3.2 L Chloride 99 Carbon Dioxide 25 Anion Gap 7 BUN 14 Creatinine 0.80 Estim Creat Clear Calc 48 Estimated GFR > 60 Glucose 293 H POC Capillary Glucose 302 H 295 H Calcium 8.0 L
[2024-04-08] MEDS: POTASSIUM CHLORIDE 20 MEQ PACKET (FOR LIQUID) 40 MEQ PO ×2 (08:18→12:06)
[2024-04-08] MEDS: ASPIRIN 81 MG CHEWABLE TABLET PO (08:19)
[2024-04-08] MEDS: CALCIUM/VITAMIN D 500 MG/5 MCG (200 I.U.) TABLET PO (08:19)
[2024-04-08] MEDS: ESCITALOPRAM OXALATE 5 MG TABLET PO (08:20)
[2024-04-08] MEDS: ENOXAPARIN 40 MG/0.4 ML SYRINGE SUB-Q (08:20)
[2024-04-08] MEDS: MEMANTINE HCL XR 28 MG CAP PO (08:20)
[2024-04-08] MEDS: MECLIZINE HCL 6.25 MG TABLET PO ×3 (08:20→16:54)
[2024-04-08] MEDS: PANTOPRAZOLE 40 MG TABLET PO ×2 (08:21→20:34)
[2024-04-08] MEDS: SENNOSIDES 8.6 MG TABLET PO (08:21)
[2024-04-08] MEDS: OMEGA 3 POLYUNSAT FATTY ACIDS 1 GM CAP PO (08:21)
[2024-04-08] MEDS: polyethylene glycoL 3350 17 GM POWD.PACK PO (08:21)
[2024-04-08] MEDS: LACTULOSE 20 GM/30 ML UDC PO ×3 (08:26→16:54)
[2024-04-08] MEDS: INSULIN GLARGINE (*BKC) 100 UNITS/ML 14 UNITS SUB-Q ×2 (08:28→17:12)
[2024-04-08] MEDS: SODIUM CHLORIDE 0.9% IV 1,000 ML 100 ML IV CONT ×2 (08:52→19:10)
[2024-04-08 12:10] LABS: Glucose Point of Care 261 mg/dl (65-105)
--- NOTE | 2024-04-08 15:08 | WPDGICN ---
Assessment and Plan Assessment and plan (1) Nausea and vomiting in adult: Code(s): R11.2 - Nausea with vomiting, unspecified Status: Acute Assessment and Plan: will assess tomorrow with egd similar presentation, she says that is not feeling like eating (2) Esophagitis with gastritis: Code(s): K29.70 - Gastritis, unspecified, without bleeding; K20.90 - Esophagitis, unspecified without bleeding Status: Acute Assessment and Plan: by ct scan egd tomorrow ppi daily (3) Fecal impaction: Code(s): K56.41 - Fecal impaction Status: Acute Assessment and Plan: medical treatment (4) Diabetes mellitus with hyperglycemia: Qualifiers: Diabetes mellitus type: type 2 Diabetes mellitus press tender long goods insulin use: with detention use Qualified Code(s): E11.65 - Type 2 diabetes mellitus with hyperglycemia; Z79.4 - intermediate manager (current) use of insulin Code(s): E11.65 - Type 2 diabetes mellitus with hyperglycemia Status: Acute (5) Alzheimer dementia: Code(s): G30.9 - Alzheimer's disease, unspecified; F02.80 - Dementia in other diseases classified elsewhere, unspecified severity, without behavioral disturbance, psychotic disturbance, mood disturbance, and anxiety Status: Acute GI Consult Note Consult date/time: 04/08/24 15:08 Reason for consult: anorexia HPI: Donna Cobb is a 78 year old female with past medical history of dementia, diabetes, COPD, peripheral vascular disease who presented to the ER from residential facility due to nausea vomiting. She is not a reliable historian and noticed from notes that she has been repeatedly sticking her fingers down her throat to induce vomiting. She has poor memory and today she denies nausea when I asked her. Last hospitalization here 12/2023 with DKA and nausea/vomiting, I did not find recent EGD. She has chronic indwelling Cabral catheter. She has been afebrile since presentation. CT of the abdomen pelvis was performed and demonstrated extensive gastritis and esophagitis as well as sterocolitis and fecal impaction. The patient at had similar findings on prior CTs. Recent admission to hospital for suspected UTI, treated with 7 days of Levaquin therapy. She was also started on Protonix 20 mg daily. She was sent back to hospital with lack of appetite. Review of Systems Review of Systems: 12 systems were reviewed and are negative except for as per HPI. 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 Surgical History Surgical History 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 Social History Social History Smoking status: Never smoker Second hand tobacco smoke exposure: No Alcohol intake: never Substance use: never Substance use type: does not use Do You Feel Safe in your Home?: Yes Lack of Transportation: No Lack of Food: Never True Current Housing: I Have Housing Concerned About Future Housing: No Difficulty Paying Gas/Electric Bills: No Difficulty Paying for Meds: No Currently Unemployed: No Education: High School Diploma/GED Difficulty w/ Childcare or Family Care: No Spiritual care concerns: No Meds Home Medications and Allergies Home Medications Medication Instructions Recorded Confirmed Type acetaminophen 325 mg chewable 650 mg PO Q6H PRN Pain 12/24/23 04/03/24 History tablet amlodipine 5 mg tablet 5 mg PO DAILY 12/24/23 04/03/24 History aspirin 81 mg chewable tablet 81 mg PO DAILY 12/24/23 04/03/24 History atorvastatin 10 mg tablet (Lipitor) 10 mg PO HS 12/24/23 04/03/24 History bisacodyl 10 mg rectal suppository 10 mg RECTAL DAILY PRN Constipation 12/24/23 04/03/24 History cranberry fruit 450 mg tablet 450 mg PO DAILY 12/24/23 04/03/24 History (cranberry) escitalopram oxalate 5 mg tablet 5 mg PO DAILY 12/24/23 04/03/24 History glucagon 1 mg solution for 1 mg IM PRN PRN Hypoglycemia 12/24/23 04/03/24 History injection (GlucaGen HypoKit) magnesium hydroxide 400 mg/5 mL 30 ml PO DAILY PRN Constipation 12/24/23 04/03/24 History oral suspension (Milk of Magnesia) memantine 28 mg capsule 28 mg PO DAILY 12/24/23 04/03/24 History sprinkle,extended release 24hr metoprolol tartrate 25 mg tablet 25 mg PO BID 12/24/23 04/03/24 History mirtazapine 15 mg tablet 15 mg PO HS 12/24/23 04/03/24 History multivitamin with minerals-folic 1 tablet PO DAILY 12/24/23 04/03/24 History acid 0.4 mg tablet sennosides 8.6 mg tablet (senna) 8.6 mg PO QMWF 12/24/23 04/03/24 History sodium phosphates 19 gram-7 118 ml RECTAL DAILY PRN 12/24/23 04/03/24 History gram/118 mL enema (Fleet Enema) Constipation pantoprazole 20 mg tablet,delayed 20 mg PO QAM 4 weeks #28 tabs 03/28/24 04/03/24 Rx release (Protonix) docosahexaenoic acid (dha)-epa 1 cap PO DAILY 04/03/24 04/03/24 History capsule insulin glargine 100 unit/mL (3 20 unit subcut BID 04/03/24 04/03/24 History mL) subcutaneous pen (Lantus Solostar U-100 Insulin) ondansetron 4 mg disintegrating 4 mg PO Q6H PRN nausea and vomiting 04/03/24 04/03/24 History tablet Allergies Allergy/AdvReac Type Severity Reaction Status Date / Time Penicillins Allergy Unknown Verified 04/03/24 22:03 Sulfa (Sulfonamide Allergy Unknown Verified 04/03/24 22:03 Antibiotics) trazodone Allergy Unknown Verified 04/03/24 22:03 Vital Signs Vital Signs - 24 hr 04/07/24 21:43 04/07/24 22:00 04/07/24 21:30 Temperature 98.2 F Pulse Rate 80 80 Respiratory Rate 18 Blood Pressure 169/63 H Pulse Oximetry 97 Oxygen Delivery Room Air 04/08/24 06:00 04/08/24 06:45 04/08/24 06:53 Temperature 98.0 F Pulse Rate 79 79 Respiratory Rate 18 Blood Pressure 181/64 H Pulse Oximetry 97 Oxygen Delivery 04/08/24 08:15 04/08/24 08:20 Temperature 97.3 F L Pulse Rate 79 Respiratory Rate 16 Blood Pressure 153/62 H Pulse Oximetry 99 Oxygen Delivery Room Air Exam Const: General: comfortable and no acute distress HENMT: Face/Nose/Sinus: Normal nares present Eyes: Sclera: sclerae normal Neck: Neck: supple Resp: Auscultation: clear to auscultation bilaterally Cardio: Rate: regular rate Rhythm: regular rhythm GI: Inspection: non-distended GI Palp: Yes Soft to palpation and No Tenderness to palpation present (GI) Skin: General skin exam: normal color Neuro: Speech: normal speech Motor exam (neuro): 5/5 motor strength present throughout Other: awake and alert, poor short term memory Extrem: General: normal to inspection Psych: Mental Status: mental status grossly normal Results Labs 04/08/24 05:39 04/08/24 05:39 Labs: Short CBC 04/08/24 Range/Units 05:39 WBC 9.6 (4.5-10.0) K/mm3 Hgb 11.5 L (12.0-15.0) g/dL Hct 34.3 L (37.0-47.0) % Plt Count 337 (150-375) k/mm3 [facility] 04/08/24 05:39 Sodium 131 L Potassium 3.2 L Chloride 99 Carbon Dioxide 25 BUN 14 Creatinine 0.80 Glucose 293 H Calcium 8.0 L
[2024-04-08 17:53] LABS: Glucose Point of Care 173 mg/dl (65-105)
[2024-04-08] MEDS: MIRTAZAPINE 15 MG TABLET PO (20:34)
[2024-04-08] MEDS: SENNA/DOCUSATE SODIUM TABLET 1 TAB PO (20:34)
[2024-04-09] VITALS (8 sets, daily range): BP systolic 99–152; BP diastolic 39–64; PULSE 68–75; RESP 12–22; TEMP 36.1–36.6; O2SAT 96–99
[2024-04-09 00:51] LABS: Glucose Point of Care 107 mg/dl (65-105)
[2024-04-09] MEDS: DEXTROSE 5%/0.9% SOD CHL 1,000 ML 100 ML IV CONT (01:13)
--- NOTE | 2024-04-09 01:14 | PC.NURSE ---
patient's blood sugar was 106 at 0000 check. She was 179 at the 1800 check. This nurse stopped the normal saline fluids and started Dextrose 5% and normal saline as per orders to prevent further decline.
[2024-04-09 06:18] LABS: Glucose Point of Care 138 mg/dl (65-105)
--- NOTE | 2024-04-09 09:05 | P.PNIM_ITS ---
Progress Note: A&P Assessment and Plan (1) Stroke: Code(s): I63.9 - Cerebral infarction, unspecified Status: Acute (2) Intractable nausea and vomiting: Code(s): R11.2 - Nausea with vomiting, unspecified Status: Acute (3) Fecal impaction: Code(s): K56.41 - Fecal impaction Status: Acute (4) Sepsis: Code(s): A41.9 - Sepsis, unspecified organism Status: Acute (5) Diabetes mellitus with hyperglycemia: Qualifiers: Diabetes mellitus ocean transportation intermediary insulin use: with senior care use Diabetes mellitus type: type 2 Qualified Code(s): E11.65 - Type 2 diabetes mellitus with hyperglycemia; Z79.4 - terminal gauger (current) use of insulin Code(s): E11.65 - Type 2 diabetes mellitus with hyperglycemia Status: Acute Plan Intractable nausea and vomiting: Code(s): R11.2 - Nausea with vomiting, unspecified Status: Acute Assessment and Plan: likely due to use of showed is and gastritis IV Protonix and Carafate GI consulted NS started vomiting is actually due to self induced gagging. EGD today Stroke: Code(s): I63.9 - Cerebral infarction, unspecified Status: Acute Assessment and Plan: called by nursing for left pupil being nonreactive, blurry vision CT head no acute findings MRI brain negative for stroke follow-up outpatient with Ophthalmology, no acute intervention needed, not traumatic Sepsis, aspiration pneumonia Code(s): Upon arrival, patient had leukocytosis, tachycardia and tachypnea. chest x-ray shows Subsegmental bibasilar atelectasis/consolidation. Small left pleural effusion versus chronic pleural blunting. possible aspiration pneumonia due to nausea vomiting Meeting criteria of sepsis, possible resulting from aspiration pneumonia Continue antibiotic therapy with Rocephin and Flagyl. Patient did receive 30 mL/kilos fluid bolus. Blood cultures NGTD urine culture negative continue maintenance IV fluids. Leukocytosis: Code(s): D72.829 - Elevated white blood cell count, unspecified Status: Acute Assessment and Plan: Resolved Diabetes mellitus with hyperglycemia: Qualifiers: Diabetes mellitus ocean transportation intermediary insulin use: with ocean transportation intermediary use Diabetes mellitus type: type 2 Qualified Code(s): E11.65 - Type 2 diabetes mellitus with hyperglycemia; Z79.4 - terminal gauger (current) use of insulin Code(s): E11.65 - Type 2 diabetes mellitus with hyperglycemia Status: Acute Assessment and Plan: Accu-Cheks a.c. HS decrease patient's Lantus dose down to 14 units b.i.d patient with minimal intake of clear liquid diet Esophagitis with gastritis: Code(s): K29.70 - Gastritis, unspecified, without bleeding; K20.90 - Esophagitis, unspecified without bleeding Status: Acute Assessment and Plan: continue Protonix and Carafate as above see above Fecal impaction: Code(s): K56.41 - Fecal impaction Status: Acute Assessment and Plan: possible constipation induced colitis- aggressive bowel regiment Discontinue Mesalamine Continue MiraLax, Senokot 1 tab daily Start lactulose p.o. 20 g t.i.d. p.o. (8) Hypomagnesemia: Code(s): E83.42 - Hypomagnesemia Status: Acute Assessment and Plan: replete as needed Corrected Hypokalemia Code(s): E87.6 - Hypokalemia Status: Acute Assessment and Plan: Potassium 3.2, partial corrected, Replete with potassium chloride 40 mg p.o. once and b.i.d. Follow-up BMP Acute Hyponatremia Potassium trending down slowly Sodium 131 Start normal saline IV mL per hour Chronic indwelling Cabral catheter: Code(s): Z97.8 - Presence of other specified devices Status: Acute Assessment and Plan: exchanged in the ED cultures negative for infection Subjective Date/time seen: 04/09/24 09:05 Interval history: I saw and examined the patient in the morning. Patient feels better today, still has nausea, cannot tolerate diet well she denies vomiting, has poor intake. Afebrile, blood pressure stable still has hyponatremia hypokalemia, no new issues Exam Narrative: GENERAL: Pleasant, in no acute distress. Well-nourished. - EYES: EOMI. Anicteric. - HENT: Moist mucous membranes. - LUNGS: Clear to auscultation bilateral ly, no wheezing, rhonchi, or rales. - CARDIOVASCULAR: Regular rate and rhyth m. No murmur. No JVD. - ABDOMEN: Soft, non-tender and non-dist ended. No palpable masses. - EXTREMITIES: No edema. Peripheral puls es 2+. Non-tender. - NEUROLOGIC: No focal neurological defi cits. CN II-XII grossly intact. - PSYCHIATRIC: Awake, Alert and oriented x 3. Appropriate mood and affect. - SKIN: No rashes or lesions. Warm. - LYMPH: No cervical lymphadenopathy. Objective Data Vital Signs Vital Signs: Vital Signs - 24 hr 04/08/24 14:00 04/08/24 20:34 04/08/24 21:30 Temperature 98.5 F 97.7 F Pulse Rate 73 75 73 Respiratory Rate 18 16 Blood Pressure 140/67 140/71 Pulse Oximetry 97 95 Oxygen Delivery 04/08/24 20:35 04/09/24 06:17 Temperature 97.8 F Pulse Rate 73 68 Respiratory Rate 16 16 Blood Pressure 152/61 H Pulse Oximetry 95 99 Oxygen Delivery Room Air Intake/Output Intake/Output: Intake & Output 04/07/24 04/08/24 04/08/24 04/09/24 00:59 00:59 23:59 23:59 Intake Total 796.7 Output Total 1000 Balance -203.3 Meds/Results Medications: Active Medications Generic Name Dose Route Start Last Admin Trade Name Freq PRN Reason Stop Dose Admin Acetaminophen 650 mg 04/04/24 01:06 Acetaminophen 325 Mg Tablet BY MOUTH Q6H PRN Pain 1-3 or fever Amlodipine Besylate 5 mg 04/04/24 09:00 04/08/24 06:54 Amlodipine Besylate 5 Mg Tablet PO 5 mg DAILY MARY Administration Aspirin 81 mg 04/04/24 09:00 04/08/24 08:19 Aspirin 81 Mg Chewable Tablet PO 81 mg DAILY MARY Administration Bisacodyl 10 mg 04/04/24 08:53 Bisacodyl 10 Mg Suppository RECTAL DAILY PRN Constipation Calcium Carbonate 500 mg 04/05/24 08:00 04/08/24 08:19 Calcium/Vitamin D 500 Mg/5 Mcg (200 I.U.) Tablet PO 500 mg DAILY@0800 MARY Administration Dextrose 12.5 gm 04/03/24 21:33 Dextrose 50% 25 Gm/50 Ml Syringe IV PUSH PRN PRN Hypoglycemia Protocol Enoxaparin Sodium 40 mg 04/05/24 09:00 04/08/24 08:20 Enoxaparin 40 Mg/0.4 Ml Syringe SUB-Q 40 mg DAILY MARY Administration Escitalopram Oxalate 5 mg 04/04/24 09:00 04/08/24 08:20 Escitalopram Oxalate 5 Mg Tablet PO 5 mg DAILY MARY Administration Fish Oil 1 gm 04/04/24 09:00 04/08/24 08:21 [place] 3 Polyunsat Fatty Acids 1 Gm Cap PO 1 gm QAM MARY Administration Glucagon 1 mg 04/03/24 21:33 Glucagon For Inj 1 Mg Vial IM PRN PRN Hypoglycemia Protocol Glucose 15 gm 04/03/24 21:33 Glucose Oral Gel 15 Gm Of Glucse In 37.5 Gm Tube PO PRN PRN Hypoglycemia Protocol Dextrose 1,000 mls @ 100 mls/hr 04/03/24 21:33 Dextrose 5% 1,000 Ml IVPB PRN PRN Hypoglycemia Protocol Dextrose/Sodium Chloride 1,000 mls @ 100 mls/hr 04/07/24 13:30 04/09/24 01:13 Dextrose 5% Sodium Chloride 0.9% IV CONT 100 mls/hr .Q10H MARY Administration Sodium Chloride 1,000 mls @ 100 mls/hr 04/08/24 07:55 04/09/24 01:08 Normal Saline Iv IV CONT 0 mls/hr .Q10H MARY Infusion Insulin Aspart 3 - 6 units 04/04/24 00:00 04/09/24 06:17 Insulin Aspart (*Bkc) 100 Units/Ml SUB-Q Not Given Q6HR MARY Protocol Insulin Glargine 14 units 04/04/24 00:55 04/08/24 17:12 Insulin Glargine (*Bkc) 100 Units/Ml SUB-Q 14 units BID MARY Administration Lactulose 20 gm 04/08/24 09:00 04/08/24 16:54 Lactulose 20 Gm/30 Ml Udc PO 20 gm TID MARY Administration Meclizine HCl 6.25 mg 04/06/24 13:00 04/08/24 16:54 Meclizine Hcl 6.25 Mg Tablet PO 6.25 mg TID MARY Administration Memantine 28 mg 04/04/24 09:00 04/08/24 08:20 Memantine Hcl Xr 28 Mg Cap PO 28 mg DAILY MARY Administration Metoprolol Tartrate 25 mg 04/04/24 09:00 04/08/24 20:34 Metoprolol Tartrate 25 Mg Tablet PO 25 mg Q12HR MARY Administration Mirtazapine 15 mg 04/04/24 01:00 04/08/24 20:34 Mirtazapine 15 Mg Tablet PO 15 mg HS MARY Administration Ondansetron HCl 4 mg 04/03/24 21:32 04/08/24 03:39 Ondansetron Inj 4 Mg/2 Ml Vial IV PUSH 4 mg Q6H PRN Administration Nausea And Vomiting Pantoprazole Sodium 40 mg 04/07/24 21:00 04/08/24 20:34 Pantoprazole 40 Mg Tablet PO 40 mg Q12HR MARY Administration Polyethylene Glycol 17 gm 04/05/24 09:00 04/08/24 08:21 Polyethylene Glycol 3350 17 Gm Powd.Pack PO 17 gm QAM MARY Administration Potassium Chloride 40 meq 04/08/24 12:00 04/08/24 12:06 Potassium Chloride 20 Meq Packet (For Liquid) PO 40 meq DAILY MARY Administration Promethazine HCl 12.5 mg 04/04/24 12:21 04/06/24 21:41 Promethazine Hcl 25 Mg/Ml Ampul IV PUSH 12.5 mg Q4H PRN Administration Nausea And Vomiting Scopolamine 1 patch 04/06/24 12:50 04/06/24 13:13 Scopolamine 1 Mg Patch TRANSDERM 1 patch Q72HR MARY Administration Senna 8.6 mg 04/04/24 09:00 04/08/24 08:21 Sennosides 8.6 Mg Tablet PO 8.6 mg DAILY MARY Administration Senna/Docusate Sodium 1 tab 04/07/24 21:00 04/08/24 20:34 Senna/Docusate Sodium Tablet PO 1 tab HS MARY Administration Sucralfate 1,000 mg 04/04/24 16:30 04/08/24 20:34 Sucralfate Susp 100 Mg/Ml 10 Ml Udc PO 1,000 mg ACHS MARY Administration Radiology Results: ITS Impressions Chest X-Ray 04/03/24 19:04 IMPRESSION: Subsegmental bibasilar atelectasis/consolidation. Small left pleural effusion versus chronic pleural blunting. Abdomen/Pelvis CT 04/03/24 20:43 IMPRESSION: Dependent bibasilar atelectasis/consolidation. Small bilateral pleural effusions. Small pericardial effusion. Moderate esophagitis/gastritis. 2.4 cm indeterminate density right upper pole renal lesion, possible hemorrhagic or proteinaceous cyst, recommend nonemergent but timely CT or MRI without and with contrast for further evaluation. Nonobstructing 5 mm and 3 mm calcifications in the right renal pelvis. Fecal impaction, with wall thickening that can be seen with stercoral colitis and evidence of proctitis. Suggest clinical/proctoscopy correlation to rule out a rectal mass. Head CT 04/04/24 16:40 IMPRESSION: No acute intracranial findings. Brain MRI 04/05/24 14:55 IMPRESSION: 1. Moderate nonspecific cerebral white matter disease and pontine disease, which likely represents chronic small vessel ischemic disease. Labs Labs: Laboratory Results - last 24 hr 04/08/24 04/08/24 04/09/24 12:01 17:42 00:49 POC Capillary Glucose 261 H 173 H 107 H 04/09/24 06:15 POC Capillary Glucose 138 H
[2024-04-09 09:31] LABS: Basophils Absolute Auto 0.1 K/mm3 (0.0-0.1); Basophils Percent Auto 0.6 % (0.2-1.2); Eosinophils Absolute Auto 0.4 K/mm3 (0-0.3); Eosinophils Percent Auto 4.4 % (0-4.4); Hematocrit 31.8 % (37.0-47.0); Hemoglobin 10.3 g/dL (12.0-15.0); Immature Granulocyte Absolute 0.06 K/mm3 (0.00-0.031); Immature Granulocyte Percent A 0.7 % (0-0.5); Lymphocytes Absolute Auto 3.13 K/mm3 (0.9-3.2); Lymphocytes Percent Auto 36.3 % (18.3-44.2); Mean Corpuscular HGB Conc 32.4 g/dl (32-36); Mean Corpuscular Hemoglobin 28.3 pg (26-34); Mean Corpuscular Volume 87.4 fl (80-100); Mean Platelet Volume 10.2 fl (7.4-10.4); Monocytes Absolute Auto 0.9 K/mm3 (0.1-0.6); Neutrophils Absolute Auto 4.1 K/mm3 (1.3-6.7); Platelet Count Result 318 k/mm3 (150-375); Red Blood Count 3.64 M/mm3 (4.2-5.4); White Blood Count 8.6 K/mm3 (4.5-10.0)
[2024-04-09 09:55] LABS: Anion Gap 2 mmol/L (4-12); Blood Urea Nitrogen 7 mg/dL (7-17); Carbon Dioxide 29 mmol/L (22-30); Chloride 103 mmol/L (98-107); Estimated CRCL calculation 48 ml/min; Estimated Glomerular Filt Rate > 60; Glucose 144 mg/dL (65-110); Potassium 3.2 mmol/L (3.4-5.0); Sodium 134 mmol/L (137-145)
[2024-04-09] MEDS: cefTRIAXone 2 GM/NS 100 ML 2 GM/100 ML BAG IVPB (09:56)
[2024-04-09] MEDS: SCOPOLAMINE 1 MG PATCH 1 PATCH TRANSDERM (10:01)
[2024-04-09] MEDS: metroNIDAZOLE 500 MG/ISO 100ML 500 MG/100 ML BAG 100 MG IVPB ×3 (11:07→20:25)
[2024-04-09 11:46] LABS: Glucose Point of Care 138 mg/dl (65-105)
[2024-04-09] MEDS: SODIUM CHLORIDE 0.9% IV 1,000 ML 100 ML IV CONT ×2 (12:12→20:24)
[2024-04-09 14:25] LABS: Glucose Point of Care 91 mg/dl (65-105)
--- NOTE | 2024-04-09 14:35 | P.PNAN_ITS ---
Anes - Initial Pre Proc Eval Procedure: Operation Date: 04/09/24 14:00 Proposed Procedures p Esophagogastroduodenoscopy - Sean Rojas MD Date/Time: 04/09/24 14:35 Surgeon: Marcela Carlin DO Pre Op Diagnosis: fecal impaction with stercoral colitis Patient Data Age: 78 Gender: F Height: 1.68 m Weight: 76.3 kg Last Vital Signs Temp 36.3 C L 04/09/24 14:20 Pulse 69 04/09/24 14:20 Resp 18 04/09/24 14:20 BP 146/56 H 04/09/24 14:20 Pulse Ox 97 04/09/24 14:20 O2 Del Method Room Air 04/09/24 14:20 O2 Flow Rate 3 04/03/24 20:00 Allergies Allergy/AdvReac Type Severity Reaction Status Date / Time Penicillins Allergy Unknown Verified 04/09/24 14:26 Sulfa (Sulfonamide Allergy Unknown Verified 04/09/24 14:26 Antibiotics) trazodone Allergy Unknown Verified 04/09/24 14:26 Home Medications Medication Instructions Recorded Confirmed Type acetaminophen 325 mg chewable 650 mg PO Q6H PRN Pain 12/24/23 04/09/24 History tablet amlodipine 5 mg tablet 5 mg PO DAILY 12/24/23 04/09/24 History aspirin 81 mg chewable tablet 81 mg PO DAILY 12/24/23 04/09/24 History atorvastatin 10 mg tablet (Lipitor) 10 mg PO HS 12/24/23 04/09/24 History bisacodyl 10 mg rectal suppository 10 mg RECTAL DAILY PRN Constipation 12/24/23 04/09/24 History cranberry fruit 450 mg tablet 450 mg PO DAILY 12/24/23 04/09/24 History (cranberry) escitalopram oxalate 5 mg tablet 5 mg PO DAILY 12/24/23 04/09/24 History glucagon 1 mg solution for 1 mg IM PRN PRN Hypoglycemia 12/24/23 04/09/24 History injection (GlucaGen HypoKit) magnesium hydroxide 400 mg/5 mL 30 ml PO DAILY PRN Constipation 12/24/23 04/09/24 History oral suspension (Milk of Magnesia) memantine 28 mg capsule 28 mg PO DAILY 12/24/23 04/09/24 History sprinkle,extended release 24hr metoprolol tartrate 25 mg tablet 25 mg PO BID 12/24/23 04/09/24 History mirtazapine 15 mg tablet 15 mg PO HS 12/24/23 04/09/24 History multivitamin with minerals-folic 1 tablet PO DAILY 12/24/23 04/09/24 History acid 0.4 mg tablet sennosides 8.6 mg tablet (senna) 8.6 mg PO QMWF 12/24/23 04/09/24 History sodium phosphates 19 gram-7 118 ml RECTAL DAILY PRN 12/24/23 04/09/24 History gram/118 mL enema (Fleet Enema) Constipation pantoprazole 20 mg tablet,delayed 20 mg PO QAM 4 weeks #28 tabs 03/28/24 04/09/24 Rx release (Protonix) docosahexaenoic acid (dha)-epa 1 cap PO DAILY 04/03/24 04/09/24 History capsule insulin glargine 100 unit/mL (3 20 unit subcut BID 04/03/24 04/09/24 History mL) subcutaneous pen (Lantus Solostar U-100 Insulin) ondansetron 4 mg disintegrating 4 mg PO Q6H PRN nausea and vomiting 04/03/24 04/09/24 History tablet Laboratory Tests 04/08/24 04/09/24 04/09/24 17:42 00:49 06:15 WBC RBC Hgb Hct MCV MCH MCHC RDW Plt Count MPV Immature Gran % (Auto) Neut % (Auto) Lymph % (Auto) Richardson % (Auto) Eos % (Auto) Baso % (Auto) Lymph # (Auto) Richardson # (Auto) Eos # (Auto) Baso # (Auto) Abs Immat Gran (auto) Absolute Neuts (auto) Absolute Nucleated RBC Nucleated RBC % Sodium Potassium Chloride Carbon Dioxide Anion Gap BUN Creatinine Estim Creat Clear Calc Estimated GFR Glucose POC Capillary Glucose 173 H mg/dl 107 H mg/dl 138 H mg/dl (65-105) (65-105) (65-105) Calcium 04/09/24 04/09/24 04/09/24 09:20 11:36 14:23 WBC 8.6 K/mm3 (4.5-10.0) RBC 3.64 L M/mm3 (4.2-5.4) Hgb 10.3 L g/dL (12.0-15.0) Hct 31.8 L % (37.0-47.0) MCV 87.4 fl (80-100) MCH 28.3 pg (26-34) MCHC 32.4 g/dl (32-36) RDW 14.0 % (11.5-14.5) Plt Count 318 k/mm3 (150-375) MPV 10.2 fl (7.4-10.4) Immature Gran % (Auto) 0.7 H % (0-0.5) Neut % (Auto) 48.0 % (45.5-73.1) Lymph % (Auto) 36.3 % (18.3-44.2) Richardson % (Auto) 10.0 H % (2.6-8.5) Eos % (Auto) 4.4 % (0-4.4) Baso % (Auto) 0.6 % (0.2-1.2) Lymph # (Auto) 3.13 K/mm3 (0.9-3.2) Richardson # (Auto) 0.9 H K/mm3 (0.1-0.6) Eos # (Auto) 0.4 H K/mm3 (0-0.3) Baso # (Auto) 0.1 K/mm3 (0.0-0.1) Abs Immat Gran (auto) 0.06 H K/mm3 (0.00-0.031) Absolute Neuts (auto) 4.1 K/mm3 (1.3-6.7) Absolute Nucleated RBC 0.000 K/mm3 (0.0-0.012) Nucleated RBC % 0.0 % (0.0-0.2) Sodium 134 L mmol/L (137-145) Potassium 3.2 L mmol/L (3.4-5.0) Chloride 103 mmol/L (98-107) Carbon Dioxide 29 mmol/L (22-30) Anion Gap 2 L mmol/L (4-12) BUN 7 D mg/dL (7-17) Creatinine 0.80 mg/dL (0.7-1.0) Estim Creat Clear Calc 48 ml/min Estimated GFR > 60 (59 - ) Glucose 144 H mg/dL (65-110) POC Capillary Glucose 138 H mg/dl 91 mg/dl (65-105) (65-105) Calcium 8.0 L mg/dL (8.4-10.2) Patient hx anesthesia problems: none Family hx anesthesia problems: none Results Review: All pre-operative results and documents have been reviewed as part of the pre- operative evaluation. 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 Social History Social History Smoking status: Never smoker Second hand tobacco smoke exposure: No Alcohol intake: never Substance use: never Substance use type: does not use Do You Feel Safe in your Home?: Yes Lack of Transportation: No Lack of Food: Never True Current Housing: I Have Housing Concerned About Future Housing: No Difficulty Paying Gas/Electric Bills: No Difficulty Paying for Meds: No Currently Unemployed: No Education: High School Diploma/GED Difficulty w/ Childcare or Family Care: No Spiritual care concerns: No Anes - Eval Final PreProcedure Day of Procedure 04/09/24 14:35 Patient weight: overweight Heart: regular rate and rhythm Lungs: clear to auscultation Airway: Mallampati scale class II and special considerations poor dentition Neurological: alert and oriented Last oral intake: >/= 8 hours ASA classification: IV Emergent: no Anesthetic plan: proceed Anesthesia type and monitoring: general GIVS and standard monitoring Results Review: All pre-operative results and documents have been reviewed as part of the pre- operative evaluation. Informed Consent: The patient's anesthetic plan and its attendant risks and benefits were discussed with the patient/family/POA. Questions were solicited and answers provided to the satisfaction of the patient/family/POA.
[2024-04-09] MEDS: LACTATED RINGERS 1,000 ML 150 ML IV CONT (14:37)
[2024-04-09 15:41] LABS: Glucose Point of Care 81 mg/dl (65-105)
[2024-04-09 16:13] LABS: Glucose Point of Care 79 mg/dl (65-105)
[2024-04-09] MEDS: SUCRALFATE SUSP 100 MG/ML 10 ML UDC 1000 MG PO ×2 (16:19→20:32)
[2024-04-09] MEDS: MECLIZINE HCL 6.25 MG TABLET PO (16:19)
[2024-04-09] MEDS: LACTULOSE 20 GM/30 ML UDC PO (16:19)
[2024-04-09] MEDS: NITROFURANTOIN MONOHYD MACROCR 100 MG CAP PO ×2 (16:21→21:39)
[2024-04-09 17:52] LABS: Glucose Point of Care 110 mg/dl (65-105)
[2024-04-09] MEDS: SENNA/DOCUSATE SODIUM TABLET 1 TAB PO (20:27)
[2024-04-09] MEDS: MIRTAZAPINE 15 MG TABLET PO (20:27)
[2024-04-09] MEDS: METOPROLOL TARTRATE 25 MG TABLET PO (20:27)
[2024-04-09] MEDS: ACETAMINOPHEN 325 MG TABLET 650 MG BY MOUTH (20:27)
[2024-04-09] MEDS: PANTOPRAZOLE 40 MG TABLET PO (20:27)
[2024-04-10 00:11] LABS: Glucose Point of Care 185 mg/dl (65-105)
[2024-04-10] MEDS: SODIUM CHLORIDE 0.9% IV 1,000 ML 100 ML IV CONT ×2 (00:22→15:37)
[2024-04-10 03:49] VITALS: BP 114/46; PULSE 63; RESP 18; TEMP 36.5; O2SAT 97
[2024-04-10 05:47] LABS: Basophils Absolute Auto 0.1 K/mm3 (0.0-0.1); Basophils Percent Auto 0.7 % (0.2-1.2); Eosinophils Absolute Auto 0.4 K/mm3 (0-0.3); Eosinophils Percent Auto 5.9 % (0-4.4); Hematocrit 30.5 % (37.0-47.0); Hemoglobin 10.1 g/dL (12.0-15.0); Immature Granulocyte Absolute 0.04 K/mm3 (0.00-0.031); Immature Granulocyte Percent A 0.6 % (0-0.5); Lymphocytes Absolute Auto 1.93 K/mm3 (0.9-3.2); Lymphocytes Percent Auto 27.7 % (18.3-44.2); Mean Corpuscular HGB Conc 33.1 g/dl (32-36); Mean Corpuscular Volume 87.6 fl (80-100); Mean Platelet Volume 10.4 fl (7.4-10.4); Monocytes Absolute Auto 0.8 K/mm3 (0.1-0.6); Monocytes Percent Auto 11.6 % (2.6-8.5); Neutrophils Absolute Auto 3.7 K/mm3 (1.3-6.7); Neutrophils Percent Auto 53.5 % (45.5-73.1); Platelet Count Result 309 k/mm3 (150-375); Red Blood Count 3.48 M/mm3 (4.2-5.4); Red Cell Distribution Width 14.4 % (11.5-14.5)
[2024-04-10 05:58] LABS: Anion Gap 7 mmol/L (4-12); Blood Urea Nitrogen 11 mg/dL (7-17); Calcium 7.9 mg/dL (8.4-10.2); Carbon Dioxide 27 mmol/L (22-30); Chloride 103 mmol/L (98-107); Estimated CRCL calculation 48 ml/min; Estimated Glomerular Filt Rate > 60; Glucose 219 mg/dL (65-110); Potassium 3.2 mmol/L (3.4-5.0); Sodium 137 mmol/L (137-145)
[2024-04-10] MEDS: metroNIDAZOLE 500 MG/ISO 100ML 500 MG/100 ML BAG 100 MG IVPB ×2 (06:01→13:22)
--- NOTE | 2024-04-10 08:05 | WPDANESPN ---
Anes - Prog Note Post-Op Date/Time: 04/10/24 08:05 Cardiovascular status: normal Respiratory status: normal Airway patency: baseline Mental status: baseline Post-Op hydration status: normal Vital Signs: Last Vital Signs Temp 36.5 C 04/10/24 03:49 Pulse 63 04/10/24 03:49 Resp 18 04/10/24 03:49 BP 114/46 L 04/10/24 03:49 Pulse Ox 97 04/10/24 03:49 O2 Del Method Room Air 04/09/24 20:00 O2 Flow Rate 3 04/03/24 20:00 Pain Score (VAS): 06/15 I/O: Intake & Output 04/09/24 04/10/24 04/10/24 23:59 07:59 15:59 Intake Total 1260 586.7 Output Total 600 250 Balance 660 336.7 Laboratory Tests 04/10/24 05:42 04/10/24 05:42 04/09/24 04/09/24 04/09/24 09:20 11:36 14:23 WBC 8.6 RBC 3.64 L Hgb 10.3 L Hct 31.8 L MCV 87.4 MCH 28.3 MCHC 32.4 RDW 14.0 Plt Count 318 MPV 10.2 Immature Gran % (Auto) 0.7 H Neut % (Auto) 48.0 Lymph % (Auto) 36.3 [place] % (Auto) 10.0 H Eos % (Auto) 4.4 Baso % (Auto) 0.6 Lymph # (Auto) 3.13 [place] # (Auto) 0.9 H Eos # (Auto) 0.4 H Baso # (Auto) 0.1 Abs Immat Gran (auto) 0.06 H Absolute Neuts (auto) 4.1 Absolute Nucleated RBC 0.000 Nucleated RBC % 0.0 Sodium 134 L Potassium 3.2 L Chloride 103 Carbon Dioxide 29 Anion Gap 2 L BUN 7 D Creatinine 0.80 Estim Creat Clear Calc 48 Estimated GFR > 60 Glucose 144 H POC Capillary Glucose 138 H 91 Calcium 8.0 L 04/09/24 04/09/24 04/09/24 15:39 16:11 17:50 WBC RBC Hgb Hct MCV MCH MCHC RDW Plt Count MPV Immature Gran % (Auto) Neut % (Auto) Lymph % (Auto) [place] % (Auto) Eos % (Auto) Baso % (Auto) Lymph # (Auto) [place] # (Auto) Eos # (Auto) Baso # (Auto) Abs Immat Gran (auto) Absolute Neuts (auto) Absolute Nucleated RBC Nucleated RBC % Sodium Potassium Chloride Carbon Dioxide Anion Gap BUN Creatinine Estim Creat Clear Calc Estimated GFR Glucose POC Capillary Glucose 81 79 110 H Calcium 04/09/24 04/10/24 23:51 05:42 WBC 7.0 RBC 3.48 L Hgb 10.1 L Hct 30.5 L MCV 87.6 MCH 29.0 MCHC 33.1 RDW 14.4 Plt Count 309 MPV 10.4 Immature Gran % (Auto) 0.6 H Neut % (Auto) 53.5 Lymph % (Auto) 27.7 [place] % (Auto) 11.6 H Eos % (Auto) 5.9 H Baso % (Auto) 0.7 Lymph # (Auto) 1.93 [place] # (Auto) 0.8 H Eos # (Auto) 0.4 H Baso # (Auto) 0.1 Abs Immat Gran (auto) 0.04 H Absolute Neuts (auto) 3.7 Absolute Nucleated RBC 0.000 Nucleated RBC % 0.0 Sodium 137 Potassium 3.2 L Chloride 103 Carbon Dioxide 27 Anion Gap 7 BUN 11 Creatinine 0.80 Estim Creat Clear Calc 48 Estimated GFR > 60 Glucose 219 H POC Capillary Glucose 185 H Calcium 7.9 L Microbiology 04/03/24 19:24 Blood Blood Culture - Final 04/03/24 19:24 Blood Blood Culture - Final Post-procedural complaints: none Patient Feedback: Patient satisfied with anesthetic care.
[2024-04-10 08:11] LABS: Glucose Point of Care 246 mg/dl (65-105)
--- NOTE | 2024-04-10 09:00 | PM.IMPN ---
Progress Note: A&P Assessment and Plan (1) Stroke: Code(s): I63.9 - Cerebral infarction, unspecified Status: Acute (2) Intractable nausea and vomiting: Code(s): R11.2 - Nausea with vomiting, unspecified Status: Acute (3) Fecal impaction: Code(s): K56.41 - Fecal impaction Status: Acute (4) Sepsis: Code(s): A41.9 - Sepsis, unspecified organism Status: Acute (5) Diabetes mellitus with hyperglycemia: Qualifiers: Diabetes mellitus oysterman insulin use: with jail use Diabetes mellitus type: type 2 Qualified Code(s): E11.65 - Type 2 diabetes mellitus with hyperglycemia; Z79.4 - manager terminal (current) use of insulin Code(s): E11.65 - Type 2 diabetes mellitus with hyperglycemia Status: Acute Plan Intractable nausea and vomiting: Code(s): R11.2 - Nausea with vomiting, unspecified Status: Acute Assessment and Plan: likely due to use of showed is and gastritis IV Protonix and Carafate GI consulted NS started vomiting is suspect due to self induced gagging. EGD 04/09: Reflux esophagitis, grade 2 without bleeding, Change to Protonix p.o. pt may experienced side effects of medications that induces nausea vomiting UTI Urine culture grows to Enterococcus, Patient is asymptomatic Stop Macrobid Stroke: Code(s): I63.9 - Cerebral infarction, unspecified Status: Acute Assessment and Plan: called by nursing for left pupil being nonreactive, blurry vision CT head no acute findings MRI brain negative for stroke follow-up outpatient with Ophthalmology, no acute intervention needed, not traumatic Sepsis, aspiration pneumonia Code(s): Upon arrival, patient had leukocytosis, tachycardia and tachypnea. chest x-ray shows Subsegmental bibasilar atelectasis/consolidation. Small left pleural effusion versus chronic pleural blunting. possible aspiration pneumonia due to nausea vomiting Meeting criteria of sepsis, possible resulting from aspiration pneumonia Continue antibiotic therapy with Rocephin and Flagyl. Patient did receive 30 mL/kilos fluid bolus. Blood cultures NGTD urine culture negative Received IV fluid Change to Levaquin p.o. Leukocytosis: Code(s): D72.829 - Elevated white blood cell count, unspecified Status: Acute Assessment and Plan: Resolved Diabetes mellitus with hyperglycemia: Qualifiers: Diabetes mellitus o[place] insulin use: with jail use Diabetes mellitus type: type 2 Qualified Code(s): E11.65 - Type 2 diabetes mellitus with hyperglycemia; Z79.4 - manager terminal (current) use of insulin Code(s): E11.65 - Type 2 diabetes mellitus with hyperglycemia Status: Acute Assessment and Plan: Accu-Cheks a.c. HS decrease patient's Lantus dose down to 14 units b.i.d patient with minimal intake of clear liquid diet Esophagitis with gastritis: Code(s): K29.70 - Gastritis, unspecified, without bleeding; K20.90 - Esophagitis, unspecified without bleeding Status: Acute Assessment and Plan: continue Protonix and Carafate as above see above Fecal impaction: Code(s): K56.41 - Fecal impaction Status: Acute Assessment and Plan: possible constipation induced colitis- aggressive bowel regiment Discontinue Mesalamine Continue MiraLax, Senokot 1 tab daily Start lactulose p.o. 20 g t.i.d. p.o. Patient has regular bowel movement now (8) Hypomagnesemia: Code(s): E83.42 - Hypomagnesemia Status: Acute Assessment and Plan: replete as needed Corrected Hypokalemia Code(s): E87.6 - Hypokalemia Status: Acute Assessment and Plan: Potassium 3.2, partial corrected, Replete with potassium chloride 40 mg p.o. once and b.i.d. Follow-up BMP Acute Hyponatremia Potassium trending down slowly Sodium 131 Start normal saline IV mL per hour Chronic indwelling Cabral catheter: Code(s): Z97.8 - Presence of other specified devices Status: Acute Assessment and Plan: exchanged in the ED cultures negative for infection We discharge patient tomorrow, if patient's appetite continued to improve Subjective Date/time seen: 04/10/24 09:00 Interval history: I saw and examined the patient in the morning. Patient feels better today, still has nausea, but improving, appetite improving. Afebrile, blood pressure stable still has hyponatremia hypokalemia, no new issues Exam Narrative: GENERAL: Pleasant, in no acute distress. Well-nourished. - EYES: EOMI. Anicteric. - HENT: Moist mucous membranes. - LUNGS: Clear to auscultation bilaterally, no wheezing, rhonchi, or rales. - CARDIOVASCULAR: Regular rate and rhythm. No murmur. No JVD. - ABDOMEN: Soft, non-tender and non-distended. No palpable masses. - EXTREMITIES: No edema. Peripheral pulses 2+. Non-tender. - NEUROLOGIC: No focal neurological deficits. CN II-XII grossly intact. - PSYCHIATRIC: Awake, Alert and oriented x 3. Appropriate mood and affect. - SKIN: No rashes or lesions. Warm. - LYMPH: No cervical lymphadenopathy. Objective Data Vital Signs Vital Signs: Vital Signs - 24 hr 04/09/24 14:00 04/09/24 14:20 04/09/24 14:20 Temperature 97 F L 97.3 F L 97.3 F L Pulse Rate 69 69 69 Respiratory Rate 12 18 18 Blood Pressure 139/49 L 146/56 H 146/56 H Pulse Oximetry 97 97 97 Oxygen Delivery Room Air Room Air 04/09/24 15:27 04/09/24 15:37 04/09/24 15:47 Temperature Pulse Rate 71 72 71 Respiratory Rate 22 H 17 17 Blood Pressure 105/39 L 99/64 L 116/46 L Pulse Oximetry 97 97 96 Oxygen Delivery Room Air Room Air Room Air 04/09/24 20:45 04/09/24 20:00 04/10/24 03:49 Temperature 97.2 F L 97.7 F Pulse Rate 75 75 63 Respiratory Rate 18 18 18 Blood Pressure 133/46 L 114/46 L Pulse Oximetry 97 97 97 Oxygen Delivery Room Air Intake/Output Intake/Output: Intake & Output 04/08/24 04/08/24 04/09/24 04/10/24 00:59 23:59 23:59 23:59 Intake Total 2456.7 586.7 Output Total 1600 250 Balance 856.7 336.7 Meds/Results Medications: Active Medications Generic Name Dose Route Start Last Admin Trade Name Freq PRN Reason Stop Dose Admin Acetaminophen 650 mg 04/04/24 01:06 04/09/24 20:27 Acetaminophen 325 Mg Tablet BY MOUTH 650 mg Q6H PRN Administration Pain 1-3 or fever Amlodipine Besylate 5 mg 04/04/24 09:00 04/09/24 09:59 Amlodipine Besylate 5 Mg Tablet PO Not Given DAILY [facility] Aspirin 81 mg 04/04/24 09:00 04/09/24 10:02 Aspirin 81 Mg Chewable Tablet PO Not Given DAILY [facility] Bisacodyl 10 mg 04/04/24 08:53 Bisacodyl 10 Mg Suppository RECTAL DAILY PRN Constipation Calcium Carbonate 500 mg 04/05/24 08:00 04/09/24 09:58 Calcium/Vitamin D 500 Mg/5 Mcg (200 I.U.) Tablet PO Not Given DAILY@0800 [facility] Dextrose 12.5 gm 04/03/24 21:33 Dextrose 50% 25 Gm/50 Ml Syringe IV PUSH PRN PRN Hypoglycemia Protocol Enoxaparin Sodium 40 mg 04/05/24 09:00 04/09/24 10:03 Enoxaparin 40 Mg/0.4 Ml Syringe SUB-Q Not Given DAILY [facility] Escitalopram Oxalate 5 mg 04/04/24 09:00 04/09/24 09:59 Escitalopram Oxalate 5 Mg Tablet PO Not Given DAILY [facility] Fish Oil 1 gm 04/04/24 09:00 04/09/24 10:00 [place] 3 Polyunsat Fatty Acids 1 Gm Cap PO Not Given QAM [facility] Glucagon 1 mg 04/03/24 21:33 Glucagon For Inj 1 Mg Vial IM PRN PRN Hypoglycemia Protocol Glucose 15 gm 04/03/24 21:33 Glucose Oral Gel 15 Gm Of Glucse In 37.5 Gm Tube PO PRN PRN Hypoglycemia Protocol Dextrose 1,000 mls @ 100 mls/hr 04/03/24 21:33 Dextrose 5% 1,000 Ml IVPB PRN PRN Hypoglycemia Protocol Sodium Chloride 1,000 mls @ 100 mls/hr 04/08/24 07:55 04/10/24 00:22 Normal Saline Iv IV CONT 100 mls/hr .Q10H MARY Administration Ceftriaxone Sodium 2 gm in 100 mls @ 200 mls/hr 04/09/24 09:00 04/09/24 10:26 Rocephin 2 Gm/Ns 100 Ml IVPB Infused Q24H MARY Infusion Metronidazole 500 mg in 100 mls @ 100 mls/hr 04/09/24 09:30 04/10/24 06:01 Flagyl 500 Mg/Iso Soln 100 Ml IVPB 100 mls/hr Q8HR MARY Administration Insulin Aspart 3 - 6 units 04/04/24 00:00 04/10/24 05:59 Insulin Aspart (*Bkc) 100 Units/Ml SUB-Q Not Given Q6HR [facility] Protocol Insulin Glargine 14 units 04/04/24 00:55 04/09/24 17:10 Insulin Glargine (*Bkc) 100 Units/Ml SUB-Q Not Given BID [facility] Lactulose 20 gm 04/08/24 09:00 04/09/24 16:19 Lactulose 20 Gm/30 Ml Udc PO 20 gm TID MARY Administration Meclizine HCl 6.25 mg 04/06/24 13:00 04/09/24 16:19 Meclizine Hcl 6.25 Mg Tablet PO 6.25 mg TID MARY Administration Memantine 28 mg 04/04/24 09:00 04/09/24 10:00 Memantine Hcl Xr 28 Mg Cap PO Not Given DAILY [facility] Metoprolol Tartrate 25 mg 04/04/24 09:00 04/09/24 20:27 Metoprolol Tartrate 25 Mg Tablet PO 25 mg Q12HR MARY Administration Mirtazapine 15 mg 04/04/24 01:00 04/09/24 20:27 Mirtazapine 15 Mg Tablet PO 15 mg HS [facility] Administration Nitrofurantoin Macrocrystals 100 mg 04/09/24 14:00 04/09/24 21:39 Nitrofurantoin Monohyd Macrocr 100 Mg Cap PO 04/13/24 21:01 100 mg Q12HR MARY Administration Ondansetron HCl 4 mg 04/03/24 21:32 04/08/24 03:39 Ondansetron Inj 4 Mg/2 Ml Vial IV PUSH 4 mg Q6H PRN Administration Nausea And Vomiting Pantoprazole Sodium 40 mg 04/07/24 21:00 04/09/24 20:27 Pantoprazole 40 Mg Tablet PO 40 mg Q12HR MARY Administration Polyethylene Glycol 17 gm 04/05/24 09:00 04/08/24 08:21 Polyethylene Glycol 3350 17 Gm Powd.Pack PO 17 gm QAM MARY Administration Potassium Chloride 40 meq 04/08/24 12:00 04/09/24 10:00 Potassium Chloride 20 Meq Packet (For Liquid) PO Not Given DAILY [facility] Promethazine HCl 12.5 mg 04/04/24 12:21 04/06/24 21:41 Promethazine Hcl 25 Mg/Ml Ampul IV PUSH 12.5 mg Q4H PRN Administration Nausea And Vomiting Scopolamine 1 patch 04/06/24 12:50 04/09/24 10:01 Scopolamine 1 Mg Patch TRANSDERM 1 patch Q72HR MARY Administration Senna 8.6 mg 04/04/24 09:00 04/09/24 10:01 Sennosides 8.6 Mg Tablet PO Not Given DAILY MARY Senna/Docusate Sodium 1 tab 04/07/24 21:00 04/09/24 20:27 Senna/Docusate Sodium Tablet PO 1 tab HS MARY Administration Sucralfate 1,000 mg 04/04/24 16:30 04/10/24 05:58 Sucralfate Susp 100 Mg/Ml 10 Ml Udc PO Not Given ACHS MARY Radiology Results: ITS Impressions Chest X-Ray 04/03/24 19:04 IMPRESSION: Subsegmental bibasilar atelectasis/consolidation. Small left pleural effusion versus chronic pleural blunting. Abdomen/Pelvis CT 04/03/24 20:43 IMPRESSION: Dependent bibasilar atelectasis/consolidation. Small bilateral pleural effusions. Small pericardial effusion. Moderate esophagitis/gastritis. 2.4 cm indeterminate density right upper pole renal lesion, possible hemorrhagic or proteinaceous cyst, recommend nonemergent but timely CT or MRI without and with contrast for further evaluation. Nonobstructing 5 mm and 3 mm calcifications in the right renal pelvis. Fecal impaction, with wall thickening that can be seen with stercoral colitis and evidence of proctitis. Suggest clinical/proctoscopy correlation to rule out a rectal mass. Head CT 04/04/24 16:40 IMPRESSION: No acute intracranial findings. Brain MRI 04/05/24 14:55 IMPRESSION: 1. Moderate nonspecific cerebral white matter disease and pontine disease, which likely represents chronic small vessel ischemic disease. Labs Labs: Laboratory Results - last 24 hr 04/09/24 04/09/24 04/09/24 09:20 11:36 14:23 WBC 8.6 RBC 3.64 L Hgb 10.3 L Hct 31.8 L MCV 87.4 MCH 28.3 MCHC 32.4 RDW 14.0 Plt Count 318 MPV 10.2 Immature Gran % (Auto) 0.7 H Neut % (Auto) 48.0 Lymph % (Auto) 36.3 [place] % (Auto) 10.0 H Eos % (Auto) 4.4 Baso % (Auto) 0.6 Lymph # (Auto) 3.13 [place] # (Auto) 0.9 H Eos # (Auto) 0.4 H Baso # (Auto) 0.1 Abs Immat Gran (auto) 0.06 H Absolute Neuts (auto) 4.1 Absolute Nucleated RBC 0.000 Nucleated RBC % 0.0 Sodium 134 L Potassium 3.2 L [place] 103 Carbon Dioxide 29 Anion Gap 2 L BUN 7 D Creatinine 0.80 Estim Creat Clear Calc 48 Estimated GFR > 60 Glucose 144 H POC Capillary Glucose 138 H 91 Calcium 8.0 L 04/09/24 04/09/24 04/09/24 15:39 16:11 17:50 WBC RBC Hgb Hct MCV MCH MCHC RDW Plt Count MPV Immature Gran % (Auto) Neut % (Auto) Lymph % (Auto) [place] % (Auto) Eos % (Auto) Baso % (Auto) Lymph # (Auto) [place] # (Auto) Eos # (Auto) Baso # (Auto) Abs Immat Gran (auto) Absolute Neuts (auto) Absolute Nucleated RBC Nucleated RBC % Sodium Potassium Chloride Carbon Dioxide Anion Gap BUN Creatinine Estim Creat Clear Calc Estimated GFR Glucose POC Capillary Glucose 81 79 110 H Calcium 04/09/24 04/10/24 04/10/24 23:51 05:42 08:01 WBC 7.0 RBC 3.48 L Hgb 10.1 L Hct 30.5 L MCV 87.6 MCH 29.0 MCHC 33.1 RDW 14.4 Plt Count 309 MPV 10.4 Immature Gran % (Auto) 0.6 H Neut % (Auto) 53.5 Lymph % (Auto) 27.7 [place] % (Auto) 11.6 H Eos % (Auto) 5.9 H Baso % (Auto) 0.7 Lymph # (Auto) 1.93 [place] # (Auto) 0.8 H Eos # (Auto) 0.4 H Baso # (Auto) 0.1 Abs Immat Gran (auto) 0.04 H Absolute Neuts (auto) 3.7 Absolute Nucleated RBC 0.000 Nucleated RBC % 0.0 Sodium 137 Potassium 3.2 L Chloride 103 Carbon Dioxide 27 Anion Gap 7 BUN 11 Creatinine 0.80 Estim Creat Clear Calc 48 Estimated GFR > 60 Glucose 219 H POC Capillary Glucose 185 H 246 H Calcium 7.9 L
[2024-04-10] MEDS: polyethylene glycoL 3350 17 GM POWD.PACK PO (09:02)
[2024-04-10] MEDS: POTASSIUM CHLORIDE 20 MEQ PACKET (FOR LIQUID) 40 MEQ PO (09:02)
[2024-04-10 09:03] VITALS: PULSE 72
[2024-04-10] MEDS: MEMANTINE HCL XR 28 MG CAP PO (09:03)
[2024-04-10] MEDS: SENNOSIDES 8.6 MG TABLET PO (09:03)
[2024-04-10] MEDS: amLODIPine BESYLATE 5 MG TABLET PO (09:03)
[2024-04-10] MEDS: METOPROLOL TARTRATE 25 MG TABLET PO ×2 (09:03→20:10)
[2024-04-10] MEDS: ASPIRIN 81 MG CHEWABLE TABLET PO (09:03)
[2024-04-10] MEDS: CALCIUM/VITAMIN D 500 MG/5 MCG (200 I.U.) TABLET PO (09:03)
[2024-04-10] MEDS: PANTOPRAZOLE 40 MG TABLET PO (09:03)
[2024-04-10] MEDS: LACTULOSE 20 GM/30 ML UDC PO (09:03)
[2024-04-10] MEDS: ESCITALOPRAM OXALATE 5 MG TABLET PO (09:03)
[2024-04-10] MEDS: OMEGA 3 POLYUNSAT FATTY ACIDS 1 GM CAP PO (09:03)
[2024-04-10] MEDS: NITROFURANTOIN MONOHYD MACROCR 100 MG CAP PO (09:03)
[2024-04-10] MEDS: MECLIZINE HCL 6.25 MG TABLET PO (09:03)
[2024-04-10] MEDS: cefTRIAXone 2 GM/NS 100 ML 2 GM/100 ML BAG IVPB (09:04)
[2024-04-10] MEDS: ENOXAPARIN 40 MG/0.4 ML SYRINGE SUB-Q (09:04)
[2024-04-10] MEDS: INSULIN GLARGINE (*BKC) 100 UNITS/ML 14 UNITS SUB-Q ×2 (09:07→18:33)
[2024-04-10] MEDS: ONDANSETRON INJ 4 MG/2 ML VIAL IV PUSH (10:30)
[2024-04-10 12:38] LABS: Glucose Point of Care 209 mg/dl (65-105)
[2024-04-10 14:33] VITALS: BP 168/56; PULSE 70; RESP 18; TEMP 36.4; O2SAT 98
--- NOTE | 2024-04-10 16:40 | WPDGIPROGNO ---
Progress Note: A&P Assessment and Plan (1) Anorexia: Code(s): R63.0 - Anorexia Status: Acute Assessment and Plan: egd no major findings probably from dementia, unwillingness to eat, DM, etc encourage to eat, offer protein shakes will follow from afar (2) Alzheimer dementia: Code(s): G30.9 - Alzheimer's disease, unspecified; F02.80 - Dementia in other diseases classified elsewhere, unspecified severity, without behavioral disturbance, psychotic disturbance, mood disturbance, and anxiety Status: Acute (3) Diabetes mellitus with hyperglycemia: Qualifiers: Diabetes mellitus type: type 2 Diabetes mellitus prison insulin use: with superintendent container terminal use Qualified Code(s): E11.65 - Type 2 diabetes mellitus with hyperglycemia; Z79.4 - keno terminal operator (current) use of insulin Code(s): E11.65 - Type 2 diabetes mellitus with hyperglycemia Status: Acute Subjective Date/time seen: 04/10/24 16:40 Interval history: egd unremarkable still poor appetite, no major changes she has dementia Review of Systems Review of Systems: All systems reviewed & are unremarkable except as noted in HPI and below Exam Const: General: comfortable and no acute distress Other: chronically ill appearing HENMT: Face/Nose/Sinus: Normal nares present Eyes: Sclera: sclerae normal Neck: Neck: supple Resp: Auscultation: clear to auscultation bilaterally Cardio: Rate: regular rate Rhythm: regular rhythm GI: Inspection: non-distended GI Palp: Yes Soft to palpation and No Tenderness to palpation present (GI) Auscultation: normal bowel sounds Skin: General skin exam: normal color Neuro: Speech: normal speech Motor exam (neuro): 5/5 motor strength present throughout Other: awake and alert, poor short term memory dementia Extrem: General: normal to inspection Psych: Affect: Anxious affect present Objective Data Vital Signs Vital Signs: Vital Signs - 24 hr 04/09/24 20:45 04/09/24 20:00 04/10/24 03:49 Temperature 97.2 F L 97.7 F Pulse Rate 75 75 63 Respiratory Rate 18 18 18 Blood Pressure 133/46 L 114/46 L Pulse Oximetry 97 97 97 Oxygen Delivery Room Air 04/10/24 09:03 04/10/24 09:00 04/10/24 14:33 Temperature 97.6 F Pulse Rate 72 70 Respiratory Rate 18 Blood Pressure 168/56 H Pulse Oximetry 98 Oxygen Delivery Room Air Intake/Output Intake/Output: Intake & Output 04/08/24 04/08/24 04/09/24 04/10/24 00:59 23:59 23:59 23:59 Intake Total 2456.7 1906.7 Output Total 1600 700 Balance 856.7 1206.7 Meds/Results Medications: Active Medications Generic Name Dose Route Start Last Admin Trade Name Freq PRN Reason Stop Dose Admin Amlodipine Besylate 5 mg 04/04/24 09:00 04/10/24 09:03 Amlodipine Besylate 5 Mg Tablet PO 5 mg DAILY MARY Administration Aspirin 81 mg 04/04/24 09:00 04/10/24 09:03 Aspirin 81 Mg Chewable Tablet PO 81 mg DAILY MARY Administration Bisacodyl 10 mg 04/04/24 08:53 Bisacodyl 10 Mg Suppository RECTAL DAILY PRN Constipation Calcium Carbonate 500 mg 04/05/24 08:00 04/10/24 09:03 Calcium/Vitamin D 500 Mg/5 Mcg (200 I.U.) Tablet PO 500 mg DAILY@0800 MARY Administration Dextrose 12.5 gm 04/03/24 21:33 Dextrose 50% 25 Gm/50 Ml Syringe IV PUSH PRN PRN Hypoglycemia Protocol Enoxaparin Sodium 40 mg 04/05/24 09:00 04/10/24 09:04 Enoxaparin 40 Mg/0.4 Ml Syringe SUB-Q 40 mg DAILY MARY Administration Escitalopram Oxalate 5 mg 04/04/24 09:00 04/10/24 09:03 Escitalopram Oxalate 5 Mg Tablet PO 5 mg DAILY MARY Administration Fish Oil 1 gm 04/04/24 09:00 04/10/24 09:03 [place] 3 Polyunsat Fatty Acids 1 Gm Cap PO 1 gm QAM MARY Administration Glucagon 1 mg 04/03/24 21:33 Glucagon For Inj 1 Mg Vial IM PRN PRN Hypoglycemia Protocol Glucose 15 gm 04/03/24 21:33 Glucose Oral Gel 15 Gm Of Glucse In 37.5 Gm Tube PO PRN PRN Hypoglycemia Protocol Dextrose 1,000 mls @ 100 mls/hr 04/03/24 21:33 Dextrose 5% 1,000 Ml IVPB PRN PRN Hypoglycemia Protocol Sodium Chloride 1,000 mls @ 100 mls/hr 04/08/24 07:55 04/10/24 15:37 Normal Saline Iv IV CONT 100 mls/hr .Q10H MARY Administration Insulin Aspart 3 - 6 units 04/10/24 12:00 04/10/24 12:49 Insulin Aspart (*Bkc) 100 Units/Ml SUB-Q Not Given TID[facility] Protocol Insulin Glargine 14 units 04/04/24 00:55 04/10/24 09:07 Insulin Glargine (*Bkc) 100 Units/Ml SUB-Q 14 units BID MARY Administration Lactulose 20 gm 04/08/24 09:00 04/10/24 16:11 Lactulose 20 Gm/30 Ml Udc PO Not Given TID MARY Levofloxacin 500 mg 04/11/24 09:00 Levofloxacin 500 Mg Tablet PO DAILY MARY Meclizine HCl 6.25 mg 04/06/24 13:00 04/10/24 12:50 Meclizine Hcl 6.25 Mg Tablet PO Not Given TID MARY Memantine 28 mg 04/04/24 09:00 04/10/24 09:03 Memantine Hcl Xr 28 Mg Cap PO 28 mg DAILY MARY Administration Metoprolol Tartrate 25 mg 04/04/24 09:00 04/10/24 09:03 Metoprolol Tartrate 25 Mg Tablet PO 25 mg Q12HR MARY Administration Mirtazapine 15 mg 04/04/24 01:00 04/09/24 20:27 Mirtazapine 15 Mg Tablet PO 15 mg HS MARY Administration Ondansetron HCl 4 mg 04/03/24 21:32 04/10/24 10:30 Ondansetron Inj 4 Mg/2 Ml Vial IV PUSH 4 mg Q6H PRN Administration Nausea And Vomiting Pantoprazole Sodium 40 mg 04/11/24 09:00 Pantoprazole 40 Mg Tablet PO QAM MARY Potassium Chloride 40 meq 04/08/24 12:00 04/10/24 09:02 Potassium Chloride 20 Meq Packet (For Liquid) PO 40 meq DAILY MARY Administration Promethazine HCl 12.5 mg 04/04/24 12:21 04/06/24 21:41 Promethazine Hcl 25 Mg/Ml Ampul IV PUSH 12.5 mg Q4H PRN Administration Nausea And Vomiting Scopolamine 1 patch 04/06/24 12:50 04/09/24 10:01 Scopolamine 1 Mg Patch TRANSDERM 1 patch Q72HR MARY Administration Senna 8.6 mg 04/04/24 09:00 04/10/24 09:03 Sennosides 8.6 Mg Tablet PO 8.6 mg DAILY MARY Administration Senna/Docusate Sodium 1 tab 04/07/24 21:00 04/09/24 20:27 Senna/Docusate Sodium Tablet PO 1 tab HS MARY Administration Sucralfate 1,000 mg 04/04/24 16:30 04/10/24 11:52 Sucralfate Susp 100 Mg/Ml 10 Ml Udc PO Not Given ACHS MARY Radiology Results: ITS Impressions Chest X-Ray 04/03/24 19:04 IMPRESSION: Subsegmental bibasilar atelectasis/consolidation. Small left pleural effusion versus chronic pleural blunting. Abdomen/Pelvis CT 04/03/24 20:43 IMPRESSION: Dependent bibasilar atelectasis/consolidation. Small bilateral pleural effusions. Small pericardial effusion. Moderate esophagitis/gastritis. 2.4 cm indeterminate density right upper pole renal lesion, possible hemorrhagic or proteinaceous cyst, recommend nonemergent but timely CT or MRI without and with contrast for further evaluation. Nonobstructing 5 mm and 3 mm calcifications in the right renal pelvis. Fecal impaction, with wall thickening that can be seen with stercoral colitis and evidence of proctitis. Suggest clinical/proctoscopy correlation to rule out a rectal mass. Head CT 04/04/24 16:40 IMPRESSION: No acute intracranial findings. Brain MRI 04/05/24 14:55 IMPRESSION: 1. Moderate nonspecific cerebral white matter disease and pontine disease, which likely represents chronic small vessel ischemic disease. Labs Labs: Laboratory Results - last 24 hr 04/09/24 04/09/24 04/10/24 17:50 23:51 05:42 WBC 7.0 RBC 3.48 L Hgb 10.1 L Hct 30.5 L MCV 87.6 MCH 29.0 MCHC 33.1 RDW 14.4 Plt Count 309 MPV 10.4 Immature Gran % (Auto) 0.6 H Neut % (Auto) 53.5 Lymph % (Auto) 27.7 [place] % (Auto) 11.6 H Eos % (Auto) 5.9 H Baso % (Auto) 0.7 Lymph # (Auto) 1.93 [place] # (Auto) 0.8 H Eos # (Auto) 0.4 H Baso # (Auto) 0.1 Abs Immat Gran (auto) 0.04 H Absolute Neuts (auto) 3.7 Absolute Nucleated RBC 0.000 Nucleated RBC % 0.0 Sodium 137 Potassium 3.2 L Chloride 103 Carbon Dioxide 27 Anion Gap 7 BUN 11 Creatinine 0.80 Estim Creat Clear Calc 48 Estimated GFR > 60 Glucose 219 H POC Capillary Glucose 110 H 185 H Calcium 7.9 L 04/10/24 04/10/24 08:01 12:12 WBC RBC Hgb Hct MCV MCH MCHC RDW Plt Count MPV Immature Gran % (Auto) Neut % (Auto) Lymph % (Auto) [place] % (Auto) Eos % (Auto) Baso % (Auto) Lymph # (Auto) [place] # (Auto) Eos # (Auto) Baso # (Auto) Abs Immat Gran (auto) Absolute Neuts (auto) Absolute Nucleated RBC Nucleated RBC % Sodium Potassium Chloride Carbon Dioxide Anion Gap BUN Creatinine Estim Creat Clear Calc Estimated GFR Glucose POC Capillary Glucose 246 H 209 H Calcium
[2024-04-10 16:54] LABS: Glucose Point of Care 143 mg/dl (65-105)
[2024-04-10 18:13] LABS: Glucose Point of Care 217 mg/dl (65-105)
[2024-04-10 20:00] VITALS: PULSE 76; RESP 18; O2SAT 98
[2024-04-10] MEDS: MIRTAZAPINE 15 MG TABLET PO (20:10)
[2024-04-10 20:18] VITALS: BP 143/48; PULSE 76; RESP 18; TEMP 36.6; O2SAT 98
[2024-04-10 20:42] LABS: Glucose Point of Care 173 mg/dl (65-105)
[2024-04-11] MEDS: SODIUM CHLORIDE 0.9% IV 1,000 ML 100 ML IV CONT (01:55)
[2024-04-11 03:58] VITALS: BP 157/54; PULSE 72; RESP 20; TEMP 36.7; O2SAT 98
[2024-04-11 08:35] LABS: Basophils Percent Auto 0.6 % (0.2-1.2); Eosinophils Absolute Auto 0.3 K/mm3 (0-0.3); Eosinophils Percent Auto 4.5 % (0-4.4); Hematocrit 30.4 % (37.0-47.0); Hemoglobin 10.1 g/dL (12.0-15.0); Immature Granulocyte Absolute 0.03 K/mm3 (0.00-0.031); Immature Granulocyte Percent A 0.5 % (0-0.5); Lymphocytes Absolute Auto 2.07 K/mm3 (0.9-3.2); Lymphocytes Percent Auto 33.4 % (18.3-44.2); Mean Corpuscular HGB Conc 33.2 g/dl (32-36); Mean Corpuscular Hemoglobin 28.9 pg (26-34); Mean Corpuscular Volume 87.1 fl (80-100); Mean Platelet Volume 10.5 fl (7.4-10.4); Monocytes Absolute Auto 0.8 K/mm3 (0.1-0.6); Monocytes Percent Auto 12.3 % (2.6-8.5); Neutrophils Percent Auto 48.7 % (45.5-73.1); Platelet Count Result 334 k/mm3 (150-375); Red Blood Count 3.49 M/mm3 (4.2-5.4); Red Cell Distribution Width 14.6 % (11.5-14.5); White Blood Count 6.2 K/mm3 (4.5-10.0)
[2024-04-11 08:40] LABS: Glucose Point of Care 125 mg/dl (65-105)
[2024-04-11 08:47] LABS: Anion Gap 5 mmol/L (4-12); Blood Urea Nitrogen 8 mg/dL (7-17); Calcium 8.1 mg/dL (8.4-10.2); Carbon Dioxide 27 mmol/L (22-30); Chloride 103 mmol/L (98-107); Estimated CRCL calculation 54 ml/min; Estimated Glomerular Filt Rate > 60; Glucose 123 mg/dL (65-110); Potassium 3.2 mmol/L (3.4-5.0); Sodium 135 mmol/L (137-145)
[2024-04-11] MEDS: LACTULOSE 20 GM/30 ML UDC PO ×2 (10:26→12:45)
[2024-04-11] MEDS: OMEGA 3 POLYUNSAT FATTY ACIDS 1 GM CAP PO (10:26)
[2024-04-11] MEDS: ENOXAPARIN 40 MG/0.4 ML SYRINGE SUB-Q (10:26)
[2024-04-11 10:27] VITALS: PULSE 64
[2024-04-11] MEDS: POTASSIUM CHLORIDE 20 MEQ PACKET (FOR LIQUID) 40 MEQ PO (10:27)
[2024-04-11] MEDS: ESCITALOPRAM OXALATE 5 MG TABLET PO (10:27)
[2024-04-11] MEDS: SENNOSIDES 8.6 MG TABLET PO (10:27)
[2024-04-11] MEDS: METOPROLOL TARTRATE 25 MG TABLET PO (10:27)
[2024-04-11] MEDS: MEMANTINE HCL XR 28 MG CAP PO (10:27)
[2024-04-11] MEDS: PANTOPRAZOLE 40 MG TABLET PO (10:27)
[2024-04-11] MEDS: amLODIPine BESYLATE 5 MG TABLET PO (10:28)
[2024-04-11] MEDS: CALCIUM/VITAMIN D 500 MG/5 MCG (200 I.U.) TABLET PO (10:28)
[2024-04-11] MEDS: levoFLOXacin 500 MG TABLET PO (10:28)
[2024-04-11] MEDS: ASPIRIN 81 MG CHEWABLE TABLET PO (10:28)
[2024-04-11] MEDS: INSULIN GLARGINE (*BKC) 100 UNITS/ML 14 UNITS SUB-Q (10:29)
[2024-04-11 10:44] VITALS: BMI 27.1
[2024-04-11 12:22] LABS: Glucose Point of Care 237 mg/dl (65-105)
--- NOTE | 2024-04-11 12:22 | PM.DS ---
DS: Admitting Diagnosis Discharge Date 04/11 Admitting Diagnosis nausea/vomitting DS: Discharge Diagnosis Discharge Diagnosis (1) Stroke: Code(s): I63.9 - Cerebral infarction, unspecified Status: Acute (2) Intractable nausea and vomiting: Code(s): R11.2 - Nausea with vomiting, unspecified Status: Acute (3) Fecal impaction: Code(s): K56.41 - Fecal impaction Status: Acute (4) Sepsis: Code(s): A41.9 - Sepsis, unspecified organism Status: Acute (5) Diabetes mellitus with hyperglycemia: Qualifiers: Diabetes mellitus type: type 2 Diabetes mellitus long term acute care registered nurse insulin use: with alf use Qualified Code(s): E11.65 - Type 2 diabetes mellitus with hyperglycemia; Z79.4 - bed bug exterminator (current) use of insulin Code(s): E11.65 - Type 2 diabetes mellitus with hyperglycemia Status: Acute DS: Summary Hospital Course Hospital Course: 78-year-old female with past medical history of dementia, diabetes, COPD, peripheral vascular disease, GERD and gastritis who presented to the ER from [facility] due to nausea vomiting. She has chronic indwelling Cabral catheter. She has been afebrile since presentation. She did have some leukocytosis noted on presentation. CT of the abdomen pelvis was performed and demonstrated extensive gastritis and esophagitis as well as sterocolitis and fecal impaction. The patient at had similar findings on prior CTs. The patient had recently been admitted to the hospital for suspected UTI but urine cultures were negative. She has chronic indwelling Cabral catheter. She has been afebrile since presentation. She did have some leukocytosis noted on presentation. CT of the abdomen pelvis was performed and demonstrated extensive gastritis and esophagitis as well as sterocolitis and fecal impaction. The patient at had similar findings on prior CTs. The patient had recently been admitted to the hospital for suspected UTI but urine cultures were negative. However, we will complete tx with macrobid for UTI. Anorexia Nausea - GI was consulted egd no major findings probably from dementia, unwillingness to eat, DM, etc encourage to eat, offer protein shakes 04/08- concern for stroke- left pupil being nonreactive, blurry vision CT head no acute findings MRI brain negative for stroke follow-up outpatient with Ophthalmology, no acute intervention needed, not traumatic # sepsis # aspiration pneumonia - she met criteria for sepsis Blood cultures NGTD urine culture negative - she completed antibiotic therapy with Rocephin and Flagyl Change to Levaquin p.o on 04/10- COMPLETED 8 DAYS OF LEVAQUIN-STOP TODAY-04/11/24. Diabetes mellitus with hyperglycemia: Accu-Cheks a.c. HS decrease patient's Lantus dose down to 14 units b.i.d Fecal impaction: possible constipation induced colitis- aggressive bowel regiment Discontinued Mesalamine Continue MiraLax, Senokot 1 tab daily lactulose p.o. 20 g t.i.d. p.o. Patient has regular bowel movement now Status at Discharge Functional status at discharge: wheelchair bound Overall status at discharge: patient is progressing back to baseline Time Spent with Patient Time attestation: Total time spent providing and/or coordinating discharge services: Time spent: Greater than 30 minutes Exam Narrative: GENERAL: Pleasant, in no acute distress. Well-nourished. - EYES: EOMI. Anicteric. - HENT: Moist mucous membranes. - LUNGS: Clear to auscultation bilaterally, no wheezing, rhonchi, or rales. - CARDIOVASCULAR: Regular rate and rhythm. No murmur. No JVD. - ABDOMEN: Soft, non-tender and non-distended. No palpable masses. - EXTREMITIES: No edema. Peripheral pulses 2+. Non-tender. - NEUROLOGIC: No focal neurological deficits. CN II-XII grossly intact. - PSYCHIATRIC: Awake, Alert and oriented x 3. Appropriate mood and affect. - SKIN: No rashes or lesions. Warm. - LYMPH: No cervical lymphadenopathy. Const: General: comfortable DS: Data Data Completed and Pending Completed studies during hospitalization: Pending at discharge 04/09/24 15:25 Surgical [PTH] Routine Labs on day of discharge: Labs from last 24 hours 04/11/24 04/11/24 04/11/24 12:16 08:28 08:23 WBC 6.2 RBC 3.49 L Hgb 10.1 L Hct 30.4 L MCV 87.1 MCH 28.9 MCHC 33.2 RDW 14.6 H Plt Count 334 MPV 10.5 H Immature Gran % (Auto) 0.5 Neut % (Auto) 48.7 Lymph % (Auto) 33.4 [place] % (Auto) 12.3 H Eos % (Auto) 4.5 H Baso % (Auto) 0.6 Lymph # (Auto) 2.07 [place] # (Auto) 0.8 H Eos # (Auto) 0.3 Baso # (Auto) 0.0 Abs Immat Gran (auto) 0.03 Absolute Neuts (auto) 3.0 Absolute Nucleated RBC 0.000 Nucleated RBC % 0.0 Sodium 135 L Potassium 3.2 L Chloride 103 Carbon Dioxide 27 Anion Gap 5 BUN 8 Creatinine 0.70 Estim Creat Clear Calc 54 Estimated GFR > 60 Glucose 123 H POC Capillary Glucose 237 H 125 H Calcium 8.1 L 04/10/24 04/10/24 04/10/24 20:16 16:49 12:12 WBC RBC Hgb Hct MCV MCH MCHC RDW Plt Count MPV Immature Gran % (Auto) Neut % (Auto) Lymph % (Auto) [place] % (Auto) Eos % (Auto) Baso % (Auto) Lymph # (Auto) [place] # (Auto) Eos # (Auto) Baso # (Auto) Abs Immat Gran (auto) Absolute Neuts (auto) Absolute Nucleated RBC Nucleated RBC % Sodium Potassium Chloride Carbon Dioxide Anion Gap BUN Creatinine Estim Creat Clear Calc Estimated GFR Glucose POC Capillary Glucose 173 H 143 H 209 H Calcium 04/10/24 03:57 WBC RBC Hgb Hct MCV MCH MCHC RDW Plt Count MPV Immature Gran % (Auto) Neut % (Auto) Lymph % (Auto) [place] % (Auto) Eos % (Auto) Baso % (Auto) Lymph # (Auto) [place] # (Auto) Eos # (Auto) Baso # (Auto) Abs Immat Gran (auto) Absolute Neuts (auto) Absolute Nucleated RBC Nucleated RBC % Sodium Potassium Chloride Carbon Dioxide Anion Gap BUN Creatinine Estim Creat Clear Calc Estimated GFR Glucose POC Capillary Glucose 217 H Calcium Procedures/Treatments: egd Discharge Plan Discharge Consulting providers: Sean Rojas Discharging Clinician: Kerri Kauffman Patient Disposition: SNF Activity: october shower Diet: as tolerated and diabetic Wound Care Instructions: follow printed instructions Discharge Instructions: You were admitted for nausea/vomiting. GI was consulted, EGD was done- nothing acute was founds. Please continue supplemental shakes, Carafate You are completing a treatment for UTI- please finish Macrobid- we will send a script for remaining 6 doses- take 1 tab every 12 h- am and pm with the last dose on 04/14/24 at 09am. Please continue to take bowel regimen medication to avoid constipation. Continue MiraLax, Senokot 1 tab daily Patient Instructions: Pain Management (DC) Stand Alone Forms: General Discharge Information Discharge Medications: New calcium carbonate-vitamin D3 [Oyster Shell Calcium-Vit D3] 500 mg-5 mcg (200 unit) Tablet 1 tablet PO DAILY@0800 Qty: 90 0RF nitrofurantoin monohyd/m-cryst [Macrobid] 100 mg Capsule 100 mg PO Q12HR Qty: 6 0RF Continued amlodipine 5 mg tablet 5 mg PO DAILY acetaminophen 325 mg Tablet,Chewable 650 mg PO Q6H PRN (Reason: Pain) bisacodyl 10 mg Suppository 10 mg RECTAL DAILY PRN (Reason: Constipation) Rx Instructions: if no results from MOM Fleet Enema 19-7 gram/118 mL Enema 118 ml RECTAL DAILY PRN (Reason: Constipation) Rx Instructions: if no results from suppository in 24hrs aspirin 81 mg Tablet,Chewable 81 mg PO DAILY GlucaGen HypoKit 1 mg recon soln 1 mg IM PRN PRN (Reason: Hypoglycemia) escitalopram oxalate 5 mg tablet 5 mg PO DAILY cranberry 450 mg Tablet 450 mg PO DAILY Rx Instructions: administer with a meal atorvastatin [Lipitor] 10 mg Tablet 10 mg PO HS magnesium hydroxide [Milk of Magnesia] 400 mg/5 mL Suspension 30 ml PO DAILY PRN (Reason: Constipation) Rx Instructions: if no BMin 3 days mirtazapine 15 mg tablet 15 mg PO HS metoprolol tartrate 25 mg tablet 25 mg PO BID multivit with min-folic acid 0.4 mg Tablet 1 tablet PO DAILY memantine 28 mg capsule,sprinkle,ER 24hr 28 mg PO DAILY pantoprazole [Protonix] 20 mg tablet,delayed release (DR/EC) 20 mg PO QAM 28 Days Qty: 28 0RF Fish Oil (with DHA-EPA) Capsule 1 cap PO DAILY insulin glargine [Lantus Solostar U-100 Insulin] 100 unit/mL (3 mL) insulin pen 20 unit SUBCUT BID ondansetron 4 mg tablet,disintegrating 4 mg PO Q6H PRN (Reason: nausea and vomiting) Changed sennosides [senna] 8.6 mg Tablet 8.6 mg PO DAILY Qty: 90 0RF Date of admission: 04/04/24 08:25 Primary Care Provider: Willian Chowdhury Admitting Provider: Marcela Carlin Attending physician on admission: Marcela Carlin Condition: Stable Quality VTE Prophylaxis VTE prophylaxis: mechanical ordered and pharmacologic ordered Hospitalist MIPS Heart Failure (Exclusion) Patient has history of Heart Transplant or Left Ventricular Assistive Device?: No IF YES, STOP HERE Heart Failure (Qualifier) Patient has current or prior documentation of LVEF less than or equal to 40%, or mod/servere depressed LVSF?: No IF NO, STOP HERE
[2024-04-11] MEDS: INSULIN ASPART (*BKC) 100 UNITS/ML SUB-Q (12:45)
[2024-04-11] MEDS: NITROFURANTOIN MONOHYD MACROCR 100 MG CAP PO (12:54)
[2024-04-11 15:59] LABS: SARS-CoV-2 RNA PCR Negative (Negative)
[2024-04-11 16:54] LABS: Glucose Point of Care 169 mg/dl (65-105)
== END 2024-04-11 17:35 | DRG 871 ==
LOC: ANHED 18:22 → ANH2MED 21:48
PROVIDERS: Hospitalist; Internal Medicine Gastroenterology; Nurse Practitioner Gerontology; Admitting Provider Internal Medicine; Emergency Provider Emergency Medicine; PCP Hospitalist; Visit Provider Nurse Practitioner
PROC: 0DJ08ZZ Inspection of Upper Intestinal Tract, Via Natural or Artificial Opening Endoscopic (ICD-10-PCS; CPT 43235; principal; 2024-04-09 14:00)
DX: A41.9 Sepsis, unspecified organism (principal); J18.9 Pneumonia, unspecified organism; J69.0 Pneumonitis due to inhalation of food and vomit; E87.1 Hypo-osmolality and hyponatremia; N39.0 Urinary tract infection, site not specified; G30.9 Alzheimer's disease, unspecified; F02.80 Dementia in other diseases classified elsewhere, unspecified severity, without behavioral disturbance, psychotic disturbance, mood disturbance, and anxiety; K29.70 Gastritis, unspecified, without bleeding; K21.00 Gastro-esophageal reflux disease with esophagitis, without bleeding; K52.9 Noninfective gastroenteritis and colitis, unspecified; B95.2 Enterococcus as the cause of diseases classified elsewhere; E11.65 Type 2 diabetes mellitus with hyperglycemia; I10 Essential (primary) hypertension; E78.5 Hyperlipidemia, unspecified; I73.9 Peripheral vascular disease, unspecified; J44.9 Chronic obstructive pulmonary disease, unspecified; H53.8 Other visual disturbances; I25.10 Atherosclerotic heart disease of native coronary artery without angina pectoris; N31.9 Neuromuscular dysfunction of bladder, unspecified; K59.00 Constipation, unspecified; F41.9 Anxiety disorder, unspecified; R63.0 Anorexia; R33.9 Retention of urine, unspecified; E83.42 Hypomagnesemia; E87.6 Hypokalemia; G58.9 Mononeuropathy, unspecified; Z79.4 Long term (current) use of insulin; Z79.82 Long term (current) use of aspirin; Z89.422 Acquired absence of other left toe(s); Z89.421 Acquired absence of other right toe(s); Z11.52 Encounter for screening for COVID-19
CPT/HCPCS: 36415; 70450; 70551; 71045; 74177; 80048; 80053; 80202; 81001; 82948; 83605; 83690; 83735; 84132; 84484; 85025; 85027; 87040; 87086; 87181; 87635; 88305; 93005; 96365; 96372; 96375; 96376; 99285; A9270; G0378; J0692; J0696; J1650; J1815; J1836; J2003; J2060; J2405; J2470; J2550; J2704; J3370; J3475; J3480; J7030; J7040; J7042; J7120; Q9967

== ENCOUNTER 2024-05-04 13:39 | Inpatient (IN) | payer MEDICARE, SELFPAY ==
[2024-05-04] VITALS (7 sets, daily range): BP systolic 120–158; BP diastolic 66–79; PULSE 88–102; RESP 12–16; TEMP 36.8–37.3; O2SAT 96–98; BMI 25.9
--- NOTE | ~2024-05-04 | CT_ITS ---
EXAMINATION: CT abdomen pelvis w con DATE: 05/04/2024 15:17 INDICATION: Leukocytosis, nausea, vomiting and abdominal pain TECHNIQUE: Computed tomography (CT) of the abdomen and pelvis was performed with 100 mL Omnipaque-350 intravenous contrast. Automated exposure control and iterative reconstruction technique were employe d. The dose-length product was 482.55 mGy-cm. COMPARISON: None FINDINGS: Prominent basilar, dependent and discoid atelectasis at the bilateral lower lungs. Cardiomegaly. Athe rosclerotic coronary artery calcific location. Aortic valve calcific location. No pericardial or pleu ral effusion. Small to moderate-sized sliding-type hiatal hernia with prominent edematous wall thicke latha in the mid to distal esophagus consistent with likely reflux esophagitis. Liver, gallbladder, sp nury, pancreas and bilateral adrenal glands are normal. Bilateral renal cysts the largest on the righ t measuring 2.3 cm. There is a 9 cm ball of stool at the rectum with mild stranding in the perirectal fat consistent with likely constipation with fecal impaction and secondary stercoral colitis. There is a moderate amount of stool scattered throughout the more proximal colon. No dilated bowel to sugge st obstruction. Cabral catheter in the decompressed bladder. Uterus and bilateral adnexa are unremarka ble. No abscess or free intraperitoneal gas. No pathologically enlarged abdominal or pelvic lymphaden opathy. Mild lumbar levocurvature with mild to moderate spondylosis. Unchanged subacute T12 compressi on fracture with 20% anterior vertebral body height loss which appears to occurred between 12/02/2023 and 03/25/2024. Anterior fusion at T7-T8. IMPRESSION: 1. Likely constipation with fecal impaction and associated stercoral colitis with perirectal and from trace stranding surrounding a 9 similar ball of stool at the rectum. 2. Small to moderate-sized sliding-type hernia with wall thickening at the mid to distal esophagus weiss spicious for reflux esophagitis. Reviewed, dictated and finalized at location A. [employer] SERVICES COORDINATOR IMPRESSION: 1. Likely constipation with fecal impaction and associated stercoral colitis wi th perirectal and from trace stranding surrounding a 9 similar ball of stool at the rectum. 2. Small to moderate-sized sliding-type hernia with wall thickening at the mid to distal esophagus suspicious for reflux esophagitis.
--- NOTE | 2024-05-04 13:57 | PC.NURSE ---
Pt arrives with a large amount of soft brown stool in depend. No diarrhea.
--- NOTE | 2024-05-04 14:28 | PC.NURSE ---
Pt. arrives with [address] Dowd removed and replaced with new 18 Fr. dowd at this time. Sofi care performed with soap and water.
[2024-05-04 14:35] LABS: Basophils Absolute Auto 0.1 K/mm3 (0.0-0.1); Basophils Percent Auto 0.4 % (0.2-1.2); Eosinophils Percent Auto 0.1 % (0-4.4); Hematocrit 39.9 % (37.0-47.0); Hemoglobin 13.3 g/dL (12.0-15.0); Immature Granulocyte Absolute 0.05 K/mm3 (0.00-0.031); Immature Granulocyte Percent A 0.4 % (0-0.5); Lymphocytes Absolute Auto 2.31 K/mm3 (0.9-3.2); Lymphocytes Percent Auto 16.3 % (18.3-44.2); Mean Corpuscular HGB Conc 33.3 g/dl (32-36); Mean Corpuscular Volume 86.9 fl (80-100); Mean Platelet Volume 10.7 fl (7.4-10.4); Monocytes Percent Auto 7.3 % (2.6-8.5); Neutrophils Absolute Auto 10.7 K/mm3 (1.3-6.7); Neutrophils Percent Auto 75.5 % (45.5-73.1); Platelet Count Result 425 k/mm3 (150-375); Red Blood Count 4.59 M/mm3 (4.2-5.4); Red Cell Distribution Width 14.5 % (11.5-14.5); White Blood Count 14.2 K/mm3 (4.5-10.0)
[2024-05-04 14:47] LABS: Alanine Aminotransferase 12 U/L (6-35); Albumin Level 3.6 g/dL (3.5-5.1); Alkaline Phosphatase 81 U/L (38-126); Anion Gap 9 mmol/L (4-12); Aspartate Amino Transferase 24 U/L (14-36); Bilirubin,Total 0.7 mg/dL (0.2-1.3); Blood Urea Nitrogen 20 mg/dL (7-17); Carbon Dioxide 31 mmol/L (22-30); Chloride 100 mmol/L (98-107); Estimated Glomerular Filt Rate > 60; Glucose 199 mg/dL (65-110); Lipase 26 U/L (23-300); Potassium 3.6 mmol/L (3.4-5.0); Sodium 140 mmol/L (137-145)
--- NOTE | 2024-05-04 14:52 | PC.NURSE ---
This RN called ptGianluca HICKS - daughter, Angelica. Angelica provided with an update, all questions answered at this time.
[2024-05-04 15:53] LABS: Add Urine Microscopic? YES; Appearance Urine Cloudy (Clear); Bacteria Urine Rare /hpf; Bilirubin Urine Negative (Negative); Blood Urine Negative (Negative); Color Urine Yellow (Yellow); Glucose Urine UA Negative (Negative); Ketones Urine Negative (Negative); Leukocyte Esterase Ur 2+ LEU/UL (Negative); Need Manual Microscopic Reviewed; Nitrate Urine Negative (Negative); Protein Urine 2+ mg/dL (Negative); Specific Grav Ur > 1.045 (1.001-1.035); Squamous Epithelial Cell Urine Few /hpf (Few); WBC Urine >100 /hpf (0-3)
[2024-05-04 15:54] LABS: Transitional Epi Cells Urine Occasional /hpf (None Seen)
--- NOTE | 2024-05-04 16:14 | PC.NURSE ---
Pt. had 2nd BM since arriving to [place]. Stool brown and soft. depend changed and charis care performed.
--- NOTE | 2024-05-04 16:16 | ED_ITS ---
HPI - Nausea/Vomiting/Diarrhea General Chief complaint: Nausea/Vomiting/Diarrhea Stated complaint: N/V Time Seen by Provider: 05/04/24 14:00 Source: patient Mode of arrival: ambulatory Limitations: dementia History of Present Illness HPI Narrative: This is a 78 year old female that presents to the ER for nausea and vomiting. Ongoing since yesterday. Facility also reports she has had diarrhea. Related Data Home Medications Medication Instructions Recorded Confirmed acetaminophen 325 mg chewable 650 mg PO Q6H PRN Pain 12/24/23 04/09/24 tablet amlodipine 5 mg tablet 5 mg PO DAILY 12/24/23 04/09/24 aspirin 81 mg chewable tablet 81 mg PO DAILY 12/24/23 04/09/24 atorvastatin 10 mg tablet (Lipitor) 10 mg PO HS 12/24/23 04/09/24 bisacodyl 10 mg rectal suppository 10 mg RECTAL DAILY PRN Constipation 12/24/23 04/09/24 cranberry fruit 450 mg tablet 450 mg PO DAILY 12/24/23 04/09/24 (cranberry) escitalopram oxalate 5 mg tablet 5 mg PO DAILY 12/24/23 04/09/24 glucagon 1 mg solution for 1 mg IM PRN PRN Hypoglycemia 12/24/23 04/09/24 injection (GlucaGen HypoKit) magnesium hydroxide 400 mg/5 mL 30 ml PO DAILY PRN Constipation 12/24/23 04/09/24 oral suspension (Milk of Magnesia) memantine 28 mg capsule 28 mg PO DAILY 12/24/23 04/09/24 sprinkle,extended release 24hr metoprolol tartrate 25 mg tablet 25 mg PO BID 12/24/23 04/09/24 mirtazapine 15 mg tablet 15 mg PO HS 12/24/23 04/09/24 multivitamin with minerals-folic 1 tablet PO DAILY 12/24/23 04/09/24 acid 0.4 mg tablet sodium phosphates 19 gram-7 118 ml RECTAL DAILY PRN 12/24/23 04/09/24 gram/118 mL enema (Fleet Enema) Constipation docosahexaenoic acid (dha)-epa 1 cap PO DAILY 04/03/24 04/09/24 capsule insulin glargine 100 unit/mL (3 20 unit subcut BID 04/03/24 04/09/24 mL) subcutaneous pen (Lantus Solostar U-100 Insulin) ondansetron 4 mg disintegrating 4 mg PO Q6H PRN nausea and vomiting 04/03/24 04/09/24 tablet Allergies Allergy/AdvReac Type Severity Reaction Status Date / Time Penicillins Allergy Unknown Verified 05/04/24 14:04 Sulfa (Sulfonamide Allergy Unknown Verified 05/04/24 14:04 Antibiotics) trazodone Allergy Unknown Verified 05/04/24 14:04 Review of Systems Review of Systems: ROS unobtainable: Yes unobtainable due to medical condition PMFSH Past Medical History Medical History (Updated 05/04/24 @ 17:21 by Joceline Lo PA-C) Alzheimer dementia Anorexia Anxiety CAD (coronary artery disease) Chronic indwelling Cabral catheter COPD (chronic obstructive pulmonary disease) Dementia Diabetes GERD (gastroesophageal reflux disease) HLD (hyperlipidemia) [place] (hard of hearing) HTN (hypertension) MDD (major depressive disorder) Nausea and vomiting in adult 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 Surgical History Surgical History 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 Social History Social History Smoking status: Never smoker Second hand tobacco smoke exposure: No Alcohol intake: never Substance use: never Substance use type: does not use Do You Feel Safe in your Home?: Yes Lack of Transportation: No Lack of Food: Never True Current Housing: I Have Housing Concerned About Future Housing: No Difficulty Paying Gas/Electric Bills: No Difficulty Paying for Meds: No Currently Unemployed: No Education: High School Diploma/GED Difficulty w/ Childcare or Family Care: No Spiritual care concerns: No Exam Narrative: GENERAL: Elderly, well-nourished, and in no acute distress. HEAD: Normocephalic, atraumatic. EYES: EOMI. ENT: Mucous membranes dry. Oropharynx without tonsillar hypertrophy exudate or other lesions. CHEST: Clear to auscultation. No respiratory distress. No wheezes rales or rhonchi HEART: Regular rate and rhythm. No murmur heard. Normal peripheral pulses. ABDOMEN: Soft, nondistended, normal active bowel sounds. Tender to palpation throughout the lower abdomen, without guarding EXTREMITIES: Normal range of motion. No edema. SKIN: Warm, dry, no rash. NEURO: No focal deficits. Alert and oriented x3. PSYCH: Normal mood and affect RECTAL: Small amount of brown, soft stool in the rectal vault. Hemoccult n egative Course Course Emergency Course: Patient updated on her workup and recommendation for admission Consultations Consultation #1: Spoke with hospitalist about patient and workup who accepts admission Date: 05/04/24 Vital Signs Vital signs: Vital Signs Pulse Rate 102 H 05/04/24 13:58 Respiratory Rate 16 05/04/24 13:58 Blood Pressure 151/79 H 05/04/24 13:58 Pulse Oximetry 98 05/04/24 13:58 Oxygen Delivery Room Air 05/04/24 13:58 Temperature 98.5 F 05/04/24 14:43 Pulse Rate 95 05/04/24 16:13 Respiratory Rate 16 05/04/24 16:13 Blood Pressure 146/79 H 05/04/24 16:13 Pulse Oximetry 97 05/04/24 16:13 Oxygen Delivery Room Air 05/04/24 13:58 MDM - Nausea/Vomiting/Diarrhea MDM Narrative Medical decision making narrative: patient presents to the emergency department for nausea and vomiting. She is afebrile and nontoxic appearing. Mildly tachycardic upon arrival, this normalized with IV fluids. CBC with leukocytosis to 14.2. Metabolic panel some evidence of dehydration. Urine without evidence of infection. Patient does have a chronic indwelling Cabral catheter, it was contaminated with feces upon arrival. This was exchanged. will start patient on vancomycin based on her allergies and most recent urine cultures. CT abdomen pelvis shows findings of constipation and esophagitis. Spoke with hospitalist about patient and workup who accepts admission Differential Diagnosis Differential diagnosis: Likely traveler's diarrhea, dehydration and other ( constipation, diverticulitis, UTI, electrolyte derangement) Lab Data Attestation: I reviewed the patient's lab results. 05/04/24 14:28 05/04/24 14:28 Labs: Lab Results 05/04/24 05/04/24 Range/Units 14:28 15:34 WBC 14.2 H (4.5-10.0) K/mm3 RBC 4.59 (4.2-5.4) M/mm3 Hgb 13.3 D (12.0-15.0) g/dL Hct 39.9 (37.0-47.0) % MCV 86.9 (80-100) fl MCH 29.0 (26-34) pg MCHC 33.3 (32-36) g/dl RDW 14.5 (11.5-14.5) % Plt Count 425 H (150-375) k/mm3 MPV 10.7 H (7.4-10.4) fl Immature Gran % (Auto) 0.4 (0-0.5) % Neut % (Auto) 75.5 H (45.5-73.1) % Lymph % (Auto) 16.3 L (18.3-44.2) % Iron % (Auto) 7.3 (2.6-8.5) % Eos % (Auto) 0.1 (0-4.4) % Baso % (Auto) 0.4 (0.2-1.2) % Lymph # (Auto) 2.31 (0.9-3.2) K/mm3 Iron # (Auto) 1.0 H (0.1-0.6) K/mm3 Eos # (Auto) 0.0 (0-0.3) K/mm3 Baso # (Auto) 0.1 (0.0-0.1) K/mm3 Abs Immat Gran (auto) 0.05 H (0.00-0.031) K/mm3 Absolute Neuts (auto) 10.7 H (1.3-6.7) K/mm3 Absolute Nucleated RBC 0.000 (0.0-0.012) K/mm3 Nucleated RBC % 0.0 (0.0-0.2) % Sodium 140 (137-145) mmol/L Potassium 3.6 (3.4-5.0) mmol/L Chloride 100 (98-107) mmol/L Carbon Dioxide 31 H (22-30) mmol/L Anion Gap 9 (4-12) mmol/L BUN 20 H D (7-17) mg/dL Creatinine 0.80 (0.7-1.0) mg/dL Estim Creat Clear Calc Not Reportable Estimated GFR > 60 (59 - ) Glucose 199 H (65-110) mg/dL Calcium 9.0 (8.4-10.2) mg/dL Total Bilirubin 0.7 (0.2-1.3) mg/dL AST 24 (14-36) U/L ALT 12 (6-35) U/L Alkaline Phosphatase 81 (38-126) U/L Total Protein 7.0 (6.3-8.2) g/dL Albumin 3.6 (3.5-5.1) g/dL Lipase 26 (23-300) U/L Urine Color Yellow (Yellow) Urine Appearance Cloudy H (Clear) Urine pH 8.0 (5.0-9.0) Ur Specific [place] > 1.045 H (1.001-1.035) Urine Protein 2+ H (Negative) mg/dL Urine Glucose (UA) Negative (Negative) mg/dL Urine Ketones Negative (Negative) mg/dL Ur Blood (Man) Negative (Negative) Urine Nitrate Negative (Negative) Urine Bilirubin Negative (Negative) Urine Urobilinogen 1.0 (<2.0) mg/dL Add Ur Microanalysis Reviewed Leukocyte Esterase Rfl 2+ H (Negative) ISABEL/UL Urine RBC 3-5 H (0-2) /hpf Urine WBC >100 H (0-3) /hpf Ur Squamous Epith Cells Few (Few) /hpf Ur Transition Epith Cell Occasional (None Seen) /hpf Urine Bacteria Rare /hpf Urine Casts 11-20 Imaging Data Radiologist's impression: ITS Impressions Abdomen/Pelvis CT 05/04/24 15:21 IMPRESSION: 1. Likely constipation with fecal impaction and associated stercoral colitis with perirectal and from trace stranding surrounding a 9 similar ball of stool at the rectum. 2. Small to moderate-sized sliding-type hernia with wall thickening at the mid to distal esophagus suspicious for reflux esophagitis. Critical Care Time Critical Care Time Critical Care Time: No Discharge Plan Discharge Clinical Impression: Acute UTI, Stercoral colitis, Dehydration Patient Disposition: Still a Patient Condition: Stable Prescriptions: No Action amlodipine 5 mg tablet 5 mg PO DAILY acetaminophen 325 mg Tablet,Chewable 650 mg PO Q6H PRN (Reason: Pain) bisacodyl 10 mg Suppository 10 mg RECTAL DAILY PRN (Reason: Constipation) Rx Instructions: if no results from MOM Fleet Enema 19-7 gram/118 mL Enema 118 ml RECTAL DAILY PRN (Reason: Constipation) Rx Instructions: if no results from suppository in 24hrs aspirin 81 mg Tablet,Chewable 81 mg PO DAILY GlucaGen HypoKit 1 mg recon soln 1 mg IM PRN PRN (Reason: Hypoglycemia) escitalopram oxalate 5 mg tablet 5 mg PO DAILY cranberry 450 mg Tablet 450 mg PO DAILY Rx Instructions: administer with a meal atorvastatin [Lipitor] 10 mg Tablet 10 mg PO HS magnesium hydroxide [Milk of Magnesia] 400 mg/5 mL Suspension 30 ml PO DAILY PRN (Reason: Constipation) Rx Instructions: if no BMin 3 days mirtazapine 15 mg tablet 15 mg PO HS metoprolol tartrate 25 mg tablet 25 mg PO BID multivit with min-folic acid 0.4 mg Tablet 1 tablet PO DAILY memantine 28 mg capsule,sprinkle,ER 24hr 28 mg PO DAILY pantoprazole [Protonix] 20 mg tablet,delayed release (DR/EC) 20 mg PO QAM 28 Days Qty: 28 0RF docosahexaenoic acid-epa Capsule 1 cap PO DAILY insulin glargine [Lantus Solostar U-100 Insulin] 100 unit/mL (3 mL) insulin pen 20 unit SUBCUT BID ondansetron 4 mg tablet,disintegrating 4 mg PO Q6H PRN (Reason: nausea and vomiting) nitrofurantoin monohyd/m-cryst [Macrobid] 100 mg Capsule 100 mg PO Q12HR Qty: 6 0RF calcium carbonate-vitamin D3 [Oyster Shell Calcium-Vit D3] 500 mg-5 mcg (200 unit) Tablet 1 tablet PO DAILY@0800 Qty: 90 0RF sennosides [senna] 8.6 mg Tablet 8.6 mg PO DAILY Qty: 90 0RF potassium chloride 20 mEq Packet 40 meq PO DAILY Qty: 5 0RF Follow-up/Referrals: Willian Chowdhury MD [Primary Care Provider] -
[2024-05-04] MEDS: SODIUM CHLORIDE 0.9% IV 500 ML 999 ML IV CONT (16:28)
[2024-05-04] MEDS: ONDANSETRON INJ 4 MG/2 ML VIAL IV PUSH (16:28)
--- NOTE | 2024-05-04 17:35 | P.HP_ITS ---
H&P: HPI History of Present Illness Date/Time: 05/04/24 17:35 Chief Complaint: Nausea, vomiting, diarrhea. Narrative: This is a 78-year-old female with dementia, hypertension, hyperlipidemia, coronary artery disease, gastroesophageal reflux disease, reflux esophagitis, insulin-dependent type 2 diabetes mellitus, depression, and anxiety presented to the emergency department via EMS from a local nursing facility for evaluation of nausea, vomiting, and diarrhea. She suffers from severe short-term memory loss and is unable to provide an accurate history and all of the following is obtained via a review of her electronic medical records. This will be her 3rd admission to the hospital in the last 5 weeks after presenting each time with similar stated complaints, most recently she was discharged on 04/11/2024. It is my understanding that she has been refusing to eat on occasion and frequently complains of nausea and vomiting, sometimes self-induced according to nursing notes. Recent EGD showed reflux esophagitis grade 2 and it was recommended that she continue on a PPI and Carafate however she was not discharged on Carafate. Stomach biopsies showed no histologic abnormality and was negative for H pylori. Also of note she was noted to have fecal impaction and stercoral colitis on imaging. She presents again today with nausea, vomiting, and diarrhea. On arrival to the ED she was noted to have passed a soft brown stool. Reports of nausea have been inconsistent. She has not vomited since arrival. Currently the patient has no complaints but again she has severe short-term memory loss, perhaps minutes, and she is not reliable historian. In the ED: She was afebrile on arrival with stable vital signs. Labs are significant for WBC count of 14.2, carbon dioxide 31, BUN 20, creatinine 0.80, glucose 199. Urinalysis was highly concentrated with a specific gravity greater than 1.045 and was positive for 2+ protein, 2+ leukocyte esterase, greater than 100 WBC, rare bacteria, and few squamous cells. She does have indwelling Cabral catheter. She was given a L of normal saline and started on vancomycin for possible UTI, given history of Enterococcus UTI. She was also given an enema and passed a very large stool according to the ED provider. Review of Systems Review of Systems: Unable to obtain accurately given severe short-term memory loss as above. 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 Code status: Full code. Smoking status: Never smoker Second hand tobacco smoke exposure: No Alcohol intake: never Substance use: never Substance use type: does not use Do You Feel Safe in your Home?: Yes Lack of Transportation: YES Lack of Food: Never True Current Housing: I Have Housing Concerned About Future Housing: No Difficulty Paying Gas/Electric Bills: No Difficulty Paying for Meds: No Currently Unemployed: No Education: Don't Know Difficulty w/ Childcare or Family Care: No Spiritual care concerns: No Meds Home Medications and Allergies Home Medications Medication Instructions Recorded Confirmed Type acetaminophen 325 mg chewable 650 mg PO Q6H PRN Pain 12/24/23 05/04/24 History tablet amlodipine 5 mg tablet 5 mg PO DAILY 12/24/23 05/04/24 History aspirin 81 mg chewable tablet 81 mg PO DAILY 12/24/23 05/04/24 History atorvastatin 10 mg tablet (Lipitor) 10 mg PO HS 12/24/23 05/04/24 History bisacodyl 10 mg rectal suppository 10 mg RECTAL DAILY PRN Constipation 12/24/23 05/04/24 History cranberry fruit 450 mg tablet 450 mg PO DAILY 12/24/23 05/04/24 History (cranberry) escitalopram oxalate 5 mg tablet 5 mg PO DAILY 12/24/23 05/04/24 History glucagon 1 mg solution for 1 mg IM PRN PRN Hypoglycemia 12/24/23 05/04/24 History injection (GlucaGen HypoKit) magnesium hydroxide 400 mg/5 mL 30 ml PO DAILY PRN Constipation 12/24/23 05/04/24 History oral suspension (Milk of Magnesia) memantine 28 mg capsule 28 mg PO DAILY 12/24/23 05/04/24 History sprinkle,extended release 24hr metoprolol tartrate 25 mg tablet 25 mg PO BID 12/24/23 05/04/24 History mirtazapine 15 mg tablet 15 mg PO HS 12/24/23 05/04/24 History multivitamin with minerals-folic 1 tablet PO DAILY 12/24/23 05/04/24 History acid 0.4 mg tablet sodium phosphates 19 gram-7 118 ml RECTAL DAILY PRN 12/24/23 05/04/24 History gram/118 mL enema (Fleet Enema) Constipation docosahexaenoic acid (dha)-epa 1 cap PO DAILY 04/03/24 05/04/24 History capsule insulin glargine 100 unit/mL (3 25 unit subcut BID 04/03/24 05/04/24 History mL) subcutaneous pen (Lantus Solostar U-100 Insulin) ondansetron 4 mg disintegrating 4 mg PO Q6H PRN nausea and vomiting 04/03/24 05/04/24 History tablet calcium 500 mg (as 1 tablet PO DAILY@0800 #90 tabs 04/11/24 05/04/24 Rx carbonate)-vitamin D3 5 mcg (200 unit) tablet (Oyster Shell Calcium-Vitamin D3) potassium chloride 20 mEq oral 40 meq PO DAILY #5 ea 04/11/24 05/04/24 Rx packet sennosides 8.6 mg tablet (senna) 8.6 mg PO DAILY #90 tabs 04/11/24 05/04/24 Rx Allergies Allergy/AdvReac Type Severity Reaction Status Date / Time Penicillins Allergy Unknown Verified 05/04/24 21:08 Sulfa (Sulfonamide Allergy Unknown Verified 05/04/24 21:08 Antibiotics) trazodone Allergy Unknown Verified 05/04/24 21:08 Vital Signs Vital Signs - 24 hr 05/04/24 13:58 05/04/24 14:43 05/04/24 16:13 Temperature 98.5 F Pulse Rate 102 H 95 Respiratory Rate 16 16 Blood Pressure 151/79 H 146/79 H Pulse Oximetry 98 97 Oxygen Delivery Room Air Exam Narrative: General: Chronically ill-appearing female supine in bed. Weight: 73 kg. BMI: 26.0. HEENT: Slightly hard of hearing. Pupils are slightly irregular but are reactive. Sclera anicteric. Edentulous. Tacky mucous membranes. Neck: Supple. Respiratory: Lungs are clear to auscultation bilaterally. Cardiovascular: Regular rate and rhythm with S1-S2. Gastrointestinal: Abdomen is soft, nontender, and nondistended with positive bowel sounds. No CVA tenderness. Genitourinary: Cabral catheter draining cloudy yellow urine with some sediment. Skin: Warm and dry. Raised, friable lesion on the right lower back. Extremities: No cyanosis, clubbing, or edema. Bilateral transmetatarsal amputations. Radial pulses palpable. Neurological: Alert to name, age, and date date of only. Cranial nerves 2-12 are grossly intact. No new, gross focal deficits. Psychiatric: Pleasantly confused and cooperative. She has extreme short-term memory impairment. H&P: Results Labs Labs: Short CBC 05/04/24 Range/Units 14:28 WBC 14.2 H (4.5-10.0) K/mm3 Hgb 13.3 D (12.0-15.0) g/dL Hct 39.9 (37.0-47.0) % Plt Count 425 H (150-375) k/mm3 BMP 05/04/24 14:28 Sodium 140 Potassium 3.6 Chloride 100 Carbon Dioxide 31 H BUN 20 H D Creatinine 0.80 Glucose 199 H Calcium 9.0 Liver Function 05/04/24 Range/Units 14:28 Total Bilirubin 0.7 (0.2-1.3) mg/dL AST 24 (14-36) U/L ALT 12 (6-35) U/L Alkaline Phosphatase 81 (38-126) U/L Albumin 3.6 (3.5-5.1) g/dL Urine 05/04/24 Range/Units 15:34 Urine Color Yellow (Yellow) Urine Appearance Cloudy H (Clear) Urine pH 8.0 (5.0-9.0) Ur Specific [place] > 1.045 H (1.001-1.035) Urine Protein 2+ H (Negative) mg/dL Urine Glucose (UA) Negative (Negative) mg/dL Impressions Abdomen/Pelvis CT 05/04/24 15:21 IMPRESSION: 1. Likely constipation with fecal impaction and associated stercoral colitis with perirectal and from trace stranding surrounding a 9 similar ball of stool at the rectum. 2. Small to moderate-sized sliding-type hernia with wall thickening at the mid to distal esophagus suspicious for reflux esophagitis. Assessment and Plan Assessment and plan (1) Fecal impaction: Code(s): K56.41 - Fecal impaction Status: Acute (2) Stercoral colitis: Code(s): K52.89 - Other specified noninfective gastroenteritis and colitis Status: Acute (3) Abnormal urinalysis: Code(s): R82.90 - Unspecified abnormal findings in urine Status: Acute (4) Indwelling Cabral catheter present: Code(s): Z97.8 - Presence of other specified devices Status: Acute (5) Reflux esophagitis: Code(s): K21.00 - Gastro-esophageal reflux disease with esophagitis, without bleeding Status: Acute (6) Alzheimer dementia: Code(s): G30.9 - Alzheimer's disease, unspecified; F02.80 - Dementia in other diseases classified elsewhere, unspecified severity, without behavioral disturbance, psychotic disturbance, mood disturbance, and anxiety Status: Acute (7) Hypertension: Code(s): I10 - Essential (primary) hypertension Status: Acute (8) Insulin dependent type 2 diabetes mellitus: Code(s): E11.9 - Type 2 diabetes mellitus without complications; Z79.4 - detention (current) use of insulin Status: Acute Plan The patient presented to the emergency department from [place] for evaluation of nausea, vomiting, and diarrhea. Labs, imaging, EKG, and all reports were personally reviewed. This will be her 3rd admission to the hospital in the last 5 weeks after presenting with similar complaints. Ongoing nausea and intermittent vomiting is likely due to reflux esophagitis noted on recent EGD for which she is not receiving Carafate as suggested. Patient has been witnessed trying to induce vomiting as well. Resume PPI and schedule Carafate. The diarrhea is likely due to overflow from a large fecal impaction seen on CT scan. She had a soapsuds enema with good results in the ED and we will continue with aggressive bowel regimen. Urinalysis is abnormal however she has an indwelling Cabral catheter and due to lack of pain on examination and fever we will hold on further antibiotics pending culture. Vital signs were reviewed and they are stable. She looks a bit dry on exam and will be hydrated overnight. Continue basal insulin. Initiate sliding scale insulin, Accu-Cheks, and hypoglycemic protocol. It may be prudent have discussions with her healthcare power of patent attorney regarding goals of care; palliative care may be appropriate. Her medications will be reviewed and resumed as appropriate. The patient's medical management will be taken over by the hospitalist team in a.m. Quality VTE Prophylaxis VTE prophylaxis: pharmacologic ordered The patient has been admitted under observation status. Hospitalist MIPS Advance Care Plan I have confirmed that the patient's Advanced Care Plan is present, code status is documented, or surrogate decision maker is listed in patient medical record.: Yes Medication Reconciliation I have utilized all available resources to obtain, update and review the patients current medications (includes all prescriptions, OTC, herbals, cannabis, and nutritional supplements).: Yes
--- NOTE | 2024-05-04 18:07 | PC.NURSE ---
Soap suds enema performed. 3x large brown stool balls removed from rectum. Sofi care performed multiple times with soap and water. Cabral catheter cleaned with soap and water.
[2024-05-04] MEDS: VANCOMYCIN 1,250 MG/NS 250 ML 1,250 MG/250 ML BAG 166.67 MG IVPB (18:43)
--- NOTE | 2024-05-04 19:26 | PC.NURSE ---
Pt clean of stool with soap and water. bedding changed. Stool amount brown, liquid and small.
--- NOTE | 2024-05-04 19:36 | PC.NURSE ---
Update provided to ptGianluca HICKS, daughter Angelica. All questions answered. Daughter aware that pt. is being admitte.
[2024-05-04 19:56] LABS: Glucose Point of Care 147 mg/dl (65-105)
--- NOTE | 2024-05-04 20:22 | ADMGEN ---
This patient, Donna Cobb, was admitted to 3 [facility] Surg Room 326-01. Patient/family oriented to hospital policies and general routines including ID bracelet, bed and alarms, visiting hours, pain management, procedures, bathroom and other care routines, personal items, smoking policy, room service/diet, and visiting hours. Information on how to activate the Rapid Response Team has been discussed. Patient/Family are encouraged to report perceived risks to care and to ask questions if they do not understand what they are told or what they should do.
[2024-05-04] MEDS: SUCRALFATE SUSP 100 MG/ML 10 ML UDC 1000 MG PO (23:32)
[2024-05-04] MEDS: ATORVASTATIN 10 MG TABLET PO (23:32)
[2024-05-04] MEDS: SODIUM CHLORIDE 0.9% IV 1,000 ML 75 ML IV CONT (23:32)
[2024-05-04] MEDS: INSULIN GLARGINE (*BKC) 100 UNITS/ML 25 UNITS SUB-Q (23:33)
[2024-05-04] MEDS: METOPROLOL TARTRATE 25 MG TABLET PO (23:33)
[2024-05-04] MEDS: MIRTAZAPINE 15 MG TABLET PO (23:33)
[2024-05-05] VITALS (7 sets, daily range): BP systolic 119–133; BP diastolic 51–65; PULSE 66–76; RESP 14–16; TEMP 36.2–36.6; O2SAT 92–98
[2024-05-05] MEDS: SUCRALFATE SUSP 100 MG/ML 10 ML UDC 1000 MG PO ×4 (06:42→21:28)
[2024-05-05 07:25] LABS: Hematocrit 35.2 % (37.0-47.0); Hemoglobin 11.1 g/dL (12.0-15.0); Mean Corpuscular HGB Conc 31.5 g/dl (32-36); Mean Corpuscular Hemoglobin 28.4 pg (26-34); Mean Platelet Volume 10.8 fl (7.4-10.4); Platelet Count Result 387 k/mm3 (150-375); Red Blood Count 3.91 M/mm3 (4.2-5.4); Red Cell Distribution Width 14.7 % (11.5-14.5); White Blood Count 10.2 K/mm3 (4.5-10.0)
[2024-05-05 07:38] LABS: Glucose Point of Care 76 mg/dl (65-105)
[2024-05-05 07:41] LABS: Anion Gap 4 mmol/L (4-12); Blood Urea Nitrogen 21 mg/dL (7-17); Calcium 8.5 mg/dL (8.4-10.2); Carbon Dioxide 29 mmol/L (22-30); Chloride 106 mmol/L (98-107); Estimated CRCL calculation 39 ml/min; Estimated Glomerular Filt Rate 54; Glucose 77 mg/dL (65-110); Magnesium 1.4 mg/dL (1.6-2.3); Potassium 3.4 mmol/L (3.4-5.0); Sodium 139 mmol/L (137-145)
[2024-05-05] MEDS: ESCITALOPRAM OXALATE 5 MG TABLET PO (08:39)
[2024-05-05] MEDS: SENNOSIDES 8.6 MG TABLET PO (08:40)
[2024-05-05] MEDS: METOPROLOL TARTRATE 25 MG TABLET PO ×2 (08:40→21:29)
[2024-05-05] MEDS: CALCIUM/VITAMIN D 500 MG/5 MCG (200 I.U.) TABLET PO (08:41)
[2024-05-05] MEDS: ASPIRIN 81 MG CHEWABLE TABLET PO (08:41)
[2024-05-05] MEDS: THERAPEUTIC MULTIVITAMINS/MINERALS TAB (*BKC) 1 TABLET PO (08:41)
[2024-05-05] MEDS: POTASSIUM CHLORIDE 20 MEQ PACKET (FOR LIQUID) 40 MEQ PO (08:42)
[2024-05-05] MEDS: amLODIPine BESYLATE 5 MG TABLET PO (08:42)
[2024-05-05] MEDS: polyethylene glycoL 3350 17 GM POWD.PACK PO (08:42)
[2024-05-05] MEDS: PANTOPRAZOLE 40 MG TABLET PO (08:42)
[2024-05-05] MEDS: MEMANTINE HCL XR 28 MG CAP PO (08:45)
[2024-05-05] MEDS: MAGNESIUM SULF 2 GM/WATER 50ML 2 GM/50 ML BAG IVPB (09:01)
--- NOTE | 2024-05-05 11:06 | P.PNIM_ITS ---
Progress Note: A&P Assessment and Plan (1) Fecal impaction: Code(s): K56.41 - Fecal impaction Status: Acute (2) Stercoral colitis: Code(s): K52.89 - Other specified noninfective gastroenteritis and colitis Status: Acute (3) Abnormal urinalysis: Code(s): R82.90 - Unspecified abnormal findings in urine Status: Acute (4) Indwelling Cabral catheter present: Code(s): Z97.8 - Presence of other specified devices Status: Acute (5) Reflux esophagitis: Code(s): K21.00 - Gastro-esophageal reflux disease with esophagitis, without bleeding Status: Acute (6) Alzheimer dementia: Code(s): G30.9 - Alzheimer's disease, unspecified; F02.80 - Dementia in other diseases classified elsewhere, unspecified severity, without behavioral disturbance, psychotic disturbance, mood disturbance, and anxiety Status: Acute (7) Hypertension: Code(s): I10 - Essential (primary) hypertension Status: Acute (8) Insulin dependent type 2 diabetes mellitus: Code(s): E11.9 - Type 2 diabetes mellitus without complications; Z79.4 - jail (current) use of insulin Status: Acute Plan This is a 78-year-old female with dementia, hypertension, hyperlipidemia, coronary artery disease, gastroesophageal reflux disease, reflux esophagitis, insulin-dependent type 2 diabetes mellitus, depression, and anxiety presented to the emergency department via EMS from a local nursing facility for evaluation of nausea, vomiting, and diarrhea. She suffers from severe short-term memory loss and is unable to provide an accurate history and all of the following is obtained via a review of her electronic medical records. This will be her 3rd admission to the hospital in the last 5 weeks after presenting each time with similar stated complaints, most recently she was discharged on 04/11/2024. It is my understanding that she has been refusing to eat on occasion and frequently complains of nausea and vomiting, sometimes self-induced according to nursing notes. Recent EGD showed reflux esophagitis grade 2 and it was recommended that she continue on a PPI and Carafate however she was not discharged on Carafate. Stomach biopsies showed no histologic abnormality and was negative for H pylori. Also of note she was noted to have fecal impaction and stercoral colitis on im aging. She presents again today with nausea, vomiting, and diarrhea. On arrival to the ED she was noted to have passed a soft brown stool. Reports of nausea have been inconsistent. She has not vomited since arrival. Currently the patient has no complaints but again she has severe short-term memory loss, perhaps minutes, and she is not reliable historian. In the ED: She was afebrile on arrival with stable vital signs. Labs are significant for WBC count of 14.2, carbon dioxide 31, BUN 20, creatinine 0.80, glucose 199. Urinalysis was highly concentrated with a specific gravity greater than 1.045 and was positive for 2+ protein, 2+ leukocyte esterase, greater than 100 WBC, rare bacteria, and few squamous cells. She does have indwelling Cabral catheter. She was given a L of normal saline and started on vancomycin for possible UTI, given history of Enterococcus UTI. She was also given an enema and passed a very large stool according to the ED provider. CT evidence of likely constipation with fecal impaction and associated stercoral colitis with perirectal area with trace stranding surrounding 9 cm ball of stool at the rectum. With intimacy started having bowel movement now. This will be her 3rd admission to the hospital in the last 5 weeks after presenting with similar complaints. Ongoing nausea and intermittent vomiting is likely due to reflux esophagitis noted on recent EGD for which she is not receiving Carafate as suggested. Patient has been witnessed trying to induce vomiting as well. Resume PPI and schedule Carafate. The diarrhea is likely due to overflow from a large fecal impaction seen on CT scan. Continue on bowel regimen Urinalysis is abnormal however she has an indwelling Cabral catheter and due to lack of pain on examination and fever we will hold on further antibiotics pending culture. Type 2 diabetes: Continue basal insulin. Initiate sliding scale insulin, Accu- Cheks, and hypoglycemic protocol. DVT prophylaxis Lovenox Code status full code Subjective Date/time seen: 05/05/24 11:06 Interval history: No overnight events. Patient denies any complaints. She is having bowel movements now. Denies any abdominal pain or nausea vomiting. Wants to go back home. Review of Systems Review of Systems: All systems reviewed & are unremarkable except as noted in HPI and below Exam Narrative: General: Chronically ill-appearing female supine in bed. Weight: Not in acute distress HEENT: Slightly hard of hearing. Pupils are slightly irregular but are reactive. Sclera anicteric. Edentulous. Tacky mucous membranes. Neck: Supple. Respiratory: Lungs are clear to auscultation bilaterally. No respiratory distress Cardiovascular: Regular rate and rhythm with S1-S2. Gastrointestinal: Abdomen is soft, nontender, and nondistended with positive bowel sounds. No CVA tenderness. Genitourinary: Cabral catheter draining cloudy yellow urine with some sediment. Skin: Warm and dry. Raised, friable lesion on the right lower back. Extremities: No cyanosis, clubbing, or edema. Bilateral transmetatarsal amputations. Radial pulses palpable. Neurological: Alert to name, age, and date date of only. Cranial nerves 2-12 are grossly intact. No new, gross focal deficits. Psychiatric: Pleasantly confused and cooperative. She has extreme short-term memory impairment. Objective Data Vital Signs Vital Signs: Vital Signs - 24 hr 05/04/24 13:58 05/04/24 14:43 05/04/24 16:13 Temperature 98.5 F Pulse Rate 102 H 95 Respiratory Rate 16 16 Blood Pressure 151/79 H 146/79 H Pulse Oximetry 98 97 Oxygen Delivery Room Air 05/04/24 18:11 05/04/24 19:59 05/04/24 23:33 Temperature 99.1 F Pulse Rate 98 88 92 Respiratory Rate 16 14 Blood Pressure 158/71 H 141/66 H Pulse Oximetry 98 98 Oxygen Delivery 05/04/24 23:44 05/05/24 03:48 05/05/24 08:00 Temperature 98.3 F 97.8 F 97.3 F L Pulse Rate 89 67 75 Respiratory Rate 12 14 16 Blood Pressure 120/66 129/65 133/63 Pulse Oximetry 96 97 92 Oxygen Delivery 05/05/24 08:40 Temperature Pulse Rate 75 Respiratory Rate Blood Pressure Pulse Oximetry Oxygen Delivery Intake/Output Intake/Output: Intake & Output 05/02/24 05/03/24 05/04/24 05/05/24 23:59 23:59 23:59 23:59 Intake Total 500 100 Output Total 200 Balance 500 -100 Meds/Results Medications: Active Medications Generic Name Dose Route Start Last Admin Trade Name Freq PRN Reason Stop Dose Admin Amlodipine Besylate 5 mg 05/05/24 09:00 05/05/24 08:42 Amlodipine Besylate 5 Mg Tablet PO 5 mg DAILY MARY Administration Aspirin 81 mg 05/05/24 09:00 05/05/24 08:41 Aspirin 81 Mg Chewable Tablet PO 81 mg DAILY MARY Administration Atorvastatin Calcium 10 mg 05/04/24 22:30 05/04/24 23:32 Atorvastatin 10 Mg Tablet PO 10 mg HS [facility] Administration Calcium Carbonate 500 mg 05/05/24 08:00 05/05/24 08:41 Calcium/Vitamin D 500 Mg/5 Mcg (200 I.U.) Tablet PO 500 mg DAILY@0800 MARY Administration Dextrose 12.5 gm 05/04/24 22:22 Dextrose 50% 25 Gm/50 Ml Syringe IV PUSH PRN PRN Hypoglycemia Protocol Escitalopram Oxalate 5 mg 05/05/24 09:00 05/05/24 08:39 Escitalopram Oxalate 5 Mg Tablet PO 5 mg DAILY MARY Administration Glucagon 1 mg 05/04/24 22:22 Glucagon For Inj 1 Mg Vial IM PRN PRN Hypoglycemia Protocol Glucose 15 gm 05/04/24 22:22 Glucose Oral Gel 15 Gm Of Glucse In 37.5 Gm Tube PO PRN PRN Hypoglycemia Protocol Dextrose 1,000 mls @ 100 mls/hr 05/04/24 22:22 Dextrose 5% 1,000 Ml IVPB PRN PRN Hypoglycemia Protocol Sodium Chloride 1,000 mls @ 75 mls/hr 05/04/24 22:23 05/04/24 23:32 Normal Saline Iv IV CONT 05/05/24 11:42 75 mls/hr .[id number] ONE Administration Insulin Aspart 1 - 3 units 05/04/24 22:30 05/04/24 23:32 Insulin Aspart (*Bkc) 100 Units/Ml SUB-Q Not Given HS [facility] Protocol Insulin Aspart 3 - 6 units 05/05/24 08:00 05/05/24 07:44 Insulin Aspart (*Bkc) 100 Units/Ml SUB-Q Not Given TIDWM [facility] Protocol Insulin Glargine 25 units 05/04/24 22:35 05/05/24 07:48 Insulin Glargine (*Bkc) 100 Units/Ml SUB-Q Not Given Q12HR [facility] Memantine 28 mg 05/05/24 09:00 05/05/24 08:45 Memantine Hcl Xr 28 Mg Cap PO 28 mg DAILY MARY Administration Metoprolol Tartrate 25 mg 05/04/24 22:35 05/05/24 08:40 Metoprolol Tartrate 25 Mg Tablet PO 25 mg Q12HR MARY Administration Mirtazapine 15 mg 05/04/24 22:35 05/04/24 23:33 Mirtazapine 15 Mg Tablet PO 15 mg HS MARY Administration Multivitamins/Calcium 1 tablet 05/05/24 09:00 05/05/24 08:41 Therapeutic Multivitamins/Minerals Tab (*Bkc) PO 1 tablet DAILY MARY Administration Non-Formulary Medication 1 each 05/04/24 22:30 Nonformulary Nutritional Supplement XX 05/05/24 22:29 PRN PRN PROTOCOL Non-Formulary Medication 1 each 05/04/24 22:30 Nonformulary Nutritional Supplement XX 05/05/24 22:29 PRN PRN PROTOCOL Pantoprazole Sodium 40 mg 05/05/24 09:00 05/05/24 08:42 Pantoprazole 40 Mg Tablet PO 40 mg QAM MARY Administration Polyethylene Glycol 17 gm 05/05/24 09:00 05/05/24 08:42 Polyethylene Glycol 3350 17 Gm Powd.Pack PO 17 gm QAM MARY Administration Potassium Chloride 40 meq 05/05/24 09:00 05/05/24 08:42 Potassium Chloride 20 Meq Packet (For Liquid) PO 40 meq DAILY MARY Administration Senna 8.6 mg 05/05/24 09:00 05/05/24 08:40 Sennosides 8.6 Mg Tablet PO 8.6 mg DAILY MARY Administration Sucralfate 1,000 mg 05/04/24 22:30 05/05/24 06:42 Sucralfate Susp 100 Mg/Ml 10 Ml Udc PO 1,000 mg ACHS MARY Administration Radiology Results: ITS Impressions Abdomen/Pelvis CT 05/04/24 15:21 IMPRESSION: 1. Likely constipation with fecal impaction and associated stercoral colitis with perirectal and from trace stranding surrounding a 9 similar ball of stool at the rectum. 2. Small to moderate-sized sliding-type hernia with wall thickening at the mid to distal esophagus suspicious for reflux esophagitis. Labs Labs: Laboratory Results - last 24 hr 05/04/24 05/04/24 05/04/24 14:28 15:34 19:54 WBC 14.2 H RBC 4.59 Hgb 13.3 D Hct 39.9 MCV 86.9 MCH 29.0 MCHC 33.3 RDW 14.5 Plt Count 425 H MPV 10.7 H Immature Gran % (Auto) 0.4 Neut % (Auto) 75.5 H Lymph % (Auto) 16.3 L [place] % (Auto) 7.3 Eos % (Auto) 0.1 Baso % (Auto) 0.4 Lymph # (Auto) 2.31 [place] # (Auto) 1.0 H Eos # (Auto) 0.0 Baso # (Auto) 0.1 Abs Immat Gran (auto) 0.05 H Absolute Neuts (auto) 10.7 H Absolute Nucleated RBC 0.000 Nucleated RBC % 0.0 Sodium 140 Potassium 3.6 Chloride 100 Carbon Dioxide 31 H Anion Gap 9 BUN 20 H D Creatinine 0.80 Estim Creat Clear Calc Not Reportable Estimated GFR > 60 Glucose 199 H POC Capillary Glucose 147 H Calcium 9.0 Magnesium Total Bilirubin 0.7 AST 24 ALT 12 Alkaline Phosphatase 81 Total Protein 7.0 Albumin 3.6 Lipase 26 Urine Color Yellow Urine Appearance Cloudy H Urine pH 8.0 Ur Specific [place] > 1.045 H Urine Protein 2+ H Urine Glucose (UA) Negative Urine Ketones Negative Ur Blood (Man) Negative Urine Nitrate Negative Urine Bilirubin Negative Urine Urobilinogen 1.0 Add Ur Microanalysis Reviewed Leukocyte Esterase Rfl 2+ H Urine RBC 3-5 H Urine WBC >100 H Ur Squamous Epith Cells Few Ur Transition Epith Cell Occasional Urine Bacteria Rare Urine Casts 11-20 05/05/24 05/05/24 06:36 07:25 WBC 10.2 H RBC 3.91 L Hgb 11.1 L Hct 35.2 L MCV 90.0 MCH 28.4 MCHC 31.5 L RDW 14.7 H Plt Count 387 H MPV 10.8 H Immature Gran % (Auto) Neut % (Auto) Lymph % (Auto) [place] % (Auto) Eos % (Auto) Baso % (Auto) Lymph # (Auto) [place] # (Auto) Eos # (Auto) Baso # (Auto) Abs Immat Gran (auto) Absolute Neuts (auto) Absolute Nucleated RBC Nucleated RBC % Sodium 139 Potassium 3.4 Chloride 106 Carbon Dioxide 29 Anion Gap 4 BUN 21 H Creatinine 1.00 Estim Creat Clear Calc 39 Estimated GFR 54 L Glucose 77 POC Capillary Glucose 76 Calcium 8.5 Magnesium 1.4 L Total Bilirubin AST ALT Alkaline Phosphatase Total Protein Albumin Lipase Urine Color Urine Appearance Urine pH Ur Specific [place] Urine Protein Urine Glucose (UA) Urine Ketones Ur Blood (Man) Urine Nitrate Urine Bilirubin Urine Urobilinogen Add Ur Microanalysis Leukocyte Esterase Rfl Urine RBC Urine WBC Ur Squamous Epith Cells Ur Transition Epith Cell Urine Bacteria Urine Casts
[2024-05-05 11:35] LABS: Glucose Point of Care 104 mg/dl (65-105)
[2024-05-05 16:44] LABS: Glucose Point of Care 157 mg/dl (65-105)
[2024-05-05 19:55] LABS: Glucose Point of Care 250 mg/dl (65-105)
[2024-05-05] MEDS: MIRTAZAPINE 15 MG TABLET PO (21:29)
[2024-05-05] MEDS: ATORVASTATIN 10 MG TABLET PO (21:30)
[2024-05-05] MEDS: INSULIN GLARGINE (*BKC) 100 UNITS/ML 25 UNITS SUB-Q (21:33)
[2024-05-05] MEDS: INSULIN ASPART (*BKC) 100 UNITS/ML SUB-Q (23:51)
[2024-05-06 05:31] VITALS: BP 153/54; PULSE 56; RESP 14; TEMP 36.1; O2SAT 95
[2024-05-06] MEDS: SUCRALFATE SUSP 100 MG/ML 10 ML UDC 1000 MG PO ×4 (05:58→22:02)
[2024-05-06 06:45] LABS: Basophils Absolute Auto 0.1 K/mm3 (0.0-0.1); Basophils Percent Auto 0.7 % (0.2-1.2); Eosinophils Absolute Auto 0.3 K/mm3 (0-0.3); Eosinophils Percent Auto 3.5 % (0-4.4); Hematocrit 33.7 % (37.0-47.0); Hemoglobin 11.1 g/dL (12.0-15.0); Immature Granulocyte Absolute 0.02 K/mm3 (0.00-0.031); Immature Granulocyte Percent A 0.2 % (0-0.5); Lymphocytes Absolute Auto 4.02 K/mm3 (0.9-3.2); Lymphocytes Percent Auto 42.6 % (18.3-44.2); Mean Corpuscular HGB Conc 32.9 g/dl (32-36); Mean Corpuscular Hemoglobin 28.9 pg (26-34); Mean Corpuscular Volume 87.8 fl (80-100); Mean Platelet Volume 10.4 fl (7.4-10.4); Monocytes Percent Auto 10.4 % (2.6-8.5); Neutrophils Percent Auto 42.6 % (45.5-73.1); Platelet Count Result 376 k/mm3 (150-375); Red Blood Count 3.84 M/mm3 (4.2-5.4); Red Cell Distribution Width 14.5 % (11.5-14.5); White Blood Count 9.4 K/mm3 (4.5-10.0)
[2024-05-06 06:59] LABS: Alanine Aminotransferase 10 U/L (6-35); Albumin Level 3.3 g/dL (3.5-5.1); Alkaline Phosphatase 75 U/L (38-126); Anion Gap 4 mmol/L (4-12); Aspartate Amino Transferase 19 U/L (14-36); Bilirubin,Total 0.6 mg/dL (0.2-1.3); Blood Urea Nitrogen 22 mg/dL (7-17); Calcium 8.5 mg/dL (8.4-10.2); Carbon Dioxide 29 mmol/L (22-30); Chloride 105 mmol/L (98-107); Estimated CRCL calculation 36 ml/min; Estimated Glomerular Filt Rate 48; Glucose 69 mg/dL (65-110); Magnesium 1.8 mg/dL (1.6-2.3); Potassium 3.5 mmol/L (3.4-5.0); Sodium 138 mmol/L (137-145)
[2024-05-06 08:12] LABS: Glucose Point of Care 71 mg/dl (65-105)
[2024-05-06] MEDS: polyethylene glycoL 3350 17 GM POWD.PACK PO (09:03)
[2024-05-06] MEDS: POTASSIUM CHLORIDE 20 MEQ PACKET (FOR LIQUID) 40 MEQ PO (09:04)
[2024-05-06] MEDS: ENOXAPARIN 40 MG/0.4 ML SYRINGE SUB-Q (09:05)
[2024-05-06] MEDS: PANTOPRAZOLE 40 MG TABLET PO (09:06)
[2024-05-06] MEDS: THERAPEUTIC MULTIVITAMINS/MINERALS TAB (*BKC) 1 TABLET PO (09:06)
[2024-05-06] MEDS: ASPIRIN 81 MG CHEWABLE TABLET PO (09:06)
[2024-05-06] MEDS: MEMANTINE HCL XR 28 MG CAP PO (09:06)
[2024-05-06] MEDS: amLODIPine BESYLATE 5 MG TABLET PO (09:06)
[2024-05-06 09:07] VITALS: PULSE 69
[2024-05-06] MEDS: SENNOSIDES 8.6 MG TABLET PO (09:07)
[2024-05-06] MEDS: METOPROLOL TARTRATE 25 MG TABLET PO ×2 (09:07→22:00)
[2024-05-06] MEDS: CALCIUM/VITAMIN D 500 MG/5 MCG (200 I.U.) TABLET PO (09:07)
[2024-05-06] MEDS: ESCITALOPRAM OXALATE 5 MG TABLET PO (09:07)
[2024-05-06 11:40] LABS: Glucose Point of Care 123 mg/dl (65-105)
--- NOTE | 2024-05-06 12:22 | P.PNIM_ITS ---
Progress Note: A&P Assessment and Plan (1) Fecal impaction: Code(s): K56.41 - Fecal impaction Status: Acute (2) Stercoral colitis: Code(s): K52.89 - Other specified noninfective gastroenteritis and colitis Status: Acute (3) Abnormal urinalysis: Code(s): R82.90 - Unspecified abnormal findings in urine Status: Acute (4) Indwelling Cabral catheter present: Code(s): Z97.8 - Presence of other specified devices Status: Acute (5) Reflux esophagitis: Code(s): K21.00 - Gastro-esophageal reflux disease with esophagitis, without bleeding Status: Acute (6) Alzheimer dementia: Code(s): G30.9 - Alzheimer's disease, unspecified; F02.80 - Dementia in other diseases classified elsewhere, unspecified severity, without behavioral disturbance, psychotic disturbance, mood disturbance, and anxiety Status: Acute (7) Hypertension: Code(s): I10 - Essential (primary) hypertension Status: Acute (8) Insulin dependent type 2 diabetes mellitus: Code(s): E11.9 - Type 2 diabetes mellitus without complications; Z79.4 - assisted (current) use of insulin Status: Acute Plan This is a 78-year-old female with dementia, hypertension, hyperlipidemia, coronary artery disease, gastroesophageal reflux disease, reflux esophagitis, insulin-dependent type 2 diabetes mellitus, depression, and anxiety presented to the emergency department via EMS from a local nursing facility for evaluation of nausea, vomiting, and diarrhea. She suffers from severe short-term memory loss and is unable to provide an accurate history and all of the following is obtained via a review of her electronic medical records. This will be her 3rd admission to the hospital in the last 5 weeks after presenting each time with similar stated complaints, most recently she was discharged on 04/11/2024. It is my understanding that she has been refusing to eat on occasion and frequently complains of nausea and vomiting, sometimes self-induced according to nursing notes. Recent EGD showed reflux esophagitis grade 2 and it was recommended that she continue on a PPI and Carafate however she was not discharged on Carafate. Stomach biopsies showed no histologic abnormality and was negative for H pylori. Also of note she was noted to have fecal impaction and stercoral colitis on im aging. She presents again today with nausea, vomiting, and diarrhea. On arrival to the ED she was noted to have passed a soft brown stool. Reports of nausea have been inconsistent. She has not vomited since arrival. Currently the patient has no complaints but again she has severe short-term memory loss, perhaps minutes, and she is not reliable historian. In the ED: She was afebrile on arrival with stable vital signs. Labs are significant for WBC count of 14.2, carbon dioxide 31, BUN 20, creatinine 0.80, glucose 199. Urinalysis was highly concentrated with a specific gravity greater than 1.045 and was positive for 2+ protein, 2+ leukocyte esterase, greater than 100 WBC, rare bacteria, and few squamous cells. She does have indwelling Cabral catheter. She was given a L of normal saline and started on vancomycin for possible UTI, given history of Enterococcus UTI. She was also given an enema and passed a very large stool according to the ED provider. CT evidence of likely constipation with fecal impaction and associated stercoral colitis with perirectal area with trace stranding surrounding 9 cm ball of stool at the rectum. With intimacy started having bowel movement now. This will be her 3rd admission to the hospital in the last 5 weeks after presenting with similar complaints. Ongoing nausea and intermittent vomiting is likely due to reflux esophagitis noted on recent EGD for which she is not receiving Carafate as suggested. Patient has been witnessed trying to induce vomiting as well. Resume PPI and schedule Carafate. The diarrhea is likely due to overflow from a large fecal impaction seen on CT scan. Continue on bowel regimen Urinalysis is abnormal however she has an indwelling Cabral catheter and due to lack of pain on examination and fever we will hold on further antibiotics. Urine culture no growth. Blood culture no growth to date Type 2 diabetes: Continue basal insulin. Initiate sliding scale insulin, Accu- Cheks, and hypoglycemic protocol. DVT prophylaxis Lovenox Code status full code Subjective Date/time seen: 05/06/24 12:22 Interval history: No overnight events. No shortness of breath or chest pain. No new complaints Review of Systems Review of Systems: All systems reviewed & are unremarkable except as noted in HPI and below Exam Narrative: General: Chronically ill-appearing female supine in bed. Not in acute distress HEENT: Slightly hard of hearing. Pupils are slightly irregular but are reactive. Sclera anicteric. Edentulous. Tacky mucous membranes. Neck: Supple. Respiratory: Lungs are clear to auscultation bilaterally. No respiratory distr ess Cardiovascular: Regular rate and rhythm with S1-S2. Gastrointestinal: Abdomen is soft, nontender, and nondistended with positive bowel sounds. No CVA tenderness. Genitourinary: Cabral catheter draining cloudy yellow urine with some sediment. Skin: Warm and dry. Raised, friable lesion on the right lower back. Extremities: No cyanosis, clubbing, or edema. Bilateral transmetatarsal amputations. Radial pulses palpable. Neurological: Alert to name, age, and date date of only. Cranial nerves 2-12 are grossly intact. No new, gross focal deficits. Psychiatric: Pleasantly confused and cooperative. She has extreme short-term memory impairment. Objective Data Vital Signs Vital Signs: Vital Signs - 24 hr 05/05/24 14:00 05/05/24 21:18 05/05/24 21:29 Temperature 97.1 F L 97.3 F L Pulse Rate 70 76 76 Respiratory Rate 16 14 Blood Pressure 133/51 L 119/54 L Pulse Oximetry 97 94 Oxygen Delivery 05/05/24 21:33 05/06/24 05:31 05/06/24 09:07 Temperature 97.0 F L Pulse Rate 56 L 69 Respiratory Rate 14 Blood Pressure 153/54 H Pulse Oximetry 95 Oxygen Delivery Room Air Intake/Output Intake/Output: Intake & Output 05/03/24 05/04/24 05/05/24 05/06/24 23:59 23:59 23:59 23:59 Intake Total 500 1680 440 Output Total 350 400 Balance 500 1330 40 Meds/Results Medications: Active Medications Generic Name Dose Route Start Last Admin Trade Name Freq PRN Reason Stop Dose Admin Amlodipine Besylate 5 mg 05/05/24 09:00 05/06/24 09:06 Amlodipine Besylate 5 Mg Tablet PO 5 mg DAILY MARY Administration Aspirin 81 mg 05/05/24 09:00 05/06/24 09:06 Aspirin 81 Mg Chewable Tablet PO 81 mg DAILY MARY Administration Atorvastatin Calcium 10 mg 05/04/24 22:30 05/05/24 21:30 Atorvastatin 10 Mg Tablet PO 10 mg HS MARY Administration Calcium Carbonate 500 mg 05/05/24 08:00 05/06/24 09:07 Calcium/Vitamin D 500 Mg/5 Mcg (200 I.U.) Tablet PO 500 mg DAILY@0800 MARY Administration Dextrose 12.5 gm 05/04/24 22:22 Dextrose 50% 25 Gm/50 Ml Syringe IV PUSH PRN PRN Hypoglycemia Protocol Enoxaparin Sodium 40 mg 05/06/24 09:00 05/06/24 09:05 Enoxaparin 40 Mg/0.4 Ml Syringe SUB-Q 40 mg DAILY MARY Administration Escitalopram Oxalate 5 mg 05/05/24 09:00 05/06/24 09:07 Escitalopram Oxalate 5 Mg Tablet PO 5 mg DAILY MARY Administration Glucagon 1 mg 05/04/24 22:22 Glucagon For Inj 1 Mg Vial IM PRN PRN Hypoglycemia Protocol Glucose 15 gm 05/04/24 22:22 Glucose Oral Gel 15 Gm Of Glucse In 37.5 Gm Tube PO PRN PRN Hypoglycemia Protocol Dextrose 1,000 mls @ 100 mls/hr 05/04/24 22:22 Dextrose 5% 1,000 Ml IVPB PRN PRN Hypoglycemia Protocol Insulin Aspart 1 - 3 units 05/04/24 22:30 05/05/24 23:51 Insulin Aspart (*Bkc) 100 Units/Ml SUB-Q 1 units HS MARY Administration Protocol Insulin Aspart 3 - 6 units 05/05/24 08:00 05/06/24 11:44 Insulin Aspart (*Bkc) 100 Units/Ml SUB-Q Not Given TIDWM [facility] Protocol Insulin Glargine 25 units 05/05/24 21:00 05/05/24 21:33 Insulin Glargine (*Bkc) 100 Units/Ml SUB-Q 25 units HS MARY Administration Memantine 28 mg 05/05/24 09:00 05/06/24 09:06 Memantine Hcl Xr 28 Mg Cap PO 28 mg DAILY MARY Administration Metoprolol Tartrate 25 mg 05/04/24 22:35 05/06/24 09:07 Metoprolol Tartrate 25 Mg Tablet PO 25 mg Q12HR MARY Administration Mirtazapine 15 mg 05/04/24 22:35 05/05/24 21:29 Mirtazapine 15 Mg Tablet PO 15 mg HS MARY Administration Multivitamins/Calcium 1 tablet 05/05/24 09:00 05/06/24 09:06 Therapeutic Multivitamins/Minerals Tab (*Bkc) PO 1 tablet DAILY MARY Administration Pantoprazole Sodium 40 mg 05/05/24 09:00 05/06/24 09:06 Pantoprazole 40 Mg Tablet PO 40 mg QAM MARY Administration Polyethylene Glycol 17 gm 05/05/24 09:00 05/06/24 09:03 Polyethylene Glycol 3350 17 Gm Powd.Pack PO 17 gm QAM MARY Administration Potassium Chloride 40 meq 05/05/24 09:00 05/06/24 09:04 Potassium Chloride 20 Meq Packet (For Liquid) PO 40 meq DAILY MARY Administration Senna 8.6 mg 05/05/24 09:00 05/06/24 09:07 Sennosides 8.6 Mg Tablet PO 8.6 mg DAILY MARY Administration Sucralfate 1,000 mg 05/04/24 22:30 05/06/24 11:08 Sucralfate Susp 100 Mg/Ml 10 Ml Udc PO 1,000 mg ACHS MARY Administration Radiology Results: ITS Impressions Abdomen/Pelvis CT 05/04/24 15:21 IMPRESSION: 1. Likely constipation with fecal impaction and associated stercoral colitis with perirectal and from trace stranding surrounding a 9 similar ball of stool at the rectum. 2. Small to moderate-sized sliding-type hernia with wall thickening at the mid to distal esophagus suspicious for reflux esophagitis. Labs Labs: Laboratory Results - last 24 hr 05/05/24 05/05/24 05/06/24 16:35 19:24 06:25 WBC 9.4 RBC 3.84 L Hgb 11.1 L Hct 33.7 L MCV 87.8 MCH 28.9 MCHC 32.9 RDW 14.5 Plt Count 376 H MPV 10.4 Immature Gran % (Auto) 0.2 Neut % (Auto) 42.6 L Lymph % (Auto) 42.6 [place] % (Auto) 10.4 H Eos % (Auto) 3.5 Baso % (Auto) 0.7 Lymph # (Auto) 4.02 H [place] # (Auto) 1.0 H Eos # (Auto) 0.3 Baso # (Auto) 0.1 Abs Immat Gran (auto) 0.02 Absolute Neuts (auto) 4.0 Absolute Nucleated RBC 0.000 Nucleated RBC % 0.0 Sodium 138 Potassium 3.5 Chloride 105 Carbon Dioxide 29 Anion Gap 4 BUN 22 H Creatinine 1.10 H Estim Creat Clear Calc 36 Estimated GFR 48 L Glucose 69 POC Capillary Glucose 157 H 250 H Calcium 8.5 Magnesium 1.8 Total Bilirubin 0.6 AST 19 ALT 10 Alkaline Phosphatase 75 Total Protein 6.0 L Albumin 3.3 L 05/06/24 05/06/24 08:08 11:37 WBC RBC Hgb Hct MCV MCH MCHC RDW Plt Count MPV Immature Gran % (Auto) Neut % (Auto) Lymph % (Auto) [place] % (Auto) Eos % (Auto) Baso % (Auto) Lymph # (Auto) [place] # (Auto) Eos # (Auto) Baso # (Auto) Abs Immat Gran (auto) Absolute Neuts (auto) Absolute Nucleated RBC Nucleated RBC % Sodium Potassium Chloride Carbon Dioxide Anion Gap BUN Creatinine Estim Creat Clear Calc Estimated GFR Glucose POC Capillary Glucose 71 123 H Calcium Magnesium Total Bilirubin AST ALT Alkaline Phosphatase Total Protein Albumin
[2024-05-06 14:00] VITALS: BP 112/55; PULSE 65; RESP 16; TEMP 36.5; O2SAT 96
[2024-05-06 16:05] LABS: Glucose Point of Care 181 mg/dl (65-105)
[2024-05-06 21:31] LABS: Glucose Point of Care 191 mg/dl (65-105)
[2024-05-06 21:43] VITALS: BP 122/50; PULSE 84; RESP 18; TEMP 36.7; O2SAT 92
[2024-05-06 22:00] VITALS: PULSE 74
[2024-05-06] MEDS: MIRTAZAPINE 15 MG TABLET PO (22:00)
[2024-05-06] MEDS: ATORVASTATIN 10 MG TABLET PO (22:00)
[2024-05-06] MEDS: INSULIN GLARGINE (*BKC) 100 UNITS/ML 20 UNITS SUB-Q (22:03)
[2024-05-07 05:51] VITALS: BP 132/52; PULSE 60; RESP 18; TEMP 36.6; O2SAT 96
[2024-05-07] MEDS: SUCRALFATE SUSP 100 MG/ML 10 ML UDC 1000 MG PO ×2 (06:04→11:27)
[2024-05-07 07:25] LABS: Basophils Absolute Auto 0.1 K/mm3 (0.0-0.1); Basophils Percent Auto 0.8 % (0.2-1.2); Eosinophils Absolute Auto 0.3 K/mm3 (0-0.3); Eosinophils Percent Auto 3.9 % (0-4.4); Hematocrit 35.2 % (37.0-47.0); Hemoglobin 11.2 g/dL (12.0-15.0); Immature Granulocyte Absolute 0.03 K/mm3 (0.00-0.031); Immature Granulocyte Percent A 0.4 % (0-0.5); Lymphocytes Absolute Auto 2.84 K/mm3 (0.9-3.2); Lymphocytes Percent Auto 38.5 % (18.3-44.2); Mean Corpuscular HGB Conc 31.8 g/dl (32-36); Mean Corpuscular Hemoglobin 28.5 pg (26-34); Mean Corpuscular Volume 89.6 fl (80-100); Mean Platelet Volume 10.7 fl (7.4-10.4); Monocytes Absolute Auto 0.7 K/mm3 (0.1-0.6); Monocytes Percent Auto 9.6 % (2.6-8.5); Neutrophils Absolute Auto 3.5 K/mm3 (1.3-6.7); Neutrophils Percent Auto 46.8 % (45.5-73.1); Platelet Count Result 355 k/mm3 (150-375); Red Blood Count 3.93 M/mm3 (4.2-5.4); White Blood Count 7.4 K/mm3 (4.5-10.0)
[2024-05-07 07:49] LABS: Alanine Aminotransferase 9 U/L (6-35); Albumin Level 3.2 g/dL (3.5-5.1); Alkaline Phosphatase 71 U/L (38-126); Anion Gap 4 mmol/L (4-12); Aspartate Amino Transferase 20 U/L (14-36); Bilirubin,Total 0.6 mg/dL (0.2-1.3); Blood Urea Nitrogen 18 mg/dL (7-17); Calcium 8.5 mg/dL (8.4-10.2); Carbon Dioxide 28 mmol/L (22-30); Chloride 106 mmol/L (98-107); Estimated CRCL calculation 39 ml/min; Estimated Glomerular Filt Rate 54; Glucose 100 mg/dL (65-110); Magnesium 1.7 mg/dL (1.6-2.3); Potassium 3.6 mmol/L (3.4-5.0); Sodium 138 mmol/L (137-145)
[2024-05-07 07:57] LABS: Glucose Point of Care 101 mg/dl (65-105)
[2024-05-07 08:00] VITALS: O2SAT 96
[2024-05-07] MEDS: CALCIUM/VITAMIN D 500 MG/5 MCG (200 I.U.) TABLET PO (08:20)
[2024-05-07] MEDS: amLODIPine BESYLATE 5 MG TABLET PO (08:20)
[2024-05-07 08:21] VITALS: PULSE 70
[2024-05-07] MEDS: ASPIRIN 81 MG CHEWABLE TABLET PO (08:21)
[2024-05-07] MEDS: METOPROLOL TARTRATE 25 MG TABLET PO (08:21)
[2024-05-07] MEDS: ESCITALOPRAM OXALATE 5 MG TABLET PO (08:21)
[2024-05-07] MEDS: ENOXAPARIN 40 MG/0.4 ML SYRINGE SUB-Q (08:21)
[2024-05-07] MEDS: THERAPEUTIC MULTIVITAMINS/MINERALS TAB (*BKC) 1 TABLET PO (08:21)
[2024-05-07] MEDS: MEMANTINE HCL XR 28 MG CAP PO (08:21)
[2024-05-07] MEDS: SENNOSIDES 8.6 MG TABLET PO (08:21)
[2024-05-07] MEDS: PANTOPRAZOLE 40 MG TABLET PO (08:22)
[2024-05-07] MEDS: POTASSIUM CHLORIDE 20 MEQ PACKET (FOR LIQUID) 40 MEQ PO (08:22)
[2024-05-07] MEDS: polyethylene glycoL 3350 17 GM POWD.PACK PO (08:22)
[2024-05-07 11:32] LABS: Glucose Point of Care 153 mg/dl (65-105)
--- NOTE | 2024-05-07 11:49 | P.DS_ITS ---
DS: Admitting Diagnosis Discharge Date 05/07/2024 Admitting Diagnosis Nausea vomiting diarrhea DS: Discharge Diagnosis Discharge Diagnosis (1) Fecal impaction: Code(s): K56.41 - Fecal impaction Status: Acute (2) Stercoral colitis: Code(s): K52.89 - Other specified noninfective gastroenteritis and colitis Status: Acute (3) Abnormal urinalysis: Code(s): R82.90 - Unspecified abnormal findings in urine Status: Acute (4) Indwelling Cabral catheter present: Code(s): Z97.8 - Presence of other specified devices Status: Acute (5) Reflux esophagitis: Code(s): K21.00 - Gastro-esophageal reflux disease with esophagitis, without bleeding Status: Acute (6) Alzheimer dementia: Code(s): G30.9 - Alzheimer's disease, unspecified; F02.80 - Dementia in other diseases c lassified elsewhere, unspecified severity, without behavioral disturbance, psychotic disturbance, mood disturbance, and anxiety Status: Acute (7) Hypertension: Code(s): I10 - Essential (primary) hypertension Status: Acute (8) Insulin dependent type 2 diabetes mellitus: Code(s): E11.9 - Type 2 diabetes mellitus without complications; Z79.4 - [facility] (current) use of insulin Status: Acute DS: Summary Hospital Course Hospital Course: This is a 78-year-old female with dementia, hypertension, hyperlipidemia, coronary artery disease, gastroesophageal reflux disease, reflux esophagitis, insulin-dependent type 2 diabetes mellitus, depression, and anxiety presented to the emergency department via EMS from a local nursing facility for evaluation of nausea, vomiting, and diarrhea. She suffers from severe short-term memory loss and is unable to provide an accurate history and all of the following is obtained via a review of her electronic medical records. This will be her 3rd admission to the hospital in the last 5 weeks after presenting each time with similar stated complaints, most recently she was discharged on 04/11/2024. It is my understanding that she has been refusing to eat on occasion and frequently complains of nausea and vomiting, sometimes self-induced according to nursing notes. Recent EGD showed reflux esophagitis grade 2 and it was recommended that she continue on a PPI and Carafate however she was not discharged on Carafate. Stomach biopsies showed no histologic abnormality and was negative for H pylori. Also of note she was noted to have fecal impaction and stercoral colitis on imaging. She presents again today with nausea, vomiting, and diarrhea. On arrival to the ED she was noted to have passed a soft brown stool. Reports of nausea have been inconsistent. She has not vomited since arrival. Currently the patient has no complaints but again she has severe short-term memory loss, perhaps minutes, and she is not reliable historian. In the ED: She was afebrile on arrival with stable vital signs. Labs are significant for WBC count of 14.2, carbon dioxide 31, BUN 20, creatinine 0.80, glucose 199. Urinalysis was highly concentrated with a specific gravity greater than 1.045 and was positive for 2+ protein, 2+ leukocyte esterase, greater than 100 WBC, rare bacteria, and few squamous cells. She does have indwelling Cabral catheter. She was given a L of normal saline and started on vancomycin for possible UTI, given history of Enterococcus UTI. She was also given an enema and passed a very large stool according to the ED provider. She has not had any episodes nausea vomiting throughout the hospital stay. CT evidence of likely constipation with fecal impaction and associated stercoral colitis with perirectal area with trace stranding surrounding 9 cm ball of stool at the rectum. With intimacy started having bowel movement now. This will be her 3rd admission to the hospital in the last 5 weeks after presenting with similar complaints. Ongoing nausea and intermittent vomiting is likely due to reflux esophagitis noted on recent EGD for which she is not receiving Carafate as suggested. Patient has been witnessed trying to induce vomiting as well. Resume PPI and schedule Carafate. The diarrhea is likely due to overflow from a large fecal impaction seen on CT scan. Continue on bowel regimen. And added MiraLax at discharge Urinalysis is abnormal however she has an indwelling Cabral catheter and due to lack of pain on examination and fever we will hold on further antibiotics. Urine culture no growth. Blood culture no growth to date. Urinalysis abnormal due to likely colonization continue Cabral exchange monthly as previously ordered Type 2 diabetes: Continue basal insulin. Initiate sliding scale insulin, Accu- Cheks, and hypoglycemic protocol. DVT prophylaxis Lovenox Code status full code Time Spent with Patient Time attestation: Total time spent providing and/or coordinating discharge services: Exam Narrative: General: Chronically ill-appearing female supine in bed. Not in acute distress HEENT: Slightly hard of hearing. Pupils are slightly irregular but are reactive. Sclera anicteric. Edentulous. Tacky mucous membranes. Neck: Supple. Respiratory: Lungs are clear to auscultation bilaterally. No respiratory distress Cardiovascular: Regular rate and rhythm with S1-S2. Gastrointestinal: Abdomen is soft, nontender, and nondistended with positive bowel sounds. No CVA tenderness. Genitourinary: Cabral catheter draining cloudy yellow urine with some sediment. Skin: Warm and dry. Raised, friable lesion on the right lower back. Extremities: No cyanosis, clubbing, or edema. Bilateral transmetatarsal amputations. Radial pulses palpable. Neurological: Alert to name, age, and date date of only. Cranial nerves 2-12 are grossly intact. No new, gross focal deficits. Psychiatric: Pleasantly confused and cooperative. She has extreme short-term memory impairment. DS: Data Data Completed and Pending Labs on day of discharge: Labs from last 24 hours 05/07/24 05/07/24 05/07/24 11:18 07:29 07:02 WBC 7.4 RBC 3.93 L Hgb 11.2 L Hct 35.2 L MCV 89.6 MCH 28.5 MCHC 31.8 L RDW 14.0 Plt Count 355 MPV 10.7 H Immature Gran % (Auto) 0.4 Neut % (Auto) 46.8 Lymph % (Auto) 38.5 [place] % (Auto) 9.6 H Eos % (Auto) 3.9 Baso % (Auto) 0.8 Lymph # (Auto) 2.84 [place] # (Auto) 0.7 H Eos # (Auto) 0.3 Baso # (Auto) 0.1 Abs Immat Gran (auto) 0.03 Absolute Neuts (auto) 3.5 Absolute Nucleated RBC 0.000 Nucleated RBC % 0.0 Sodium 138 Potassium 3.6 Chloride 106 Carbon Dioxide 28 Anion Gap 4 BUN 18 H Creatinine 1.00 Estim Creat Clear Calc 39 Estimated GFR 54 L Glucose 100 POC Capillary Glucose 153 H 101 Calcium 8.5 Magnesium 1.7 Total Bilirubin 0.6 AST 20 ALT 9 Alkaline Phosphatase 71 Total Protein 6.0 L Albumin 3.2 L 05/06/24 05/06/24 21:13 16:03 WBC RBC Hgb Hct MCV MCH MCHC RDW Plt Count MPV Immature Gran % (Auto) Neut % (Auto) Lymph % (Auto) [place] % (Auto) Eos % (Auto) Baso % (Auto) Lymph # (Auto) [place] # (Auto) Eos # (Auto) Baso # (Auto) Abs Immat Gran (auto) Absolute Neuts (auto) Absolute Nucleated RBC Nucleated RBC % Sodium Potassium Chloride Carbon Dioxide Anion Gap BUN Creatinine Estim Creat Clear Calc Estimated GFR Glucose POC Capillary Glucose 191 H 181 H Calcium Magnesium Total Bilirubin AST ALT Alkaline Phosphatase Total Protein Albumin Preliminary micro results at discharge 05/04/24 18:25 Blood Culture - Preliminary Blood 05/04/24 18:25 Blood Culture - Preliminary Blood Imaging Radiologist's impression: ITS Impressions Abdomen/Pelvis CT 05/04/24 15:21 IMPRESSION: 1. Likely constipation with fecal impaction and associated stercoral colitis with perirectal and from trace stranding surrounding a 9 similar ball of stool at the rectum. 2. Small to moderate-sized sliding-type hernia with wall thickening at the mid to distal esophagus suspicious for reflux esophagitis. Discharge Plan Discharge Attending physician on discharge: Jose Carvalho Discharging Clinician: Jose Carvalho Anticipated Discharge Date/Time: 05/07/24 11:50 Patient Disposition: NH Care Home/Asst Living Activity: as tolerated Diet: diabetic Discharge Instructions: Accu-Cheks AC and HS Cabral catheter changed at least every 1 month Patient Instructions: Antibiotic Form Stand Alone Forms: General Discharge Information, Snf Discharge Follow-up/Referrals: Willian Chowdhury MD [Primary Care Provider] - 1 Week Discharge Medications: New sucralfate 100 mg/mL Suspension 1,000 mg PO ACHS Qty: 300 0RF polyethylene glycol 3350 [Miralax] 17 gram Powder In Packet 17 g PO QAM Qty: 30 0RF Continued amlodipine 5 mg tablet 5 mg PO DAILY acetaminophen 325 mg Tablet,Chewable 650 mg PO Q6H PRN (Reason: Pain) bisacodyl 10 mg Suppository 10 mg RECTAL DAILY PRN (Reason: Constipation) Rx Instructions: if no results from MOM Fleet Enema 19-7 gram/118 mL Enema 118 ml RECTAL DAILY PRN (Reason: Constipation) Rx Instructions: if no results from suppository in 24hrs aspirin 81 mg Tablet,Chewable 81 mg PO DAILY GlucaGen HypoKit 1 mg recon soln 1 mg IM PRN PRN (Reason: Hypoglycemia) escitalopram oxalate 5 mg tablet 5 mg PO DAILY cranberry 450 mg Tablet 450 mg PO DAILY Rx Instructions: administer with a meal atorvastatin [Lipitor] 10 mg Tablet 10 mg PO HS magnesium hydroxide [Milk of Magnesia] 400 mg/5 mL Suspension 30 ml PO DAILY PRN (Reason: Constipation) Rx Instructions: if no BMin 3 days mirtazapine 15 mg tablet 15 mg PO HS metoprolol tartrate 25 mg tablet 25 mg PO BID multivit with min-folic acid 0.4 mg Tablet 1 tablet PO DAILY memantine 28 mg capsule,sprinkle,ER 24hr 28 mg PO DAILY docosahexaenoic acid-epa Capsule 1 cap PO DAILY ondansetron 4 mg tablet,disintegrating 4 mg PO Q6H PRN (Reason: nausea and vomiting) calcium carbonate-vitamin D3 [Oyster Shell Calcium-Vit D3] 500 mg-5 mcg (200 unit) Tablet 1 tablet PO DAILY@0800 Qty: 90 0RF sennosides [senna] 8.6 mg Tablet 8.6 mg PO DAILY Qty: 90 0RF potassium chloride 20 mEq Packet 40 meq PO DAILY Qty: 5 0RF Changed insulin glargine [Lantus Solostar U-100 Insulin] 100 unit/mL (3 mL) insulin pen 25 unit SUBCUT HS Qty: 30 0RF Date of admission: 05/05/24 09:15 Primary Care Provider: Willian Chowdhury Admitting Provider: Jose Carvalho Attending physician on admission: Jose Carvalho Condition: Stable
== END 2024-05-07 13:37 | DRG 392 ==
LOC: ANHED 17:21 → ANH3MEDSUR 18:55
PROVIDERS: Physician Assistant; Admitting Provider Internal Medicine; Emergency Provider Physician Assistant; PCP Hospitalist; Visit Provider Internal Medicine
DX: K52.89 Other specified noninfective gastroenteritis and colitis (principal); K56.41 Fecal impaction; I10 Essential (primary) hypertension; I25.10 Atherosclerotic heart disease of native coronary artery without angina pectoris; J44.9 Chronic obstructive pulmonary disease, unspecified; R82.90 Unspecified abnormal findings in urine; E78.5 Hyperlipidemia, unspecified; E11.9 Type 2 diabetes mellitus without complications; K21.9 Gastro-esophageal reflux disease without esophagitis; N31.9 Neuromuscular dysfunction of bladder, unspecified; G30.9 Alzheimer's disease, unspecified; F02.80 Dementia in other diseases classified elsewhere, unspecified severity, without behavioral disturbance, psychotic disturbance, mood disturbance, and anxiety; F41.9 Anxiety disorder, unspecified; F32.9 Major depressive disorder, single episode, unspecified; Z79.82 Long term (current) use of aspirin; Z89.422 Acquired absence of other left toe(s); Z89.421 Acquired absence of other right toe(s)
CPT/HCPCS: 36415; 74177; 80048; 80053; 81001; 82948; 83690; 83735; 85025; 85027; 87040; 87086; 96361; 96367; 96374; 96375; 99285; A9270; G0378; J1650; J1815; J2405; J3370; J3475; J7030; J7040; Q9967

== ENCOUNTER 2024-09-02 14:29 | Emergency (ER) | payer MEDICARE, SELFPAY ==
[2024-09-02 14:30] VITALS: BP 143/60; PULSE 74; RESP 18; TEMP 36.6; O2SAT 98
--- NOTE | 2024-09-02 15:40 | ED_ITS ---
HPI - Female Genitourinary General Chief complaint: Urogenital-Female Stated complaint: urinary catheter dislodged Time Seen by Provider: 09/02/24 15:10 History of Present Illness HPI Narrative: 79-year-old female with history of dementia. she presents from her group home facility because her indwelling urinary catheter was dislodged. care home staff stated that they were uncomfortable placing a new one. Patient herself is alert and oriented at her baseline mentation, very pleasant and cooperative. She has no concerns at this time and wants to go back to the facility without a urinary catheter. She states she can now normally in her diaper and does not feel uncomfortable. Would prefer not having an indwelling Cabral. No pain, no nausea, vomiting. No fever chills. She is acting appropriately. She can be safely discharged back at this time. Related Data Home Medications ?Medication ?Instructions ?Recorded ?Confirmed ?Last Taken ?Type acetaminophen 325 mg chewable 650 mg PO Q6H PRN Pain 12/24/23 05/04/24 Unknown History tablet amlodipine 5 mg tablet 5 mg PO DAILY 12/24/23 05/04/24 Unknown History aspirin 81 mg chewable tablet 81 mg PO DAILY 12/24/23 05/04/24 Unknown History atorvastatin 10 mg tablet (Lipitor) 10 mg PO HS 12/24/23 05/04/24 Unknown History bisacodyl 10 mg rectal suppository 10 mg RECTAL DAILY PRN Constipation 12/24/23 05/04/24 Unknown History cranberry fruit 450 mg tablet 450 mg PO DAILY 12/24/23 05/04/24 Unknown History (cranberry) escitalopram oxalate 5 mg tablet 5 mg PO DAILY 12/24/23 05/04/24 Unknown History glucagon 1 mg solution for 1 mg IM PRN PRN Hypoglycemia 12/24/23 05/04/24 Unknown History injection (GlucaGen HypoKit) magnesium hydroxide 400 mg/5 mL 30 ml PO DAILY PRN Constipation 12/24/23 05/04/24 Unknown History oral suspension (Milk of Magnesia) memantine 28 mg capsule 28 mg PO DAILY 12/24/23 05/04/24 Unknown History sprinkle,extended release 24hr metoprolol tartrate 25 mg tablet 25 mg PO BID 12/24/23 05/04/24 Unknown History mirtazapine 15 mg tablet 15 mg PO HS 12/24/23 05/04/24 Unknown History multivitamin with minerals-folic 1 tablet PO DAILY 12/24/23 05/04/24 Unknown History acid 0.4 mg tablet sodium phosphates 19 gram-7 118 ml RECTAL DAILY PRN 12/24/23 05/04/24 Unknown History gram/118 mL enema (Fleet Enema) Constipation docosahexaenoic acid (dha)-epa 1 cap PO DAILY 04/03/24 05/04/24 Unknown History capsule ondansetron 4 mg disintegrating 4 mg PO Q6H PRN nausea and vomiting 04/03/24 05/04/24 Unknown History tablet Allergies Allergy/AdvReac Type Severity Reaction Status Date / Time Penicillins Allergy Unknown Verified 05/04/24 21:08 Sulfa (Sulfonamide Allergy Unknown Verified 05/04/24 21:08 Antibiotics) trazodone Allergy Unknown Verified 05/04/24 21:08 Review of Systems Review of Systems: As reviewed above in HPI [facility] Past Medical History Medical History Type 2 diabetes mellitus Depression Hard of hearing Chronic obstructive pulmonary disease Gastroesophageal reflux disease Hyperlipidemia Hypertension Coronary artery disease Anorexia Dementia Chronic indwelling Cabral catheter Anxiety Third nerve palsy of right eye Neuromuscular dysfunction of bladder Surgical History Surgical History History of esophagogastroduodenoscopy (04/09/24) reflux esophagitis History of transmetatarsal amputation of right foot History of transmetatarsal amputation of foot Family History Family History Other Family history unknown Social History Social History Social History: Healthcare power of attorney law clerk: Angelica Singhs, daughter. Code status: Full code. Smoking status: Never smoker Second hand tobacco smoke exposure: No Alcohol intake: never Substance use: never Substance use type: does not use Do You Feel Safe in your Home?: Yes Lack of Transportation: YES Lack of Food: Never True Current Housing: I Have Housing Concerned About Future Housing: No Difficulty Paying Gas/Electric Bills: No Difficulty Paying for Meds: No Currently Unemployed: No Education: Don't Know Difficulty w/ Childcare or Family Care: No Spiritual care concerns: No Exam Narrative: GENERAL: [Well-appearing, well-nourished, and in no acute distress.] HEAD: [Normocephalic, atraumatic.] EYES: [PERRLA and EOMI.] ENT: Nares clear, no rhinorrhea or epistaxis. Mucous membranes moist. NECK: Supple. CHEST: [Clear to auscultation. No respiratory distress.] HEART: [Regular rate and rhythm]. No murmur heard. [Normal peripheral pulses.] ABDOMEN: [Soft, nondistended], [nontender], [No rigidity or guarding] EXTREMITIES: Normal range of motion. [No edema.] SKIN: Warm, dry, no rash. NEURO: [No focal deficits]. Alert and oriented At her baseline PSYCH: [Normal mood and affect.] Course Vital Signs Vital signs: Vital Signs Temperature 36.6 C 09/02/24 14:30 Pulse Rate 74 09/02/24 14:30 Respiratory Rate 18 09/02/24 14:30 Blood Pressure 143/60 H 09/02/24 14:30 Pulse Oximetry 98 09/02/24 14:30 Oxygen Delivery Room Air 09/02/24 14:30 Temperature 36.6 C 09/02/24 14:30 Pulse Rate 74 09/02/24 14:30 Respiratory Rate 18 09/02/24 14:30 Blood Pressure 143/60 H 09/02/24 14:30 Pulse Oximetry 98 09/02/24 14:30 Oxygen Delivery Room Air 09/02/24 14:30 MDM - Female Genitourinary MDM Narrative Medical decision making narrative: 79-year-old female with a history of dementia. Her skilled nursing notes were reviewed and she is comfort measures only status per the signed advanced directive. She presents to the ER as her skilled nursing staff noted that her urinary catheter became dislodged. Patient has no complaints whatsoever. She is acting appropriately. She wishes to be discharged back to [facility] without a catheter. No present indications for indwelling Cabral catheter as she is not having any urinary retention, abdominal pain, nausea, vomiting or any other symptoms. Patient is alert, oriented and feels like she can safely urinate into her diaper like normal. Ambulance transfer will be arranged back to her facility at this time. Medical Records Attestation: I reviewed the patient's medical records. Discharge Plan Discharge Clinical Impression: Displacement of Cabral catheter, Comfort measures only status Patient Disposition: NH Mcfp/Asst Living Condition: Stable Instructions: Antibiotic Form Additional Instructions: You requested to go back to your facility without a catheter. No indications for catheter at this time. we will send you back. If you have any trouble urinating you will need a catheter Again. Patient Language: [place] Prescriptions: No Action amlodipine 5 mg tablet 5 mg PO DAILY acetaminophen 325 mg Tablet,Chewable 650 mg PO Q6H PRN (Reason: Pain) bisacodyl 10 mg Suppository 10 mg RECTAL DAILY PRN (Reason: Constipation) Rx Instructions: if no results from MOM Fleet Enema 19-7 gram/118 mL Enema 118 ml RECTAL DAILY PRN (Reason: Constipation) Rx Instructions: if no results from suppository in 24hrs aspirin 81 mg Tablet,Chewable 81 mg PO DAILY GlucaGen HypoKit 1 mg recon soln 1 mg IM PRN PRN (Reason: Hypoglycemia) escitalopram oxalate 5 mg tablet 5 mg PO DAILY cranberry 450 mg Tablet 450 mg PO DAILY Rx Instructions: administer with a meal atorvastatin [Lipitor] 10 mg Tablet 10 mg PO HS magnesium hydroxide [Milk of Magnesia] 400 mg/5 mL Suspension 30 ml PO DAILY PRN (Reason: Constipation) Rx Instructions: if no BMin 3 days mirtazapine 15 mg tablet 15 mg PO HS metoprolol tartrate 25 mg tablet 25 mg PO BID multivit with min-folic acid 0.4 mg Tablet 1 tablet PO DAILY memantine 28 mg capsule,sprinkle,ER 24hr 28 mg PO DAILY docosahexaenoic acid-epa Capsule 1 cap PO DAILY ondansetron 4 mg tablet,disintegrating 4 mg PO Q6H PRN (Reason: nausea and vomiting) calcium carbonate-vitamin D3 [Oyster Shell Calcium-Vit D3] 500 mg-5 mcg (200 unit) Tablet 1 tablet PO DAILY@0800 Qty: 90 0RF sennosides [senna] 8.6 mg Tablet 8.6 mg PO DAILY Qty: 90 0RF potassium chloride 20 mEq Packet 40 meq PO DAILY Qty: 5 0RF polyethylene glycol 3350 [Miralax] 17 gram Powder In Packet 17 g PO QAM Qty: 30 0RF sucralfate 100 mg/mL Suspension 1,000 mg PO ACHS Qty: 300 0RF insulin glargine [Lantus Solostar U-100 Insulin] 100 unit/mL (3 mL) insulin pen 25 unit SUBCUT HS Qty: 30 0RF Follow-up/Referrals: Willian Chowdhury MD [Primary Care Provider] - Stand Alone Forms: Group Home Discharge Time of Disposition: 15:39
--- NOTE | 2024-09-02 15:54 | PC.NURSE ---
Attempted to call report to [place] with no answer
[2024-09-02 16:22] VITALS: BP 138/57; PULSE 62; RESP 18; O2SAT 98
--- NOTE | 2024-09-02 16:28 | PC.NURSE ---
Attempted to call report again prior to patient being transported back to facility with no answer
== END 2024-09-02 16:30 ==
PROVIDERS: Emergency Provider Student in an Organized Health Care Education/Training Program; PCP Hospitalist
DX: T83.021A Displacement of indwelling urethral catheter, initial encounter (principal); Z51.5 Encounter for palliative care; F03.90 Unspecified dementia, unspecified severity, without behavioral disturbance, psychotic disturbance, mood disturbance, and anxiety; I10 Essential (primary) hypertension; I25.10 Atherosclerotic heart disease of native coronary artery without angina pectoris; J44.9 Chronic obstructive pulmonary disease, unspecified; E11.9 Type 2 diabetes mellitus without complications; E78.5 Hyperlipidemia, unspecified; K21.9 Gastro-esophageal reflux disease without esophagitis; N31.9 Neuromuscular dysfunction of bladder, unspecified; F41.9 Anxiety disorder, unspecified; F32.A Depression, unspecified; Z89.431 Acquired absence of right foot; Y84.6 Urinary catheterization as the cause of abnormal reaction of the patient, or of later complication, without mention of misadventure at the time of the procedure; Z79.82 Long term (current) use of aspirin; Z79.899 Other long term (current) drug therapy; Z79.4 Long term (current) use of insulin
CPT/HCPCS: 99281